=== PATIENT | male | born 1940 | race Caucasian/White ===

== ENCOUNTER 2020-08-10 09:05 | Outpatient (REF) | payer MEDICARE, BC, SELFPAY ==
--- NOTE | ~2020-08-10 | XR_ITS ---
EXAMINATION: BILATERAL SHOULDERS: CLINICAL INFORMATION: Right shoulder pain COMPARISON: None TECHNIQUE: 3 views each shoulder. FINDINGS: Right shoulder: There is loss of a C and lateral joint space with periarticular spurring. No fracture, loose bodies or soft tissue swelling seen. There is inferior acromial spurring likely impinging the rotator cuff. Left shoulder: There is loss of glenohumeral joint space without acute fracture dislocation. There is a small loose body or an osteophyte along the superior medial aspect of humeral head with minimal flattening of humeral head medially likely old injury. There is cephalic migration of humeral head in relation to the glenoid with mild lateral acromial spurring. There is likely partial tear of the left humerus and impingement. No soft tissue swelling seen. XR/XR shoulder RT min 2V IMPRESSION: Small loose body or osteophyte along the medial humeral head left shoulder. There is cephalic migration and acromial spurring likely impingement and partial tear of the rotator cuff. No fracture seen. There is degenerative arthritic changes right AC joint and lateral joint with periarticular spurring. Impingement of right rotator cuff tendon is suspected. No acute fracture or loose bodies seen.
--- NOTE | ~2020-08-10 | XR_ITS ---
EXAMINATION: BILATERAL SHOULDERS: CLINICAL INFORMATION: Right shoulder pain COMPARISON: None TECHNIQUE: 3 views each shoulder. FINDINGS: Right shoulder: There is loss of a C and lateral joint space with periarticular spurring. No fracture, loose bodies or soft tissue swelling seen. There is inferior acromial spurring likely impinging the rotator cuff. Left shoulder: There is loss of glenohumeral joint space without acute fracture dislocation. There is a small loose body or an osteophyte along the superior medial aspect of humeral head with minimal flattening of humeral head medially likely old injury. There is cephalic migration of humeral head in relation to the glenoid with mild lateral acromial spurring. There is likely partial tear of the left humerus and impingement. No soft tissue swelling seen. XR/XR shoulder LT min 2V IMPRESSION: Small loose body or osteophyte along the medial humeral head left shoulder. There is cephalic migration and acromial spurring likely impingement and partial tear of the rotator cuff. No fracture seen. There is degenerative arthritic changes right AC joint and lateral joint with periarticular spurring. Impingement of right rotator cuff tendon is suspected. No acute fracture or loose bodies seen.
[2020-08-10 11:08] LABS: MANUAL DIFF FLAG NO
[2020-08-10 11:22] LABS: Basophils Absolute Auto 0.1 X10*3/uL (0.0-0.2); Basophils Percent Auto 0.9 % (0-2); Eosinophils Absolute Auto 0.3 X10*3/uL (0.0-0.4); Eosinophils Percent Auto 3.8 % (0-4); Hematocrit 40.4 % (42-52); Hemoglobin 12.8 g/dl (14.0-18.0); Imm Gran Abs Auto 0.02 X10*3/uL (0.00-0.03); Imm Gran Pct Auto 0.3 % (0.0-0.4); Lymphocytes Absolute Auto 1.7 X10*3/uL (1.2-4.9); Lymphocytes Percent Auto 26.1 % (20-40); Mean Corpuscular HGB Conc 31.7 g/dl (31.0-36.0); Mean Corpuscular Hemoglobin 30.3 pg (27.0-33.0); Mean Corpuscular Volume 95.7 fL (80-98); Mean Platelet Volume 10.5 fL (9.4-12.4); Monocytes Absolute Auto 0.8 X10*3/uL (0.1-1.2); Monocytes Percent Auto 12.7 % (2-11); Neutrophils Absolute Auto 3.7 X10*3/uL (2.0-8.3); Neutrophils Percent Auto 56.2 % (45-73); Platelet Count 293 X10*3/uL (160-400); Red Blood Count 4.22 X10*6/uL (4.60-5.80); Red Cell Distribution Width 13.7 % (11.0-16.0); White Blood Count 6.6 X10*3/uL (4.8-10.8)
[2020-08-10 11:40] LABS: C Reactive Protein 0.06 mg/dL (< or = 0.50); Rheumatoid Factor < 15.0 IU/mL (<15.0)
[2020-08-10 12:46] LABS: Erythrocyte Sedimentation Rate 7 MM/HR (0-15)
== END 2020-08-10 09:06 | disposition home or self-care (01) ==
LOC: HO.HMGCX 09:05
PROVIDERS: PCP Internal Medicine; Visit Provider Internal Medicine
DX: M25.511 Pain in right shoulder (principal); M25.512 Pain in left shoulder
CPT/HCPCS: 36415; 73030; 85025; 85652; 86140; 86431

== ENCOUNTER 2020-08-20 16:30 | Emergency (ER) | payer MEDICARE, BC, SELFPAY ==
[2020-08-20 16:46] VITALS: BP 209/95; PULSE 120; RESP 16; TEMP 36.6; O2SAT 99; BMI 26.9
--- NOTE | 2020-08-20 17:37 | ED.MALEGU ---
HPI - Male Genitourinary General Chief complaint: Urogenital-Male Stated complaint: Super Pubic Tube Blockage Time Seen by Provider: 08/20/20 17:37 Source: patient Mode of arrival: ambulatory Limitations: no limitations History of Present Illness HPI Narrative: Patient on suprapubic catheter for last one year changed 2 weeks ago comes here is having bladder spasm for last 24 hours and urine is not coming that well similar to that in the past. No fever no chills bladder scan showed 253 cc in bladder Related Data Allergies Allergy/AdvReac Type Severity Reaction Status Date / Time No Known Allergies Allergy Verified 08/20/20 16:48 [No Known Allergies*] Review of Systems Review of Systems: Yes all other systems are reviewed and are negative [facility] Past Medical History Medical History Diabetes HTN (hypertension) Suprapubic catheter Social History Social History Alcohol intake: never Smoking Status: Never smoker Use of substances other than those prescribed or required for medical reasons: No Advance Directives: No Advance Directives Information Provided: Yes Physical Exam Vital Signs: Vital Signs: Last Vital Signs Temp 97.9 F 08/20/20 18: Pulse 88 08/20/20 18:21 Resp 18 08/20/20 18:21 BP 155/76 H 08/20/20 18:21 Pulse Ox 95 08/20/20 18:21 Body Mass Index 26.9 Appearance: Alert. Oriented X3. No acute distress. Eyes: Pupils equal, round and reactive to light. ENT: Pharynx normal. Neck: Normal inspection. Neck supple. CVS: Normal heart rate and rhythm. Pulses normal. Respiratory: No respiratory distress. Breath sounds normal. Abdomen: Soft and nontender. Bowel sounds are present, no mass palpable, no CVA tenderness suprapubic catheter in place Skin: Skin warm and dry. Normal skin color. Normal skin turgor. Extremities: No lower extremity edema. Neuro: Oriented X 3. No motor deficit. No sensory deficit. Procedures Catheter Insertion (Urinary) Date of insertion: 08/20/20 Time of insertion: 18:02 Reason for placing: Yes Reason for placing indwelling catheter: Acute urinary retention Bladder scan/ultrasound used before catheterization: Yes Estimated amount of urine (mLs): 268 Antiseptic solution prep: Povidone-Iodine Topical anesthesia used: No Catheter type/location: Urethral Size (Occitan): 20 Catheter balloon size (mL): 10 Catheter balloon amount: 10 Results: successfully catheterized-immediate flow Procedure performed: without complications Comment: Suprapubic catheter MDM - Male Genitourinary MDM Narrative Medical decision making narrative: Patient with partially blocked suprapubic catheter bladder scan showed [address] new suprapubic catheter Patient urine showed no bacteria leuko esterase 2+ nitrite negative WBCs 1-4. Will send the urine for culture at this time there is no clear-cut UTI patient advised to follow-up with PCP to report to the ER if any fever/chills/nausea/vomiting/increased abdominal pain Lab Data Labs: Lab Results 08/20/20 Range/Units 18:00 Urine Color YELLOW Urine Appearance HAZY Urine pH 6.5 (5.0-8.0) Ur Specific [place] 1.010 (1.005-1.025) Urine Protein NEG (NEG-TRACE) MG/DL Urine Glucose (UA) NEG (NEG) MG/DL Urine Ketones NEG (NEG) MG/DL Urine Blood 2+ H (NEG) Urine Nitrite NEG (NEG) Ur Leukocyte Esterase 2+ H (NEG) Urine RBC 1-4 (0) /HPF Urine WBC 1-4 (0-4) /HPF Ur Squamous Epith Cells NONE /LPF Urine Bacteria TRACE /LPF Discharge Plan Discharge Clinical Impression: Acute retention of urine Patient Disposition: Home, Self-Care Instructions: Portillo Catheter Placement and Care (ED) Additional Instructions: Care of Portillo catheter as advised. Will culture urine and let you know of any infection Report to the ER/PCP if fever chills on getting better
--- NOTE | 2020-08-20 17:57 | PC.NURSE ---
PT UPRIGHT IN BED, RR EVEN UNLABORED, SKIN WPD, AOX3. PT PRESENTS TO ED C/O SUPRAPUBIC CATHETER NOT DRAINING X4 HRS, C/O LOWER ABD PAIN SECONDARY TO URINARY RETENTION. CATHETER REPLACED BY DR OLSON, PT REPORTS IMMEDIATE SIGNIFICANT IMPROVEMENT IN SX AFTER DRAINING OF URINE. PT AWAITING UA.
[2020-08-20 18:13] LABS: Glucose Urine UA NEG (NEG); Leukocyte Esterase Urine 2+ (NEG); Nitrite Urine NEG (NEG); PH 6.5 (5.0-8.0); UACC Culture Trigger YES; Urine Blood 2+ (NEG); Urine Ketones NEG (NEG); Urine Protein NEG (NEG-TRACE)
[2020-08-20 18:14] LABS: Appearance Urine HAZY; Color Urine YELLOW
[2020-08-20 18:21] VITALS: BP 155/76; PULSE 88; RESP 18; TEMP 36.6; O2SAT 95
[2020-08-20 18:23] LABS: Bacteria Urine TRACE /LPF
== END 2020-08-20 18:38 | disposition home or self-care (01) ==
PROVIDERS: Emergency Provider Internal Medicine; PCP Internal Medicine
DX: R33.9 Retention of urine, unspecified (principal)
CPT/HCPCS: 51702; 81001; 81003; 87086; 99284; 99285

== ENCOUNTER → 2020-08-21 10:22 | Outpatient (REF) | payer MEDICARE, BC, SELFPAY ==
--- NOTE | 2020-08-21 10:30 | CA_ITS ---
Transthoracic Echocardiogram Patient (Last, First, Middle): Delroy Wheat B Gender: Male Date of : 1940 Age: 80 Procedure Date: 08/21/2020 Procedure Type: Transthoracic Echocardiogram Location: OP Height: 177.8 cm Weight: 86.18 kg BSA: 2.04 m2 Heart Rate: bpm BP: 150 / 70 mmHg Leasing Assistant: [facility] MD: Per Seay MD Bench Boring Machine Operator: Liam Sotelo MD Symptoms: I47.1 ATRIAL TACHYCARDIA, I49.3 PVC R00.2 PALPITATIONS Study Quality: Fair ECG Rhythm: Sinus Conclusions: - 1. Normal LV systolic function with impaired relaxation filling pattern 2. Normal cardiac valvular Doppler 3. RV systolic pressure was not calculated on this study 4. No pericardial effusion Findings Procedure Information Contrast agent, definity, is being given per protocol without apparent complications. Left Ventricle Normal left ventricular size, thickness, and systolic function. The visually estimated ejection fraction is between 60-65%. Spectral Doppler is indicative of an impaired relaxation filling pattern. E/E prime ratio is between 8 and 15 consistent with indeterminate filling pressures. Right Ventricle Normal right ventricular cavity size and systolic function. Atria The left atrium is normal in size. There is no evidence of interatrial shunt. The right atrium is normal in size. Aortic Valve There is mild calcification of the aortic valve. There is moderate thickening of the aortic valve. There is no aortic valve stenosis. There is no aortic valve regurgitation. Mitral Valve There is mild anterior and moderate posterior mitral leaflet thickening. There is moderate mitral annular calcification. There is trace mitral valve regurgitation. There is no mitral valve stenosis. Pulmonic Valve The pulmonic valve was not well visualized. Tricuspid Valve Likely normal tricuspid valve structure and function. Tricuspid regurgitation envelope is inadequate for calculation of right ventricular systolic pressure. Great Vessels All visible segments of the aorta are normal in size. The pulmonary artery was not well visualized. Venous The inferior vena cava is normal in size and collapses greater than 50% with inspiration. Pericardium/Pleural There is no evidence of pericardial effusion. Measurements 2D Linear Measurements RVIDd: 3.03 RVIDd Index: 1.49 IVSd: 1.20 0.6-0.9/0.6-1.0 cm LVIDd: 4.29 3.9-5.3/4.2-5.9 cm LVIDd Index: 2.10 2.4-3.2/2.2-3.1 cm/m2 LVIDs: 2.57 2.0-3.6 cm LVPWd: 1.05 0.7-1.1 cm Ao Root: 3.20 2.1-3.5 cm LA Diam: 4.50 2.7-3.8/3.0-4.0 cm LAIDs Index: 2.21 1.5-2.3 cm/m2 LV Mass: 208.80 67-162/88-224 g LV Mass Index: 102.35 43-95/49-115 g/m2 LVOT Diam: 2.20 3.0+(-)1.3 cm 2D Systolic Function EF 4C: 63.30 >55% EF 2C: 65.30 >55% EF BiP: 64.50 >55% Mitral Valve MV Pk E: 1.00 MV PK A: 1.05 MV Decel Time: 220.00 E/A: 1.00 E'Lateral: 4.79 E'Medial: 6.09 E/E' Med: 16.40 E/E' Lat: 20.90 Aortic Valve AoV Pk Rubens: 1.78 AoV Mn Rubens: 1.11 AoV VTI: 0.35 AoV Pk Grad: 13.00 Aov Mn Grad: 6.00 ONI Cont.VTI: 2.57 LVOT LVOT Pk Rubens: 1.27 LVOT Mn Rubens: 0.82 LVOT VTI: 0.24 LVOT Pk Grad: 6.00 LVOT Mn Grad: 3.00 LVOT Diam: 2.20 LVOT Area: 3.80 Diastolic Function MV Pk E: 1.00 MV Pk A: 1.05 E/A: 1.00 E'Medial: 6.09 E/E' Med: 16.40 E' Laterial: 4.79 E/E' Lat: 20.90 Tricuspid Valve RA Press: 3.00 Great Vessels Aorta Ao Root-2D: 3.20 2.0-3.7 cm Ao Asc: 3.10 2.1-3.4 cm Ao Arch: 2.70 Updated in Other Vendor System with Status of Final Liam Sotelo MD electronically signed on 08/21/2020 6:04:42 PM with status of Final
--- NOTE | 2020-08-21 12:00 | ECG_ITS ---
Hook-up date: 2020-08-21 12:16:00 Duration: 26:08:00 Test Indications: PALPITATIONS Medications: 407438 QRS complexes 89 Ventricular ectopics which represent <1 % of total QRS comp. 50 Supraventricular ectopics which represent <1 % of total QRS comp. * Paced QRS complexs which represent % of total QRS comp. VENTRICULAR ECTOPY 86 Isolated 0 Bigeminal Cycles 0 Couplets 1 Runs 3 Beats in Runs 3 Beats LONGEST at 137 BPM at 05:13:55 2020-08-22 3 Beats FASTEST at 137 BPM at 05:13:55 2020-08-22 SUPRAVENTRICULAR ECTOPY 37 Isolated 0 Couplets 2 Runs 13 Beats in Runs 10 Beats LONGEST at 158 BPM at 15:27:16 2020-08-21 10 Beats FASTEST at 158 BPM at 15:27:16 2020-08-21 HEART RATES 57 MIN at 04:18:37 2020-08-22 75 AVG 107 MAX at 12:46:55 2020-08-21 LONGEST RR 1.0560 secs at 04:32:11 2020-08-22 S-T LEVELS Channel 1 - 128 mm at 12:16:00 2020-08-21 - 128 mm at 12:16:00 2020-08-21 Channel 2 - 128 mm at 12:16:00 2020-08-21 - 128 mm at 12:16:00 2020-08-21 Channel 3 - 128 mm at 03:13:51 -- - 128 mm at 03:13:51 Underlying rhythm is sinus; Average ventricular rate 75/min; range 57-107/min; Occasional PACs with short runs; longest run 10 beats at 158/min; Occasional PVCs; mostly isolated, one 3 beat run at 137/min; Flutter in patient diary could be from run of PACs. Referred By: Kailyn Hull Overread By: KAILYN HULL
== END ==
LOC: HO.CARD 10:22
PROVIDERS: Visit Provider Internal Medicine
DX: I47.1 Supraventricular tachycardia (principal); I49.3 Ventricular premature depolarization; R00.2 Palpitations
CPT/HCPCS: 93225; 93226; 93306; Q9957

== ENCOUNTER → 2020-08-30 12:21 | Outpatient (BNVA) | payer MEDICARE, BC, SELFPAY | PROVIDERS: PCP Internal Medicine; Visit Provider Internal Medicine | DX: I47.1 Supraventricular tachycardia (principal); I49.3 Ventricular premature depolarization; I05.9 Rheumatic mitral valve disease, unspecified; I10 Essential (primary) hypertension; E11.8 Type 2 diabetes mellitus with unspecified complications | CPT/HCPCS: 93005; 99212 ==

== ENCOUNTER → 2021-02-21 08:59 | Outpatient (BNVA) | payer MEDICARE, BC, SELFPAY | PROVIDERS: PCP Internal Medicine; Visit Provider Internal Medicine | DX: I47.1 Supraventricular tachycardia (principal); I49.3 Ventricular premature depolarization; I05.9 Rheumatic mitral valve disease, unspecified; E11.8 Type 2 diabetes mellitus with unspecified complications; I10 Essential (primary) hypertension | CPT/HCPCS: 99212 ==

== ENCOUNTER 2021-10-30 11:45 | Outpatient (REF) | payer MEDICARE, BC, SELFPAY ==
[2021-10-30 13:15] LABS: Blood Urea Nitrogen 19 mg/dL (9-16); Estimated Glomerular Filt Rate > 60
== END 2021-10-30 11:46 | disposition home or self-care (01) ==
LOC: HO.LAB 11:45
PROVIDERS: PCP Internal Medicine; Visit Provider Psychiatry & Neurology Neurology
DX: G40.209 Localization-related (focal) (partial) symptomatic epilepsy and epileptic syndromes with complex partial seizures, not intractable, without status epilepticus (principal); I10 Essential (primary) hypertension
CPT/HCPCS: 36415; 82565; 84520

== ENCOUNTER 2021-11-09 08:14 | Outpatient (REF) | payer MEDICARE, BC, SELFPAY ==
--- NOTE | ~2021-11-09 | MR_ITS ---
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 COMPARISON: None. TECHNIQUE: Multiplanar, multisequence MRI of the brain was obtained before and after the intravenous administration of 9 mL Gadavist. FINDINGS: BRAIN VOLUME: [id number] generalized diffuse brain parenchymal volume loss with no definite focal/regional predominance within the limitations of a qualitative assessment. STRUCTURAL: No malformations. BRAIN AND MENINGES: DWI sequence demonstrates no restricted diffusion. Specifically, there is no evidence for acute or subacute cerebral ischemia/infarct. Gradient refocused imaging demonstrates no evidence for hemorrhage, hemosiderin staining or abnormal mineral deposition. Mild small patchy zones of FLAIR/T2 signal hyperintensity are noted in the deep centrum semiovale white matter without abnormal enhancement and also scattered throughout the deep parietal/periatrial, right temporal lobe and left hamilton radiata white matter likely reflecting chronic ischemic microangiopathy. The mesial temporal lobe structures are normal in signal intensity bilaterally and are relatively symmetric in appearance. No evidence for mesial temporal sclerosis. 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 Otherwise no intracranial mass lesions, abnormal brain parenchymal or leptomeningeal enhancement, extra-axial fluid collection, space-occupying process or mass effect are identified. VENTRICLES AND SUBARACHNOID SPACES: The ventricular system and subarachnoid spaces are within normal limits without hydrocephalus. ORBITAL STRUCTURES: The visualized orbital structures are grossly unremarkable within the limitations of the study. VASCULAR: Signal voids are noted in the visualized major intracranial vessels. OSSEOUS STRUCTURES, SINUSES/MASTOIDS, EXTRACRANIAL SOFT TISSUES: Small retention cysts in the maxillary sinuses bilaterally and minor mucosal thickening in the ethmoid complex. Osseous marrow signal intensity appears unremarkable. The visualized extracranial soft tissue structures are unremarkable. MR/MR head/brain wo/w con IMPRESSION: 1. No intracranial mass lesion, abnormal enhancement, mesial temporal sclerosis, hemorrhage, space-occupying process, mass effect or hydrocephalus. 2. Chronic ischemic microangiopathy in the white matter of both cerebral hemispheres. No evidence for acute or subacute cerebral ischemia or chronic territorial infarction. 3. 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
== END 2021-11-09 08:15 | disposition home or self-care (01) ==
LOC: HO.MRI 08:14
PROVIDERS: Visit Provider Psychiatry & Neurology Neurology
DX: G40.209 Localization-related (focal) (partial) symptomatic epilepsy and epileptic syndromes with complex partial seizures, not intractable, without status epilepticus (principal)
CPT/HCPCS: 70553; A9585

== ENCOUNTER → 2022-02-21 08:32 | Outpatient (BNVA) | payer MEDICARE, BC, SELFPAY | PROVIDERS: PCP Internal Medicine; Referring Provider Internal Medicine; Visit Provider Internal Medicine | DX: I47.1 Supraventricular tachycardia (principal); I49.3 Ventricular premature depolarization; I35.9 Nonrheumatic aortic valve disorder, unspecified; I05.9 Rheumatic mitral valve disease, unspecified; I10 Essential (primary) hypertension; E11.8 Type 2 diabetes mellitus with unspecified complications | CPT/HCPCS: 93005; 99212 ==

== ENCOUNTER → 2022-07-25 13:12 | Outpatient (BNVA) | payer MEDICARE, BC, SELFPAY | PROVIDERS: PCP Internal Medicine; Referring Provider Internal Medicine; Visit Provider Surgery | DX: R22.41 Localized swelling, mass and lump, right lower limb (principal); E11.8 Type 2 diabetes mellitus with unspecified complications; L72.0 Epidermal cyst | CPT/HCPCS: 99202 ==

== ENCOUNTER 2022-10-10 08:19 | Outpatient (REF) | payer MEDICARE, BC, SELFPAY ==
--- NOTE | 2022-10-10 08:31 | ECG_ITS ---
Test Reason : TYPE II DM, HTN Blood Pressure : / mmHG Vent. Rate : 078 BPM Atrial Rate : 078 BPM P-R Int : 132 ms QRS Dur : 086 ms QT Int : 360 ms P-R-T Axes : 069 068 070 degrees QTc Int : 410 ms Normal sinus rhythm Normal ECG When compared with ECG of 12-AUG-2006 07:33, QT has shortened Referred By: Kishor Mcmanus Electronically Signed By:KAILYN HULL
[2022-10-10 08:34] LABS: MANUAL DIFF FLAG NO
[2022-10-10 09:24] LABS: Basophils Absolute Auto 0.1 X10*3/uL (0.0-0.2); Basophils Percent Auto 0.9 % (0-2); Eosinophils Absolute Auto 0.2 X10*3/uL (0.0-0.4); Eosinophils Percent Auto 2.9 % (0-4); Hematocrit 43.9 % (42.0-52.0); Hemoglobin 14.2 g/dl (14.0-18.0); Imm Gran Abs Auto 0.03 X10*3/uL (0.00-0.03); Imm Gran Pct Auto 0.4 % (0.0-0.4); Lymphocytes Absolute Auto 1.8 X10*3/uL (1.2-4.9); Lymphocytes Percent Auto 25.5 % (20-40); Mean Corpuscular HGB Conc 32.3 g/dl (31.0-36.0); Mean Corpuscular Hemoglobin 30.5 pg (27.0-33.0); Mean Corpuscular Volume 94.4 fL (80.0-98.0); Mean Platelet Volume 10.1 fL (9.4-12.4); Monocytes Absolute Auto 0.9 X10*3/uL (0.1-1.2); Neutrophils Percent Auto 57.3 % (45-73); Platelet Count 285 X10*3/uL (160-400); Red Blood Count 4.65 X10*6/uL (4.60-5.80); Red Cell Distribution Width 13.5 % (11.0-16.0)
[2022-10-10 09:42] LABS: Appearance Urine Clear; Color Urine Yellow; Glucose Urine UA Negative (Negative); Leukocyte Esterase Urine Moderate (2+) (Negative); Nitrite Urine Positive (Negative); PH 7.5 (5.0-9.0); UMIC TRIGGER UA YES; Urine Blood Negative (Negative); Urine Ketones Negative (Negative); Urine Protein Negative (Neg-Trace)
[2022-10-10 09:45] LABS: Bacteria Urine 2+ (None Seen); Hyaline Casts Urine 0-2 /LPF (0-2); RBC Urine 0-2 /HPF (0-2); Squamous Epithelial Cell Urine 0-2 /HPF (0-2)
[2022-10-10 09:53] LABS: Alanine Aminotransferase 13 U/L (0-40); Albumin Level 4.2 g/dL (3.5-5.0); Alkaline Phosphatase 56 U/L (39-117); Anion Gap 11 (12-20); Aspartate Amino Transferase 15 U/L (5-37); Bilirubin Total 0.6 mg/dL (0.0-1.0); Blood Urea Nitrogen 16 mg/dL (9-16); Calcium 9.8 mg/dL (8.4-10.2); Carbon Dioxide 31 mmol/L (22-29); Chloride 102 mmol/L (96-108); Estimated Glomerular Filt Rate > 60; Glucose Random 93 mg/dL (60-115); Potassium 4.3 mmol/L (3.3-5.1); Sodium 140 mmol/L (135-145); Total Protein 7.1 g/dL (6.5-8.0)
== END 2022-10-10 08:20 | disposition home or self-care (01) ==
LOC: HO.LAB 08:19
PROVIDERS: PCP Internal Medicine; Visit Provider Internal Medicine
DX: M19.072 Primary osteoarthritis, left ankle and foot (principal); E11.9 Type 2 diabetes mellitus without complications; I10 Essential (primary) hypertension; R82.90 Unspecified abnormal findings in urine; Z85.46 Personal history of malignant neoplasm of prostate
CPT/HCPCS: 36415; 80053; 81001; 85025; 87086; 93005

== ENCOUNTER → 2023-02-17 10:02 | Outpatient (REF) | payer MEDICARE, BC, SELFPAY | LOC: HO.CARD 10:02 | PROVIDERS: PCP Internal Medicine; Visit Provider Internal Medicine | DX: R00.2 Palpitations (principal); I47.10 Supraventricular tachycardia, unspecified | CPT/HCPCS: 93242 ==

== ENCOUNTER → 2023-02-17 10:07 | Outpatient (BNV) | payer MEDICARE, BC, SELFPAY | PROVIDERS: PCP Internal Medicine; Visit Provider Internal Medicine | DX: I47.10 Supraventricular tachycardia, unspecified (principal) | CPT/HCPCS: 93244 ==

== ENCOUNTER 2023-03-03 13:05 | Outpatient (AMB) | payer MEDICARE, BC, SELFPAY ==
--- NOTE | 2023-03-03 13:32 | MHC.OFFVIS ---
Intake Vital Signs 03/03/23 13:35 Height 5 ft 10 in Weight 202 lb 6.15 oz BMI 29.0 BP 140/60 H Blood Pressure Location Lt brachial Position Sitting Pulse 81 Intake Visit Reasons: 1 year fu /holter Intake Note: 1 year follow up [employer] Required: No Accompanied by: Self / Same As Patient Allergies No Known Allergies [No Known Allergies*] Allergy (Verified 03/03/23 13:38) Medication List - Last Reconciled 03/03/23 by Per Seay MD amiloride 5 mg PO DAILY amlodipine 10 mg PO DAILY atorvastatin 40 mg PO DAILY calcium carbonate-vitamin D3 600 mg-10 mcg (400 unit) 1 tab PO DAILY insulin detemir U-100 units subcut lisinopril 40 mg PO DAILY losartan 50 mg PO DAILY metformin 1,000 mg PO BID metoprolol succinate ER 50 mg PO DAILY oxybutynin chloride 5 mg PO DAILY HPI HPI Comments History of Present Illness Details Delroy returns for follow-up regarding palpitations. In the past, he was seen for the same and workup at [facility] primarily atrial and ventricular ectopy. He was put on beta-blockers. He states that that improved his symptoms significantly and only rarely he feels the palpitations. Since last seen, no new complaints. He states he feels good. [facility] Medical History Atrial tachycardia Diabetes Essential hypertension HTN (hypertension) Hyperaldosteronism Mitral annular calcification PVC (premature ventricular contraction) Suprapubic catheter Type 2 diabetes mellitus with unspecified complications Surgical History History of nephrolithotomy with removal of calculi History of ankle surgery History of tonsillectomy History of lumbar surgery History of prostate surgery Family History Father No problems noted. Mother No problems noted. Social History Alcohol intake: never Patient Tobacco Use Status: Former Tobacco user Quit Date: 1979 Years Smoked: 20 +/- Review of Systems Const Denies weakness ENT Denies dizziness Card Denies chest pain, Denies chest pain with activity, Denies syncope, Denies rapid heart rate, Denies pedal edema, Denies edema, Denies leg edema, Denies lightheadedness, Denies palpitations, Denies dyspnea, Denies dyspnea on exertion and Denies orthopnea Resp Denies cough, Denies dyspnea and Denies dyspnea on exertion GI Denies hematochezia and Denies change in stool character Musc Denies abnormal gait, Denies muscle cramps, Denies muscle weakness, Denies numbness, Denies radiating pain into limb and Denies tingling Neuro Denies abnormal gait, Denies dizziness, Denies syncope, Denies numbness, Denies tingling and Denies weakness Endo Denies palpitations Physical Exam Vital Signs: Last Vital Signs Pulse 81 03/03/23 13:35 BP 140/60 H 03/03/23 13:35 BMI result Body Mass Index 29.0 Const General: comfortable and no acute distress Orientation/consciousness: patient oriented x3 HEENT Other: Unremarkable Head: Yes normal to inspection Neck Neck: Yes normal visual inspection Chest Chest palpation & inspection: normal inspection of the chest Resp Auscultation: clear to auscultation bilaterally Cardio Palpation: normal PMI Heart sounds: S1 normal heart sound present, S2 normal heart sound present, no gallops, no murmurs and no rubs GI Palpation (GI): Soft to palpation Back/Spine/Pelvis Other: unremarkable Skin General skin exam: no rashes or lesions noted Neuro General: patient oriented x3 Extrem General: Yes normal to inspection Psych Mental Status: mental status grossly normal Assessment & Plan Assessment & Plan (1) Atrial tachycardia: Code(s): I47.1 - Supraventricular tachycardia (2) PVC (premature ventricular contraction): Code(s): I49.3 - Ventricular premature depolarization (3) Aortic valve calcification: Code(s): I35.9 - Nonrheumatic aortic valve disorder, unspecified (4) 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 Hence well controlled on beta-blockers. May continue that. Echocardiogram in the past had shown aortic and mitral calcifications but no significant valvular dysfunction. No specific management at this time. Based on symptoms and clinical findings, consider repeat echocardiogram in the future. Coding Level of Care Code Est Pt Level 3 (13045) Diagnoses Atrial tachycardia I47.1 PVC (premature ventricular contraction) I49.3 Aortic valve calcification I35.9 Mitral annular calcification I05.9
[2023-03-03 13:35] VITALS: BP 140/60; PULSE 81; BMI 29.0
== END 2023-03-03 13:52 | disposition home or self-care (01) ==
PROVIDERS: PCP Internal Medicine; Visit Provider Internal Medicine
DX: I47.1 Supraventricular tachycardia (principal); I49.3 Ventricular premature depolarization; I35.9 Nonrheumatic aortic valve disorder, unspecified; I05.9 Rheumatic mitral valve disease, unspecified
CPT/HCPCS: 99213

== ENCOUNTER → 2023-03-03 13:05 | Outpatient (BNVA) | payer MEDICARE, BC, SELFPAY | PROVIDERS: PCP Internal Medicine; Visit Provider Internal Medicine | DX: I47.10 Supraventricular tachycardia, unspecified (principal); I49.3 Ventricular premature depolarization; I35.9 Nonrheumatic aortic valve disorder, unspecified; I05.9 Rheumatic mitral valve disease, unspecified | CPT/HCPCS: 99212 ==

== ENCOUNTER 2024-06-16 13:35 | Outpatient (AMB) | payer MEDICARE, BC, SELFPAY ==
--- NOTE | 2024-06-16 13:29 | A.OFFPC_ITS ---
Vital Signs 06/16/24 14:01 Height 71 ft Weight 215 lb BMI 0.2 BP 124/54 L Blood Pressure Location Rt brachial Pulse 91 Pulse Source Pulse Oximeter Temp 97.1 F Pulse Oximetry (%) 89 L Intake Visit Reasons: follow up Intake Note: cough for about 1 week no other symptoms sleeps alot Allergies No Known Allergies [No Known Allergies*] Allergy (Verified 06/16/24 14:50) Medication List - Last Reconciled 06/16/24 by Piedad Garvin PA-C albuterol sulfate 90 mcg/actuation 1 inh inhalation QID PRN amiloride 5 mg PO DAILY amlodipine 10 mg PO DAILY amoxicillin-pot clavulanate 875-125 mg 1 tab PO BID 10 days atorvastatin 40 mg PO DAILY azithromycin For 250 mg dose pack: take 500 mg today (day 1), then 250 mg for 4 days (days 2-5) PO calcium carbonate-vitamin D3 600 mg-10 mcg (400 unit) 1 tab PO DAILY insulin detemir U-100 units subcut insulin glargine (Basaglar KwikPen U-100 Insulin) 18 units (0.18 mL) subcut QAM losartan 50 mg PO DAILY metformin 1,000 mg PO BID metoprolol succinate ER 50 mg PO DAILY oxybutynin chloride 5 mg PO DAILY [facility] Medical History (Updated 06/16/24 @ 15:02 by Piedad Garvin PA-C) History of pyelonephritis Substance abuse Alcoholism Mitral annular calcification Hyperaldosteronism Essential hypertension Type 2 diabetes mellitus with unspecified complications PVC (premature ventricular contraction) Atrial tachycardia HTN (hypertension) Diabetes Suprapubic catheter Surgical History History of nephrolithotomy with removal of calculi History of ankle surgery History of tonsillectomy History of lumbar surgery History of prostate surgery Family History Father No problems noted. Mother No problems noted. Social History Alcohol intake: never Patient Tobacco Use Status: Former Tobacco user Years Smoked: 20 +/- Physical exam (Primary Care) Vital Signs: Last Vital Signs Temp 97.1 F 06/16/24 14:01 Pulse 91 06/16/24 14:01 BP 124/54 L 06/16/24 14:01 Pulse Ox 89 L 06/16/24 14:01 Care Plan Goal for BP management: 130/80 at goal BMI result Body Mass Index 0.2 BMI Assessment/Plan discussion: High BMI High, discussed plan: lifestyle, weight reduction, dietary and physical activity Tobacco/Smoking Status: Tobacco use Status Patient Tobacco Use Status Former Tobacco user 06/16/24 13:30 Coding Level of Care Code New Pt Level 4 (36050) Complex EM visit Add On G2211 Diagnoses Atrial tachycardia I47.1 PVC (premature ventricular contraction) I49.3 Type 2 diabetes mellitus with unspecified complications E11.8 Essential hypertension I10 Mitral annular calcification I05.9 Aortic valve calcification I35.9 Intermittent chest pain R07.9 Degenerative disc disease, lumbar M51.369 Obstructive sleep apnea G47.33 Bronchitis J40 Hyperaldosteronism E26.9 Bladder stone N21.0 Assessment & Plan Assessment & Plan (1) Atrial tachycardia: Code(s): I47.1 - Supraventricular tachycardia Category: Medical Plan: Patient to continue metoprolol extended release 100 mg daily. Condition is chronic and stable will continue to monitor. (2) PVC (premature ventricular contraction): Code(s): I49.3 - Ventricular premature depolarization Category: Medical Plan: Condition is chronic and stable continue to monitor. (3) Type 2 diabetes mellitus with unspecified complications: Code(s): E11.8 - Type 2 diabetes mellitus with unspecified complications Category: Medical Plan: Continue Atorvastatin Calcium Tablet, 40 MG, 1 tablet, Orally, Once a day Continue metFORMIN HCl Tablet, 1000 MG, 1 tablet with a meal, Orally, Twice a day Continue Basaglar KwikPen Solution Pen-injector, 100 UNIT/ML, 18 units, Subcutaneous,Once a day Continue BD Pen Needle Rivka U/F Miscellaneous, 32G X 4 MM, as directed, Subcutaneous, Once as day Continue OneTouch Ultra Strip, -, as directed, In Vitro, Twice a day, Notes: E11.9 Condition is chronic and stable will continue to monitor (4) Essential hypertension: Code(s): I10 - Essential (primary) hypertension Category: Medical Plan: Continue Metoprolol Succinate ER Tablet Extended Release 24 Hour, 100 MG, 1 tablet, Orally, Once a day Continue Aspirin Tablet Delayed Release, 81 MG, 1 tablet, Orally, Once a day Continue Losartan Potassium Tablet, 50 MG, 1 tablet, Orally, Once a day Continue amLODIPine Besylate Tablet, 10 MG, 1 tablet, Orally, Once a day Condition is chronic and stable continue to monitor (5) Mitral annular calcification: Code(s): I05.9 - Rheumatic mitral valve disease, unspecified Category: Medical Plan: Condition is chronic and stable will continue to monitor. (6) Aortic valve calcification: Code(s): I35.9 - Nonrheumatic aortic valve disorder, unspecified Category: Medical Plan: Condition is chronic and stable will continue to monitor. (7) Intermittent chest pain: Code(s): R07.9 - Chest pain, unspecified Category: Medical Plan: Patient denies any active chest pain at this time reports it is sporadic usually when he lays down at nighttime. Will obtain outpatient labs, EKG and refer to Cardiology. Condition is stable will continue to monitor. (8) Degenerative disc disease, lumbar: Code(s): M51.369 - Other intervertebral disc degeneration, lumbar region without mention of lumbar back pain or lower extremity pain Category: Medical Plan: Condition is chronic and stable will continue to monitor. (9) Obstructive sleep apnea: Code(s): G47.33 - Obstructive sleep apnea (adult) (pediatric) Category: Medical Plan: Condition is chronic and stable will continue to monitor. (10) Bronchitis: Code(s): J40 - Bronchitis, not specified as acute or chronic Category: Medical Plan: Patient will be started on Augmentin, Z-Eldon and albuterol inhaler will also order outpatient chest x-ray. When I reassess the patient's vitals patient's oxygen is at 95-96% on room air even with ambulation he does not desat upon ambulation. Condition is stable will continue to monitor. (11) Hyperaldosteronism: Code(s): E26.9 - Hyperaldosteronism, unspecified Category: Medical Plan: Continue aMILoride HCl Tablet, 5 MG, 1 tablet with food, Orally, Twice a day Condition is chronic and stable will continue to monitor (12) Bladder stone: Code(s): N21.0 - Calculus in bladder Category: Medical Plan: Continue oxyBUTYnin Chloride ER Tablet Extended Release 24 Hour, 5 MG, 1 tablet, Orally, Once a day Condition is chronic and stable continue to monitor Plan Plan - Initiation of albuterol inhaler for suspected bronchitis-like symptoms. - Prescribe antibiotics for possible respiratory infection. - Schedule chest X-ray and EKG for further evaluation of respiratory and cardiac symptoms. - Arrange repeat fasting labs to update metabolic profile, including complete blood chemistry and A1c levels. - Recommended location for lab and imaging: [facility]. - Continue current cigarette smoking abstinence and alcohol remission. Orders: Orders Comprehensive Met. Panel Today Z. - Encounter for general adult medical examination without abnormal findings Liver Panel Today Z. - Encounter for general adult medical examination without abnormal findings Vitamin D 25-OH Total Today Z. - Encounter for general adult medical examination without abnormal findings PSA,Total (Free>4and<10) Today Z. - Encounter for general adult medical examination without abnormal findings ECG 12 lead EKG Today E11.8 - Type 2 diabetes mellitus with unspecified complications, I05.9 - Rheumatic mitral valve disease, unspecified, I10 - Essential (primary) hypertension, I35.9 - Nonrheumatic aortic valve disorder, unspecified, I47.1 - Supraventricular tachycardia, I49.3 - Ventricular premature depolarization, R07.9 - Chest pain, unspecified PTH Intact Intraoperative Today E26.9 - Hyperaldosteronism, unspecified Comprehensive [place]. Panel Fast Today Z00.00 - Encounter for general adult medical examination without abnormal findings B Type Natriuretic Peptide Today R60.0 - Localized edema Hemoglobin A1c Today Z00.00 - Encounter for general adult medical examination without abnormal findings Lipid Panel Today Z00.00 - Encounter for general adult medical examination without abnormal findings Magnesium Today Z00.00 - Encounter for general adult medical examination without abnormal findings Vitamin B12 and Folate Today Z00.00 - Encounter for general adult medical examination without abnormal findings TSH reflex Free T4 Today Z00.00 - Encounter for general adult medical examination without abnormal findings Aldosterone Today E26.9 - Hyperaldosteronism, unspecified XR chest 2V Today J40 - Bronchitis, not specified as acute or chronic Referrals Cardiology Referral E11.8 - Type 2 diabetes mellitus with unspecified complications, I05.9 - Rheumatic mitral valve disease, unspecified, I10 - Essential (primary) hypertension, I35.9 - Nonrheumatic aortic valve disorder, un specified, I47.1 - Supraventricular tachycardia, I49.3 - Ventricular premature depolarization, R07.9 - Chest pain, unspecified Medications: New albuterol sulfate 90 mcg/actuation 1 inh inhalation QID PRN 6.7 grams 0RF shortness of breath or wheezing azithromycin For 250 mg dose pack: take 500 mg today (day 1), then 250 mg for 4 days (days 2-5) PO 6 tabs 0RF amoxicillin-pot clavulanate 875-125 mg 1 tab PO BID 10 days 20 tabs 0RF Patient Instructions: Patient Instructions - Begin the prescribed antibiotics and use the albuterol inhaler as directed. - Schedule and attend the chest X-ray and EKG appointments. - Go to [facility] for fasting blood tests; no food after midnight prior. - Monitor symptoms, especially palpitations or new respiratory distress, and report persistent or worsening symptoms. - Attend a follow-up appointment in two weeks for reassessment. - Abstain from smoking and alcohol as continuation of good health practices. Scribe Plan - Not visible on output: History of Present Illness The patient is an 83-year-old male presenting with shortness of breath/upper respiratory symptoms and a follow-up for his Type 2 Diabetes Mellitus. He reports experiencing shortness of breath, particularly while exerting, such as climbing stairs, over the past week. He has had a cough during this time, but it is improving. He denies fever but notes occasional sputum production. The patient also describes a minor, non-specific chest discomfort occurring sporadically without provocation. His medical history includes COPD, diagnosed previously, for which he uses medication management. Additionally, the patient has a history of Type 2 Diabetes Mellitus, for which he is on Metformin 1000 mg twice daily and insulin therapy at 8 units once daily. A medical history of hypertension is noted, with management on metoprolol, losartan, and amlodipine. He has managed hyperlipidemia with atorvastatin. The patient reports a history of sleep apnea but does not use CPAP. 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 His arthritis remains untreated despite a diagnosis of rheumatoid arthritis. No recent blood work has been documented since December 2023. He utilizes a cane while walking. He denies any chest pain, paresthesias, dizziness, abdominal pain or any other symptoms at this time. Social History - Former smoker, quit 40+ years ago. - Former alcohol user, abstinent for 47 years. - History of alcohol-related family issues noted with the patient?s father. Review of Systems - Respiratory: Reports shortness of breath on exertion and a cough. - Cardiovascular: Denies current chest pain but reports prior episodes. - Neurological: Reports heart palpitations without associated pain. - Musculoskeletal: Denies leg swelling. - Gastrointestinal: Denies abdominal pain. Physical Exam Appearance: Alert. Oriented X3. No acute distress. Head: Normal external exam. Normocephalic. Atraumatic. Eyes: Pupils are equal, round, and reactive to light. Extraocular movements intact. Conjunctiva and sclera normal. Eyelids normal. Ears: External auditory canal normal. Tympanic membranes normal. Throat: Pharynx normal. Uvula midline. Moist mucous membranes. Neck: Normal inspection. Neck supple. Full range of motion. No adenopathy. Thyroid Normal. No meningeal signs. No neck mass noted. Cardiovascular: Normal heart rate and rhythm. Heart sound normal. No murmurs noted. Pulses normal throughout. Respiratory: No respiratory distress noted. Occasional wheezing present. Otherwise Breath sounds normal. No rales/rhonchi noted. Chest nontender. No accessory muscle usage noted or decreased air movement noted. Abdomen: Soft and nontender. Bowel sounds normal in all 4 quadrants. No distention noted. No organomegaly noted. No visible injury noted. Back: No costovertebral angle tenderness. Full range of motion noted. Skin: Skin warm and dry. Normal skin color. Normal skin turgor. No rashes/lesions/lacerations noted. Extremities: No lower extremity edema. Extremities exhibit normal range of motion. Extremities nontender. Neuro: Oriented X 3. No motor deficit. No sensory deficit. Reflexes normal. Results - Labs: Previously completed in December 2023, WNL. Plan - Initiation of albuterol inhaler for suspected bronchitis-like symptoms. - Prescribe antibiotics for possible respiratory infection. - Schedule chest X-ray and EKG for further evaluation of respiratory and cardiac symptoms. - Arrange repeat fasting labs to update metabolic profile, including complete blood chemistry and A1c levels. - Recommended location for lab and imaging: [facility]. - Continue current cigarette smoking abstinence and alcohol remission. Patient was informed and verbally consented to the use of an ambient scribe for clinic note documentation during this visit. Discussion Notes I discussed with the patient the importance of managing his current symptoms of shortness of breath and cough, likely due to a respiratory infection. We agreed to start antibiotics and use an albuterol inhaler as a trial to see if symptoms improve. Urgent repeat labs and imaging were arranged to assess the impact of these conditions on his cardiovascular and pulmonary systems. We reviewed the concern about the previously mentioned ?mask? and agreed additional imaging would clarify this. I emphasized the necessity of continuing his current diabetes management without steroids due to the risk of hyperglycemia. Plans to reassess him in two weeks were made, allowing time to evaluate the effects of the current therapeutic interventions. Patient Instructions - Begin the prescribed antibiotics and use the albuterol inhaler as directed. - Schedule and attend the chest X-ray and EKG appointments. - Go to [facility] for fasting blood tests; no food after midnight prior. - Monitor symptoms, especially palpitations or new respiratory distress, and report persistent or worsening symptoms. - Attend a follow-up appointment in two weeks for reassessment. - Abstain from smoking and alcohol as continuation of good health practices.
[2024-06-16 14:01] VITALS: BP 124/54; PULSE 91; TEMP 36.2; O2SAT 89
--- OUTSIDE RECORDS SUMMARY | 2024-06-16 15:49 | XMS_ITS | Patient Health Record ---
Author Organization [facility] Address [address] [place] [address] Care Team Providers Care Cassandra Consultant Name Role Phone Kishor Mcmanus MD Primary Care Provider Unavail Nathalie Mendez Unavailable [phone] Allergies Allergen (clinical drug ingredient) Drug/Non Drug Allergy documented on EMR Reaction Allergy Type Onset Date Status Alcohol Unknown Drug Allergy Active meperidine Demerol Unknown Drug Allergy Active codeine Codeine Unknown Drug Allergy Active morphine Morphine Unknown Drug Allergy Active Reason For Referral No Information Medications Medication SIG (Take, Route, Frequency, Duration) Notes Start Date End Date Status Lisinopril Not-Takin g hydroCHLOROthiazide Not-Taking Aleve 220 MG 1 tablet with food or milk as needed Orally every 12 hrs Not-Taking Flomax twice a day Not-Taki ng Lisinopril 40 MG 1 tablet Orally Once a day for 30 day(s) Not-Taking Aleve PM 220-25 MG Orally N ot-Taking oxyBUTYnin Active Insulin Not-Taking Vitamin B12 Not-Taki ng aMILoride HCl 5 MG 1 tablet with food Orally Once a day for 30 day(s) Active Atorvastatin Calcium 20 MG 1 tablet Orally Once a day for 30 day(s) Active Aspirin 325 MG 1 tablet Orally Once a day for 30 day(s) Active Multi Vitamin/Minerals Not-Taking Folic Acid Not-Takin g Vitamin D Not-Taking metFORMIN HCl Not-Ta rayna Glucosamine Not-Taki ng Levemir FlexPen Not- Taking Fish Oil Not-Taking Amlodipine & Diet Manage Prod Not-Taking Chromium Not-Taking Atorvastatin Calcium Not-Taking Aleve Not-Taking Fluticasone Propionate 50 MCG/ACT 1 spray in each nostril Nasally Once a day for 30 day(s) PRN Active BD Pen Needle Ultrafine Active amLODIPine Besylate 10 MG 1 tablet Orall y Once a day for 30 day(s) Active Vitamin B6 Not-Takin g potassium Not-Taking OneTouch Ultra Test Active Multivitamin Adult - 1 tablet Orally Once a day for 30 day(s) Active Metoprolol Succinate ER 50 MG 1 tablet Orally Once a day Active metFORMIN HCl 1000 MG 1 tablet with a meal Orally Once a day for 30 day(s) Active Losartan Potassium 50 MG 1 tablet Orally Once a day for 30 day(s) 8mg 1per day Active Levemir FlexTouch 100 UNIT/ML as directed Subcutaneous Active Loratadine 10 MG 1 tablet Orally Once a day for 30 day(s) Active Immunizations Vaccine Route Administration Date Status Comme nts COVID-19 Pfizer BioNTech Vaccine Unknown 02/20/2022 Administered 1st 06/23/20,02/06/2021 2nd 07/21/20,2021 Flu vaccine no Preserv 3 and > Unknown 09/11/2015 Administered Influenza Unknown 02/20/2022 Administered Social History Tobacco Use: Social History Observation Description Date Details (start date - stop date) Former Smoker NA - NA Tobacco Use/Smoking Question Answer Notes Are you a: former smoker Additional Findings: Tobacco Non-User Current no n-smoker Alcohol Screen Question Answer Notes Did you have a drink containing alcohol in the p ast year? No Points 0 Interpretation Negative Tobacco use other than smoking: Question Answer Notes Are you an other tobacco user? No Problems Problem Type SNOMED Code ICD Code Onset Dates Problem Status W/U Status Risk Notes Problem Localized, primary osteoarthritis of the ankle and/or foot (559599394) Primary osteoarthritis, right ankle and foot (M19.071) Active confirmed Problem Localized, primary osteoarthritis of the ankle and/or foot (251077025) Primary osteoarthritis, left ankle and foot (M19.072) Active confirmed Problem Non-pressure chronic ulcer of other part of left foot limited to breakdown of skin (L97.521) Active confirmed Problem Non-pressure chronic ulcer of other part of right foot limited to breakdown of skin (L97.511) Active confirmed Problem Polyneuropathy due to diabetes mellitus type I (001533119) Type 1 diabetes mellitus with diabetic polyneuropathy (E10.42) Active confirmed Plan Of Treatment Pending Test Test Name Order Date Hemoglobin A1c 08/15/2014 X ray : Foot, left 3V 07/26/2020 68165-DOHCUMS NAIL, 6 OR MORE 09/22/2017 43273-JWXUZTL NAIL, 6 OR MORE 03/24/2017 09847-HUZGFCY NAIL, 6 OR MORE 2017 10640-MCKNMYV NAIL, 6 OR MORE 12/18/2016 21230-VNBEHQB NAIL, 1-5 03/18/2016 52996-ESPFTMN NAIL, 1-5 06/19/2016 11757-PSPTIOK NAIL, 1-5 08/15/2014 82055-EOEXKOZ NAIL, 1-5 11/14/2014 19235-UKFPBMA NAIL, 1-5 02/13/2015 93751-FSWGGQJ NAIL, 1-5 05/22/2015 80245-OTLENYG NAIL, 1-5 09/11/2015 32916-YFHSKSX NAIL, 1-5 12/18/2015 85361-Fflelgam Plate 08/15/2014 88001, J0702- INJECT or DRAIN, JOINT/BUR SA 01/15/2016 40051-LGIV SKIN LESIONS, 2 TO 4 12/18/19 16 37696-UHEW SKIN LESIONS, 2 TO 4 09/11/19 16 74863-UDYS SKIN LESIONS, 2 TO 4 05/22/19 16 36660-XQAR SKIN LESIONS, 2 TO 4 06/19/19 17 00020-PHDP SKIN LESIONS, 2 TO 4 09/17/19 17 59082-TDZZ SKIN LESIONS, 2 TO 4 12/19/19 17 45556-TYAK SKIN LESIONS, 2 TO 4 03/18/20 16 12379-UBVW SKIN LESIONS, 2 TO 4 03/24/20 17 51491-LBYS SKIN LESIONS, 2 TO 4 09/23/19 18 10722-UQRH SKIN LESIONS, 2 TO 4 06/26/19 18 54365-LRCE SKIN LESIONS, 2 TO 4 02/14/20 15 00366-GCTW SKIN LESIONS, 2 TO 4 03/22/20 21 92652-ENNL SKIN LESIONS, 2 TO 4 08/02/19 22 65045-YPOA NAIL(S) 08/15/2014 99723-IVZP NAIL(S) 02/13/2015 50775-NTTP NAIL(S) 11/14/2014 87146, J0702- Neuroma/Injection 01/15/20 16 X ray : Ankle, right 3V 09/11/2015 Next Appt Details Provider Name:Nathalie booker, 06/21/2024 10:15:00 AM, [address] [place], [address], Insurance Providers Payer Name Payer Address Payer Phone Subscriber Number Group Number Insured Name Patient Relationship to Insured Coverage Start Date Coverage End Date Medicare National Govt [facility] [address] [facility] [place] [address] [id number] Delroy Wheat Self - patient is the insured [facility] [address] [place] [address] [phone] [id number] Delroy Wheat Self - patient is the insured Medical (General) History Medical History History ICD Code Back,Hip,and Knee pain Chicken pox Hypertension Menieres disease Neuropathy Measles Mumps type II diabetes Cholesterol rheumatoid arthritis Prostate cancer palpitations Sleep apnea Lumbar disc disease Substance abuse-alcohol and codeine in r emission >40 years Arthritis Cancer Broken bones Heart disease Joint implants/screws Surgical History Surgery Date(Month/Year) spine surgery 05/20/2011 prostate surgery 08/2014 tonsillectomy and adenoidectomy ankle fusion - right 04/27/21
--- OUTSIDE RECORDS SUMMARY | 2024-06-16 15:50 | XMS_ITS | Encounter Summary ---
Author Organization [facility] Address [address] [place] [address] Care Team Providers Care Foreign Broadcast Specialist Name Role Phone Kishor Mcmanus DO Primary Care Provider [phone] Per Seay MD Unavailable [phone] Anton Robledo MD Unavailable [phone] Nabil Narvaez MD Unavailable [phone] Encounter Details Date Type Department Care Team (Late st Contact Info) Description 10/08/2023 Scanned Document [facility] [address] [place] [address] Anton Robledo MD [address] [place] [id number] Social History Tobacco Use Types Packs/Day Years Used Date Smoking Tobacco: Former Cigarettes Q uit: 1978 Smokeless Tobacco: Never Alcohol Use Standard Drinks/Week Comments Not Currently 0 (1 standard drink = 0.6 oz pure alcohol) 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 Sex and Gender Information Value Date Recorded Sex Assigned at Not on file Gender Identity Not on file Sexual Orientation Not on file documented as of this encounter Plan of Treatment Not on file documented as of this encounter Visit Diagnoses Not on filedocumented in this encounter Care Teams Foreign Broadcast Specialist Relationship Specialty Start Date End Date Kishor Mcmanus DO [address] [place] [id number] PCP - General Internal Medicine 02/27/21 Per Seay MD [address] [place] [address] Chief Informatics Officer Cardiovascular Disease 02/28/21 Anton Robledo MD [address] [place] [address] Surgery, Orthopedic 03/08/21 Nabil Narvaez MD [address] [place] [id number] Referring Provider Urology 03/08/21 documented as of this encounter
--- OUTSIDE RECORDS SUMMARY | 2024-06-16 15:50 | XMS_ITS ---
Author Organization Kishor Mcmanus DO, FACP Address [address] [place], [place] [id number] Care Team Providers Care Air Director Name Role Phone MariettaKishor dick Primary Care Provider REASON FOR VISIT Refills MEDICATIONS Medication SIG (Take, Route, Frequency, Duration) Notes Start Date End Date Status oxyBUTYnin Chloride ER 5 MG 1 tablet Orally Once a day for 90 days Active Encounters Encounter Location Date Provider Diagnosis Kishor Mcmanus DO, FACP [address] [place], [place] [id number] 02/23/2024 Kishor Mcmanus History of prostate cancer Z85.46 ASSESSMENTS Encounter Date Diagnosis Assessment Notes Treatment Notes Treatment Clinical Notes 02/23/2024 History of prostate cancer (ICD-10 - Z85.46) PLAN OF TREATMENT Medication Medication Name Sig Start Date Stop Date Notes oxyBUTYnin Chloride ER 5 MG 1 tablet Ora lly Once a day for 90 days
--- OUTSIDE RECORDS SUMMARY | 2024-06-16 15:50 | XMS_ITS ---
Author Organization Kishor Mcmanus DO, FACP Address [address] [place], [place] [id number] Care Team Providers Care Medtronics Technician Name Role Phone MariettaKishor Primary Care Provider ALLERGIES No Known Allergies REASON FOR VISIT 3 month f/u, Follow up type II diabetes mellitus MEDICATIONS Medication SIG (Take, Route, Frequency, Duration) Notes Start Date End Date Status Probiotic - 1 tablet Orally Once a day Active Multivitamins 1 tablet Orally Once a day Active aMILoride HCl 5 MG 1 tablet with food O rally Twice a day Active oxyBUTYnin Chloride ER 5 MG 1 tablet Ora lly Once a day Active Loratadine 10 MG 1 tablet Orally Once a day Active metFORMIN HCl 1000 MG 1 tablet with a me al Orally Twice a day Active Atorvastatin Calcium 40 MG 1 tablet Oral ly Once a day Active OneTouch Ultra - as directed In Vitro Twice a day E11.9 Active Basaglar KwikPen 100 UNIT/ML 18 units Subcutaneous Once a day Active BD Pen Needle Rivka U/F 32G X 4 MM as directed Subcutaneous Once as day Active Aspirin 81 MG 1 tablet Orally Once a day Active Losartan Potassium 50 MG 1 tablet Orally Once a day Active amLODIPine Besylate 10 MG 1 tablet Orall y Once a day 01/21/2024 Active Metoprolol Succinate ER 100 MG 1 tablet Orally Once a day Active SOCIAL HISTORY Tobacco Use: Social History Observation Description Date Details (start date - stop date) Former Smoker NA - NA Sex Assigned At : Social History Observation Description Sex Assigned At Unknown Tobacco Use/Smoking Question Answer Notes Patient is a former smoker How long has it been since y ou last smoked? > 10 years Additional Findings: Tobacco Non-User Fo rmer smoker, currently using no form of tobacco Alcohol Screen Question Answer Notes Did you have a drink containing alcohol in the p ast year? No Points 0 Interpretation Negative VITAL SIGNS BMI 30.26 kg/m2 04/27/2024 Blood pressure systolic 148 mm Hg 04/27/20 24 Blood pressure diastolic 58 mm Hg 024 Height 71 in 04/27/2024 Weight 217 lbs 04/27/2024 Encounters Encounter Location Date Provider Diagnosis Kishor Mcmanus DO, [address] [id number] 04/27/2024 Kishor Mcmanus Type 2 diabetes ching itus without complication E11.9 ; Essential hypertension I10 ; Hyperaldosteronism E26.9 and Bladder stone N21.0 ASSESSMENTS Encounter Date Diagnosis Assessment Notes Treatment Notes Treatment Clinical Notes 04/27/2024 Type 2 diabetes ching itus without complication (ICD-10 - E11.9) 04/27/2024 Essential hypertensi on (ICD-10 - I10) 04/27/2024 Hyperaldosteronism (ICD-10 - E26.9) 04/27/2024 Bladder stone (ICD-1 0 - N21.0) PLAN OF TREATMENT Medication Medication Name Sig Start Date Stop Date Notes Probiotic - 1 tablet Orally Once a day Multivitamins 1 tablet Orally Once a day aMILoride HCl 5 MG 1 tablet with food O rally Twice a day oxyBUTYnin Chloride ER 5 MG 1 tablet Orally Once a day Loratadine 10 MG 1 tablet Orally Once a day metFORMIN HCl 1000 MG 1 tablet with a me al Orally Twice a day Atorvastatin Calcium 40 MG 1 tablet Orally Once a day OneTouch Ultra - as directed In Vitro Twice a day E11.9 Basaglar KwikPen 100 UNIT/ML 18 units Chamorro bcutaneous Once a day BD Pen Needle Rivka U/F 32G X 4 MM as directed Subcutaneous Once as day Aspirin 81 MG 1 tablet Orally Once a day Losartan Potassium 50 MG 1 tablet Orally Once a day amLODIPine Besylate 10 MG 1 tablet Orally Once a day 01/20 Metoprolol Succinate ER 100 MG 1 tablet Orally Once a day Next Appt Details Follow Up: 3 Months, Reason: follow up visit Progress Notes * Examination Category Sub-Category Detail Notes General Examination GENERAL APPEARANCE: in no ac mary's igloo distress, well developed, well nourished HEAD: normocephalic, atrau matic HEART: no murmurs, regular rate and rhythm, S1, S2 normal LUNGS: clear to auscultatio n bilaterally ABDOMEN: normal, bowel sounds present, soft, nontender, nondistended SKIN: warm and dry EXTREMITIES: no edema PSYCH: alert, oriented, cog nitive function intact
--- OUTSIDE RECORDS SUMMARY | 2024-06-16 15:50 | XMS_ITS | Encounter Summary ---
Author Organization [facility] Address [address] [place] [address] Care Team Providers Care Chemistry Account Manager Name Role Phone Kishor Mcmanus DO Primary Care Provider [phone] Per Seay MD Unavailable Anton Robledo MD Unavailable [phone] Nabil Narvaez MD Unavailable [phone] Encounter Details Date Type Department Care Team (Late st Contact Info) Description 10/17/2023 Scanned Document [facility] [address] [place] [address] Anton Robledo MD [address] [place] [address] Social History Tobacco Use Types Packs/Day Years [...] on filedocumented in this encounter Care Teams Chemistry Account Manager Relationship Specialty Start Date End Date Kishor Mcmanus DO [address] [place] [address] PCP - General Internal Medicine 02/27/21 Per Seay MD [address] [place] [address] Pin Pusher Cardiovascular Disease 02/28/21 Antno Robledo MD [address] [place] [address] Surgery, Orthopedic 03/08/21 Nabil Narvaez MD [address] [place] [address] Referring Provider Urology 03/08/21 documented as of this encounter
--- OUTSIDE RECORDS SUMMARY | 2024-06-16 15:50 | XMS_ITS | Encounter Summary ---
Author Organization [facility] Address [address] [place] [address] Care Team Providers Care Linen Room Custodian Name Role Phone iKshor Mcmanus DO Primary Care Provider [phone] Per Seay MD Unavailable [phone] Anton Robledo MD Unavailable Nabil Narvaez MD Unavailable [phone] Encounter Details Date Type Department Care Team (Late st Contact Info) Description 06/06/2023 Scanned Document [facility] [address] [place] [address] Anton Robledo MD [address] [place] [address] Social History Tobacco Use Types Packs/Day Years [...] on filedocumented in this encounter Care Teams Linen Room Custodian Relationship Specialty Start Date End Date Kishor Mcmanus DO [address] [place] [address] PCP - General Internal Medicine 02/27/21 Per Seay MD [address] [place] [address] Capacitor Inspector Cardiovascular Disease 02/28/21 Anton Robledo MD [address] [place] [address] Surgery, Orthopedic 03/08/21 Nabil Narvaez MD [address] [place] [address] Referring Provider Urology 03/08/21 documented as of this encounter
--- OUTSIDE RECORDS SUMMARY | 2024-06-16 15:50 | XMS_ITS | Encounter Summary ---
Author Organization [facility] Address [address] [place] [address] Care Team Providers Care Senior Actuarial Analyst Name Role Phone Kishor Mcmanus DO Primary Care Provider [phone] Per Seay MD Unavailable Anton Robledo MD Unavailable Nabil Narvaez MD Unavailable [phone] Encounter Details Date Type Department Care Team (Late st Contact Info) Description 11/30/2022 Scanned Document [facility] [address] [place] [address] Anton Robledo MD [address] [place] [address] Social History Tobacco Use Types Packs/Day Years [...] on filedocumented in this encounter Care Teams Senior Actuarial Analyst Relationship Specialty Start Date End Date Kishor Mcmanus DO [address] [place] [address] PCP - General Internal Medicine 02/27/21 Per Seay MD [address] [place] [address] Cable Braider Cardiovascular Disease 02/28/21 Anton Robledo MD [address] [place] [address] Surgery, Orthopedic 03/08/21 Nabil Narvaez MD [address] [place] [address] Referring Provider Urology 03/08/21 documented as of this encounter
--- OUTSIDE RECORDS SUMMARY | 2024-06-16 15:51 | XMS_ITS ---
Author Name [facility] Organization Unknown History of Medication Use Medication Directions Dispensed Refills Start Date End Date Stat us tamsulosin (FLOMAX) 0.4 MG capsule TAKE 1 CAPSULE BY MOUTH DAILY FOR 5 DAYS 03/28/2021 active enoxaparin (LOVENOX) 40 MG/0.4ML injection Inject 0.4 mL (40 mg total) under the skin daily. Take after surgery to prevent blood clots 11/22/2022 12/23/2022 active acetaminophen (TYLENOL) 500 MG tablet Take 2 tablets (1,000 mg total) by mouth 3 (three) times a day with meals. 11/22/2022 11/22/2022 active amLODIPine (NORVASC) 10 MG tablet Take 10 mg by mouth every morning. active losartan (COZAAR) 50 MG tablet Take 50 mg by mouth every morning. active aMILoride (MIDAMOR) 5 MG tablet Take 5 tablets by mouth every morning. active oxyCODONE (ROXICODONE) 5 MG immediate release tablet TAKE 1-2 TABLETS BY MOUTH EVERY 4 HOURS NEEDED FOR SEVERE PAIN -MAX 6 PER DAY 04/20/2021 active methocarbamol (ROBAXIN) 500 MG tablet Take 1 tablet (500 mg total) by mouth 2 (two) times a day as needed for muscle spasms. 11/22/2022 active Vitamin D3 (CHOLECALCIFEROL) 50 MCG (2000 UT) tablet Take 2 tablets (4,000 Units total) by mouth daily. 11/22/2022 active methocarbamol (ROBAXIN) 750 MG tablet TAKE ONE TABLET BY MOUTH TWICE A DAY -TAKE AFTER SURGERY 04/20/2021 active glucose blood (OneTouch Ultra) test strip USE TO TEST BLOOD SUGAR TWO TIMES A DAY 09/30/2020 active calcium carbonate (Calcium 600) 600 MG tablet Take 1 tablet (600 mg total) by mouth 2 (two) times a day with meals. 11/22/2022 active Multiple Vitamin (multivitamin) capsule Take 1 capsule by mouth every morning. active oxyCODONE (ROXICODONE) 5 MG immediate release tablet Take 1 tablet (5 mg total) by mouth 4 times daily (every 6 hours) as needed for severe pain. TAKE AFTER SURGERY NEEDED FOR PAIN Max Daily Amount: 20 mg 11/22/2022 11/22/2022 active Problems Problem Status Onset Date Problem Type Date of Resoluti on Source Pain in left ankle and joints of left foot active [facility] Arthritis of left ankle active 2021-04-27 ProblemAct [facility] Immunizations Vaccine Date Source Lot Number Status Influenza, Unspecified 01/26/2021 [facility] mpleted Covid-19 MRNA Vaccine - Pfiz er 12+ (Purple Cap) 02/06/2021 [facility] completed
--- OUTSIDE RECORDS SUMMARY | 2024-06-16 15:51 | XMS_ITS ---
Author Organization Kishor Mcmanus DO, FACP Address [address] [place], [place] [id number] Care Team Providers Care Congressional Representative Name Role Phone Kishor Mcmanus Primary Care Provider [phone] REASON FOR VISIT FYI Encounters Encounter Location Date Provider Diagnosis Kishor Mcmanus DO, FACP [address] [place], [place] [id number] 04/30/2024 Kishor Mcmanus PLAN OF TREATMENT No Information
--- OUTSIDE RECORDS SUMMARY | 2024-06-16 15:51 | XMS_ITS | Clinical Summary ---
Author Organization [facility] Address [address] [place] [address] Care Team Providers Care Metal Tank Builder Name Role Phone MariettaKishor DO Primary Care Provider Per Seay MD Unavailable Anton Robledo MD Unavailable [phone] Nabil Narvaez MD Unavailable [phone] Allergies No known active allergies Medications Medication Sig Dispensed Refills Start Date End Date Status metoPROLOL SUCCINATE (TOPROL-XL) 50 MG 24 hr tablet Take 50 mg by mouth every morning. 08/30/2020 Active metFORMIN (GLUMETZA) 1000 MG (MOD) 24 hr tablet Take 1,000 mg by mouth 2 (two) times a day with meals. Active losartan (COZAAR) 50 MG tablet Take 50 mg by mouth every morning. Active loratadine (CLARITIN) 10 MG tablet Take 1 tablet by mouth every morning. Active lisinopril (PRINIVIL,ZeSTRIL) 40 MG tablet Take 1 tablet by mouth every morning. Active insulin detemir (LevEMIR) 100 UNITS/ML injection Inject 15 Units under the skin nightly. Active glucose blood (OneTouch Ultra) test strip USE TO TEST BLOOD SUGAR TWO TIMES A DAY 09/30/2020 Active atorvastatin (LIPITOR) 20 MG tablet Take 20 mg by mouth nightly. Active amLODIPine (NORVASC) 10 MG tablet Take 10 mg by mouth every morning. Active aMILoride (MIDAMOR) 5 MG tablet Take 5 tablets by mouth every morning. Active Multiple Vitamin (multivitamin) capsule Take 1 capsule by mouth every morning. Active oxybutynin (DITROPAN-XL) 5 MG 24 hr tablet Take 5 mg by mouth every morning. Active ciprofloxacin (CIPRO) 500 MG tablet Take 500 mg by mouth 2 (two) times a day. Take until kidney stone removal on 04/11/2021, then decrease dose to 250mg bid until left ankle surgery 04/27/2021 Active enoxaparin (LOVENOX) 40 MG/0.4ML injection 04/20/2021 Active gabapentin (NEURONTIN) 300 MG capsule TAEK 1 CAPSULE BY MOUTH TWICE DAILY -START TAKING AFTER SURGERY 04/20/2021 Active methocarbamol (ROBAXIN) 750 MG tablet TAKE ONE TABLET BY MOUTH TWICE A DAY -TAKE AFTER SURGERY 04/20/2021 Active oxyCODONE (ROXICODONE) 5 MG immediate release tablet TAKE 1-2 TABLETS BY MOUTH EVERY 4 HOURS NEEDED FOR SEVERE PAIN -MAX 6 PER DAY 04/20/2021 Active sulfamethoxazole-tri methoprim (BACTRIM DS,SEPTRA DS) 800-160 MG per tablet Take 1 tablet by mouth 2 (two) times a day. for 7 days 03/28/2021 Active tamsulosin (FLOMAX) 0.4 MG capsule TAKE 1 CAPSULE BY MOUTH DAILY FOR 5 DAYS 03/28/2021 Active aspirin enteric coated (ECOTRIN) 325 MG EC tabletIndications:Ar thritis of left ankle Take 1 tablet (325 mg total) by mouth daily. Start the day after the lovenox course is complete. Do not start before May 19, 2021. 30 tablet 05/19/2021 Active calcium carbonate (Calcium 600) 600 MG tabletIndications:Pa in in bone fixation device, initial encounter Take 1 tablet (600 mg total) by mouth 2 (two) times a day with meals. 60 tablet 3 11/22/2022 Active Vitamin D3 (CHOLECALCIFEROL) 50 MCG (2000 UT) tabletIndications:Pa in in bone fixation device, initial encounter Take 2 tablets (4,000 Units total) by mouth daily. 30 tablet 3 11/22/2022 Active methocarbamol (ROBAXIN) 500 MG tabletIndications:Pa in in bone fixation device, initial encounter Take 1 tablet (500 mg total) by mouth 2 (two) times a day as needed for muscle spasms. 60 tablet 11/22/2022 Active gabapentin (NEURONTIN) 300 MG capsuleIndications:P ain in bone fixation device, initial encounter Take 1 capsule (300 mg total) by mouth nightly. 30 capsule 11/22/2022 Active acetaminophen (TYLENOL) 500 MG tabletIndications:Pa in in bone fixation device, initial encounter Take 2 tablets (1,000 mg total) by mouth 3 (three) times a day with meals. 100 tablet 1 11/22/2022 Active calcium carbonate (Calcium 600) 600 MG tabletIndications:Pa in in bone fixation device, initial encounter Take 1 tablet (600 mg total) by mouth 2 (two) times a day with meals. 60 tablet 3 11/22/2022 Active gabapentin (NEURONTIN) 300 MG capsuleIndications:P ain in bone fixation device, initial encounter Take 1 capsule (300 mg total) by mouth nightly. 30 capsule 11/22/2022 Active Vitamin D3 (CHOLECALCIFEROL) 50 MCG (2000 UT) tabletIndications:Pa in in bone fixation device, initial encounter Take 2 tablets (4,000 Units total) by mouth daily. 30 tablet 3 11/22/2022 Active oxyCODONE (ROXICODONE) 5 MG immediate release tabletIndications:Pa in in bone fixation device, initial encounter Take 1 tablet (5 mg total) by mouth 4 times daily (every 6 hours) as needed for severe pain. TAKE AFTER SURGERY NEEDED FOR PAIN Max Daily Amount: 20 mg 28 tablet 11/22/2022 Active methocarbamol (ROBAXIN) 500 MG tabletIndications:Pa in in bone fixation device, initial encounter Take 1 tablet (500 mg total) by mouth 2 (two) times a day as needed for muscle spasms. 60 tablet 11/22/2022 Active Active Problems Problem Noted Date Diagnosed Date Arthritis of left ankle 04/27/2021 Immunizations Name Administration Dates Next Due Covid-19 MRNA Vaccine - Pfizer 12+ (Purple Cap) 02/06/2021 Influenza, Unspecified 01/26/2021 Family History Medical History Relation Name Comments Lung cancer Brother 1 Substance Abuse Brother 1 Substance Abuse Brother 2 Pancreatitis Father Substance Abuse Father Heart attack Mother Substance Abuse Son 1 no contact Substance Abuse Son 2 Relation Name Status Comments Brother 1 Brother 2 (Age 76) Father (Age 57) Mother (Age 81) Son 1 no contact Son 2 Alive Social History Tobacco Use Types Packs/Day Years Used Date Smoking Tobacco: Former Cigarettes Q uit: 1979 Smokeless Tobacco: Never Alcohol Use Standard Drinks/Week Comments Not Currently 0 (1 standard drink = 0.6 oz pure alcohol) 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 Sex and Gender Information Value Date Recorded Sex Assigned at Not on file Gender Identity Not on file Sexual Orientation Not on file Last Filed Vital Signs Vital Sign Reading Time Taken Comments Blood Pressure 132/60 04/28/2021 10:35 AM EST Pulse 74 04/28/2021 10:35 AM EST Temperature 36.2 ??C (97.1 ??F) 04/28/2021 10:[address] Respiratory Rate 18 04/28/2021 10:35 AM EST Oxygen Saturation 95% 04/28/2021 10:35 AM EST Inhaled Oxygen Concentration - - Weight 86.2 kg (190 lb) 04/09/2021 12:58 PM EST Height 177.8 cm (5' 10 ) 04/09/2021 12:58 PM EST Body Mass Index 27.26 04/09/2021 12:58 PM EST Plan of Treatment Health Maintenance Due Date Last Done Comments DTaP/Tdap/Td Vaccines (1 - Tdap) 1959 Pneumococcal Vaccines 50+ (1 of 1 - PCV) 1990 Zoster (Shingles) Vaccine (1 of 2) 1990 RSV Vaccine 60 years and older and Patients (1 - 1-dose 75+ series) 2015 Influenza Vaccine 12/18/2023 01/26/2021, 09/11/2015 COVID-19 Vaccine (3 - 2023- season) 2024 02/20/2022, 02/06/2021 Hemoglobin A1C Discontinued 03/14/2021 Hepatitis B Vaccines Aged Out No long er eligible based on patient's age to complete this topic Medical Devices Implanted Type Area Lapel Padder Device Identifier Shelf Expiration Date Model / Serial / Lot Panta Nail [id number] Implanted:Qty: 1 on 04/27/2021 by Anton Robledo MD at [facility] Nail/Neo Left: Foot [employer] 11/13/2023 [id number] / / [id number] Screw Bone Panta 2 Pthrd 70mm 5mm Nonst Arthds Nail Sys - [id number] Implanted:Qty: 1 on 04/27/2021 by Anton Robledo MD at [facility] Screw [employer] [id number] / / [id number] Screw Bone Panta 2 Flthrd 28mm 5mm Nonst Arthds Nail Sys - [id number] Implanted:Qty: 1 on 04/27/2021 by Anton Robledo MD at [facility] Screw [employer] [id number] / / [id number] Screw Bone Panta 2 Flthrd 24mm 5mm Nonst Arthds Nail Sys - [id number] Implanted:Qty: 1 on 04/27/2021 by Anton Robledo MD at [facility] Screw [employer] [id number] / / Procedures Procedure Name Priority Date/Time Associated Diagnosis Comments HEMOGLOBIN A1C WITH ESTIMATED AVERAGE GLUCOSE Routine 03/14/2021 12:38 PM EDT Preop examination Arthritis of left ankle Alteration in nutrition from Last 3 Months or Most Recently Relevant to Health Maintenance Results * (ABNORMAL) Hemoglobin A1c with Estimated Average Glucose (03/14/2021 12:38 PM EDT) Hemoglobin A1C 6.0(H) <5.7 % 03/14/2021 9:14 PM EDT [facility] Comment: A1c% ? Interpretation 5.7 - 6.0 ?Increase risk of diabetes 6.1 - 6.4 ?Higher risk of diabetes > or = 6.5 ?? Consistent with diabetes Diabetes Care, 33(Supp 1):S1-S61, 2010 Estimated Average Glucose 126 mg/dL 03/14/2021 9:14 PM EDT [facility] Blood specimen (specimen) Blood specimen / Unknown 03/14/2021 12:38 PM EDT 03/14/2021 8:38 PM EDT Louann Cassidy APRN LAB BLOOD ORDERABLES HOSPITAL LAB [facility] [address] [place] [address] from Last 3 Months or Most Recently Relevant to Health Maintenance Advance Directives * Full Code (Latest Code Status on File) Date Activated Date Inactivated Comments 04/27/2021 2:56 PM * Full Code Date Activated Date Inactivated Comments 04/27/2021 10:33 AM 04/27/2021 2:56 PM Care Teams Metal Tank Builder Relationship Specialty Start Date End Date Kishor Mcmanus DO [address] [place] [address] PCP - General Internal Medicine 02/27/21 Per Seay MD [address] [place] [address] Hand Ii Blocker Cardiovascular Disease 02/28/21 Anton Robledo MD [address] [place] [address] Surgery, Orthopedic 03/08/21 Nabil Narvaez MD [address] [facility] [address] [place] [address] Referring Provider Urology 03/08/21
== END 2024-06-16 14:32 | disposition home or self-care (01) ==
LOC: HO.HMCSH 13:36
PROVIDERS: PCP Internal Medicine; Visit Provider Physician Assistant Medical
DX: I47.10 Supraventricular tachycardia, unspecified (principal); I49.3 Ventricular premature depolarization; E11.8 Type 2 diabetes mellitus with unspecified complications; I10 Essential (primary) hypertension; I05.9 Rheumatic mitral valve disease, unspecified; I35.9 Nonrheumatic aortic valve disorder, unspecified; R07.9 Chest pain, unspecified; M51.369 Other intervertebral disc degeneration, lumbar region without mention of lumbar back pain or lower extremity pain; G47.33 Obstructive sleep apnea (adult) (pediatric); J40 Bronchitis, not specified as acute or chronic; E26.9 Hyperaldosteronism, unspecified; N21.0 Calculus in bladder

== ENCOUNTER → 2024-06-16 13:35 | Outpatient (BNVA) | payer MEDICARE, BC, SELFPAY | PROVIDERS: PCP Internal Medicine; Visit Provider Physician Assistant Medical | DX: I47.10 Supraventricular tachycardia, unspecified (principal); I49.3 Ventricular premature depolarization; I10 Essential (primary) hypertension; I05.9 Rheumatic mitral valve disease, unspecified; I35.9 Nonrheumatic aortic valve disorder, unspecified; R07.9 Chest pain, unspecified; M51.369 Other intervertebral disc degeneration, lumbar region without mention of lumbar back pain or lower extremity pain; G47.33 Obstructive sleep apnea (adult) (pediatric); J40 Bronchitis, not specified as acute or chronic; E26.9 Hyperaldosteronism, unspecified; N21.0 Calculus in bladder | CPT/HCPCS: 99202 ==

== ENCOUNTER 2024-06-17 06:15 | Outpatient (REF) | payer MEDICARE, BC, SELFPAY ==
--- OUTSIDE RECORDS SUMMARY | 2024-06-17 06:18 | XMS_ITS | Patient Health Record ---
Author Organization [facility] Address [address] [place] [address] Care Team Providers Care Information Security Manager Name Role Phone Kishor Mcmanus MD Primary Care Provider Unavail Nathalie Mendez Unavailable [phone] Allergies Allergen (clinical drug ingredient) Drug/Non Drug [...] Vaccine Route Administration Date Status Comme nts Influenza Unknown 02/20/2022 Administered Flu vaccine no Preserv 3 and > Unknown 09/11/2015 Administered COVID-19 Pfizer BioNTech Vaccine Unknown 02/20/2022 Administered 1st 06/23/20,02/06/2021 2nd 07/21/20,2021 Social History Tobacco Use: Social History Observation [...] primary osteoarthritis of the ankle and/or foot (309315982) Primary osteoarthritis, right ankle and foot (M19.071) Active confirmed Problem Localized, primary osteoarthritis of the ankle and/or foot (138777400) Primary osteoarthritis, left ankle and foot (M19.072) Active confirmed Problem Non-pressure chronic ulcer of other part of left foot limited to breakdown of skin (L97.521) Active confirmed Problem Non-pressure chronic ulcer of other part of right foot limited to breakdown of skin (L97.511) Active confirmed Problem Polyneuropathy due to diabetes mellitus type I (482507505) Type 1 diabetes mellitus with diabetic polyneuropathy (E10.42) Active confirmed Plan Of Treatment Pending Test Test Name Order Date Hemoglobin A1c 08/15/2014 X ray : Foot, left 3V 07/26/2020 [id number] NAIL, 6 OR MORE 09/22/2017 46195-RQJTCEJ NAIL, 6 OR MORE 03/24/2017 66640-RJGXTQK NAIL, 6 OR MORE 2017 66098-XTNKWZZ NAIL, 6 OR MORE 12/18/2016 86745-WWWNNBD NAIL, 1-5 03/18/2016 93901-RLWIDJV NAIL, 1-5 06/19/2016 42760-MKAPGHI NAIL, 1-5 08/15/2014 16384-TVJDESV NAIL, 1-5 11/14/2014 52682-YBPLFIM NAIL, 1-5 02/13/2015 06010-MRAMHSB NAIL, 1-5 05/22/2015 77073-XANOBOI NAIL, 1-5 09/11/2015 06345-VFNJWQP NAIL, 1-5 12/18/2015 64941-Zajknork Plate 08/15/2014 47500, J0702- INJECT or DRAIN, JOINT/BUR SA 01/15/2016 03096-JNBZ SKIN LESIONS, 2 TO 4 12/18/19 16 60993-QNVS SKIN LESIONS, 2 TO 4 09/11/19 16 15161-XJIS SKIN LESIONS, 2 TO 4 05/22/19 16 42269-RXQH SKIN LESIONS, 2 TO 4 06/19/19 17 77249-LWIW SKIN LESIONS, 2 TO 4 09/17/19 17 44878-NCIC SKIN LESIONS, 2 TO 4 12/19/19 17 92861-OBVO SKIN LESIONS, 2 TO 4 03/18/20 16 83951-RVEQ SKIN LESIONS, 2 TO 4 03/24/20 17 11217-IEXR SKIN LESIONS, 2 TO 4 09/23/19 18 53590-FWDK SKIN LESIONS, 2 TO 4 06/26/19 18 57718-OKFF SKIN LESIONS, 2 TO 4 02/14/20 15 27473-YSSO SKIN LESIONS, 2 TO 4 03/22/20 21 20310-BTOW SKIN LESIONS, 2 TO 4 08/02/19 22 25029-QYSX NAIL(S) 08/15/2014 12149-YYKO NAIL(S) 02/13/2015 08838-WNNO NAIL(S) 11/14/2014 85371, J0702- Neuroma/Injection 01/15/20 16 X ray : Ankle, right 3V 09/11/2015 Next Appt Details Provider Name:Nathalie booker, 06/21/2024 10:15:00 AM, [address] [place], [address], Insurance Providers Payer Name Payer Address Payer Phone Subscriber Number Group Number Insured Name Patient Relationship to Insured Coverage Start Date Coverage End Date Medicare National Govt [facility] [address] [place] [address] [id number] Delroy Wheat Self - patient is the insured [facility] [address] [place] [address] [phone] [id number] Delroy Wheta Self - patient is the insured Medical [...]
--- OUTSIDE RECORDS SUMMARY | 2024-06-17 06:18 | XMS_ITS ---
Author Organization Kishor Mcmanus DO, FACP Address [address] [place], [place] [id number] Care Team Providers Care Electrical Experimental Mechanic Name Role Phone MariettaKishor dick Primary Care Provider REASON FOR VISIT Refills MEDICATIONS Medication SIG (Take, Route, Frequency, Duration) Notes Start Date End Date Status oxyBUTYnin Chloride ER 5 MG 1 tablet Orally Once a day for 90 days Active Encounters Encounter Location Date Provider Diagnosis Kishor Mcmanus DO, FACP [address] [place], [place] [id number] 02/23/2024 Kishor Mcmanus History of prostate cancer Z85.46 ASSESSMENTS Encounter Date Diagnosis Assessment Notes Treatment Notes Treatment Clinical Notes 02/23/2024 History of prostate cancer (ICD-10 - Z85.46) PLAN OF TREATMENT Medication Medication Name Sig Start Date Stop Date Notes oxyBUTYnin Chloride ER 5 MG 1 tablet Ora lly Once a day for 90 days
--- OUTSIDE RECORDS SUMMARY | 2024-06-17 06:19 | XMS_ITS ---
Author Organization Kishor Mcmanus DO, FACP Address [address] [place], [place] [id number] Care Team Providers Care Hooker Machine Tender Name Role Phone Kishor Mcmanus Primary Care Provider REASON FOR VISIT FYI Encounters Encounter Location Date Provider Diagnosis Kishor Mcmanus DO, FACP [address] [place], [place] [id number] 04/30/2024 Kishor Mcmanus PLAN OF TREATMENT No Information
--- OUTSIDE RECORDS SUMMARY | 2024-06-17 06:19 | XMS_ITS | Encounter Summary ---
Author Organization [facility] Address [address] [place] [address] Care Team Providers Care Care Companion Name Role Phone Kishor Mcmanus DO Primary Care Provider [phone] Per Seay MD Unavailable Anton Robledo MD Unavailable Nabil Narvaez MD Unavailable [phone] Encounter Details Date Type Department Care Team (Late st Contact Info) Description 10/17/2023 Scanned Document [facility] [address] [place] [address] Anton Robledo MD [address] [place] [address] Social History Tobacco Use Types Packs/Day Years [...] on filedocumented in this encounter Care Teams Care Companion Relationship Specialty Start Date End Date Kishor Mcmanus DO [address] [place] [address] PCP - General Internal Medicine 02/27/21 Per Seay MD [address] [place] [address] Development Advisor Cardiovascular Disease 02/28/21 Anton Robledo MD [address] [place] [address] Surgery, Orthopedic 03/08/21 Nabil Narvaez MD [address] [place] [address] Referring Provider Urology 03/08/21 documented as of this encounter
--- OUTSIDE RECORDS SUMMARY | 2024-06-17 06:19 | XMS_ITS | Clinical Summary ---
Author Organization [facility] Address [address] [place] [address] Care Team Providers Care Internal Control Analyst Name Role Phone MariettaKishor DO Primary Care Provider [phone] Per Seay MD Unavailable Anton Robledo MD Unavailable [phone] Nabil Narvaez MD Unavailable [phone] Allergies [...] this topic Medical Devices Implanted Type Area Charge Entry Specialist Device Identifier Shelf Expiration Date Model / Serial / Lot Panta Nail [id number] Implanted:Qty: 1 on 04/27/2021 by Anton Robledo MD at [facility] Nail/Neo Left: Foot [employer] 11/13/2023 [id number] / / [id number] Screw Bone Panta 2 Pthrd 70mm 5mm Nonst Arthds Nail Sys - [id number] Implanted:Qty: 1 on 04/27/2021 by Anton Robledo MD at [facility] Screw [employer] [id number] / / [id number] Screw Bone Panta 2 Flthrd 28mm 5mm Nonst Arthds Nail Sys - [id number] Implanted:Qty: 1 on 04/27/2021 by Anton Robledo MD at [facility] Screw [employer] [id number] / / [id number] Screw Bone Panta 2 Flthrd 24mm 5mm Nonst Arthds Nail Sys - [id number] Implanted:Qty: 1 on 04/27/2021 by Antno Robledo MD at [facility] Screw [employer] [id number] / / Procedures Procedure Name Priority [...] 6.0(H) <5.7 % 03/14/2021 9:14 PM EDT [facility] Comment: A1c% ? Interpretation 5.7 - 6.0 ?Increase risk of diabetes 6.1 - 6.4 ?Higher risk of diabetes > or = 6.5 ?? Consistent with diabetes Diabetes Care, 33(Supp 1):S1-S61, 2010 Estimated Average Glucose 126 mg/dL 03/14/2021 9:14 PM EDT [facility] Blood specimen (specimen) Blood specimen / Unknown 03/14/2021 12:38 PM EDT 03/14/2021 8:38 PM EDT Louann Cassidy APRN LAB BLOOD ORDERABLES [facility] [address] [place] [address] from Last 3 Months or Most Recently Relevant to Health Maintenance Advance Directives * Full Code (Latest Code Status on File) Date Activated Date Inactivated Comments 04/27/2021 2:56 PM * Full Code Date Activated Date Inactivated Comments 04/27/2021 10:33 AM 04/27/2021 2:56 PM Care Teams Internal Control Analyst Relationship Specialty Start Date End Date Kishor Mcmanus DO [address] [place] [address] PCP - General Internal Medicine 02/27/21 Per Seay MD [address] [place] [address] Hospital Insurance Clerk Cardiovascular Disease 02/28/21 Anton Robledo MD [address] [place] [address] Surgery, Orthopedic 03/08/21 Nabil Narvaez MD [address] [facility] [address] [place] [address] Referring Provider Urology 03/08/21
--- OUTSIDE RECORDS SUMMARY | 2024-06-17 06:19 | XMS_ITS | Encounter Summary ---
Author Organization [facility] Address [address] [place] [address] Care Team Providers Care Broadcast Field Supervisor Name Role Phone Kishor Mcmanus DO Primary Care Provider [phone] Per Seay MD Unavailable Anton Robledo MD Unavailable [phone] Nabil Narvaez MD Unavailable [phone] Encounter Details Date Type Department Care Team (Late st Contact Info) Description 10/08/2023 Scanned Document [facility] [address] [place] [address] Anton Robledo MD [address] [place] [address] Social History Tobacco Use Types Packs/Day Years [...] on filedocumented in this encounter Care Teams Broadcast Field Supervisor Relationship Specialty Start Date End Date Kishor Mcmanus DO [address] [place] [address] PCP - General Internal Medicine 02/27/21 Per Seay MD [address] [place] [address] Patch Washer Cardiovascular Disease 02/28/21 Anton Robledo MD [address] [place] [address] Surgery, Orthopedic 03/08/21 Nabil Narvaez MD [address] [place] [address] Referring Provider Urology 03/08/21 documented as of this encounter
--- OUTSIDE RECORDS SUMMARY | 2024-06-17 06:19 | XMS_ITS | Encounter Summary ---
Author Organization [facility] Address [address] [place] [address] Care Team Providers Care District Gauger Name Role Phone Kishor Mcmanus DO Primary Care Provider [phone] Per Seay MD Unavailable [phone] Anton Robledo MD Unavailable Nabil Narvaez MD Unavailable [phone] Encounter Details Date Type Department Care Team (Late st Contact Info) Description 06/06/2023 Scanned Document [facility] [address] [place] [address] Anton Robledo MD [address] [place] [address] Social History Tobacco Use Types Packs/Day Years [...] on filedocumented in this encounter Care Teams District Gauger Relationship Specialty Start Date End Date Kishor Mcmanus DO [address] [place] [address] PCP - General Internal Medicine 02/27/21 Per Seay MD [address] [place] [address] Briquetter Operator Cardiovascular Disease 02/28/21 Anton Robledo MD [address] [place] [address] Surgery, Orthopedic 03/08/21 Nabil Narvaez MD [address] [place] [address] Referring Provider Urology 03/08/21 documented as of this encounter
--- OUTSIDE RECORDS SUMMARY | 2024-06-17 06:19 | XMS_ITS | Clinical Summary ---
Author Organization [facility] Address [phone] [place] [address] Care Team Providers Care Coating Mixer Tender Name Role Phone Kishor Mcmanus DO Primary Care Provider [phone] Medications Medication Sig Dispensed Refills Start Date End Date Status tamsulosin (FLOMAX) 0.4 mg Cp24 Take 1 capsule by mouth daily. Active atorvastatin (LIPITOR) 20 MG tablet Take 1 tablet by mouth daily. Active loratadine (CLARITIN) 10 mg tablet Take 1 tablet by mouth daily. Active metFORMIN (GLUCOPHAGE) 1000 MG tablet Take 1 tablet by mouth 2 (two) times a day. 11/29/2010 Active insulin detemir U-100 (LEVEMIR) 100 unit/mL injection vial 19 units Subcutaneous once a day Active aMILoride (MIDAMOR) 5 MG tablet Take 1 tablet by mouth 2 (two) times a day. Active lisinopril (PRINIVIL,ZESTRIL) 40 MG tablet Take 1 tablet by mouth daily. Active insulin pen needles, disposable, (BD ULTRA-FINE IWONA PEN NEEDLES) 32 gauge x 5/32 Ndle as directed once daily 03/30/2012 Active multivitamins capsule as directed Orally Active amLODIPine (NORVASC) 5 MG tablet Take 1 tablet by mouth daily. Active hydroCHLOROthiazid e (HYDRODIURIL) 50 MG tablet Take 1 tablet by mouth every morning. W/OJUICE 06/25/2010 Active Medication-Free Text Valsartan 80 MG Capsule, Si tablet Orally Once a day Active blood sugar diagnostic (ONETOUCH ULTRA BLUE TEST STRIP) Strp strips TEST TID.DX:E11.9 300 strip 3 10/05/2018 Active Family History Medical History Relation Comments Diabetes mellitus Father 2 Diabetes mellitus Mother 2 Relation Status Comments Father 1 Father 2 Mother 1 Mother 2 Social History Tobacco Use Types Packs/Day Years Used Date Smoking Tobacco: Never Assessed Education Answer Date Recorded Are you interested in more education? Not on karan e 09/13/2022 Are you concerned about learning? Not on file 09/13/2022 No 09/13/2022 No 09/13/2022 Digital Access Answer Date Recorded No 10/12/2022 No 10/12/2022 No 10/12/2022 Reliable internet access at home? Not on file 10/12/2022 Device with a working camera? Not on file Sex and Gender Information Value Date Recorded Sex Assigned at Not on file Gender Identity Not on file Sexual Orientation Not on file Last Filed Vital Signs Vital Sign Reading Time Taken Comments Blood Pressure 110/52 10/29/2016 10:48 AM EDT Pulse 80 10/29/2016 10:48 AM EDT Temperature - - Respiratory Rate - - Oxygen Saturation - - Inhaled Oxygen Concentration - - Weight 91.6 kg (202 lb) 10/29/2016 10:48 AM EDT Height 177.8 cm (5' 10 ) 10/29/2016 10:48 AM EDT Body Mass Index 28.98 10/29/2016 10:48 AM EDT Plan of Treatment Health Maintenance Due Date Last Done Comments Adult Td,Tdap Booster 1940 CREATININE LEVEL 1940 POTASSIUM LEVEL 1940 DEPRESSION SCREENING 1952 HEPATITIS B SCREENING 1958 RSV VACCINE (1 - 1-dose 75+ series) 2015 INFLUENZA VACCINE (#1) 2023 , 02/25/2019, 01/24/2018, Additional history exists COVID-19 VACCINE ( season) 2024 07/20/2020, 06/24/2020 ZOSTER VACCINES Completed 10/09/2017, 07/18, 04/02/2012 PNEUMOCOCCAL VACCINES (50+ years) Completed 05/04/2019, 04/01/2017 HEPATITIS A VACCINES Aged Out No long er eligible based on patient's age to complete this topic HEPATITIS B VACCINES Aged Out No long er eligible based on patient's age to complete this topic HIB VACCINES Aged Out No longer eligi ble based on patient's age to complete this topic MENINGOCOCCAL VACCINES (ACWY) Aged Out No longer eligible based on patient's age to complete this topic Medical Devices Not on file Care Teams Coating Mixer Tender Relationship Specialty Start Date End Date Kishor Mcmanus DO [address] [place] [address] PCP - General 03/03/17 Additional Source Comments The information contained in this document represents components of the legal health record. It is not the complete legal health record.[facility]
--- OUTSIDE RECORDS SUMMARY | 2024-06-17 06:19 | XMS_ITS ---
Author Organization Kishor Mcmanus DO, FACP Address [address] [place], [place] [phone] Care Team Providers Care Armored Truck Driver Name Role Phone MariettaKishor Primary Care Provider [...] Location Date Provider Diagnosis Kishor Mcmanus DO, [address] [phone] 04/27/2024 Kishor Mcmanus Type 2 diabetes ching [...] General Examination GENERAL APPEARANCE: in no ac [place] distress, well developed, well nourished HEAD: normocephalic, atrau matic HEART: no murmurs, regular rate and rhythm, S1, S2 normal LUNGS: clear to auscultatio n bilaterally ABDOMEN: normal, bowel sounds present, soft, nontender, nondistended SKIN: warm and dry EXTREMITIES: no edema PSYCH: alert, oriented, cog nitive function intact
--- OUTSIDE RECORDS SUMMARY | 2024-06-17 06:19 | XMS_ITS | Encounter Summary ---
Author Organization [facility] Address [address] [place] [address] Care Team Providers Care Parts Assembler Name Role Phone Kishor Mcmanus DO Primary Care Provider [phone] Per Seay MD Unavailable Anton Robledo MD Unavailable Nabil Narvaez MD Unavailable [phone] Encounter Details Date Type Department Care Team (Late st Contact Info) Description 11/30/2022 Scanned Document [facility] [address] [place] [address] Anton Robledo MD [address] [place] [address] Social History Tobacco Use Types Packs/Day Years [...] on filedocumented in this encounter Care Teams Parts Assembler Relationship Specialty Start Date End Date Kishor Mcmanus DO [address] [place] [address] PCP - General Internal Medicine 02/27/21 Per Seay MD [address] [place] [address] Typing Bookkeeper Cardiovascular Disease 02/28/21 Anton Robledo MD [address] [place] [address] Surgery, Orthopedic 03/08/21 Nabil Narvaez MD [address] [place] [address] Referring Provider Urology 03/08/21 documented as of this encounter
--- NOTE | 2024-06-17 06:42 | ECG_ITS ---
Test Reason : chest pain Blood Pressure : */* mmHG Vent. Rate : 103 BPM Atrial Rate : 103 BPM P-R Int : 126 ms QRS Dur : 82 ms QT Int : 336 ms P-R-T Axes : 66 66 79 degrees QTcB Int : 440 ms Sinus tachycardia Otherwise normal ECG When compared with ECG of 10-Oct-2022 08:34, No significant change was found Referred By: Piedad Garvin Electronically Signed By: KAILYN HULL
[2024-06-17 07:40] LABS: Estimated Average Glucose 140 mg/dL; Hemoglobin A1C 162.6118 umol/L; Hemoglobin A1c % 6.5 % (<6.0); Total Hemoglobin (HGBA1C) 3406.1216 umol/L
[2024-06-17 07:59] LABS: Alanine Aminotransferase 16 U/L (0-40); Albumin Level 3.7 g/dL (3.5-5.0); Alkaline Phosphatase 80 U/L (39-117); Anion Gap 13 (12-20); Aspartate Amino Transferase 21 U/L (5-37); Bilirubin Direct 0.2 mg/dL (0.0-0.5); Bilirubin Total 0.4 mg/dL (0.0-1.0); Blood Urea Nitrogen 16 mg/dL (9-16); Calcium 9.6 mg/dL (8.4-10.2); Carbon Dioxide 25 mmol/L (22-29); Chloride 106 mmol/L (96-108); Cholesterol 121 mg/dL (<200); Estimated Glomerular Filt Rate > 60; Glucose Fasting 159 mg/dL (60-99); HDL Cholesterol 28 mg/dL (>40); LDL Cholesterol Calculated 77 mg/dL (<100); Magnesium 1.8 mg/dL (1.6-2.6); Potassium 3.9 mmol/L (3.3-5.1); Sodium 140 mmol/L (135-145); Total Protein 7.9 g/dL (6.5-8.0); Triglycerides 82 mg/dL (<150)
[2024-06-17 08:07] LABS: Parathyroid Hormone Intact 50.4 pg/mL (8.7-77.1)
[2024-06-17 08:15] LABS: B Type Natriuretic Peptide 55 pg/mL (<100); PSA,Total (Free>4and<10) < 0.10 ng/mL (0.00-4.00); TSH reflex Free T4 1.58 uIU/mL (0.32-4.0); Vitamin D 25-OH Total 57.1 ng/mL (>30)
[2024-06-17 08:24] LABS: Folate 16.1 ng/mL (> or = 4.0); Vitamin B12 331 pg/mL (200-900)
== END 2024-06-17 06:16 | disposition home or self-care (01) ==
LOC: HO.LAB 06:15
PROVIDERS: PCP Internal Medicine; Visit Provider Physician Assistant Medical
DX: Z00.00 Encounter for general adult medical examination without abnormal findings (principal); I35.9 Nonrheumatic aortic valve disorder, unspecified; I05.9 Rheumatic mitral valve disease, unspecified; E11.8 Type 2 diabetes mellitus with unspecified complications; I49.3 Ventricular premature depolarization; I10 Essential (primary) hypertension; R60.0 Localized edema; R07.9 Chest pain, unspecified; E26.9 Hyperaldosteronism, unspecified; Z12.5 Encounter for screening for malignant neoplasm of prostate; R00.0 Tachycardia, unspecified
CPT/HCPCS: 36415; 80053; 80061; 82088; 82248; 82306; 82607; 82746; 83036; 83735; 83880; 83970; 84153; 84443; 93005

== ENCOUNTER → 2024-06-17 06:42 | Outpatient (BNV) | payer MEDICARE, BC, SELFPAY | PROVIDERS: PCP Internal Medicine; Visit Provider Internal Medicine | DX: R00.0 Tachycardia, unspecified (principal) | CPT/HCPCS: 93010 ==

== ENCOUNTER 2024-07-06 06:09 | Inpatient (IN) | payer MEDICARE, BC, SELFPAY ==
[2024-07-06] VITALS (11 sets, daily range): BP systolic 98–141; BP diastolic 50–79; PULSE 68–134; RESP 16–22; TEMP 36.6–37.1; O2SAT 86–100; BMI 29.4
--- NOTE | 2024-07-06 | ECG_ITS ---
Test Reason : CHEST PAIN Blood Pressure : */* mmHG Vent. Rate : 125 BPM Atrial Rate : * BPM P-R Int : * ms QRS Dur : 90 ms QT Int : 304 ms P-R-T Axes : * 48 35 degrees QTcB Int : 438 ms Atrial fibrillation with rapid ventricular response Abnormal ECG When compared with ECG of 17-Jun-2024 06:39, Atrial fibrillation has replaced Sinus rhythm Referred By: Generic ED Physician Electronically Signed By: KAILYN HULL
--- NOTE | ~2024-07-06 | XR_ITS ---
EXAMINATION: XR CHEST CLINICAL INFORMATION: hypoxia COMPARISON: None available. TECHNIQUE: Frontal view of the chest was obtained. FINDINGS: Bilateral, multifocal patchy opacities. Indistinct margins in the perihilar regions of the cardiomediastinal silhouette. No pleural effusion. No pneumothorax. No hyperinflation. Heart silhouette size is normal. Multilevel thoracic spondylosis. S-shaped curvature of the thoracic spine. Degenerative changes in the shoulders. XR/XR chest 1V IMPRESSION: Pulmonary edema versus multifocal pneumonia among other differential diagnosis. Electronically signed by: Darrion Wilkins MD 07/06/2024 08:16 AM EST
--- NOTE | ~2024-07-06 | CT_ITS ---
EXAMINATION: CT ANGIOGRAM CHEST CLINICAL INFORMATION: Shortness of breath. Chest pain. Atrial fibrillation, new onset. COMPARISON: None available. TECHNIQUE: Multiple axial images were obtained through the chest after the administration of 65 mL of Omnipaque 350 intravenous contrast. Extensive vascular post-processing including two-dimensional and three-dimensional reformatted images were created and reviewed on an independent workstation. This CT examination was performed using dose optimization techniques as appropriate, variously including the following: *Automated exposure control *Adjustment of mA and/or kV according to patient size (this includes techniques or standardized protocols for targeted exams where dose is matched to indication/reason for exam; i.e. extremities or head) *Use of iterative reconstruction technique SmartPrep technique. DLP: 323 mGy centimeter. FINDINGS: No intraluminal filling defects within the main pulmonary artery or its main branches. No aneurysm or gross dissection, thoracic aorta. Mixed plaques throughout the thoracic aortic wall and its main branches. Bilateral multifocal patchy and confluent pulmonary groundglass in the periphery of the lungs with numerous, different sizes and irregular margins less than 11 mm pulmonary nodules, the largest in the anterior left lung base. No bronchiectasis. No honeycombing. No pleural effusion. No pneumothorax. Mediastinal and perihilar lymphadenopathy measuring less than 13 mm. No pericardial effusion. Calcified plaques in the coronary arteries. Calcified plaques in the mitral valve. Soft tissue fullness and nodularity is in the adrenal glands bilaterally. There is 6 cm exophytic irregular marginated soft tissue attenuation in the fundus of the stomach. Calcified plaques in the splenic artery and the proximal suprarenal abdominal aorta wall. Small hiatal hernia. Multilevel cervical thoracic spondylosis without acute fracture or gross listhesis. No gross lytic or blastic lesions. Osteopenia versus osteoporosis. CT/CT angio chest PE protocol IMPRESSION: No acute pulmonary artery emboli. 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 6 cm exophytic low density lesion, fundus of the stomach. 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 Logan Watkins in the emergency department at 9:05 AM.. Fleischner guidelines were followed. Electronically signed by: Darrion Wilkins MD 07/06/2024 09:08 AM [facility] [place]
--- NOTE | 2024-07-06 06:34 | ED_ITS ---
HPI - Chest Pain General Chief Complaint: Chest Pain Stated Complaint: CHST PAIN AFIB Time Seen by Provider: 07/06/24 06:27 Source: patient and EMS Mode of arrival: EMS Limitations: no limitations History of Present Illness ED Provider: Danny Olson PA-C HPI narrative: 84 y/o male with history of atrial tachycardia/SVT on lopressor, HTN, DM2 on insulin, ERICA, who presents to the ER from home via EMS for evaluation of acute onset of aching, nonradiating left sided chest pain that woke him out of sleep at 4am. He states the pain felt like someone was poking him in the chest. It did not subside so he called 911. He reports for the last 2-3 weeks he has had SOB and a cough. The cough is sometimes productive of brown phlegm. He denies fevers or chills, no sick contacts. He denies N/V/D and abdominal pain. He denies palpitations or dizziness. On arrival to the ER patient found to be in new onset rapid afib. He reports the pain subsided when he got here. MD complaint: chest pain Onset (ago): hour(s) Timing of current episode: now resolved Prior episodes: Yes Onset: during rest Pain location: left chest Pain radiation: none Severity: moderate Quality: aching Relieving factors: nothing Exacerbating factors: nothing Context: recent illness Associated symptoms: dyspnea and cough Treatment prior to arrival: none Risk Factors Coronary artery disease risk factors: hypertension Related Data Home Medications ?Medication ?Instructions ?Recorded ?Confirmed amiloride 5 mg tablet 5 mg PO DAILY 08/30/20 06/16/24 amlodipine 10 mg tablet 10 mg PO DAILY 08/30/20 06/16/24 insulin detemir U-100 100 unit/mL unit subcut 08/30/20 06/16/24 (3 mL) subcutaneous pen losartan 50 mg tablet 50 mg PO DAILY 08/30/20 06/16/24 metformin 1,000 mg tablet 1,000 mg PO BID 08/30/20 06/16/24 oxybutynin chloride 5 mg tablet 5 mg PO DAILY 02/21/21 06/16/24 atorvastatin 40 mg tablet 40 mg PO DAILY 02/21/22 06/16/24 calcium 600 mg (as 1 tab PO DAILY 02/21/22 06/16/24 carbonate)-vitamin D3 10 mcg (400 unit) tablet Previous Rx's ?Medication ?Instructions ?Recorded metoprolol succinate 50 mg 50 mg PO DAILY #90 tabs 08/30/20 tablet,extended release 24 hr insulin glargine 100 unit/mL (3 18 unit (0.18 mL) subcut QAM #15 mL 06/02/24 mL) subcutaneous pen (Basaglar KwikPen U-100 Insulin) albuterol sulfate 90 mcg/actuation 1 inh inhalation QID PRN shortness 06/21/24 aerosol inhaler of breath or wheezing #6.7 grams amoxicillin 875 mg-potassium 1 tab PO BID 10 days #20 tabs 06/21/24 clavulanate 125 mg tablet azithromycin 250 mg tablet See Rx Instructions PO .COMPLEX #6 06/21/24 tabs Allergies Allergy/AdvReac Type Severity Reaction Status Date / Time No Known Allergies Allergy Verified 07/06/24 06:27 [No Known Allergies*] Review of Systems 2 Review of Systems: Yes all other systems are reviewed and are negative [facility] Past Medical History Medical History (Updated 07/06/24 @ 09:35 by JOSE ARMANDO [place]en[place]) History of pyelonephritis Substance abuse Alcoholism Mitral annular calcification Hyperaldosteronism Essential hypertension Type 2 diabetes mellitus with unspecified complications PVC (premature ventricular contraction) Atrial tachycardia HTN (hypertension) Diabetes Suprapubic catheter Surgical History History of nephrolithotomy with removal of calculi History of ankle surgery History of tonsillectomy History of lumbar surgery History of prostate surgery Family History Family History Father No problems noted. Mother No problems noted. Social History Social History Alcohol intake: never Patient Tobacco Use Status: Former Tobacco user Years Smoked: 20 +/- Smoked in Last 30 Days: No Use of substances other than those prescribed or required for medical reasons: No Advance Directives: Yes Advance Directives Information Provided: Yes Advance Directives on File: No Physical Exam 2 Vital Signs: Vital Signs: Last Vital Signs Temp 98.1 F 07/06/24 07:20 Pulse 101 H 07/06/24 09:37 Resp 22 H 07/06/24 09:37 BP 110/54 L 07/06/24 09:37 Pulse Ox 95 07/06/24 09:37 O2 Del Method Nasal Cannula 07/06/24 09:37 O2 Flow Rate 4 07/06/24 09:37 BMI result Body Mass Index 29.4 Appearance: Alert. Oriented X3. No acute distress. Head: normocephalic, atraumatic. Eyes: Pupils equal, round and reactive to light. ENT: Pharynx normal. No tonsillar swelling or exudate. Neck: Normal inspection. Neck supple. CVS:irregularly irregular, rapid rate 120-150. Respiratory: No respiratory distress. Breath sounds diminished throughout, no wheezing or rhonchi. Abdomen: Soft and nontender. +BS x4 Skin: Skin warm and dry. Normal skin color. Normal skin turgor. No rashes. Extremities: No lower extremity edema. No joint swelling. Neuro/psych: Oriented X 3. No motor deficit. No sensory deficit. CN II-XII intact. Normal speech and cognition. Medications Administered Generic Name Dose Route Start Last Admin Trade Name Freq PRN Reason Stop Dose Admin Azithromycin 500 mg/ Sodium 250 mls @ 125 mls/hr 07/06/24 08:19 07/06/24 08:46 Chloride IV 07/06/24 10:18 125 mls/hr ONCE ONE Administration Discontinued Medications Generic Name Dose Route Start Last Admin Trade Name Freq PRN Reason Stop Dose Admin Ceftriaxone Sodium 1 gm 07/06/24 08:19 07/06/24 08:43 Ceftriaxone Sodium 1 Gm Vial IVPUSH 07/06/24 08:20 1 gm ONCE ONE Administration Enoxaparin Sodium 90 mg 07/06/24 08:54 07/06/24 09:37 Enoxaparin Sodium 100 Mg/Ml Syringe 1 mg/kg (90 mg) 07/06/24 08:55 90 mg SUBCUT Administration ONCE ONE Iohexol 65 ml 07/06/24 08:27 07/06/24 08:28 Iohexol 350 Mg/Ml 100 Ml Infus..Btl IV 07/06/24 08:28 65 ml ONCE ONE Administration Metoprolol Tartrate 5 mg 07/06/24 06:59 07/06/24 07:10 Metoprolol Tartrate 5 Mg/5 Ml Vial IVPUSH 07/06/24 07:00 5 mg ONCE ONE Administration Protocol Metoprolol Tartrate 25 mg 07/06/24 08:18 07/06/24 08:43 Metoprolol Tartrate 25 Mg Tablet PO 07/06/24 08:19 25 mg ONCE ONE Administration Protocol Medical Decision Making Medical Decision Making [facility] Narrative: 84 yo male with history of atrial tachycardia, follows w/ Dr. Seay, hx HTN, DM, ERICA who presents to the ER for evaluation of left sided chest pain that woke him out of sleep at 4am today along with SOB and cough for the last 2-3 weeks. Found to be in new onset rapid afib w, HR 120-150s. SBP is stable and he is breathing comfortable. Chest pain resolved. Labs showing leukocytosis 16.4. CXR abdnormal with multifocal patchy opacities concerning for possible PNA vs pulmonary edema. Rocephin and Azithromycin ordered for CAP coverage. IV lopressor given for rapid afib w/ good effect. PO lopressor added as well. We discussed increased stroke risk w/ afib and need for anticoagluation. 1 dose lovenox given now. Patient hypoxic to 86%, requiring 4L NC to maintain sats >95%. 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 results d/w the patient including concern for malignancy. Will admit to the patient to the hospital for further management. Differential Diagnosis Differential Diagnoses: The differential diagnosis associated with the presentation includes new onset afib w/ RVR due to PE, ACS, PNA, viral illness, pulmonary edema, acute CHF, malignancy Admission/Observation Consideration of admission/observation: Escalation of care including admission/observation considered Consult Healthcare Provider Management of the patient was discussed with: Hospitalist Lab Data [facility] Lab Attestation statement: I reviewed the patient's lab results. leukocytosis, anemia, troponin mildly elevated w/ delta+ change 07/06/24 06:30 07/06/24 06:30 Labs: Lab Results 07/06/24 07/06/24 07/06/24 Range/Units 06:30 06:32 06:45 WBC 16.4 H (4.8-10.8) X10*3/uL RBC 4.46 L (4.60-5.80) X10*6/uL Hgb 13.8 L (14.0-18.0) g/dl Hct 41.4 L (42.0-52.0) % MCV 92.8 (80.0-98.0) fL MCH 30.9 (27.0-33.0) pg MCHC 33.3 (31.0-36.0) g/dl RDW 13.4 (11.0-16.0) % Plt Count 317 (160-400) X10*3/uL MPV 10.0 (9.4-12.4) fL Immature Gran % (Auto) 0.6 H (0.0-0.4) % Neut % (Auto) 78.0 H (45-73) % Lymph % (Auto) 9.4 L (20-40) % [place] % (Auto) 9.4 (2-11) % Eos % (Auto) 2.1 (0-4) % Baso % (Auto) 0.5 (0-2) % Lymph # (Auto) 1.5 (1.2-4.9) X10*3/uL [place] # (Auto) 1.6 H (0.1-1.2) X10*3/uL Eos # (Auto) 0.3 (0.0-0.4) X10*3/uL Baso # (Auto) 0.1 (0.0-0.2) X10*3/uL Abs Immat Gran (auto) 0.10 H (0.00-0.03) X10*3/uL Absolute Neuts (auto) 12.8 H (2.0-8.3) x10*3/uL Absolute Nucleated RBC 0.000 (0.0-0.012) X10*3/uL Nucleated RBC % (auto) 0.0 (0.0-0.2) /100WBC Smear Tech's Comments VERIFIED PT (10.9-12.4) SEC INR (0.9-1.1) APTT (26.0-36.8) SEC Sodium 138 (135-145) mmol/L Potassium 3.7 (3.3-5.1) mmol/L Chloride 106 (96-108) mmol/L Carbon Dioxide 19 L (22-29) mmol/L Anion Gap 17 (12-20) BUN 16 (9-16) mg/dL Creatinine 0.72 (0.5-1.4) mg/dL Estim Creat Clear Calc 87.4 Estimated GFR > 60 Random Glucose 247 H (60-115) mg/dL Lactic Acid 1.7 (0.5-2.0) mmol/L Calcium 9.4 (8.4-10.2) mg/dL Total Bilirubin 0.4 (0.0-1.0) mg/dL AST 23 (5-37) U/L ALT 16 (0-40) U/L Alkaline Phosphatase 77 (39-117) U/L Troponin I High Sens 14.4 (<3.5-35.0) ng/L B-Natriuretic Peptide 91 (<100) pg/mL Total Protein 7.6 (6.5-8.0) g/dL Albumin 3.3 L (3.5-5.0) g/dL Procalcitonin 0.03 ng/mL Influenza Type A (PCR) NEGATIVE (Negative) Influenza Type B (PCR) NEGATIVE (Negative) RSV RNA Qual (PCR) NEGATIVE (Negative) SARS-CoV-2 RNA (RT-PCR) NEGATIVE (Negative) 07/06/24 07/06/24 Range/Units 09:01 09:02 WBC (4.8-10.8) X10*3/uL RBC (4.60-5.80) X10*6/uL Hgb (14.0-18.0) g/dl Hct (42.0-52.0) % MCV (80.0-98.0) fL MCH (27.0-33.0) pg MCHC (31.0-36.0) g/dl RDW (11.0-16.0) % Plt Count (160-400) X10*3/uL MPV (9.4-12.4) fL Immature Gran % (Auto) (0.0-0.4) % Neut % (Auto) (45-73) % Lymph % (Auto) (20-40) % [place] % (Auto) (2-11) % Eos % (Auto) (0-4) % Baso % (Auto) (0-2) % Lymph # (Auto) (1.2-4.9) X10*3/uL [place] # (Auto) (0.1-1.2) X10*3/uL Eos # (Auto) (0.0-0.4) X10*3/uL Baso # (Auto) (0.0-0.2) X10*3/uL Abs Immat Gran (auto) (0.00-0.03) X10*3/uL Absolute Neuts (auto) (2.0-8.3) x10*3/uL Absolute Nucleated RBC (0.0-0.012) X10*3/uL Nucleated RBC % (auto) (0.0-0.2) /100WBC Smear Tech's Comments PT 12.7 H (10.9-12.4) SEC INR 1.1 (0.9-1.1) APTT 35.8 (26.0-36.8) SEC Sodium (135-145) mmol/L Potassium (3.3-5.1) mmol/L Chloride (96-108) mmol/L Carbon Dioxide (22-29) mmol/L Anion Gap (12-20) BUN (9-16) mg/dL Creatinine (0.5-1.4) mg/dL Estim Creat Clear Calc Estimated GFR Random Glucose (60-115) mg/dL Lactic Acid (0.5-2.0) mmol/L Calcium (8.4-10.2) mg/dL Total Bilirubin (0.0-1.0) mg/dL AST (5-37) U/L ALT (0-40) U/L Alkaline Phosphatase (39-117) U/L Troponin I High Sens 29.0 D (<3.5-35.0) ng/L B-Natriuretic Peptide (<100) pg/mL Total Protein (6.5-8.0) g/dL Albumin (3.5-5.0) g/dL Procalcitonin ng/mL Influenza Type A (PCR) (Negative) Influenza Type B (PCR) (Negative) RSV RNA Qual (PCR) (Negative) SARS-CoV-2 RNA (RT-PCR) (Negative) Independent Interpretation I performed an independent interpretation of an: EKG, Plain X-Ray and CT Scan Interpretation: ekg w/ afib w/ RVR HR 125, normal QRS, no ST segment elevations or depressions CXR with patchy multifocal opacities CTA without PE, GGO bilaterally w/ pulm nodules Radiology Impression Discussion of test interpretation with radiology: I have reviewed the radiologist's reading. Independent Historian Clinical information obtained from an independent historian. History obtained from or confirmed by: EMS External Record Review External record reviewed: Outpatient record, Prior outpatient labs and Prior outpatient radiology Prescription Management I considered prescription management with: Antibiotic and Other (anticoagulation, antiarrythmic) Chronic Conditions Patient?s care impacted by: Diabetes and Hypertension Critical Care Time Critical Care Time Critical Care Time: Yes Total Critical Care Time: 48 Attestation: I have personally provided critical care time exclusive of time spent on separately billable procedures. Time includes review of lab data, radiology results, discussion with consultants, and monitoring for potential decompensation. Intervention performed as documented. Discharge Plan Discharge Clinical Impression: New onset atrial fibrillation, Multifocal pneumonia, Lesion of stomach Patient Disposition: Admitted As Inpatient Print Language: Irish
[2024-07-06 06:54] LABS: Basophils Absolute Auto 0.1 X10*3/uL (0.0-0.2); Basophils Percent Auto 0.5 % (0-2); Eosinophils Absolute Auto 0.3 X10*3/uL (0.0-0.4); Eosinophils Percent Auto 2.1 % (0-4); Hematocrit 41.4 % (42.0-52.0); Hemoglobin 13.8 g/dl (14.0-18.0); Imm Gran Pct Auto 0.6 % (0.0-0.4); Lymphocytes Absolute Auto 1.5 X10*3/uL (1.2-4.9); Lymphocytes Percent Auto 9.4 % (20-40); MANUAL DIFF FLAG SCAN; Mean Corpuscular HGB Conc 33.3 g/dl (31.0-36.0); Mean Corpuscular Hemoglobin 30.9 pg (27.0-33.0); Mean Corpuscular Volume 92.8 fL (80.0-98.0); Monocytes Absolute Auto 1.6 X10*3/uL (0.1-1.2); Monocytes Percent Auto 9.4 % (2-11); Neutrophils Absolute Auto 12.8 x10*3/uL (2.0-8.3); Platelet Count 317 X10*3/uL (160-400); Red Blood Count 4.46 X10*6/uL (4.60-5.80); Red Cell Distribution Width 13.4 % (11.0-16.0); SCAN SMEAR FLAG 1; White Blood Count 16.4 X10*3/uL (4.8-10.8)
[2024-07-06 07:05] LABS: Lactic Acid 1.7 mmol/L (0.5-2.0)
[2024-07-06 07:05] LABS: Alanine Aminotransferase 16 U/L (0-40); Albumin Level 3.3 g/dL (3.5-5.0); Alkaline Phosphatase 77 U/L (39-117); Anion Gap 17 (12-20); Aspartate Amino Transferase 23 U/L (5-37); Bilirubin Total 0.4 mg/dL (0.0-1.0); Blood Urea Nitrogen 16 mg/dL (9-16); Calcium 9.4 mg/dL (8.4-10.2); Carbon Dioxide 19 mmol/L (22-29); Chloride 106 mmol/L (96-108); Creatinine Clr Calc Pharmacy 87.4; Estimated Glomerular Filt Rate > 60; Glucose Random 247 mg/dL (60-115); Potassium 3.7 mmol/L (3.3-5.1); Sodium 138 mmol/L (135-145); Total Protein 7.6 g/dL (6.5-8.0)
[2024-07-06 07:08] LABS: Troponin-I High Sensitivity 14.4 ng/L (<3.5-35.0)
[2024-07-06] MEDS: Metoprolol Tartrate 5 MG/5 ML VIAL IVPUSH (07:10)
[2024-07-06 07:14] LABS: Influenza A PCR NEGATIVE (Negative); Influenza B PCR NEGATIVE (Negative); Resp Syncy Virus RNA Qual PCR NEGATIVE (Negative); SARS COV2 PCR INHOUSE NEGATIVE (Negative)
--- NOTE | 2024-07-06 07:14 | PC.NURSE ---
this RN resumed care of pt at 0645. a&ox4. vss and up to date aside from being afib on the monitor - HR between 115-140bpm. pt denies hx of afib but takes baby ASA daily. pt presents to the ED c/o generalized chest pain that radiates to the left side of his chest x 0400 this morning. pt states sx woke him up from his sleep. pt also verbalizing nonproductive cough and slight sob x a few weeks. pt otherwise denies dizziness/lightheadedness/nausea/vomiting. 20gIV in the left AC placed by EMS - patent/intact. medication administered per provider order. effectiveness pending. pt noted to be 86% on RA - pt placed on 4L via NC w/ good effect. pt SPO2 @ 95%. attempted to place pt on 2L but pt ranged between 88%-92%. pt denies hx of asthma/copd. pt seems to be in no respiratory distress. no sob/wob noted. respirations even/unlabored. plan of care ongoing. call elaine placed within reach.
[2024-07-06 07:18] LABS: SLIDE REVIEW VERIFIED
[2024-07-06 07:30] LABS: B Type Natriuretic Peptide 91 pg/mL (<100)
[2024-07-06] MEDS: iohexoL 350 MG/ML 100 ML INFUS..BTL 65 ML IV (08:28)
[2024-07-06] MEDS: cefTRIAXone sodium 1 GM VIAL IVPUSH (08:43)
[2024-07-06] MEDS: Metoprolol Tartrate 25 MG TABLET PO (08:43)
[2024-07-06] MEDS: Azithromycin 500 MG in 0.9 % Sodium Chloride 250 ML 125 MG IV (08:46)
--- NOTE | 2024-07-06 08:52 | PC.NURSE ---
pt notified/aware of scan results at this time. pt aware he will be admitted to the hospital. abx administered per provider order. plan of care ongoing.
[2024-07-06 08:53] LABS: Procalcitonin 0.03 ng/mL
--- NOTE | 2024-07-06 09:12 | PC.NURSE ---
repeat labs obtained/sent to lab by [facility].
[2024-07-06 09:13] LABS: INTERNATIONAL NORM RATIO 1.1 (0.9-1.1); Prothrombin Time 12.7 SEC (10.9-12.4)
[2024-07-06 09:15] LABS: Partial Thromboplastin Time 35.8 SEC (26.0-36.8)
[2024-07-06] MEDS: Enoxaparin Sodium 100 MG/ML SYRINGE 90 MG SUBCUT ×2 (09:37→20:23)
--- NOTE | 2024-07-06 11:06 | P.HPHOSP_ITS ---
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 He presents to the ER for evaluation of aching, nonradiating left sided chest pain that woke him out of sleep at 4am. He states the pain felt like someone was poking him in the chest. It did not subside so he called 911. He reports for the last 2-3 weeks he has had SOB and a cough. The cough is sometimes productive of brown phlegm. He denies fevers or chills, no sick contacts. He denies N/V and abdominal pain. He denies palpitations or dizziness. Indicate he was recently seen by new PCP for similar URI symptoms and was treated with antibiotics finishing his 10-day regimen yesterday, endorses loose stools starting around time of abx. use. Review of Systems 2 Constitutional: Comments: Endorses recent chills prior to arrival, increased fatigue, recent weight loss, change in appetite Denies falls, night sweats Eyes: Comments: Denies changes to vision ENT: Comments: Denies headache, changes to hearing, vertigo, or sore throat Cardiovascular: Comments: Denies diaphoresis, orthopnea, edema Endorses pain & palpitations intermittently Respiratory: Comments: Denies wheezing, hemoptysis (endorses small amounts of brown sputum), pleuritic pain Endorses dyspnea, and a mostly non-productive cough Gastrointestinal: Comments: Denies N/V/constipation, or bleeding Endorses recent loose stools, change to appetite Genitourinary: Comments: Denies frequncy or urgency, pain or burning Endorses suprapubic catheter to leg bag (changed monthly at PCP), periodic scant hematuria Musculoskeletal: Comments: Denies muscle or joint swelling or pain, however Endorses some scapular discomfort with coughing Integumentary/Breasts: Comments: Denies rashes or lesions Neurologic: Comments: Denies dizziness, syncope, seizures, or numbness 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 of DM-insulin dependent Hematologic/Lymphatic: Comments: Denies easy bleeding or bruising Allergic/Immunologic: Comments: Denies [facility] Medical History (Updated 07/06/24 @ 09:35 by JOSE ARMANDO [place]) History of pyelonephritis Substance abuse Alcoholism Mitral annular calcification Hyperaldosteronism Essential hypertension Type 2 diabetes mellitus with unspecified complications PVC (premature ventricular contraction) Atrial tachycardia HTN (hypertension) Diabetes Suprapubic catheter Family History Father No problems noted. Mother No problems noted. Surgical History History of nephrolithotomy with removal of calculi History of ankle surgery History of tonsillectomy History of lumbar surgery History of prostate surgery Social History Alcohol intake: never Patient Tobacco Use Status: Former Tobacco user Years Smoked: 20 +/- Smoked in Last 30 Days: No Use of substances other than those prescribed or required for medical reasons: No Advance Directives: Yes Advance Directives Information Provided: Yes Advance Directives on File: No Meds Allergies Allergy/AdvReac Type Severity Reaction Status Date / Time No Known Allergies Allergy Verified 07/06/24 06:27 [No Known Allergies*] Home Medications ?Medication ?Instructions ?Recorded ?Confirmed ?Last Taken ?Type amiloride 5 mg tablet 5 mg PO BIDWM@0800,1700 08/30/20 07/06/24 Unknown History amlodipine 10 mg tablet 10 mg PO DAILY 08/30/20 07/06/24 Unknown History losartan 50 mg tablet 50 mg PO DAILY 08/30/20 07/06/24 Unknown History metformin 1,000 mg tablet 1,000 mg PO BIDWM 08/30/20 07/06/24 Unknown History oxybutynin chloride 5 mg tablet 5 mg PO DAILY 02/21/21 07/06/24 Unknown History atorvastatin 40 mg tablet 40 mg PO DAILY 02/21/22 07/06/24 Unknown History aspirin 81 mg tablet,delayed 81 mg PO DAILY 07/06/24 07/06/24 Unknown History release calcium carbonate 500 mg PO BEDTIME 07/06/24 07/06/24 Unknown History cholecalciferol (vitamin D3) 25 25 mcg PO BEDTIME 07/06/24 07/06/24 Unknown History mcg (1,000 unit) tablet insulin glargine 100 unit/mL (3 21 unit subcut BEDTIME 07/06/24 07/06/24 Unknown History mL) subcutaneous pen (Basaglar KwikPen U-100 Insulin) loratadine 10 mg tablet 10 mg PO DAILY 07/06/24 07/06/24 Unknown History metoprolol succinate 50 mg 75 mg PO DAILY 07/06/24 07/06/24 Unknown History tablet,extended release 24 hr multivitamin 1 tab PO DAILY 07/06/24 07/06/24 Unknown History Physical Exam 2 Vital Signs and Narrative: Vital Signs: Last Vital Signs Temp 98.1 F 07/06/24 07:20 Pulse 101 H 07/06/24 09:37 Resp 22 H 07/06/24 09:37 BP 110/54 L 07/06/24 09:37 Pulse Ox 95 07/06/24 09:37 O2 Del Method Nasal Cannula 07/06/24 09:37 O2 Flow Rate 4 07/06/24 09:37 BMI result Body Mass Index 29.4 Const: General: cooperative, comfortable and no acute distress O rientation/consciousness: patient oriented x3 HEENT: Head: Yes normal to inspection Ears: hearing grossly normal bilaterally Eyes: General: appearance normal, both eyes and all related structures EOM: EOMs intact bilaterally Neck: Yes normal visual inspection and Yes full ROM Resp: Effort & Inspection: normal respiratory effort, able to speak in complete sentences and Actively coughing Quality: dry Auscultation: crackles bilateral in the lower lung brand, rhonchi throughout and diminished lung sounds bilateral throughout Cardio: Rhythm: abnormal rhythm irregularly irregular GI: Inspection: Yes distended and Yes obesity Auscultation: Hyperactive bowel sounds present : General: Yes bladder normal to inspection Catheter in place: suprapubic Skin: General skin exam: no rashes or lesions noted Neuro: General: patient oriented x3 Cranial nerves: Yes CN's II-XII intact bilaterally Motor exam (neuro): 5/5 motor strength present throughout Extrem: General: Yes normal to inspection and Yes full ROM Psych: Appearance: grossly normal Mental Status: mental status grossly normal Affect: normal affect Attitude: cooperative Results Labs 07/06/24 06:30 07/06/24 06:30 Labs: Laboratory Results - last 24 hr 07/06/24 07/06/24 07/06/24 06:30 06:32 06:45 MCV 92.8 MCH 30.9 MCHC 33.3 RDW 13.4 Plt Count 317 MPV 10.0 Immature Gran % (Auto) 0.6 H Neut % (Auto) 78.0 H Lymph % (Auto) 9.4 L [place] % (Auto) 9.4 Eos % (Auto) 2.1 Baso % (Auto) 0.5 Lymph # (Auto) 1.5 [place] # (Auto) 1.6 H Eos # (Auto) 0.3 Baso # (Auto) 0.1 Abs Immat Gran (auto) 0.10 H Absolute Neuts (auto) 12.8 H Absolute Nucleated RBC 0.000 Nucleated RBC % (auto) 0.0 Smear Tech's Comments VERIFIED PT INR APTT Anion Gap 17 Estim Creat Clear Calc 87.4 Estimated GFR > 60 Random Glucose 247 H Lactic Acid 1.7 Calcium 9.4 Total Bilirubin 0.4 AST 23 ALT 16 Alkaline Phosphatase 77 B-Natriuretic Peptide 91 Total Protein 7.6 Albumin 3.3 L Procalcitonin 0.03 Influenza Type A (PCR) NEGATIVE Influenza Type B (PCR) NEGATIVE RSV RNA Qual (PCR) NEGATIVE SARS-CoV-2 RNA (RT-PCR) NEGATIVE 07/06/24 09:01 MCV MCH MCHC RDW Plt Count MPV Immature Gran % (Auto) Neut % (Auto) Lymph % (Auto) [place] % (Auto) Eos % (Auto) Baso % (Auto) Lymph # (Auto) [place] # (Auto) Eos # (Auto) Baso # (Auto) Abs Immat Gran (auto) Absolute Neuts (auto) Absolute Nucleated RBC Nucleated RBC % (auto) Smear Tech's Comments PT 12.7 H INR 1.1 APTT 35.8 Anion Gap Estim Creat Clear Calc Estimated GFR Random Glucose Lactic Acid Calcium Total Bilirubin AST ALT Alkaline Phosphatase B-Natriuretic Peptide Total Protein Albumin Procalcitonin Influenza Type A (PCR) Influenza Type B (PCR) RSV RNA Qual (PCR) SARS-CoV-2 RNA (RT-PCR) Imaging Radiologist's Impressions: Impressions Chest X-Ray 07/06/24 07:56 IMPRESSION: Pulmonary edema versus multifocal pneumonia among other differential diagnosis. Electronically signed by: Darrion Wilkins MD 07/06/2024 08:16 AM EST RP Chest CTA 07/06/24 08:18 IMPRESSION: No acute pulmonary artery emboli. 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 6 cm exophytic low density lesion, fundus of the stomach. 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 Logan Watkins in the emergency department at 9:05 AM.. Fleischner guidelines were followed. Electronically signed by: Darrion Wilkins MD 07/06/2024 09:08 AM EST RP Assessment and Plan (1) Multifocal pneumonia: Status: Acute Plan 84 y/o male with history of atrial tachycardia/SVT on lopressor, HTN, DM2 on insulin, ERICA, who presents to the ER from home via EMS for evaluation of acute onset of aching, non-radiating left sided chest pain that woke him out of sleep at 4am. sepsis due to pneumonia WBC 16.4, PCT 0.3 CXR shows Pulmonary edema versus multifocal pneumonia among other differential diagnosis. 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 new afib vs atach, cardio eval, continue metoprolol, start therapeutic lovenox for now Blood cx pending Viral respiratory panel neg IVF, LR x 1 L Given 1x dose zithromax and ceftriaxone in ED, will continue Supplemental oxygen as needed ?lung mets oncology eval Atrial Tachycardia, chronic continue lopressor COPD continue albuterol HTN continue amlodipine, lisinopril, and losartan DM sliding scale Incidental fundus lesion GI eval ERICA not on cPAP dvt prophylaxis - on therapeutic lovenox full code pateint with sepsis due to pneumonia requiring iv abx, specialist eval, therefore expected to require atleast 2 midnights inpatient. Quality Stroke Does the patient have a stroke diagnosis?: No VTE Prior VTE?: No VTE Risk Level:: Medical - moderate - high VTE Device Contraindication: Treatment Not Indicated VTE Drug Contraindication: N/A - Med Ordered
--- NOTE | 2024-07-06 11:13 | PHA.MEDREC ---
Addendum entered by Thedoore Carrasco RP 07/06/24 11:31: Reviewed by [facility]. Original Note: Pharmacy Consult ? Medication Reconciliation Pharmacy has completed the medication reconciliation. Spoke with patient to confirm medications, he had a list from home. He reports he finished his antibiotics 2-3 days ago. OTC medications patient reported: vitamin D3, calcium, multivitamin, probiotic, loratadine, and baby aspirin. He confirmed he takes 1 and 1/2 tabs of metoprolol. He takes 21 units of Basaglar at bedtime. He reports he still uses oxybutynin (per claims, last fill 02/16/24). Per patient med list, he wrote bid next to amlodipine and once daily next to amiloride. His rx claims report opposite: amiloride bid and amlodipine once daily. When asked what he goes by to fill his pill box he said both the pill bottle and his med list. Entered what rx claims report. Will notify provider. Patient reports he took his medications this morning.
[2024-07-06 17:11] LABS: Glucose, Whole Blood 197 mg/dL (60-115)
[2024-07-06] MEDS: 0.9 % Sodium Chloride Flush 3 ML SYRINGE IVFLUSH (18:15)
[2024-07-06] MEDS: Insulin Lispro 100 UNIT/ML 3 ML VIAL SUBCUT (18:15)
[2024-07-06] MEDS: Cholecalciferol (Vitamin D3) 25 MCG TABLET PO (20:23)
[2024-07-06] MEDS: Calcium Oyster Shell Elemental 500 MG TABLET PO (20:23)
[2024-07-06 20:53] LABS: Glucose, Whole Blood 96 mg/dL (60-115)
[2024-07-07] VITALS (10 sets, daily range): BP systolic 124–155; BP diastolic 64–72; PULSE 82–97; RESP 16–20; TEMP 36.3–37.2; O2SAT 90–96
[2024-07-07] MEDS: 0.9 % Sodium Chloride Flush 3 ML SYRINGE IVFLUSH ×4 (05:16→21:45)
[2024-07-07 08:39] LABS: Hematocrit 38.1 % (42.0-52.0); Hemoglobin 12.5 g/dl (14.0-18.0); Mean Corpuscular HGB Conc 32.8 g/dl (31.0-36.0); Mean Corpuscular Hemoglobin 30.6 pg (27.0-33.0); Mean Corpuscular Volume 93.2 fL (80.0-98.0); Mean Platelet Volume 9.9 fL (9.4-12.4); Platelet Count 284 X10*3/uL (160-400); Red Blood Count 4.09 X10*6/uL (4.60-5.80); Red Cell Distribution Width 13.5 % (11.0-16.0); White Blood Count 9.5 X10*3/uL (4.8-10.8)
[2024-07-07 08:44] LABS: Anion Gap 12 (12-20); Blood Urea Nitrogen 12 mg/dL (9-16); Calcium 8.9 mg/dL (8.4-10.2); Carbon Dioxide 23 mmol/L (22-29); Chloride 106 mmol/L (96-108); Creatinine Clr Calc Pharmacy 99.9; Estimated Glomerular Filt Rate > 60; Glucose Random 204 mg/dL (60-115); Magnesium 1.6 mg/dL (1.6-2.6); Potassium 4.1 mmol/L (3.3-5.1); Sodium 137 mmol/L (135-145)
[2024-07-07] MEDS: Azithromycin 500 MG TABLET PO (08:45)
[2024-07-07] MEDS: Atorvastatin Calcium 40 MG TABLET PO (08:45)
[2024-07-07] MEDS: Aspirin Enteric Coated 81 MG TABLET.DR PO (08:45)
[2024-07-07] MEDS: Losartan Potassium 50 MG TABLET PO (08:45)
[2024-07-07] MEDS: amLODIPine Besylate 10 MG TABLET PO (08:46)
[2024-07-07] MEDS: Loratadine 10 MG TABLET PO (08:46)
[2024-07-07] MEDS: Multivitamin TABLET 1 TAB PO (08:46)
[2024-07-07] MEDS: Enoxaparin Sodium 100 MG/ML SYRINGE 90 MG SUBCUT ×2 (08:46→21:43)
[2024-07-07] MEDS: Metoprolol Succinate ER 25 MG TAB.ER.24H 75 MG PO (08:46)
[2024-07-07] MEDS: Insulin Lispro 100 UNIT/ML 3 ML VIAL SUBCUT ×3 (08:47→16:58)
[2024-07-07] MEDS: cefTRIAXone sodium 1 GM VIAL IVPUSH (08:47)
--- NOTE | 2024-07-07 08:59 | CA_ITS ---
Transthoracic Echocardiogram Patient (Last, First, Middle): Delroy Wheat B Gender: Male Date of : 1940 Age: 84 Procedure Date: 07/07/2024 Procedure Type: Transthoracic Echocardiogram [place] [facility] [place]: 177.8 cm Weight: 92.99 kg BSA: 2.11 m2 Heart Rate: bpm BP: 153 / 70 mmHg [employer] Farmworker: Referring MD: Per Seay MD Symptoms: Atrial fibrillation Study Quality: Fair ECG Rhythm: Sinus Conclusions: - The left ventricular systolic function is normal. The visually estimated ejection fraction is between 60-65%. - There is moderate calcification of the aortic valve. - There is moderate mitral annular calcification. Findings Procedure Information Contrast agent, definity, is being given per protocol without apparent complications. Left Ventricle Normal left ventricular cavity size. There is mildly increased left ventricular wall thickness. The left ventricular systolic function is normal. The visually estimated ejection fraction is between 60-65%. There is no evidence of regional wall motion abnormalities. Evidence suggests grade I (mild) diastolic dysfunction. Right Ventricle Mildly increased right ventricular cavity size. There is normal right ventricular systolic function. Atria Both atria are normal in size. Aortic Valve There is moderate calcification of the aortic valve. There is no aortic valve stenosis. There is no aortic valve regurgitation. Mitral Valve There is moderate mitral annular calcification. There is no mitral valve regurgitation. There is no mitral valve stenosis. Pulmonic Valve The pulmonic valve is likely normal. Tricuspid Valve There is trace tricuspid valve regurgitation. There is no evidence of pulmonary hypertension. Great Vessels The asc aorta is normal in size. Venous The inferior vena cava is normal in size and collapses greater than 50% with inspiration. Pericardium/Pleural There is no evidence of pericardial effusion. Prior Study Comparison No significant change compared to prior study dated: 08/21/2020. Measurements 2D Linear Measurements IVSd: 1.22 0.6-0.9/0.6-1.0 cm LVIDd: 4.10 3.9-5.3/4.2-5.9 cm LVIDd Index: 1.94 2.4-3.2/2.2-3.1 cm/m2 LVIDs: 2.67 2.0-3.6 cm LVPWd: 1.20 0.7-1.1 cm LA Diam: 4.00 2.7-3.8/3.0-4.0 cm LAIDs Index: 1.90 1.5-2.3 cm/m2 LV Mass: 216.58 67-162/88-224 g LV Mass Index: 102.64 43-95/49-115 g/m2 LVOT Diam: 2.30 3.0+(-)1.3 cm 2D Systolic Function EF 4C: 69.70 >55% EF 2C: 68.90 >55% EF BiP: 69.50 >55% Mitral Valve MV VTI: 0.43 MV Pk Rubens: 1.26 MV Mn Rubens: 0.77 MV Pk Grad: 6.00 MV Mn Grad: 3.00 MV Pk E: 1.13 MV PK A: 1.34 MV Decel Time: 215.00 E/A: 0.80 E'Lateral: 6.85 E'Medial: 5.87 E/E' Med: 19.30 E/E' Lat: 16.50 PHT: 63.00 MVA PHT: 3.49 MVA Continuity: 2.40 Decel Hamblen: 5.27 Aortic Valve AoV Pk Rubens: 1.80 AoV Mn Rubens: 1.29 AoV VTI: 0.39 AoV Pk Grad: 13.00 Aov Mn Grad: 8.00 ONI Cont.VTI: 2.61 LVOT LVOT Pk Rubens: 1.15 LVOT Mn Rubens: 0.71 LVOT VTI: 0.25 LVOT Pk Grad: 5.00 LVOT Mn Grad: 2.00 LVOT Diam: 2.30 LVOT Area: 4.15 Diastolic Function MV Pk E: 1.13 MV Pk A: 1.34 E/A: 0.80 E'Medial: 5.87 E/E' Med: 19.30 E' Laterial: 6.85 E/E' Lat: 16.50 Right Ventricle TAPSE (mm): 23.60 TVS' Rubens: 12.70 Tricuspid Valve TR Pk Rubens: 2.35 TR Pk Grad: 22.00 RA Press: 3.00 RVSP: 25.00 Great Vessels Aorta Sinus of Valsalva: 3.40 2.0-3.5 cm Ao Asc: 3.30 2.1-3.4 cm Pulmonary Valve PV Pk Rubens: 0.94 Peak PV Grad: 4.00 Updated in Other Vendor System with Status of Final Per Seay MD electronically signed on 07/07/2024 4:31:30 PM with status of Final
--- NOTE | 2024-07-07 09:25 | HO.PM.IMPN ---
Subjective Subjective Date of Service: 07/07/24 Interval History: cough Physical Exam Vital Signs: Vital Signs: Last Vital Signs Temp 97.4 F 07/07/24 07:05 Pulse 97 07/07/24 08:46 Resp 20 07/07/24 07:05 BP 136/66 07/07/24 08:46 Pulse Ox 96 07/07/24 07:05 O2 Del Method Nasal Cannula 07/07/24 07:05 O2 Flow Rate 3 07/07/24 07:05 BMI result Body Mass Index 29.4 General: AO X 3, no acute distress Resp: rhonchi bilateral, no accessory muscles used CVS: S1,S2,RRR GI: soft, non tender, non distended Neuro: motor grossly intact, alert Psych: appropriate affect, appropriate insight Objective Data Active Medications Acetaminophen (Acetaminophen 325 Mg Tablet) 650 mg PO Q6H PRN PRN Reason: Pain, Mild 1-3,fever,headache Albuterol/Ipratropium (Albuterol/Iprat 2.5/0.5mg 3 Ml Ampul.Neb) 3 ml INHALE RQ4H WHILE AWAKE PRN PRN Reason: sob Amlodipine Besylate (Amlodipine Besylate 10 Mg Tablet) 10 mg PO DAILY [facility]; Protocol Last Admin: 07/07/24 08:46 Dose: 10 mg Documented By: AMILCAR Aspirin (Aspirin Enteric Coated 81 Mg Tablet.Dr) 81 mg PO DAILY [facility] Last Admin: 07/07/24 08:45 Dose: 81 mg Documented By: AMILCAR Atorvastatin Calcium (Atorvastatin Calcium 40 Mg Tablet) 40 mg PO DAILY [facility] Last Admin: 07/07/24 08:45 Dose: 40 mg Documented By: AMILCAR Azithromycin (Azithromycin 500 Mg Tablet) 500 mg PO Q24H [facility] Last Admin: 07/07/24 08:45 Dose: 500 mg Documented By: AMILCAR Calcium Carbonate (Calcium Oyster Shell Elemental 500 Mg Tablet) 500 mg PO BEDTIME [facility] Last Admin: 07/06/24 20:23 Dose: 500 mg Documented By: SYED Calcium Carbonate (Calcium Carbonate 750 Mg Tab.Chew) 750 mg PO Q4H PRN PRN Reason: Heartburn Ceftriaxone Sodium (Ceftriaxone Sodium 1 Gm Vial) 1 gm IVPUSH Q24H [facility] Last Admin: 07/07/24 08:47 Dose: 1 gm Documented By: AMILCAR Dextrose (Dextrose 50 % 25 Gm/50 Ml Syringe) 25 gm IVPUSH Q15M PRN; Protocol PRN Reason: per Hypoglycemia Standing Ord. Enoxaparin Sodium (Enoxaparin Sodium 100 Mg/Ml Syringe) 90 mg SUBCUT Q12H [facility] Last Admin: 07/07/24 08:46 Dose: 90 mg Documented By: AMILCAR Glucose (Glucose Gel 15 Gm Gel..Gram.) 15 gm PO Q15M PRN; Protocol PRN Reason: per Hypoglycemia Standing Ord. Insulin Glargine (Insulin Glargine,Hum.Rec.Anlog 100 Unit/Ml 10 Ml Vial) 21 unit SUBCUT BEDTIME [facility] Last Admin: 07/06/24 21:05 Dose: Not Given Documented By: SYED Non-Admin Reason: No Insulin Coverage Comments: hold per Insulin Human Lispro (Insulin Lispro 100 Unit/Ml 3 Ml Vial) 0 unit SUBCUT QIDACHS [facility]; Protocol Last Admin: 07/07/24 08:47 Dose: 2 unit Documented By: AMILCAR Loratadine (Loratadine 10 Mg Tablet) 10 mg PO DAILY [facility] Last Admin: 07/07/24 08:46 Dose: 10 mg Documented By: AMILCAR Losartan Potassium (Losartan Potassium 50 Mg Tablet) 50 mg PO DAILY [facility]; Protocol Last Admin: 07/07/24 08:45 Dose: 50 mg Documented By: AMILCAR Magnesium Hydroxide (Milk Of Magnesia 30 Ml Oral.Susp) 30 ml PO DAILY PRN PRN Reason: Constipation Melatonin (Melatonin 3 Mg Tablet) 6 mg PO BEDTIME PRN PRN Reason: Insomnia Metoprolol Succinate (Metoprolol Succinate Er 25 Mg Tab.Er.24h) 75 mg PO DAILY [facility]; Protocol Last Admin: 07/07/24 08:46 Dose: 75 mg Documented By: AMILCAR Multivitamins/Vitamin C (Multivitamin Tablet) 1 tab PO DAILY [facility] Last Admin: 07/07/24 08:46 Dose: 1 tab Documented By: AMILCAR Pt Own (Amiloride 5 (Mg Tablet)) 5 mg PO BIDWM@0800,1700 [facility] Oxybutynin Chloride (Oxybutynin Chloride 5 Mg Tablet) 5 mg PO DAILY [facility] Sodium Chloride (0.9 % Sodium Chloride Flush 3 Ml Syringe) 3 ml IVFLUSH QSHIFT [facility] Last Admin: 07/07/24 08:46 Dose: 3 ml Documented By: AMILCAR Vitamin D (Cholecalciferol (Vitamin D3) 25 Mcg Tablet) 25 mcg PO BEDTIME [facility] Last Admin: 07/06/24 20:23 Dose: 25 mcg Documented By: SYED Labs 07/07/24 08:09 07/07/24 08:09 Labs: Laboratory Results - last 24 hr 07/06/24 07/06/24 07/07/24 17:08 20:24 08:09 MCV 93.2 MCH 30.6 MCHC 32.8 RDW 13.5 Plt Count 284 MPV 9.9 Absolute Nucleated RBC 0.000 Nucleated RBC % (auto) 0.0 Anion Gap 12 Estim Creat Clear Calc 99.9 Estimated GFR > 60 POC Glucose 197 H 96 Random Glucose 204 H Calcium 8.9 Magnesium 1.6 Microbiology Microbiology Results: Microbiology 07/06/24 06:54 Blood Culture - Preliminary Blood - Venous No growth after 24 hours. 07/06/24 06:45 Blood Culture - Preliminary Blood - Venous No growth after 24 hours. Assessment and Plan (1) Essential hypertension: Status: Acute Plan 84M PMH atrial tachycardia/SVT on lopressor, HTN, DM2 on insulin, ERICA, who presented to the ER from home via EMS for evaluation of acute onset of aching, non-radiating left sided chest pain that woke him out of sleep at 4am. sepsis due to pneumonia with acute hypoxic respiratory failure WBC 16.4, PCT 0.3 CXR shows Pulmonary edema versus multifocal pneumonia among other differential diagnosis. CTA chest shows No acute pulmonary artery emboli.Concerning lung metastatic disease. 6 cm exophytic low density lesion, fundus of the stomach. 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 new afib vs atach, cardio eval, continue metoprolol, started therapeutic lovenox for now Viral respiratory panel neg IVF, LR x 1 L rocephin, azithro Supplemental oxygen as needed ?lung mets oncology eval Atrial Tachycardia, chronic continue lopressor COPD continue albuterol HTN continue amlodipine, lisinopril, and losartan DM sliding scale ERICA not on cPAP dvt prophylaxis - on therapeutic lovenox full code reason for continued hospitalization:hypoxia Quality Stroke Does the patient have a stroke diagnosis?: No VTE Prior VTE?: No VTE Risk Level:: Medical - moderate - high VTE Device Contraindication: Treatment Not Indicated VTE Drug Contraindication: N/A - Med Ordered
[2024-07-07 09:39] LABS: Iron 41 mcg/dL (45-160); Percent Iron Saturation 22 % (15-50); Total Iron Binding Capacity 183 mcg/dL (228-428); Unsaturated Iron Binding 142 ug/dL
[2024-07-07 09:55] LABS: Ferritin 134 ng/mL (20-250)
--- NOTE | 2024-07-07 10:11 | PM.CNCAR ---
History of Present Illness History of Present Illness Date of Service: 07/07/24 Chief complaint: PNA Narrative: This is a cardiology consultation regarding atrial fibrillation with rapid ventricular response. Patient was last seen in 2022. At that time, per notes there is history of aortic/mitral calcification but no valvular dysfunction. There was also history of atrial tachycardia/PVCs. His follow-up appointment is coming up. In this setting, seems that he has been admitted for pneumonia. In this setting, he is having atrial fibrillation rapid rate episodes and hence we are consulted. Patient himself states that he feels okay and does not have any overt cardiac symptoms. He denies any clear-cut anginal-type symptoms. However, when he presented it seems that he had nonradiating left-sided chest pain that woke him out of sleep and felt like someone is poking him. Then he was also having some shortness of breath and cough. Brown phlegm. Review of Systems Review of Systems: Yes all other systems are reviewed and are negative Constitutional: Constitutional: Reports as per HPI and Reports no additional constitutional complaints Eyes: Eyes: Reports as per HPI and Denies no additional eye complaints ENT: Denies system reviewed and no additional complaints, except as documented and Reports as per HPI Cardiovascular: Cardiovascular: Reports as per HPI, Reports no additional cardiovascular complaints, Denies acrocyanosis, Denies cool extremities, Denies chest pain, Denies leg edema, Denies lightheadedness, Denies palpitations and Denies dyspnea Respiratory: Respiratory: Reports as per HPI, Denies no additional respiratory complaints and Denies dyspnea Gastrointestinal: Gastrointestinal: Reports as per HPI and Denies no additional gastrointestinal complaints Genitourinary: Genitourinary: Reports no additional male genitourinary complaints and Reports as per HPI Musculoskeletal: Musculoskeletal: Reports no additional musculoskeletal complaints and Reports as per HPI Integumentary/Breasts: Skin/Breast: Reports system reviewed and no additional complaints, except as docu Neurologic: Reports system reviewed and no additional complaints, except as documented and Reports as per HPI Psychiatric: Psychiatric: Reports no additional psychiatric complaints and Reports as per HPI Endocrine: Endocrine: Reports no additional endocrine complaints, Reports as per HPI and Denies palpitations Hematologic/Lymphatic: Hematologic/Lymphatic: Reports no additional hematologic/lymphatic complaints and Reports as per HPI Allergic/Immunologic: Allergic/Immunologic: Reports no additional allergic/immunologic complaints and Reports as per HPI [facility] Past Medical History Medical History (Updated 07/07/24 @ 10:15 by Per Seay MD) History of pyelonephritis Substance abuse Alcoholism Mitral annular calcification Hyperaldosteronism Essential hypertension Type 2 diabetes mellitus with unspecified complications PVC (premature ventricular contraction) Atrial tachycardia HTN (hypertension) Diabetes Suprapubic catheter Family History Family History Father No problems noted. Mother No problems noted. Surgical History Surgical History History of nephrolithotomy with removal of calculi History of ankle surgery History of tonsillectomy History of lumbar surgery History of prostate surgery Social History Social History Household Members: Spouse Housing: House Do you presently have visiting nurse or other home services: No Alcohol intake: never Patient Tobacco Use Status: Former Tobacco user Years Smoked: 20 +/- Smoked in Last 30 Days: No e-Cigarette/Vaping Use: Never Used Patient Interested in Nicotine Replacement: No Patient Given Instructions on How to Stop Smoking: No Use of substances other than those prescribed or required for medical reasons: No Currently Displaying Signs/Symptoms of Drug Intoxication Withdrawal: No Any prior treatment program specific to substance use: No Have you been hit, kicked, punched, or otherwise hurt by someone within the past year? If so, by whom?: No Do you feel safe in your current relationship?: No Is there a partner from a previous relationship who is making you feel unsafe now?: No Are you made to feel afraid or neglected: No Advance Directives: Yes Advance Directives Information Provided: Yes Advance Directives on File: No Advance Directives Date on File: 07/06/24 Do you have a plan to hurt others: No Plan Recently lost weight without trying: No How much weight loss: Not applicable Eating poorly because of decreased appetite: No Nutrition screen score: 0 Nutrition Risks: No Nutritional Risk Poor oral hygiene: No Meds Allergies Allergy/AdvReac Type Severity Reaction Status Date / Time No Known Allergies Allergy Verified 07/06/24 06:27 [No Known Allergies*] Active Medications: Current Medications Acetaminophen (Acetaminophen 325 Mg Tablet) 650 mg PO Q6H PRN PRN Reason: Pain, Mild 1-3,fever,headache Albuterol/Ipratropium (Albuterol/Iprat 2.5/0.5mg 3 Ml Ampul.Neb) 3 ml INHALE RQ4H WHILE AWAKE PRN PRN Reason: sob Amlodipine Besylate (Amlodipine Besylate 10 Mg Tablet) 10 mg PO DAILY [facility]; Protocol Last Admin: 07/07/24 08:46 Dose: 10 mg Aspirin (Aspirin Enteric Coated 81 Mg Tablet.Dr) 81 mg PO DAILY [facility] Last Admin: 07/07/24 08:45 Dose: 81 mg Atorvastatin Calcium (Atorvastatin Calcium 40 Mg Tablet) 40 mg PO DAILY [facility] Last Admin: 07/07/24 08:45 Dose: 40 mg Azithromycin (Azithromycin 500 Mg Tablet) 500 mg PO Q24H [facility] Last Admin: 07/07/24 08:45 Dose: 500 mg Calcium Carbonate (Calcium Oyster Shell Elemental 500 Mg Tablet) 500 mg PO BEDTIME [facility] Last Admin: 07/06/24 20:23 Dose: 500 mg Calcium Carbonate (Calcium Carbonate 750 Mg Tab.Chew) 750 mg PO Q4H PRN PRN Reason: Heartburn Ceftriaxone Sodium (Ceftriaxone Sodium 1 Gm Vial) 1 gm IVPUSH Q24H [facility] Last Admin: 07/07/24 08:47 Dose: 1 gm Dextrose (Dextrose 50 % 25 Gm/50 Ml Syringe) 25 gm IVPUSH Q15M PRN; Protocol PRN Reason: per Hypoglycemia Standing Ord. Enoxaparin Sodium (Enoxaparin Sodium 100 Mg/Ml Syringe) 90 mg SUBCUT Q12H [facility] Last Admin: 07/07/24 08:46 Dose: 90 mg Glucose (Glucose Gel 15 Gm Gel..Gram.) 15 gm PO Q15M PRN; Protocol PRN Reason: per Hypoglycemia Standing Ord. Insulin Glargine (Insulin Glargine,Hum.Rec.Anlog 100 Unit/Ml 10 Ml Vial) 21 unit SUBCUT BEDTIME [facility] Last Admin: 07/06/24 21:05 Dose: Not Given Insulin Human Lispro (Insulin Lispro 100 Unit/Ml 3 Ml Vial) 0 unit SUBCUT QIDACHS [facility]; Protocol Last Admin: 07/07/24 08:47 Dose: 2 unit Loratadine (Loratadine 10 Mg Tablet) 10 mg PO DAILY [facility] Last Admin: 07/07/24 08:46 Dose: 10 mg Losartan Potassium (Losartan Potassium 50 Mg Tablet) 50 mg PO DAILY [facility]; Protocol Last Admin: 07/07/24 08:45 Dose: 50 mg Magnesium Hydroxide (Milk Of Magnesia 30 Ml Oral.Susp) 30 ml PO DAILY PRN PRN Reason: Constipation Melatonin (Melatonin 3 Mg Tablet) 6 mg PO BEDTIME PRN PRN Reason: Insomnia Metoprolol Succinate (Metoprolol Succinate Er 25 Mg Tab.Er.24h) 75 mg PO DAILY [facility]; Protocol Last Admin: 07/07/24 08:46 Dose: 75 mg Multivitamins/Vitamin C (Multivitamin Tablet) 1 tab PO DAILY [facility] Last Admin: 07/07/24 08:46 Dose: 1 tab Pt Own (Amiloride 5 (Mg Tablet)) 5 mg PO BIDWM@0800,1700 [facility] Oxybutynin Chloride (Oxybutynin Chloride 5 Mg Tablet) 5 mg PO DAILY [facility] Sodium Chloride (0.9 % Sodium Chloride Flush 3 Ml Syringe) 3 ml IVFLUSH QSHIFT [facility] Last Admin: 07/07/24 08:46 Dose: 3 ml Vitamin D (Cholecalciferol (Vitamin D3) 25 Mcg Tablet) 25 mcg PO BEDTIME [facility] Last Admin: 07/06/24 20:23 Dose: 25 mcg Home Medications ?Medication ?Instructions ?Recorded ?Confirmed ?Last Taken ?Type amiloride 5 mg tablet 5 mg PO BIDWM@0800,1700 08/30/20 07/06/24 Unknown History amlodipine 10 mg tablet 10 mg PO DAILY 08/30/20 07/06/24 Unknown History losartan 50 mg tablet 50 mg PO DAILY 08/30/20 07/06/24 Unknown History metformin 1,000 mg tablet 1,000 mg PO BIDWM 08/30/20 07/06/24 Unknown History oxybutynin chloride 5 mg tablet 5 mg PO DAILY 02/21/21 07/06/24 Unknown History atorvastatin 40 mg tablet 40 mg PO DAILY 02/21/22 07/06/24 Unknown History aspirin 81 mg tablet,delayed 81 mg PO DAILY 07/06/24 07/06/24 Unknown History release calcium carbonate 500 mg PO BEDTIME 07/06/24 07/06/24 Unknown History cholecalciferol (vitamin D3) 25 25 mcg PO BEDTIME 07/06/24 07/06/24 Unknown History mcg (1,000 unit) tablet insulin glargine 100 unit/mL (3 21 unit subcut BEDTIME 07/06/24 07/06/24 Unknown History mL) subcutaneous pen (Basaglar KwikPen U-100 Insulin) loratadine 10 mg tablet 10 mg PO DAILY 07/06/24 07/06/24 Unknown History metoprolol succinate 50 mg 75 mg PO DAILY 07/06/24 07/06/24 Unknown History tablet,extended release 24 hr multivitamin 1 tab PO DAILY 07/06/24 07/06/24 Unknown History Physical Exam Vital Signs: Vital Signs: Last Vital Signs Temp 97.4 F 07/07/24 07:05 Pulse 97 07/07/24 08:46 Resp 20 07/07/24 07:05 BP 136/66 07/07/24 08:46 Pulse Ox 96 07/07/24 07:05 O2 Del Method Nasal Cannula 07/07/24 07:05 O2 Flow Rate 3 07/07/24 07:05 BMI result Body Mass Index 29.4 Const: General: comfortable and no acute distress Orientation/consciousness: patient oriented x3 HEENT: Other: Unremarkable Head: Yes normal to inspection Neck: Neck: Yes normal visual inspection Chest: Chest palpation & inspection: normal inspection of the chest Resp: Auscultation: clear to auscultation bilaterally Cardio: Palpation: normal PMI Heart sounds: S1 normal heart sound present, S2 normal heart sound present, no gallops, no murmurs and no rubs GI: Palpation (GI): Soft to palpation Back/Spine/Pelvis: Other: unremarkable Skin: General skin exam: no rashes or lesions noted Neuro: General: patient oriented x3 Extrem: General: Yes normal to inspection Psych: Mental Status: mental status grossly normal Objective Labs and Meds 07/07/24 08:09 07/07/24 08:09 Lab results: Laboratory Results - last 24 hr 07/06/24 07/06/24 07/07/24 17:08 20:24 08:09 WBC 9.5 RBC 4.09 L Hgb 12.5 L Hct 38.1 L MCV 93.2 MCH 30.6 MCHC 32.8 RDW 13.5 Plt Count 284 MPV 9.9 Absolute Nucleated RBC 0.000 Nucleated RBC % (auto) 0.0 Sodium 137 Potassium 4.1 Chloride 106 Carbon Dioxide 23 Anion Gap 12 BUN 12 Creatinine 0.63 Estim Creat Clear Calc 99.9 Estimated GFR > 60 POC Glucose 197 H 96 Random Glucose 204 H Calcium 8.9 Magnesium 1.6 Iron 41 L TIBC 183 L % Saturation 22 Unsat Iron Binding 142 Ferritin 134 ECG Interpretation: EKG from 07/06 shows atrial fibrillation at a rate of 125/Min. Assessment and Plan (1) Atrial fibrillation with rapid ventricular response: Status: Acute Plan EKG shows atrial fibrillation rapid rate and telemetry is also showing the same. Currently in sinus tachycardia at 105/Min. In the chest CT scan, there was concern for lung metastatic disease. Question of gastrointestinal stromal tumor. From the atrial fibrillation standpoint, he takes metoprolol ER 75 mg daily at home. He is still having intermittent atrial fibrillation. Probably stop the amlodipine and start diltiazem CD 240 mg daily. We will see how he does with that. If still has further episodes, then maybe amiodarone. He will need anticoagulation but he stated that he was having dark stools today. Will need to check and ensure there was no bleed issue. We will follow up with you. Discussed with Dr. Ritter. Procedures Date of Service Date of Service: 07/07/24
[2024-07-07] MEDS: oxyBUTYnin chloride 5 MG TABLET PO (10:35)
[2024-07-07] MEDS: dilTIAZem HCL CD 240 MG CAP.ER.DEG PO (10:35)
[2024-07-07 11:18] LABS: Glucose, Whole Blood 161 mg/dL (60-115)
--- NOTE | 2024-07-07 11:30 | MHC.CM.PN ---
IMM 07/07. Pt self-care, lives at home with his . Pt uses a cane. Pts or step-daughter will transport him home at discharge. Pt states he has a HCP, copy requested. PCP: Brock Hughes
[2024-07-07 11:32] LABS: Glucose, Whole Blood 201 mg/dL (60-115)
[2024-07-07 14:03] LABS: OBS Int Ctl Valid YES; OBS1 NEGATIVE (NEGATIVE)
--- NOTE | 2024-07-07 15:45 | PM.HEMONCCN ---
Subjective - Subjective Chief complaint: Epigastric discomfort Patient: new to practice Consult date: 07/09/24 Requesting Physician: Hospitalist team Primary Care Provider: Brock Hughes MD Complaint Adjuster Utilized?: No - Citizen Of [place] Speaking HPI - Consult Narrative Reason for consult: Stomach tumor Narrative: Delroy Wheat is a 84 year old male who presented with complaints of epigastric/chest pain and shortness of breath. Patient states that he has been having cough for a few days but no associated fever or chills. He also developed some epigastric discomfort because of which he called 911. He denies any dizziness, nausea, change in bowel habits, hematochezia or melena. Who was treated as outpatient for upper respiratory symptoms a few days ago. He has been having upper respiratory symptoms for about 2-[address] angiogram performed 07/06/2024 showed no pulmonary emboli but 6 cm exophytic low-density lesion arising from fundus of stomach. Patient has had some skin cancer removed from his left ear. He lives at home with his . He quit smoking 40 years ago. He has been told of atrial fibrillation. He is up-to-date with screening colonoscopy. He denies any longstanding symptoms of heartburn or reflux. Review of Systems - Constitutional Reports as per HPI, Denies fever(s), Denies lack of energy, Denies night sweats, Denies poor appetite, Denies weight loss - Cardiovascular Reports no additional cardiovascular complaints - Respiratory Reports no additional respiratory complaints - Gastrointestinal Reports no additional gastrointestinal complaints - Neurologic Reports no additional neurologic complaints, Reports as per HPI [facility] Medical History: Medical History (Last Updated 06/16/24 @ 15:01 by Piedad Garvin PA-C) Alcoholism Atrial tachycardia Diabetes Essential hypertension History of pyelonephritis HTN (hypertension) Hyperaldosteronism Mitral annular calcification PVC (premature ventricular contraction) Substance abuse Suprapubic catheter Type 2 diabetes mellitus with unspecified complications Family History: Family History (Last Reviewed 06/16/24 @ 14:51 by Piedad Garvin PA-C) Father No problems noted. Mother No problems noted. Surgical History: Surgical History (Last Reviewed 06/16/24 @ 14:51 by Piedad Garvin PA-C) History of ankle surgery History of lumbar surgery History of nephrolithotomy with removal of calculi History of prostate surgery History of tonsillectomy Social History: Social History (Last Reviewed 06/16/24 @ 14:51 by Piedad Garvin PA-C) Living Situation History: Household Members: Spouse Housing: House Do you presently have visiting nurse or other home services: No Tobacco History: Patient Tobacco Use Status: Former Tobacco user Years Smoked: 20 +/- e-Cigarette/Vaping Use: Never Used Advance Directives: Advance Directives Date on File: 07/06/24 Occupation Assessmet: service: No Home Medications and Allergies Current Medications: Current Medications Acetaminophen (Acetaminophen 325 Mg Tablet) 650 mg PO Q6H PRN PRN Reason: Pain, Mild 1-3,fever,headache Albuterol/Ipratropium (Albuterol/Iprat 2.5/0.5mg 3 Ml Ampul.Neb) 3 ml INHALE RQ4H WHILE AWAKE PRN PRN Reason: sob Aspirin (Aspirin Enteric Coated 81 Mg Tablet.) 81 mg PO DAILY [facility] Last Admin: 07/07/24 08:45 Dose: 81 mg Atorvastatin Calcium (Atorvastatin Calcium 40 Mg Tablet) 40 mg PO DAILY [facility] Last Admin: 07/07/24 08:45 Dose: 40 mg Azithromycin (Azithromycin 500 Mg Tablet) 500 mg PO Q24H [facility] Last Admin: 07/07/24 08:45 Dose: 500 mg Calcium Carbonate (Calcium Oyster Shell Elemental 500 Mg Tablet) 500 mg PO BEDTIME [facility] Last Admin: 07/06/24 20:23 Dose: 500 mg Calcium Carbonate (Calcium Carbonate 750 Mg Tab.Chew) 750 mg PO Q4H PRN PRN Reason: Heartburn Ceftriaxone Sodium (Ceftriaxone Sodium 1 Gm Vial) 1 gm IVPUSH Q24H [facility] Last Admin: 07/07/24 08:47 Dose: 1 gm Dextrose (Dextrose 50 % 25 Gm/50 Ml Syringe) 25 gm IVPUSH Q15M PRN; Protocol PRN Reason: per Hypoglycemia Standing Ord. Diltiazem HCl (Diltiazem Hcl Cd 240 Mg Cap.Er.Deg) 240 mg PO DAILY [facility]; Protocol Last Admin: 07/07/24 10:35 Dose: 240 mg Enoxaparin Sodium (Enoxaparin Sodium 100 Mg/Ml Syringe) 90 mg SUBCUT Q12H [facility] Last Admin: 07/07/24 08:46 Dose: 90 mg Glucose (Glucose Gel 15 Gm Gel..Gram.) 15 gm PO Q15M PRN; Protocol PRN Reason: per Hypoglycemia Standing Ord. Insulin Glargine (Insulin Glargine,Hum.Rec.Anlog 100 Unit/Ml 10 Ml Vial) 21 unit SUBCUT BEDTIME [facility] Last Admin: 07/06/24 21:05 Dose: Not Given Insulin Human Lispro (Insulin Lispro 100 Unit/Ml 3 Ml Vial) 0 unit SUBCUT QIDACHS [facility]; Protocol Last Admin: 07/07/24 11:56 Dose: 4 unit Loratadine (Loratadine 10 Mg Tablet) 10 mg PO DAILY [facility] Last Admin: 07/07/24 08:46 Dose: 10 mg Losartan Potassium (Losartan Potassium 50 Mg Tablet) 50 mg PO DAILY [facility]; Protocol Last Admin: 07/07/24 08:45 Dose: 50 mg Magnesium Hydroxide (Milk Of Magnesia 30 Ml Oral.Susp) 30 ml PO DAILY PRN PRN Reason: Constipation Melatonin (Melatonin 3 Mg Tablet) 6 mg PO BEDTIME PRN PRN Reason: Insomnia Metoprolol Succinate (Metoprolol Succinate Er 25 Mg Tab.Er.24h) 75 mg PO DAILY [facility]; Protocol Last Admin: 07/07/24 08:46 Dose: 75 mg Multivitamins/Vitamin C (Multivitamin Tablet) 1 tab PO DAILY [facility] Last Admin: 07/07/24 08:46 Dose: 1 tab Pt Own (Amiloride 5 (Mg Tablet)) 5 mg PO BIDWM@0800,1700 [facility] Oxybutynin Chloride (Oxybutynin Chloride 5 Mg Tablet) 5 mg PO DAILY [facility] Last Admin: 07/07/24 10:35 Dose: 5 mg Sodium Chloride (0.9 % Sodium Chloride Flush 3 Ml Syringe) [facility] Last Admin: 07/07/24 08:46 Dose: 3 ml Vitamin D (Cholecalciferol (Vitamin D3) 25 Mcg Tablet) 25 mcg PO BEDTIME [facility] Last Admin: 07/06/24 20:23 Dose: 25 mcg Home Medications ?Medication ?Instructions ?Recorded ?Confirmed ?Type amiloride 5 mg tablet 5 mg PO BIDWM@0800,1700 08/30/20 07/06/24 History losartan 50 mg tablet 50 mg PO DAILY 08/30/20 07/06/24 History metformin 1,000 mg tablet 1,000 mg PO BIDWM 08/30/20 07/06/24 History oxybutynin chloride 5 mg tablet 5 mg PO DAILY 02/21/21 07/06/24 History atorvastatin 40 mg tablet 40 mg PO DAILY 02/21/22 07/06/24 History aspirin 81 mg tablet,delayed 81 mg PO DAILY 07/06/24 07/06/24 History release calcium carbonate 500 mg PO BEDTIME 07/06/24 07/06/24 History cholecalciferol (vitamin D3) 25 25 mcg PO BEDTIME 07/06/24 07/06/24 History mcg (1,000 unit) tablet insulin glargine 100 unit/mL (3 21 unit subcut BEDTIME 07/06/24 07/06/24 History mL) subcutaneous pen (Basaglar KwikPen U-100 Insulin) loratadine 10 mg tablet 10 mg PO DAILY 07/06/24 07/06/24 History metoprolol succinate 50 mg 75 mg PO DAILY 07/06/24 07/06/24 History tablet,extended release 24 hr multivitamin 1 tab PO DAILY 07/06/24 07/06/24 History Allergies Allergy/AdvReac Type Severity Reaction Status Date / Time No Known Allergies Allergy Verified 07/06/24 06:27 [No Known Allergies*] Physical Exam Vital signs: Vital Signs Temp 98.9 F 07/07/24 15:42 Pulse 83 07/07/24 15:42 Resp 18 07/07/24 15:42 BP 149/71 H 07/07/24 15:42 Pulse Ox 94 07/07/24 15:42 O2 Del Method Nasal Cannula 07/07/24 11:25 O2 Flow Rate 2 07/07/24 15:42 Intake & Output 07/06/24 07/07/24 07/07/24 18:59 06:59 18:59 Intake Total 250 / 250 0 / 250 540 / 540 Output Total 700 / 700 400 / 400 Balance 250 / -450 -700 / -450 140 / 140 Urine Output (Average ml/kg/hr) 0.63 0.36 Intake: Intake, Oral Amount 0 / 0 540 / 540 Intake, IV Amount 250 / 250 Azithromycin 500 mg In 0.9 % 250 / 250 Sodium Chloride 250 ml @ 125 mls/hr IV ONCE ONE Rx#: [id number] Output: Output, Urine Amount 600 / 600 Output, Urine Amount (Catheter) 100 / 100 400 / 400 Suprapubic 100 / 100 400 / 400 Other: Breakfast % Eaten 100% Lunch % Eaten 100% Eating (Feeding) Ability Independent Number of Bowel Movements 1 Urine superpubic Urinal Urine Color Tea Yellow Last Bowel Movement 07/05/24 07/05/24 07/07/24 Stool Bathroom Stool Amount Small Stool Color Dark Brown Stool Consistency Semi Formed Weight 92.986 kg - Constitutional Present: no acute distress, cooperative - Routine HEENT Exam Head: Present: normal inspection Eye: Present: EOMI, PERRL - Routine Neck Exam Present: supple. Absent: lymphadenopathy - Routine Respiratory Exam Present: CTAB. Absent: accessory muscle use - Routine Cardiovascular Exam Cardiovascular: Present: S1, S2 - Routine Abdominal Exam Present: soft - Routine Extremities Exam Present: pulses intact Hem/Onc Consult Result - Labs CBC & Chem 7: 07/08/24 07:43 07/08/24 07:43 Labs: Short CBC 07/07/24 Range/Units 08:09 WBC 9.5 (4.8-10.8) X10*3/uL Hgb 12.5 L (14.0-18.0) g/dl Hct 38.1 L (42.0-52.0) % Plt Count 284 (160-400) X10*3/uL BMP 07/07/24 08:09 Sodium 137 Potassium 4.1 Chloride 106 Carbon Dioxide 23 BUN 12 Creatinine 0.63 Calcium 8.9 Assessment and Plan Patient Active problem list reviewed?: Yes (1) Mass of stomach Status: Acute Assessment and plan: 1. This is a 84-year-old male with past medical history significant for hypertension, type 2 diabetes and SVT who has been admitted for multifocal pneumonia. CT angiogram performed 07/06/2024 showed bilateral patchy ground-glass confluent opacities as well as irregular nodules measuring up to 11 mm largest in the anterior left lung base. 6 cm exophytic irregular marginated soft tissue mass in the fundus of stomach. 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 I discussed above findings with the patient. He will need outpatient referral for endoscopic ultrasound and biopsy. Repeat CT chest to document clearance of pneumonia as well as evaluation of these lung nodules which may or may not be malignant. He will be referred to [facility] for biopsy. Further recommendations to follow. I thank you very much for this consultation. He has been made follow-up appointment in Oncology upon discharge. - Time Spent With Patient Time Spent with Patient (in minutes): 20
[2024-07-07 16:18] LABS: Glucose, Whole Blood 155 mg/dL (60-115)
[2024-07-07 21:18] LABS: Glucose, Whole Blood 126 mg/dL (60-115)
[2024-07-07] MEDS: Acetaminophen 325 MG TABLET 650 MG PO (21:41)
[2024-07-07] MEDS: Insulin Glargine,Hum.rec.anlog 100 UNIT/ML 10 ML VIAL 21 UNIT SUBCUT (21:42)
[2024-07-07] MEDS: Calcium Oyster Shell Elemental 500 MG TABLET PO (21:42)
[2024-07-07] MEDS: Melatonin 3 MG TABLET 6 MG PO (21:42)
[2024-07-07] MEDS: Cholecalciferol (Vitamin D3) 25 MCG TABLET PO (21:42)
[2024-07-08 03:10] VITALS: BP 140/67; PULSE 85; RESP 20; TEMP 36.8; O2SAT 93
[2024-07-08 07:24] LABS: Glucose, Whole Blood 146 mg/dL (60-115)
[2024-07-08 07:46] VITALS: BP 139/66; PULSE 89; RESP 16; TEMP 36.5; O2SAT 93
[2024-07-08] MEDS: Multivitamin TABLET 1 TAB PO (07:51)
[2024-07-08] MEDS: dilTIAZem HCL CD 240 MG CAP.ER.DEG PO (07:51)
[2024-07-08] MEDS: Metoprolol Succinate ER 25 MG TAB.ER.24H 75 MG PO (07:51)
[2024-07-08] MEDS: Azithromycin 500 MG TABLET PO (07:53)
[2024-07-08] MEDS: Losartan Potassium 50 MG TABLET PO (07:53)
[2024-07-08] MEDS: 0.9 % Sodium Chloride Flush 3 ML SYRINGE IVFLUSH (07:53)
[2024-07-08] MEDS: Aspirin Enteric Coated 81 MG TABLET.DR PO (07:53)
[2024-07-08] MEDS: Loratadine 10 MG TABLET PO (07:53)
[2024-07-08] MEDS: Atorvastatin Calcium 40 MG TABLET PO (07:53)
[2024-07-08] MEDS: cefTRIAXone sodium 1 GM VIAL IVPUSH (08:00)
[2024-07-08] MEDS: oxyBUTYnin chloride 5 MG TABLET PO (08:01)
[2024-07-08] MEDS: Enoxaparin Sodium 100 MG/ML SYRINGE 90 MG SUBCUT (08:03)
[2024-07-08 08:13] LABS: Hematocrit 39.1 % (42.0-52.0); Hemoglobin 12.8 g/dl (14.0-18.0); Mean Corpuscular HGB Conc 32.7 g/dl (31.0-36.0); Mean Corpuscular Hemoglobin 30.5 pg (27.0-33.0); Mean Corpuscular Volume 93.1 fL (80.0-98.0); Mean Platelet Volume 9.7 fL (9.4-12.4); Platelet Count 298 X10*3/uL (160-400); Red Cell Distribution Width 13.5 % (11.0-16.0); White Blood Count 8.7 X10*3/uL (4.8-10.8)
[2024-07-08 08:27] LABS: Anion Gap 12 (12-20); Blood Urea Nitrogen 14 mg/dL (9-16); Calcium 9.5 mg/dL (8.4-10.2); Carbon Dioxide 27 mmol/L (22-29); Chloride 105 mmol/L (96-108); Creatinine Clr Calc Pharmacy 98.4; Estimated Glomerular Filt Rate > 60; Glucose Random 139 mg/dL (60-115); Potassium 4.2 mmol/L (3.3-5.1); Sodium 140 mmol/L (135-145)
--- NOTE | 2024-07-08 09:31 | PM.PNCARD ---
Subjective Subjective Date of Service: 07/08/24 Interval history: He states that he feels fine. No new complaints. Review of Systems Review of Systems Yes all other systems are reviewed and are negative Constitutional: Reports as per HPI and Reports no additional constitutional complaints Eyes: Reports as per HPI and Denies no additional eye complaints Denies system reviewed and no additional complaints, except as documented and Reports as per HPI Cardiovascular: Reports as per HPI, Reports no additional cardiovascular complaints, Denies acrocyanosis, Denies cool extremities, Denies chest pain, Denies leg edema, Denies lightheadedness, Denies palpitations and Denies dyspnea Respiratory: Reports as per HPI, Denies no additional respiratory complaints and Denies dyspnea Gastrointestinal: Reports as per HPI and Denies no additional gastrointestinal complaints Genitourinary: Reports no additional male genitourinary complaints and Reports as per HPI Musculoskeletal: Reports no additional musculoskeletal complaints and Reports as per HPI Skin/Breast: Reports system reviewed and no additional complaints, except as docu Reports system reviewed and no additional complaints, except as documented and Reports as per HPI Psychiatric: Reports no additional psychiatric complaints and Reports as per HPI Endocrine: Reports no additional endocrine complaints, Reports as per HPI and Denies palpitations Hematologic/Lymphatic: Reports no additional hematologic/lymphatic complaints and Reports as per HPI Allergic/Immunologic: Reports no additional allergic/immunologic complaints and Reports as per HPI Physical Exam Vital Signs: Last Vital Signs Temp 97.7 F 07/08/24 07:46 Pulse 89 07/08/24 07:46 Resp 16 07/08/24 07:46 BP 139/66 07/08/24 07:46 Pulse Ox 93 07/08/24 07:46 O2 Del Method Room Air 07/08/24 07:46 O2 Flow Rate 2 07/07/24 15:42 BMI result Body Mass Index 29.4 Const General: comfortable and no acute distress Orientation/consciousness: patient oriented x3 HEENT Other: Unremarkable Head: Yes normal to inspection Neck Neck: Yes normal visual inspection Chest Chest palpation & inspection: normal inspection of the chest Resp Auscultation: clear to auscultation bilaterally Cardio Palpation: normal PMI Heart sounds: S1 normal heart sound present, S2 normal heart sound present, no gallops, no murmurs and no rubs GI Palpation (GI): Soft to palpation Back/Spine/Pelvis Other: unremarkable Skin General skin exam: no rashes or lesions noted Neuro General: patient oriented x3 Extrem General: Yes normal to inspection Psych Mental Status: mental status grossly normal Objective Labs and Meds 07/08/24 07:43 07/08/24 07:43 Lab results: Laboratory Results - last 24 hr 07/07/24 07/07/24 07/07/24 07:13 08:09 11:19 WBC RBC Hgb Hct MCV MCH MCHC RDW Plt Count MPV Absolute Nucleated RBC Nucleated RBC % (auto) Sodium Potassium Chloride Carbon Dioxide Anion Gap BUN Creatinine Estim Creat Clear Calc Estimated GFR POC Glucose 161 H 201 H Random Glucose Calcium Iron 41 L TIBC 183 L % Saturation 22 Unsat Iron Binding 142 Ferritin 134 Stool Occult Blood 07/07/24 07/07/24 07/07/24 13:33 16:14 21:15 WBC RBC Hgb Hct MCV MCH MCHC RDW Plt Count MPV Absolute Nucleated RBC Nucleated RBC % (auto) Sodium Potassium Chloride Carbon Dioxide Anion Gap BUN Creatinine Estim Creat Clear Calc Estimated GFR POC Glucose 155 H 126 H Random Glucose Calcium Iron TIBC % Saturation Unsat Iron Binding Ferritin Stool Occult Blood NEGATIVE 07/08/24 07/08/24 07:20 07:43 WBC 8.7 RBC 4.20 L Hgb 12.8 L Hct 39.1 L MCV 93.1 MCH 30.5 MCHC 32.7 RDW 13.5 Plt Count 298 MPV 9.7 Absolute Nucleated RBC 0.000 Nucleated RBC % (auto) 0.0 Sodium 140 Potassium 4.2 Chloride 105 Carbon Dioxide 27 Anion Gap 12 BUN 14 Creatinine 0.64 Estim Creat Clear Calc 98.4 Estimated GFR > 60 POC Glucose 146 H Random Glucose 139 H Calcium 9.5 D Iron TIBC % Saturation Unsat Iron Binding Ferritin Stool Occult Blood Progress Note: A&P Assessment and plan (1) Atrial fibrillation with rapid ventricular response: Status: Acute Plan EKG shows atrial fibrillation rapid rate and telemetry is also showing the same. However, he has not had any further episodes in the last 24 hours. Currently, in sinus rhythm. In the chest CT scan, there was concern for lung metastatic disease. Question of gastrointestinal stromal tumor. From the atrial fibrillation standpoint, he takes metoprolol ER 75 mg daily at home. He was still having intermittent atrial fibrillation. Then diltiazem added and seems to have helped. Off amlodipine. We will see how he does with that. If still has further episodes, then maybe amiodarone. Anticoagulation. Stool occult blood is negative. Malignancy workup per Oncology. Discussed with Dr. Ritter. Outpatient follow-up. Time Spent With Patient Time: Total time managing care of this patient today ____ minutes. Progress Note: Quality Stroke Does the patient have a stroke diagnosis?: No Procedures Date of Service Date of Service: 07/08/24
--- NOTE | 2024-07-08 09:43 | P.DS_ITS ---
DS: Providers Provider Date of Service: 07/08/24 Date of admission: 07/06/24 12:35 Date of discharge: 07/08/24 Primary care physician: Brock Hughes MD Consults: 07/06/24 12:32 Consult to Hematology / Oncology Routine Consulting Provider: [facility] Oncology/Hematology Reason for consultation: new lung mets 07/06/24 12:34 Consult to Cardiology Routine Consulting Provider: [facility] Cardiovascular Specialists Reason for consultation: ?afib vs atrial tach DS: Diagnosis Discharge Diagnosis (1) Atrial fibrillation with rapid ventricular response: Status: Acute DS: Summary Hospital Course Hospital Course: From initial hpi: 84 y/o male with history of COPD, HLD on statin, atrial tachycardia/SVT on home lopressor, HTN, DM2 on insulin, ERICA not on Cpap, and history of 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 He presents to the ER for evaluation of aching, nonradiating left sided chest pain that woke him out of sleep at 4am. He states the pain felt like someone was poking him in the chest. It did not subside so he called 911. He reports for the last 2-3 weeks he has had SOB and a cough. The cough is sometimes productive of brown phlegm. He denies fevers or chills, no sick contacts. He denies N/V and abdominal pain. He denies palpitations or dizziness. Indicate he was recently seen by new PCP for similar URI symptoms and was treated with antibiotics finishing his 10-day regimen yesterday, endorses loose stools starting around time of abx. use. Hospital course: Patient was admitted for sepsis due to pneumonia with acute hypoxic respiratory failure. 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 Also noted to have new onset atrial fibrillation with rapid ventricular response. Was treated with ceftriaxone azithromycin, weaned off oxygen. For AFib with RVR was seen by Cardiology recommended anticoagulation which was initially done with Lovenox but will be transitioned to apixaban on discharge. Amlodipine was discontinued and started on long- acting diltiazem. Patient converted to sinus rhythm. For concern of malignancy was seen by Gastroenterology and Oncology, would require tissue diagnosis with endoscopic ultrasound which is not available at [facility] so will be referred to [facility]. For COPD was continued on albuterol. For hypertension was continued on lisinopril and losartan and diltiazem. For diabetes was treated with insulin sliding scale. For ERICA does not use CPAP. Patient is feeling better will be discharged home. Time Attestation Discharge Coordination Time (in mins): 34 Quality: Safe Use of Opioids Does Pt have an Active Cancer Diagnosis on the Problem List?: Yes Opioid Measure Date for [facility] Report: 06/08/24 Opioid Measure Time for [facility] Report: 09:43 Quality: Stroke Does the patient have a stroke diagnosis?: No Physical Exam Vital Signs: Vital Signs: Last Vital Signs Temp 97.7 F 07/08/24 07:46 Pulse 89 07/08/24 07:46 Resp 16 07/08/24 07:46 BP 139/66 07/08/24 07:46 Pulse Ox 93 07/08/24 07:46 O2 Del Method Room Air 07/08/24 07:46 O2 Flow Rate 2 07/07/24 15:42 BMI result Body Mass Index 29.4 Const: General: comfortable and no acute distress Orientation/consciousness: patient oriented x3 HEENT: Other: Unremarkable Head: Yes normal to inspection Neck: Neck: Yes normal visual inspection Chest: Chest palpation & inspection: normal inspection of the chest Resp: Auscultation: clear to auscultation bilaterally Cardio: Palpation: normal PMI Heart sounds: S1 normal heart sound present, S2 normal heart sound present, no gallops, no murmurs and no rubs GI: Palpation (GI): Soft to palpation Back/Spine/Pelvis: Other: unremarkable Skin: General skin exam: no rashes or lesions noted Neuro: General: patient oriented x3 Extrem: General: Yes normal to inspection Psych: Mental Status: mental status grossly normal DS: Data Data Completed and Pending Labs on day of discharge: Laboratory Results - last 24 hr 07/07/24 07/07/24 07/07/24 07:13 08:09 11:19 WBC RBC Hgb Hct MCV MCH MCHC RDW Plt Count MPV Absolute Nucleated RBC Nucleated RBC % (auto) Sodium Potassium Chloride Carbon Dioxide Anion Gap BUN Creatinine Estim Creat Clear Calc Estimated GFR POC Glucose 161 H 201 H Random Glucose Calcium Ferritin 134 Stool Occult Blood 07/07/24 07/07/24 07/07/24 13:33 16:14 21:15 WBC RBC Hgb Hct MCV MCH MCHC RDW Plt Count MPV Absolute Nucleated RBC Nucleated RBC % (auto) Sodium Potassium Chloride Carbon Dioxide Anion Gap BUN Creatinine Estim Creat Clear Calc Estimated GFR POC Glucose 155 H 126 H Random Glucose Calcium Ferritin Stool Occult Blood NEGATIVE 07/08/24 07/08/24 07:20 07:43 WBC 8.7 RBC 4.20 L Hgb 12.8 L Hct 39.1 L MCV 93.1 MCH 30.5 MCHC 32.7 RDW 13.5 Plt Count 298 MPV 9.7 Absolute Nucleated RBC 0.000 Nucleated RBC % (auto) 0.0 Sodium 140 Potassium 4.2 Chloride 105 Carbon Dioxide 27 Anion Gap 12 BUN 14 Creatinine 0.64 Estim Creat Clear Calc 98.4 Estimated GFR > 60 POC Glucose 146 H Random Glucose 139 H Calcium 9.5 D Ferritin Stool Occult Blood Preliminary micro results at discharge 07/06/24 06:54 Blood Culture - Preliminary Blood - Venous No growth after 48 hours. 07/06/24 06:45 Blood Culture - Preliminary Blood - Venous No growth after 48 hours. 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, ?EUS) Maria Elena Starks MD [Physician] - 1 Week Brock Hughes MD [Primary Care Provider] - 1 Week Discharge Medications: New diltiazem HCl 240 mg Capsule,Extended Release 24hr 240 mg PO DAILY Qty: 90 0RF Protocol: Hold for SBP/HR < HOLD for SBP < : 90 HOLD for HR < : 60 cefuroxime axetil 500 mg tablet 500 mg PO BID Qty: 10 0RF azithromycin 500 mg tablet 500 mg PO DAILY 5 Days Qty: 5 0RF apixaban 5 mg tablet 5 mg PO BID Qty: 180 0RF Continued albuterol sulfate 90 mcg/actuation HFA aerosol inhaler 1 inh inhalation QID PRN (Reason: shortness of breath or wheezing) Qty: 6.7 0RF multivitamin Tablet 1 tab PO DAILY aspirin 81 mg Tablet,Delayed Release (Dr/Ec) 81 mg PO DAILY calcium carbonate 500 mg calcium (1,250 mg) Tablet 500 mg PO BEDTIME loratadine 10 mg Tablet 10 mg PO DAILY cholecalciferol (vitamin D3) 25 mcg (1,000 unit) Tablet 25 mcg PO BEDTIME metoprolol succinate 50 mg tablet extended release 24 hr 75 mg PO DAILY insulin glargine [Basaglar KwikPen U-100 Insulin] 100 unit/mL (3 mL) insulin pen 21 unit subcut BEDTIME metformin 1,000 mg tablet 1,000 mg PO BIDWM losartan 50 mg tablet 50 mg PO DAILY amiloride 5 mg tablet 5 mg PO BIDWM@0800,1700 oxybutynin chloride 5 mg tablet 5 mg PO DAILY atorvastatin 40 mg tablet 40 mg PO DAILY Discontinued amlodipine 10 mg tablet 10 mg PO DAILY Discharge Orders: Discharge Order (Routine); Ordered 07/08/24 Ordered By: Micha Ritter Diet: Advance to usual diet Activity on Discharge: As tolerated Stand Alone Forms: Patient Portal Discharge page Print Language: [place] Care Plan Goals: Recovery Health Concerns: AFib, pneumonia, 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
--- NOTE | 2024-07-08 09:44 | MHC.CM.PN ---
Patient has been medically cleared for dc to home today, self care. IMM addressed yesterday.
== END 2024-07-08 12:01 | disposition home or self-care (01) | DRG 871 ==
LOC: HO.ED 09:35 → HO.EDOVER 12:44 → HO.IMC 15:15
PROVIDERS: Physician Assistant; Admitting Provider Internal Medicine; Emergency Provider Emergency Medicine Emergency Medical Services; PCP Internal Medicine; Visit Provider Internal Medicine
DX: A41.9 Sepsis, unspecified organism (principal); J18.9 Pneumonia, unspecified organism; I47.19 Other supraventricular tachycardia; J44.0 Chronic obstructive pulmonary disease with (acute) lower respiratory infection; C49.A2 Gastrointestinal stromal tumor of stomach; C78.02 Secondary malignant neoplasm of left lung; I48.91 Unspecified atrial fibrillation; G47.33 Obstructive sleep apnea (adult) (pediatric); Z87.891 Personal history of nicotine dependence; Z93.50 Unspecified cystostomy status; Z79.4 Long term (current) use of insulin; Z79.84 Long term (current) use of oral hypoglycemic drugs; Z79.899 Other long term (current) drug therapy
CPT/HCPCS: 0241U; 36415; 71045; 71275; 80048; 80053; 82272; 82728; 82947; 83540; 83605; 83735; 83880; 84145; 84484; 85025; 85027; 85610; 85730; 87040; 93005; 93306; 99285; J0456; J0696; J1650; Q9957; Q9967

== ENCOUNTER → 2024-07-06 06:15 | Outpatient (BNV) | payer MEDICARE, BC, SELFPAY | PROVIDERS: Admitting Provider Internal Medicine; Emergency Provider Emergency Medicine Emergency Medical Services; PCP Internal Medicine; Visit Provider Internal Medicine | DX: R07.9 Chest pain, unspecified (principal); I48.91 Unspecified atrial fibrillation | CPT/HCPCS: 93010 ==

== ENCOUNTER → 2024-07-06 06:50 | Outpatient (BNV) | payer MEDICARE, BC, SELFPAY | PROVIDERS: Emergency Provider Emergency Medicine Emergency Medical Services; PCP Internal Medicine; Visit Provider Internal Medicine | DX: A41.9 Sepsis, unspecified organism (principal); J18.9 Pneumonia, unspecified organism; J44.9 Chronic obstructive pulmonary disease, unspecified; E11.9 Type 2 diabetes mellitus without complications | CPT/HCPCS: 99223; 99233; 99239 ==

== ENCOUNTER → 2024-07-06 07:56 | Outpatient (BNV) | payer MEDICARE, BC, SELFPAY | PROVIDERS: Emergency Provider Emergency Medicine Emergency Medical Services; PCP Internal Medicine; Visit Provider Radiology Diagnostic Radiology | DX: I48.91 Unspecified atrial fibrillation (principal); R06.02 Shortness of breath; R07.9 Chest pain, unspecified; R09.02 Hypoxemia | CPT/HCPCS: 71045; 71275 ==

== ENCOUNTER 2024-07-06 12:35 | Outpatient (BNV) | payer MEDICARE, BC, SELFPAY | END 2024-07-07 08:59 | PROVIDERS: Admitting Provider Internal Medicine; Emergency Provider Emergency Medicine Emergency Medical Services; PCP Internal Medicine; Visit Provider Internal Medicine | DX: I48.91 Unspecified atrial fibrillation (principal) | CPT/HCPCS: 93306 ==

== ENCOUNTER → 2024-07-06 12:35 | Outpatient (BNV) | payer MEDICARE, BC, SELFPAY | PROVIDERS: Admitting Provider Internal Medicine; Emergency Provider Emergency Medicine Emergency Medical Services; PCP Internal Medicine; Visit Provider Internal Medicine | DX: K31.89 Other diseases of stomach and duodenum (principal) | CPT/HCPCS: 99222 ==

== ENCOUNTER → 2024-07-06 12:35 | Outpatient (BNV) | payer MEDICARE, BC, SELFPAY | PROVIDERS: Admitting Provider Internal Medicine; Emergency Provider Emergency Medicine Emergency Medical Services; PCP Internal Medicine; Visit Provider Internal Medicine | DX: I48.91 Unspecified atrial fibrillation (principal) | CPT/HCPCS: 99223 ==

== ENCOUNTER 2024-07-12 10:54 | Outpatient (AMB) | payer MEDICARE, BC, SELFPAY ==
--- NOTE | 2024-07-12 10:54 | MHC.PC.OV ---
Vital Signs 07/12/24 11:06 Height 5 ft 9.5 in Weight 210 lb BMI 30.6 BP 180/54 H Blood Pressure Location Rt brachial Pulse 80 Pulse Source Pulse Oximeter Temp 97.1 F Pulse Oximetry (%) 95 Intake Visit Reasons: f/u pneumonia Intake Note: when they found out his pneumonia and found out they found cancer seeing Dr. Starks tomorrow Allergies No Known Allergies [No Known Allergies*] Allergy (Verified 07/12/24 10:58) HPI f/u pneumonia HPI Details 84-year-old male presents to the office for a follow-up visit. He was recently in the hospital with pneumonia. Patient was found to have atrial fibrillation and was started on anticoagulants. Incidentally a CT scan showed a mass in the stomach area and has an ultrasound, endoscopy scheduled. Clinically patient feels better but has not returned to baseline health. Continues to have a nonproductive cough. Fatigue symptoms present. Compliant with all medications. [facility] Medical History (Updated 07/09/24 @ 12:46 by Maria Elena Starks MD) History of pyelonephritis Substance abuse Alcoholism Mitral annular calcification Hyperaldosteronism Essential hypertension Type 2 diabetes mellitus with unspecified complications PVC (premature ventricular contraction) Atrial tachycardia HTN (hypertension) Diabetes Suprapubic catheter Surgical History (Updated 07/07/24 @ 15:46 by Maria Elena Starks MD) History of nephrolithotomy with removal of calculi History of ankle surgery History of tonsillectomy History of lumbar surgery History of prostate surgery Family History Father No problems noted. Mother No problems noted. Social History Household Members: Spouse Housing: House Do you presently have visiting nurse or other home services: No Alcohol intake: never Patient Tobacco Use Status: Former Tobacco user Years Smoked: 20 +/- e-Cigarette/Vaping Use: Never Used Advance Directives Date on File: 07/06/24 service: No Questionnaire Thrive Questionnaire Date Thrive assessed: 07/07/24 Physical exam (Primary Care) Vital Signs: Last Vital Signs Temp 97.1 F 07/12/24 11:06 Pulse 80 07/12/24 11:06 BP 180/54 H 07/12/24 11:06 Pulse Ox 95 02/24/25 11:06 Care Plan Goal for BP management: Blood pressure is elevated. Medication dosage has been increased. BMI result Body Mass Index 30.6 Tobacco/Smoking Status: Tobacco use Status Patient Tobacco Use Status Former Tobacco user 07/12/24 10:56 e-Cigarette/Vaping Use Never Used 07/12/24 10:56 Thrive Assessment: Date of Thrive Assessment Date Thrive assessed 07/07/24 07/12/24 10:56 Const General: cooperative and healthy appearing Nutritional Appearance: well nourished Orientation/consciousness: patient oriented x3 Limitations: no limitations HENMT Head: Yes normal to inspection Eyes General: appearance normal, both eyes and all related structures Neck Neck: Yes normal visual inspection Chest Chest palpation & inspection: normal palpation of entire chest wall Resp Effort & Inspection: normal respiratory effort Neuro General: patient oriented x3 Coding Level of Care Code New Pt Level 4 (03220) Complex EM visit Add On G2211 Diagnoses New onset atrial fibrillation I48.91 Essential hypertension I10 Lesion of stomach K31.9 Multifocal pneumonia J18.9 Assessment & Plan Assessment & Plan (1) New onset atrial fibrillation: Code(s): I48.91 - Unspecified atrial fibrillation Category: Medical Plan: Clinically patient is in sinus rhythm. Continue the anticoagulation and the Cardizem long-acting medication. Amlodipine has been discontinued. Aspirin has been stopped. (2) Essential hypertension: Code(s): I10 - Essential (primary) hypertension Category: Medical Plan: Blood pressure is elevated. Losartan has been increased to 100 mg once a day. Metoprolol is at 100 mg a day. Patient has an appointment to follow-up in 1 week. (3) Lesion of stomach: Code(s): K31.9 - Disease of stomach and duodenum, unspecified Category: Medical Plan: Oncology note reviewed. Patient has a [facility] for GI endoscopy for a possible biopsy. (4) Multifocal pneumonia: Code(s): J18.9 - Pneumonia, unspecified organism Category: Medical Plan: Pneumonia symptoms are improving on dual antibiotics. Use the inhaler as needed. Medications: New losartan 100 mg PO DAILY 90 tabs 1RF Refilled diltiazem HCl CD 240 mg See Protocol PO DAILY 90 caps 0RF
[2024-07-12 11:06] VITALS: BP 180/54; PULSE 80; TEMP 36.2; O2SAT 95; BMI 30.6
--- OUTSIDE RECORDS SUMMARY | 2024-07-12 12:25 | XMS_ITS ---
Author Organization Kishor Mcmanus DO, FACP Address [address] [place], [place] [id number] Care Team Providers Care Strap Folding Machine Operator Name Role Phone MariettaKishor dick Primary Care Provider [phone] REASON FOR VISIT Refills MEDICATIONS Medication SIG (Take, Route, Frequency, Duration) Notes Start Date End Date Status oxyBUTYnin Chloride ER 5 MG 1 tablet Orally Once a day for 90 days Active Encounters Encounter Location Date Provider Diagnosis Kishor Mcmanus DO, FACP [address] [place], [place] [id number] 02/23/2024 Kishor Mcmanus History of prostate cancer Z85.46 ASSESSMENTS Encounter Date Diagnosis Assessment Notes Treatment Notes Treatment Clinical Notes 02/23/2024 History of prostate cancer (ICD-10 - Z85.46) PLAN OF TREATMENT Medication Medication Name Sig Start Date Stop Date Notes oxyBUTYnin Chloride ER 5 MG 1 tablet Ora lly Once a day for 90 days
--- OUTSIDE RECORDS SUMMARY | 2024-07-12 12:25 | XMS_ITS | Encounter Summary ---
Author Organization [facility] Address [address] [place] [address] Care Team Providers Care Wafer Slicer Name Role Phone Kishor Mcmanus DO Primary Care Provider [phone] Per Seay MD Unavailable Anton Robledo MD Unavailable [phone] Nabil Narvaez MD Unavailable [phone] Encounter Details Date Type Department Care Team (Late st Contact Info) Description 11/30/2022 Scanned Document [facility] [address] [place] [address] Anton Robledo MD [address] [place] [id number] Social History Tobacco Use Types Packs/Day Years [...] on filedocumented in this encounter Care Teams Wafer Slicer Relationship Specialty Start Date End Date Kishor Mcmanus DO [address] [place] [phone] PCP - General Internal Medicine 02/27/21 Per Seay MD [address] [place] [address] Vice President Diversity Cardiovascular Disease 02/28/21 Anton Robledo MD [address] [place] [address] Surgery, Orthopedic 03/08/21 Nabil Narvaez MD [address] [place] [phone] Referring Provider Urology 03/08/21 documented as of this encounter
--- OUTSIDE RECORDS SUMMARY | 2024-07-12 12:25 | XMS_ITS | Clinical Summary ---
Author Organization [facility] Address [address] [place] [address] Care Team Providers Care Ad Operations Intern Name Role Phone MariettaKishor DO Primary Care Provider Per Seay MD Unavailable [phone] Anton Robledo MD Unavailable Nabil Narvaez MD Unavailable [phone] Allergies [...] this topic Medical Devices Implanted Type Area Rental Counter Clerk Device Identifier Shelf Expiration Date Model / Serial / Lot Panta Nail [id number] Implanted:Qty: 1 on 04/27/2021 by Anton Robledo MD at [facility] Nail/Neo Left: Foot [employer] 11/13/2023 [id number] / / [id number] Screw Bone Panta 2 Pthrd 70mm 5mm Nonst Arthds Nail Sys - [id number] Implanted:Qty: 1 on 04/27/2021 by Anton Robledo MD at [facility] Screw [employer] [id number] / / [id number] Screw Bone Panta 2 Flthrd 28mm 5mm Nonst Arthds Nail Sys - [id number] Implanted:Qty: 1 on 04/27/2021 by Anton Robledo MD at [facility] Screw [employer] [id number] / / [id number] Screw Bone Panta 2 Flthrd 24mm 5mm Nonst Arthds Nail Sys - [id number] Implanted:Qty: 1 on 04/27/2021 by Anton Robledo MD at [facility] Screw [employer] [id number] / / Procedures Procedure Name Priority [...] 6.0(H) <5.7 % 03/14/2021 9:14 PM EDT [facility] Comment: A1c% ? Interpretation 5.7 - 6.0 ?Increase risk of diabetes 6.1 - 6.4 ?Higher risk of diabetes > or = 6.5 ?? Consistent with diabetes Diabetes Care, 33(Supp 1):S1-S61, 2010 Estimated Average Glucose 126 mg/dL 03/14/2021 9:14 PM EDT [facility] Blood specimen (specimen) Blood specimen / Unknown 03/14/2021 12:38 PM EDT 03/14/2021 8:38 PM EDT Louann Cassidy APRN LAB BLOOD ORDERABLES HOSPITAL LAB [facility] [address] [place] [address] from Last 3 Months or Most Recently Relevant to Health Maintenance Advance Directives * Full Code (Latest Code Status on File) Date Activated Date Inactivated Comments 04/27/2021 2:56 PM * Full Code Date Activated Date Inactivated Comments 04/27/2021 10:33 AM 04/27/2021 2:56 PM Care Teams Ad Operations Intern Relationship Specialty Start Date End Date Kishor Mcmanus DO [address] [place] [phone] PCP - General Internal Medicine 02/27/21 Per Seay MD [address] [place] [address] Director Of Labor Relations Cardiovascular Disease 02/28/21 Anton Robledo MD [address] [place] [address] Surgery, Orthopedic 03/08/21 Nabil Narvaez MD [address] [facility] [address] [place] [address] Referring Provider Urology 03/08/21
--- OUTSIDE RECORDS SUMMARY | 2024-07-12 12:25 | XMS_ITS | Clinical Summary ---
Author Organization [facility] Address [phone] [place] [address] Care Team Providers Care Roadway Engineer Name Role Phone Kishor Mcmanus DO Primary Care Provider Medications Medication Sig Dispensed Refills Start Date [...] Medical Devices Not on file Care Teams Roadway Engineer Relationship Specialty Start Date End Date Kishor Mcmanus DO [address] [place] [id number] PCP - General 03/03/17 Additional Source Comments The information contained in this document represents components of the legal health record. It is not the complete legal health record.[facility]
--- OUTSIDE RECORDS SUMMARY | 2024-07-12 12:25 | XMS_ITS | Encounter Summary ---
Author Organization [facility] Address [address] [place] [address] Care Team Providers Care Installation Manager Name Role Phone Kishor Mcmanus DO Primary Care Provider [phone] Per Seay MD Unavailable [phone] Anton Robledo MD Unavailable Nabil Narvaez MD Unavailable [phone] Encounter Details Date Type Department Care Team (Late st Contact Info) Description 10/08/2023 Scanned Document [facility] [address] [place] [address] Anton Robledo MD [address] [place] [phone] Social History Tobacco Use Types Packs/Day Years [...] on filedocumented in this encounter Care Teams Installation Manager Relationship Specialty Start Date End Date Kishor Mcmanus DO [address] [place] [id number] PCP - General Internal Medicine 02/27/21 Per Seay MD [address] [place] [id number] Electrical Electronics Engineer Cardiovascular Disease 02/28/21 Anton Robledo MD [address] [place] [address] Surgery, Orthopedic 03/08/21 Nabil Narvaez MD [address] [place] [address] Referring Provider Urology 03/08/21 documented as of this encounter
--- OUTSIDE RECORDS SUMMARY | 2024-07-12 12:25 | XMS_ITS | Patient Health Record ---
[facility] Organization [facility] Address [address] [address] Care Team Providers Care Canal Tender Name Role Phone Brock Hughes Primary Care Provider [phone] Nathalie Escobar [phone] Allergies Allergen (clinical drug ingredient) Drug/Non Drug Allergy documented on EMR Reaction Allergy Type Onset Date Status Alcohol Unknown Drug Allergy Active meperidine Demerol Unknown Drug Allergy Active codeine Codeine Unknown Drug Allergy Active morphine Morphine Unknown Drug Allergy Active Results Component Value Reference Range Notes HEMOGLOBIN A1C (GLYCOHEMOGLO BIN) Reviewed date:06/21/2024 08:29:28 AM Interpretation: Performing Lab: Notes/Report: HEMOGLOBIN A1C % (HH) 6.1 Reason For Referral No Information Medications Medication SIG (Take, Route, Frequency, Duration) Notes Start Date End Date Status Flomax twice a day Not-Taki ng hydroCHLOROthiazide Not-Taking Aleve Not-Taking Chromium Not-Taking Fish Oil Not-Taking Glucosamine Not-Taki ng Vitamin D Not-Taking potassium Not-Taking Levemir FlexTouch 100 UNIT/ML as directed Subcutaneous Not-Taking Losartan Potassium 50 MG 1 tablet Orally Once a day for 30 day(s) 8mg 1per day Active metFORMIN HCl 1000 MG 1 tablet with a meal Orally Once a day for 30 day(s) Active Metoprolol Succinate ER 50 MG 1 tablet Orally Once a day Active Multivitamin Adult - 1 tablet Orally Once a day for 30 day(s) Active OneTouch Ultra Test Active oxyBUTYnin Active Lisinopril 40 MG 1 tablet Orally Once a day for 30 day(s) Not-Taking Aleve PM 220-25 MG Orally N ot-Taking Fluticasone Propionate 50 MCG/ACT 1 spray in each nostril Nasally Once a day for 30 day(s) PRN Active Loratadine 10 MG 1 tablet Orally Once a day for 30 day(s) Active Vitamin B12 Not-Taki ng Insulin Not-Taking BD Pen Needle Ultrafine Active Aleve 220 MG 1 tablet with food or milk as needed Orally every 12 hrs Not-Taking Lisinopril Not-Takin g Atorvastatin Calcium Not-Taking Amlodipine & Diet Manage Prod Not-Taking Levemir FlexPen Not- Taking metFORMIN HCl Not-Ta rayna Folic Acid Not-Takin g Multi Vitamin/Minerals Not-Taking Aspirin 325 MG 1 tablet Orally Once a day for 30 day(s) Active Atorvastatin Calcium 20 MG 1 tablet Orally Once a day for 30 day(s) Active aMILoride HCl 5 MG 1 tablet with food Orally Once a day for 30 day(s) Active amLODIPine Besylate 10 MG 1 tablet Orall y Once a day for 30 day(s) Active Vitamin B6 Not-Takin g Immunizations Vaccine Route Administration Date Status Comme nts COVID-19 Pfizer BioNTech Vaccine Unknown 02/20/2022 Administered 1st 06/23/20,02/06/2021 2nd 07/21/20,2021 Flu vaccine no Preserv 3 and > Unknown 09/11/2015 Administered Influenza Unknown 02/20/2022 Administered Social History Tobacco Use: Social History Observation Description Date Details (start date - stop date) Never Smoker NA - NA Tobacco use other than smoking: Question Answer Notes Are you an other tobacco user? No Tobacco Control (Standard) Question Answer Notes Tobacco use: Nonsmoker Additional Findings: Tobacco non-user Current no nsmoker AUDIT-C (Standard) Question Answer Notes Did you have a drink containing alcohol in the p ast year? No Points 0 Interpretation Negative Problems Problem Type SNOMED Code ICD Code Onset Dates Problem Status W/U Status Risk Notes Problem Polyneuropathy due to type 2 diabetes mellitus (907231665) Type 2 diabetes mellitus with diabetic polyneuropathy (E11.42) Active confirmed Vital Signs Blood pressure diastolic 60 mm Hg 06/21/2024 Height 5 ft 11 in in 06/21/2024 Blood pressure systolic 120 mm Hg 06/21/2024 Weight 207 lbs 06/21/2024 BMI 28.87 kg/m2 06/21/2024 Procedures Procedure Date Ordered Date Performed Result Body Sit e 09839-MLMNZXU NAIL, 6 OR MORE 06/21/2024 N/A 65326-OZCV SKIN LESIONS, 2 TO 4 06/21/2024 N/A Encounters Encounter Location Date Provider Diagnosis [facility] [address] [place] [address] 06/21/2024 Nathalie Escobar Arthralgia of left ankle M25.572 ; Tinea unguium B35.1 ; Sinus tarsitis of left foot M25.572 and Type 2 diabetes mellitus with diabetic polyneuropathy E11.42 Assessments Encounter Date Diagnosis (ICD Code) Assessment Notes Treatment Notes Treatment Clinical Notes Section Notes 06/21/2024 Arthralgia of left ankle (ICD-10 - M25.572) 06/21/2024 Tinea unguium (ICD-10 - B35.1) 06/21/2024 Sinus tarsitis of left foot (ICD-10 - M25.572) 06/21/2024 Type 2 diabetes mellitus with diabetic polyneuropathy (ICD-10 - E11.42) Plan Of Treatment Pending Test Test Name Order Date Hemoglobin A1c 08/15/2014 X ray : Foot, left 3V 07/26/2020 55183-RFXOOWO NAIL, 6 OR MORE 09/22/2017 25399-OXASYDK NAIL, 6 OR MORE 03/24/2017 36991-BUAQTSG NAIL, 6 OR MORE 2017 63081-SRQHAXE NAIL, 6 OR MORE 12/18/2016 89416-WBXZAFV NAIL, 6 OR MORE 06/21/2024 84301-IXXQGLG NAIL, 1-5 03/18/2016 33741-RAQJZDQ NAIL, -5 06/19/2016 43193-IGABJUM NAIL, -5 08/15/2014 04861-IZQEROV NAIL, -11/14/2014 24028-GBJIWQG NAIL, -02/13/2015 82646-XXLDKSL NAIL, -05/22/2015 37151-ODGAHZB NAIL, -09/11/2015 51035-EJSXOOY NAIL, -12/18/2015 37619-Xwecruca Plate 08/15/2014 24031, J0702- INJECT or DRAIN, JOINT/BUR SA 01/15/2016 52260-DNUL SKIN LESIONS, 2 TO 4 12/18/19 16 79026-EIDF SKIN LESIONS, 2 TO 4 09/11/19 16 36040-PMUN SKIN LESIONS, 2 TO 4 05/22/19 16 42700-POQK SKIN LESIONS, 2 TO 4 06/19/19 17 00125-NMNG SKIN LESIONS, 2 TO 4 09/17/19 17 54224-EQYB SKIN LESIONS, 2 TO 4 12/19/19 17 17176-PHWP SKIN LESIONS, 2 TO 4 03/18/20 16 10729-AJII SKIN LESIONS, 2 TO 4 03/24/20 17 72744-SJSX SKIN LESIONS, 2 TO 4 09/23/19 18 23621-LUJQ SKIN LESIONS, 2 TO 4 06/26/19 18 90529-IIEB SKIN LESIONS, 2 TO 4 02/14/20 15 70570-UMRW SKIN LESIONS, 2 TO 4 03/22/20 21 36284-GJRX SKIN LESIONS, 2 TO 4 08/02/19 22 50296-VPNN SKIN LESIONS, 2 TO 4 06/21/19 25 89412-QHPJ NAIL(S) 08/15/2014 91036-NILG NAIL(S) 02/13/2015 35607-TRZB NAIL(S) 11/14/2014 69912, J0702- Neuroma/Injection 01/15/20 16 X ray : Ankle, right 3V 09/11/2015 Next Appt Details Provider Name:Nathalie Ferguson ade, 10/07/2024 03:00:00 PM, [address], [place], [address], Insurance Providers Payer Name Payer Address Payer Phone Subscriber Number Group Number Insured Name Patient Relationship to Insured Coverage Start Date Coverage End Date Medicare [facility] [address] [place] [address] [id number] Delroy Wheat Self - patient is the insured [facility] [address] [place] [address] [phone] [id number] Delroy Wheat Self - patient is [...]
--- OUTSIDE RECORDS SUMMARY | 2024-07-12 12:25 | XMS_ITS ---
[facility] Organization [facility] Address [address] [place] [address] Care Team Providers Care Supervisor [employer] Name Role Phone Brock Hughes Primary Care Provider Nathalie Escobar Unavailable [phone] Allergies Allergen (clinical drug ingredient) Drug/Non Drug Allergy documented on EMR Reaction Allergy Type Onset Date Status Alcohol Unknown Drug Allergy Active meperidine Demerol Unknown Drug Allergy Active codeine Codeine Unknown Drug Allergy Active morphine Morphine Unknown Drug Allergy Active REASON FOR VISIT Ankle pain, At Risk Footcare Medications Medication SIG (Take, Route, Frequency, Duration) Notes Start Date End Date Status Aleve Not-Taking Chromium Not-Taking Fish Oil Not-Taking Glucosamine Not-Taki ng Vitamin D Not-Taking Flomax twice a day Not-Taki ng hydroCHLOROthiazide Not-Taking Vitamin B12 Not-Taki ng Insulin Not-Taking Aleve PM 220-25 MG Orally N ot-Taking Amlodipine & Diet Manage Prod Not-Taking Levemir FlexPen Not- Taking metFORMIN HCl Not-Ta rayna Folic Acid Not-Takin g Multi Vitamin/Minerals Not-Taking Aleve 220 MG 1 tablet with food or milk as needed Orally every 12 hrs Not-Taking Lisinopril Not-Takin g Atorvastatin Calcium Not-Taking oxyBUTYnin Active Lisinopril 40 MG 1 tablet Orally Once a day for 30 day(s) Not-Taking Losartan Potassium 50 MG 1 tablet [...] 30 day(s) Active OneTouch Ultra Test Active BD Pen Needle Ultrafine Active Fluticasone Propionate 50 MCG/ACT 1 spray in each nostril Nasally Once a day for 30 day(s) PRN Active Loratadine 10 MG 1 tablet Orally Once a day for 30 day(s) Active Levemir FlexTouch 100 UNIT/ML as directed Subcutaneous Not-Taking amLODIPine Besylate 10 MG 1 tablet Orall y Once a day for 30 day(s) Active potassium Not-Taking Vitamin B6 Not-Takin g Aspirin 325 MG 1 tablet Orally Once a day for 30 day(s) Active Atorvastatin Calcium 20 MG 1 tablet Orally Once a day for 30 day(s) Active aMILoride HCl 5 MG 1 tablet with food Orally Once a day for 30 day(s) Active Social History Tobacco Use: Social History Observation [...] Polyneuropathy due to type 2 diabetes mellitus (801475416) Type 2 diabetes mellitus with diabetic polyneuropathy (E11.42) Active confirmed Vital Signs Height 5 ft 11 in in 06/21/2024 Weight 207 lbs 06/21/2024 BMI 28.87 kg/m2 06/21/2024 Blood pressure systolic 120 mm Hg 06/21/19 25 Blood pressure diastolic 60 mm Hg 025 Procedures Procedure Date Ordered Date Performed Result Body Sit e 49297-SJPGNDM NAIL, 6 OR MORE 06/21/2024 N/A [id number]-NWUS SKIN LESIONS, 2 TO 4 06/21/2024 N/A Encounters Encounter Location Date Provider Diagnosis [facility] [place] [address] [place] [address] 06/21/2024 Nathalie Escobar Arthralgia of left ankle [...] Treatment Pending Test Test Name Order Date [id number]-KSANKGM NAIL, 6 OR MORE 06/21/2024 30929-SIUF SKIN LESIONS, 2 TO 4 06/21/19 25 Next Appt Details Follow Up: 3 Months, Reason: Provider Name:Nathalietessa booker, 10/07/2024 03:00:00 PM, [address] [place] [address], [id number], Procedure Notes * Category Sub-Category Detail Notes Injection Med: Joint,Bursa (Si nus Tarsi,AJ) Left sinus tarsi Med/Ankle joint bursa/capsule 1cc 1% Xylo.pl + 3mg Celestone Soluspan utilizing aseptic technique. The patient tolerated the procedure well. A dry sterile dressing was applied. Post injection instructions were dispensed, verbally discussed, and confirmed understood by the patient. I explained that a steroid and local anesthetic injection usually decreases pain and inflammation. I explained the possible complications including but not limited to signs/symptoms of steroid flare, change/deviation in toe position, infection, bruising, atrophy, discoloration of skin, additional injections may be necessary, DM: Discussed the transient elevated effects an injection of cortisone may have on the patient's blood sugars Debride Nail 6-10 Nail debridement Due to the cl inical pathology outlined in the exam findings, performance of this nail treatment is medically necessary as its management by an unskilled/untrained nonprofessional would put this patients foot and overall health at risk. Therefore, debridement to affected nail(s), as described in exam ( TA, T1, T2, T3, T4, T5, T6, T7, T8, T9, ), was performed exclusively by the physician of record to reduce/remove overall nail length, girth, thickness, subungual debris, and necrotic tissue, by manual and/or electrical means through the use of a nail nipper and/or dremel-type plate glass grinder, to a more viable healthy nail plate or bed tissue 6-10 nails in total. Silver nitrate was used for any petechial bleeding as necessary. Definitive antifungal treatment options, both pharmaceutical and surgical, have been reviewed and discussed with the patient. The patient solely prefers the use of intermittent/as needed professional debridement services for their nail condition and understands the need for additional periodic treatments to maintain effectiveness in symptomatic relief - 06337 Keratoma Treatment Parring or Cutting o f Benign Hyperkeratotic Lesion(s) (-56) 2-4 Lesions - Due to the at risk nature of the patients medical condition as documented in the exam findings, performance of this keratoderma treatment is medically necessary as its management by an unskilled/untrained nonprofessional would put this patients foot and overall health at risk. Therefore, the benign hyperkeratotic lesions, ( 2 ) in total, locations as stated and described in the exam ( plantar heels B/L ), were pared, and/or cut utilizing a sterile 15 blade, tissue nippers, and/or power dremel instrumentation by the physician of record - 90349 Progress Notes * Delroy DUBON BDOB:1940 (83 yo M)Acc No.[id number]:06/21/2024 Progress Note Patient:?Delroy DUBON Provider:?Nathalie Escobar DPM :1940???Age:83 Y???Sex:Male Jerman e:06/21/2024 Address: [address] [facility] Pcp:Brock Hughes Subjective: * Chief Complaints: * ???Ankle painAt Risk Footcar e * HPI: ???Ankle Pain:?Location:?Inside aspect of the Left ankle.?Duration: ?several months .?Onset/Cause:?multiple surgeries,, gradual.?Course:?worse.?Aggravated by:?any pressure, standing, walking.?Treatments:?rest/alter normal daily activity.?At Risk footcare:?Pt States Last PCP Visit:?Date?04/19/2024 * ROS:?General/Constitutional:?Nausea?denies.?Vomiting?denies.?Hunger Thirst?denies.?Loss appetite?denies.?Chills?denies.?Fatigue?denies.?Fever?denies.?Night Sweats?denies.?Unexplained weight loss?denies.?Unexplained weight gain?denies.?HEENTM:?Dentures?admits.?Dizziness?denies.?Glasses/contacts?admits.?Retinopathy?de nies.?Blurred/double vision?denies.?TMJ?denies.?Discharge/drainage?denies.?Implants?denies.?Sore throat?denies.?Dental implants?denies.?Hard of hearing ?admits.?Difficulty chewing/swallowing/speaking?denies.?Nose bleeds?denies.?Sore mouth?denies.?Respiratory:?On Oxygen?denies.?Pneumonia/pleurisy?denies.?Bronchitis?denies.?Emphysema?denies.?C oughing?denies.?Cough blood?denies.?Shortness of breath?denies.?Wheezing?denies.?Cardiovascular:?Pacemaker?denies.?MVP?denies.?WPW?denies.?CHF?denies.?Heart attack?denies.?Septal defect?denies.?Rapid beat?denies.?Chest pain ?denies.?Atrial Fib.?admits.?Murmur/Palpitations?admits.?Gastrointestinal:?Hemorrhoids?denies.?Stomach/Abdominal pain?denies.?Dark blood stool?denies.?Irritable bowel ?denies.?Constipation?denies.?Diarrhea?denies.?Hematology:?Swelling?denies.?Clots?denies.?Varicose Veins?denies.?Bruising?denies.?Bleeding problem?denies.?Genitourinary:?Blood urine?denies.?Frequent/Painfu/urination/bladder control?admits.?Kidney stones?denies.?Infection (UTI)?denies.?Nephropathy?denies.?sex trans dis (STD)?denies.?Prostate?admits.?Musculoskeletal:?Hammertoes?denies.?Bunions?denies.?Back Pain?denies.?Muscle Cramps/ Resting?denies.?Muscle cramps / walking?denies.?Generalized aches and pains?denies.?Weakness?denies.?Integ.:?Lazo?denies.?Scars?denies.?Corns/calluses?denies.?Ingrown nails?denies.?Painful nails?denies.?Open Sores?denies.?Rashes?denies.?Neurologic:?Difficulty sleeping?denies.?Brain disorder?denies.?Numbness?admits.?Balance trouble?denies.?Confusion?denies.?Fainting/blackouts?denies.?Tingling?denies.?Tr emors?admits.? * Medical History:? * Surgical History:?spine surg micha 05/20/2011prostate surgery 08/2014tonsillectomy and adenoidectomy ankle fusion - right 04/27/21 * Hospitalization/Major Diagno stic Procedure:?Denies Past Hospitalization * Family History:?Mother: dece ased, diagnosed with Unspecified heart disease, Unspecified cerebral artery occlusion with cerebral infarction, Family history of arthritis.?Father: , acute hemorrhagic alcoholic pancreatitis.? * Social History:?Tobacco Use:?Tobacco use other than smoking?Are you an other tobacco user??No ?Tobacco Control (Standard)?Tobacco use:?Nonsmoker ?Additional Findings: Tobacco non-user?Current nonsmoker ???Drugs/Alcohol:?Drugs?Have you used drugs other than those for medical reasons in the past 12 months??No ???Miscellaneous:?Caffeine: yes, frequency:, 3-5 cups per day. ?Children: yes. ?Exercise: no. ?Marital status: . 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 ???Drug/Alcohol:?AUDIT-C (Standard)?Did you have a drink containing alcohol in the past year??No ?Points?0 ?Interpretation?Negative * Medications:?TakingAspirin 3 25 MG Tablet 1 tablet Orally Once a day Atorvastatin Calcium 20 MG Tablet 1 tablet Orally Once a day aMILoride HCl 5 MG Tablet 1 tablet with food Orally Once a day amLODIPine Besylate 10 MG Tablet 1 tablet Orally Once a day BD Pen Needle Ultrafine Fluticasone Propionate 50 MCG/ACT Suspension 1 spray in each nostril Nasally Once a day , Notes to Pharmacist: PRNLoratadine 10 MG Tablet 1 tablet Orally Once a day Losartan Potassium 50 MG Tablet 1 tablet Orally Once a day , Notes to Pharmacist: 8mg 1per daymetFORMIN HCl 1000 MG Tablet 1 tablet with a meal Orally Once a day Metoprolol Succinate ER 50 MG Tablet Extended Release 24 Hour 1 tablet Orally Once a day Multivitamin Adult - Tablet 1 tablet Orally Once a day OneTouch Ultra Test oxyBUTYnin Taking Aspirin 325 MG Tablet 1 tablet Orally Once a day Taking Atorvastatin Calcium 20 MG Tablet 1 tablet Orally Once a day Taking aMILoride HCl 5 MG Tablet 1 tablet with food Orally Once a day Taking amLODIPine Besylate 10 MG Tablet 1 tablet Orally Once a day Taking BD Pen Needle Ultrafine Taking Fluticasone Propionate 50 MCG/ACT Suspension 1 spray in each nostril Nasally Once a day , Notes to Pharmacist: PRNTaking Loratadine 10 MG Tablet 1 tablet Orally Once a day Taking Losartan Potassium 50 MG Tablet 1 tablet Orally Once a day , Notes to Pharmacist: 8mg 1per dayTaking metFORMIN HCl 1000 MG Tablet 1 tablet with a meal Orally Once a day Taking Metoprolol Succinate ER 50 MG Tablet Extended Release 24 Hour 1 tablet Orally Once a day Taking Multivitamin Adult - Tablet 1 tablet Orally Once a day Taking OneTouch Ultra Test Taking oxyBUTYnin Not-Taking/PRNLevemir FlexTouch 100 UNIT/ML Solution Pen-injector as directed Subcutaneous Lisinopril 40 MG Tablet 1 tablet Orally Once a day Aleve 220 MG Tablet 1 tablet with food or milk as needed Orally every 12 hrs Lisinopril Atorvastatin Calcium Amlodipine & Diet Manage Prod Levemir FlexPen metFORMIN HCl Folic Acid Multi Vitamin/Minerals Vitamin B12 Insulin Aleve PM 220-25 MG Tablet Orally Flomax twice a day hydroCHLOROthiazide Aleve Chromium Fish Oil Glucosamine Vitamin D potassium Vitamin B6 Medication List reviewed and reconciled with the patientNot-Taking/PRN Levemir FlexTouch 100 UNIT/ML Solution Pen-injector as directed Subcutaneous Not-Taking/PRN Lisinopril 40 MG Tablet 1 tablet Orally Once a day Not-Taking/PRN Aleve 220 MG Tablet 1 tablet with food or milk as needed Orally every 12 hrs Not-Taking/PRN Lisinopril Not-Taking/PRN Atorvastatin Calcium Not-Taking/PRN Amlodipine & Diet Manage Prod Not-Taking/PRN Levemir FlexPen Not-Taking/PRN metFORMIN HCl Not-Taking/PRN Folic Acid Not-Taking/PRN Multi Vitamin/Minerals Not-Taking/PRN Vitamin B12 Not-Taking/PRN Insulin Not- Taking/PRN Aleve PM 220-25 MG Tablet Orally Not-Taking/PRN Flomax twice a day Not- Taking/PRN hydroCHLOROthiazide Not-Taking/PRN Aleve Not-Taking/PRN Chromium Not-Taking/PRN Fish Oil Not-Taking/PRN Glucosamine Not-Taking/PRN Vitamin D Not-Taking/PRN potassium Not-Taking/PRN Vitamin B6 Medication List reviewed and reconciled with the patient * Allergies:?DemerolAlcoholMoreggie Richardson[Allergies Verified] Objective: * Vitals:?Ht: 5 ft 11 in, Wt:2 07, BMI: 28.87, Shoe size:10, BP:120/60mm Hg, BS:127, Wt-k.89 kg. * ???Past Orders: ???Lab:HEMOGLOBIN A1C (GLYCO HEMOGLOBIN) (Order Date - 01/20/2024) (Collection Date & Time - 02/17/2024 08:28 AM) ? Value Reference Range ?HEMOGLOBIN A1C % (HH) 6.1 * Examination: ???Ophthalmology Referral: ?DIABETES EYE EXAM?Orthopedic: ?MUSCLE STRENGTH:?5/5 all groups in a symmetrical fashion, B/L.?ANKLE PAIN LOCATED:?LEFT, sinus tarsi, no pain with range of motion of basia joint or subtalar joint, no tenderness with palpation of?, ATFL, CFL, PTFL, Syndesmosis, Peroneal tendons.?Neurological: ?SENSORY:? Neurological exam demonstrates, reduced light touch sensation, reduced sharp/dull pin prick discrimination , B/L, 5.07 monofilament test performed at plantar aspects of 5 varied sites per foot shows sensation, reduced , B/L.?Nails: ?NAILS are:?Elongated, overgrown, dystrophic, lytic, greater than 3mm thick, discolored and friable with crumbly malodorous subungual debris, TA, T1, T2, T3, T4, T5, T6, T7, T8, T9.?Dermatologic: ?SKIN FINDINGS:?Skin exam reveals Keratotic lesion(s) located at plantar heels B/L.?Vascular: ?DP PULSES (B):?1/4, B/L.?PT PULSES (B):? 1/4, B/L.?CAPILLARY FILL TIME:?3 secs. per digit. B/L.?TROPHIC CONDITION-TEXTURE/ELASTICITY/TURGOR/HAIR GROWTH (B):?normal, B/L.?TEMPERTURE GRADIENT (C):?normal, B/L.?PIGMENTATION:?normal, B/L.?EDEMA (C):? 1/4, Left, Ankle(s).?TELANGECTASIA:?absent, B/L.?General Examination: ?GENERAL APPEARANCE:?Reveals a pleasant, alert, well nourished, well- developed, well hydrated individual, who demonstrates proper attention to hygiene/body habitus, and is in no acute distress, Pt serves as own historian for office visit today.?ORIENTED:?person, place, and time.? Assessment: * Assessment: 1.?Arthralgia of left ankle - M25.572???Specify :Chronic problem, Worse (4)???2.?Tinea unguium - B35.1???3.?Sinus tarsitis of left foot - M25.572???Specify :Acute problem, Complicated w/ Multiple Tx Options(4)???4.?Type 2 diabetes mellitus with diabetic polyneuropathy - E11.42 (Primary)??? Plan: * Treatment: * Procedures:?Debride Nail 6-10:?Nail debridement?Due to the clinical pathology outlined in the exam findings, performance of this nail treatment is medically necessary as its management by an unskilled/untrained nonprofessional would put this patients foot and overall health at risk. Therefore, debridement to affected nail(s), as described in exam (? TA, T1, T2, T3, T4, T5, T6, T7, T8, T9, ), was performed exclusively by the physician of record to reduce/remove overall nail length, girth, thickness, subungual debris, and necrotic tissue, by manual and/or electrical means through the use of a nail nipper and/or dremel-type plate glass grinder, to a more viable healthy nail plate or bed tissue 6- 10 nails in total. Silver nitrate was used for any petechial bleeding as necessary. Definitive antifungal treatment options, both pharmaceutical and surgical, have been reviewed and discussed with the patient. The patient solely prefers the use of intermittent/as needed professional debridement services for their nail condition and understands the need for additional periodic treatments to maintain effectiveness in symptomatic relief - 32549.?Injection:?Med: Joint,Bursa (Sinus Tarsi,AJ)??Left sinus tarsi Med/Ankle joint bursa/capsule 1cc 1% Xylo.pl + 3mg Celestone Soluspan utilizing aseptic technique. The patient tolerated the procedure well. A dry sterile dressing was applied. Post injection instructions were dispensed, verbally discussed, and confirmed understood by the patient. I explained that a steroid and local anesthetic injection usually decreases pain and inflammation. I explained the possible complications including but not limited to signs/symptoms of steroid flare, change/deviation in toe position, infection, bruising, atrophy, discoloration of skin, additional injections may be necessary, DM: Discussed the transient elevated effects an injection of cortisone may have on the patient's blood sugars.?Keratoma Treatment:?Parring or Cutting of Benign Hyperkeratotic Lesion(s)?(-56) 2-4 Lesions - Due to the at risk nature of the patients medical condition as documented in the exam findings, performance of this keratoderma treatment is medically necessary as its management by an unskilled/untrained nonprofessional would put this patients foot and overall health at risk. Therefore, the benign hyperkeratotic lesions, ( 2 ) in total, locations as stated and described in the exam ( plantar heels B/L ), were pared, and/or cut utilizing a sterile 15 blade, tissue nippers, and/or power dremel instrumentation by the physician of record - 62972.? * Procedure Codes:?28603 DEBRI DE NAIL, 6 OR MORE, Modifiers: XS 96274 TRIM SKIN LESIONS, 2 TO 4, Modifiers: XS * Preventive Medicine:? ??Counseling:?Discussion:?-14: Office or other outpatient visit for the evaluation and management of an established patient, which required a medically appropriate history and/or examination and MODERATE level of DECISION MAKING for: 1 OR MORE CHRONIC PROBLEM(S) THATS WORSENING, 2 STABLE CHRONIC PROBLEMS, A NEWLY DIAGNOSED PROBLEM WITH UNCERTAIN PROGNOSIS, AN ACUTE COMPLICATED INJURY WITH MULTIPLE TREATMENT OPTIONS, OR AN ACUTE PROBLEM WITH ACCOMPANYING SYSTEMIC SYMPTOMS, THAT POSE(S) A MODERATE RISK OF MORBIDITY. THIS CONDITION MAY ALSO INCLUDE RX DRUG MANAGEMENT, OR A DECISON FOR MINOR SURGERY. The visit on the day of the encounter encompassed interpreting the data and educating the patient as to the nature of their condition, treatment options available according to their individual PMH, meds, allergies, and overall health/living conditions, as well as any potential risks or complications that may occur from a failure to adhere to, and participate in, the recommended course of therapy. The discussion included a complete verbal, and/or written explanation of the examination results, any x-rays taken, the proposed diagnosis, and outline of the treatment plan. A schedule for future care needs was also explained. The patient verbalized an understanding of the instructions at this time and agreed to be an active participant in their treatment. If the patient should think of any questions or concerns after the visit, I have encouraged the patient to call the office.?Ankle Pain:?I explained to the patient the possible etiologies of their Ankle Pain, including foot type/shoegear/activity level/exercise routine and the risks/benefits of all the different treatment options for pain including: No treatment at all, Rest, Ice, NSAIDs(only if well tolerated after meals), New/supportive Shoegear, Strappings and Tapings, Foot/Ankle AFO Bracing, Stretching exercises, Deep Tissue Massage, Heel cups/cushions, Arch support/shoe inserts, Custom orthoses, Topical analgesics including Aspercream/Voltaren gel, Night splints for am stiffness, Physical Therapy, EPAT/ESWT, Interfil injection therapy. Advantages and disadvantages of each option were discussed and the patients questions re: shoegear, custom vs prefabricated inserts, activity level, PO vs Topical medications (and their respective potential complications/drug interactions/side effects), and consistency in home treatment regimens for optimal success were answered to their verbally confirmed satisfaction.?Arthritis:?The patient was counseled on the various etiologies for their Arthritis including genetic, history of injury or trauma, abnormal foot biomechanics leading to excessive joint wear, and use/overuse. We discussed the various treatment options from no treatment, to topical analgesics such as Biofreeze gel, Aspercream, Voltaren gel, Lidoderm patches, CBD oils, THC creams, and Custom-compounded topical cream preparations to natural oral products such as Glucosamine Sulfate/Chondroitin/MSM/Collegen to analgesic Tylenol, to anti-inflammatory medications such as Ibuprofen/Naproxen, and the use of oral steroids if needed. Cardiac, Kidney, and GI issues were discussed RE: potential complications of oral anti-inflammatories. We discussed several other treatment options consisting of accom shoes, supportive innersoles, AFO bracing/support, cortisone injection therapy, and surgical resection of the arthritic joint(s) or fusion reconstruction if necessary. We discussed the advantages and disadvantages of conservative (vs) surgical treamtents including pain relief, improved function/activities of daily life, return to exercise to failure, expense, systemic complications, infection, [id number], prolongued postop course. Patient questions re: the various treatment options available, their successes and potential failures, and termite treater helper effects were discussed and the answers were verbally confirmed understood.?Orthotics:?I explained to the patient the benefits of OT use. I explained that orthoses are medically necessary to decrease the foot pain through proper mechanical control, support of their foot, possibly prevent surgery.?P.R.I.C.E.:?The patient was counseled on the use of P.R.I.C.E. and NSAIDS (if well tolerated) to aid in the recovery from their painful condition, Recommended Topical analgesics including Aspercream/Biofreeze/Voltaren gel as directed.?Shoe Gear Counseling:?The patient and I reviewed the types of shoes they should be wearing. My recommendation included obtaining a well-fitted shoe with a good supportive, non-foldable nor twistable sole, plenty of toe/room for the forefoot, and proper arch support. Based on todays examination, I recommended the patient look for new shoes, by having their feet professionally measured. We discussed that generally the best time of the day for a shoe fitting is the afternoon. Different shoes types and brands to best match the patients occupation and vocation were discussed. Specific brand selection will be up to the patient, their individual foot condition/deformities, and fit. The patient and I reviewed the standard new shoe break in period by wearing them for a few hours a day while checking for redness or sores as wear time is increased. The patient verbally confirmed to understanding the information discussed.?X-rays:?Reviewed patient prior Xrays from Dr. Moctezuma office, patient is s/p TTC nail with partial hardware removal. , The Pt. was counseled on the x-rays, treatment options, and the importance of following all homecare instructions.? ??Screening/Special Tests:?Fall Risk?Screening:?No falls in the past year ?FALLS: Screening for Future Fall Risk?Have you had any falls with injury in the past year??No * Follow Up:?3 Months * Images: * Sign off status: Completed true * Provider:?Nathalie Escobar DPM Date:?0 06/21/2024 Generated for Ericka seo/Radha/eTransmitting on:?07/12/2024 12:25 PM EST History and Physical Notes * HPI (History of Present Illness) Category Sub-Category Detail Notes Category Not es Ankle Pain Duration: several months Treatments: rest/alter normal da naheed activity Course: worse Location: Inside aspect of the Left ankle Onset/Cause: multiple surgeries,, gradual Aggravated by: any pressure, standi ng, walking At Risk footcare Pt States Last PCP Visit: Date: 4 Examination Category Sub-Category Detail Notes Category Not es Neurological SENSORY: Neurological exa m demonstrates, reduced light touch sensation, reduced sharp/dull pin prick discrimination , B/L, 5.07 monofilament test performed at plantar aspects of 5 varied sites per foot shows sensation, reduced , B/L Dermatologic SKIN FINDINGS: Skin exam reveal s Keratotic lesion(s) located at plantar heels B/L Orthopedic ANKLE PAIN LOCATED: LEFT, sinus tarsi, no pain with range of motion of basia joint or subtalar joint, no tenderness with palpation of , ATFL, CFL, PTFL, Syndesmosis, Peroneal tendons MUSCLE STRENGTH: 5/5 all groups in a symmetrical fashion, B/L General Examination GENERAL APPEARANCE: Reveals a pleasant, alert, well nourished, well-developed, well hydrated individual, who demonstrates proper attention to hygiene/body habitus, and is in no acute distress, Pt serves as own historian for office visit today ORIENTED: person, place, and t alyx Ophthalmology Referral DIABETES EYE EXAM Procedure Perform ed:: No Eye Exam not performed:: No reason speci fied Vascular DP PULSES (B): 05/22, B/L PT PULSES (B): 05/22, B/L CAPILLARY FILL TIME: 3 secs. per digit. B/L TEMPERTURE GRADIENT (C): normal, B/L TROPHIC CONDITION-TEXTURE/ELASTICITY/TUR GOR/HAIR GROWTH (B): normal, B/L EDEMA (C): 1/4, Left, Ankle(s) TELANGECTASIA: absent, B/L PIGMENTATION: normal, B/L Nails NAILS are: Elongated, overg rown, dystrophic, lytic, greater than 3mm thick, discolored and friable with crumbly malodorous subungual debris, TA, T1, T2, T3, T4, T5, T6, T7, T8, T9
--- OUTSIDE RECORDS SUMMARY | 2024-07-12 12:25 | XMS_ITS | Encounter Summary ---
Author Organization [facility] Address [address] [place] [address] Care Team Providers Care Ebd Teacher Name Role Phone Kishor Mcmanus DO Primary Care Provider [phone] Per Seay MD Unavailable [phone] Anton Robledo MD Unavailable [phone] Nabil Narvaez MD Unavailable [phone] Encounter Details Date Type Department Care Team (Late st Contact Info) Description 06/06/2023 Scanned Document [facility] [address] [place] [address] Anton Robledo MD [address] [place] [address] Social History Tobacco Use Types Packs/Day Years [...] on filedocumented in this encounter Care Teams Ebd Teacher Relationship Specialty Start Date End Date Kishor Mcmanus DO [address] [place] [address] PCP - General Internal Medicine 02/27/21 Per Seay MD [address] [place] [address] Loin Trimmer Cardiovascular Disease 02/28/21 Anton Robledo MD [address] [place] [address] Surgery, Orthopedic 03/08/21 Nabil Narvaez MD [address] [place] [address] Referring Provider Urology 03/08/21 documented as of this encounter
--- OUTSIDE RECORDS SUMMARY | 2024-07-12 12:25 | XMS_ITS | Encounter Summary ---
Author Organization [facility] Address [address] [place] [address] Care Team Providers Care Steam And Power Supervisor Name Role Phone Kishor Mcmanus DO Primary Care Provider [phone] Per Seay MD Unavailable Anton Robledo MD Unavailable Nabil Narvaez MD Unavailable [phone] Encounter Details Date Type Department Care Team (Late st Contact Info) Description 10/17/2023 Scanned Document [facility] [address] [place] [address] Anton Robledo MD [address] [place] [address] Social History Tobacco Use Types Packs/Day Years [...] on filedocumented in this encounter Care Teams Steam And Power Supervisor Relationship Specialty Start Date End Date Kishor Mcmanus DO [address] [place] [address] PCP - General Internal Medicine 02/27/21 Per Seay MD [address] [place] [address] Filtering Machine Tender Helper Cardiovascular Disease 02/28/21 Anton Robledo MD [address] [place] [address] Surgery, Orthopedic 03/08/21 Nabil Narvaez MD [address] [place] [address] Referring Provider Urology 03/08/21 documented as of this encounter
--- OUTSIDE RECORDS SUMMARY | 2024-07-12 12:25 | XMS_ITS ---
Author Organization Kishor Mcmanus DO, FACP Address [address] [place], [place] [address] Care Team Providers Care Licensed Professional Counselor Name Role Phone MariettaKishor dick Primary Care Provider ALLERGIES No Known Allergies [...] Location Date Provider Diagnosis Kishor Mcmanus DO, [address] [id number] 04/27/2024 Kishor Mcmanus Type 2 diabetes ching [...] General Examination GENERAL APPEARANCE: in no ac genaro distress, well developed, well nourished HEAD: normocephalic, atrau matic HEART: no murmurs, regular rate and rhythm, S1, S2 normal LUNGS: clear to auscultatio n bilaterally ABDOMEN: normal, bowel sounds present, soft, nontender, nondistended SKIN: warm and dry EXTREMITIES: no edema PSYCH: alert, oriented, cog nitive function intact
--- OUTSIDE RECORDS SUMMARY | 2024-07-12 12:26 | XMS_ITS ---
Author Organization Kishor Mcmanus DO, FACP Address [address] [place], [place] [address] Care Team Providers Care Supervisor Train Operations Name Role Phone Kishor Mcmanus Primary Care Provider REASON FOR VISIT FYI Encounters Encounter Location Date Provider Diagnosis Kishor Mcmanus DO, FACP [address] [place], [place] [id number] 04/30/2024 Kishor Mcmanus PLAN OF TREATMENT No Information
== END 2024-07-12 11:24 | disposition home or self-care (01) ==
LOC: HO.HMCSH 10:54
PROVIDERS: PCP Internal Medicine; Visit Provider Internal Medicine
DX: I48.91 Unspecified atrial fibrillation (principal); I10 Essential (primary) hypertension; K31.9 Disease of stomach and duodenum, unspecified; J18.9 Pneumonia, unspecified organism

== ENCOUNTER → 2024-07-12 10:54 | Outpatient (BNVA) | payer MEDICARE, BC, SELFPAY | PROVIDERS: PCP Internal Medicine; Visit Provider Internal Medicine | DX: I48.91 Unspecified atrial fibrillation (principal); I10 Essential (primary) hypertension; K31.9 Disease of stomach and duodenum, unspecified; J18.9 Pneumonia, unspecified organism | CPT/HCPCS: 99202 ==

== ENCOUNTER → 2024-07-13 09:49 | Outpatient (BNV) | payer MEDICARE, BC, SELFPAY | PROVIDERS: PCP Internal Medicine; Visit Provider Internal Medicine | DX: K31.89 Other diseases of stomach and duodenum (principal); R91.8 Other nonspecific abnormal finding of lung field | CPT/HCPCS: 99214; G2211 ==

== ENCOUNTER 2024-07-19 09:25 | Outpatient (AMB) | payer MEDICARE, BC, SELFPAY ==
--- NOTE | 2024-07-19 09:25 | A.OFFPC_ITS ---
Vital Signs 07/19/24 09:37 Height 5 ft 8.25 in Weight 264 lb BMI 39.8 BP 142/60 H Blood Pressure Location Rt brachial Pulse 76 Pulse Source Pulse Oximeter Temp 97.2 F Pulse Oximetry (%) 96 Intake Visit Reasons: 1 week follow up Intake Note: no other issues Allergies No Known Allergies [No Known Allergies*] Allergy (Verified 07/19/24 10:55) Medication List - Last Reconciled 07/19/24 by Brock Hughes MD albuterol sulfate 90 mcg/actuation 1 inh inhalation QID PRN amiloride 5 mg PO BIDWM@0800,1700 apixaban 5 mg PO BID atorvastatin 40 mg PO DAILY calcium carbonate 500 mg PO BEDTIME cefuroxime axetil 500 mg PO BID cholecalciferol (vitamin D3) 25 mcg PO BEDTIME diltiazem HCl CD 240 mg See Protocol PO DAILY insulin glargine (Basaglar KwikPen U-100 Insulin) 21 units subcut BEDTIME loratadine 10 mg PO DAILY losartan 100 mg PO DAILY metformin 1,000 mg PO BIDWM metoprolol succinate ER 75 mg PO DAILY multivitamin 1 tab PO DAILY oxybutynin chloride 5 mg PO DAILY HPI 1 week follow up HPI Details 84 yr old male returns for a follow up v isit. As instructed, patient is taking the increased dosage of Losartan. Has completed the antibiotics course. Has returned to his baseline state of health. Continues to take medications as directed. Pt has an appt to be seen at [facility] for his endoscopy and biopsy [facility] Medical History History of pyelonephritis Substance abuse Alcoholism Mitral annular calcification Hyperaldosteronism Essential hypertension Type 2 diabetes mellitus with unspecified complications PVC (premature ventricular contraction) Atrial tachycardia HTN (hypertension) Diabetes Suprapubic catheter Surgical History History of nephrolithotomy with removal of calculi History of ankle surgery History of tonsillectomy History of lumbar surgery History of prostate surgery Family History Father No problems noted. Mother No problems noted. Social History Household Members: Spouse Housing: House Do you presently have visiting nurse or other home services: No Alcohol intake: never Patient Tobacco Use Status: Former Tobacco user Years Smoked: 20 +/- e-Cigarette/Vaping Use: Never Used Advance Directives Date on File: 07/06/24 service: No Current occupational status: retired Gender identity: Male Questionnaire Thrive Questionnaire Date Thrive assessed: 07/07/24 Physical exam (Primary Care) Vital Signs: Last Vital Signs Temp 97.2 F 07/19/24 09:37 Pulse 76 07/19/24 09:37 BP 142/60 H 07/19/24 09:37 Pulse Ox 96 07/19/24 09:37 Care Plan Goal for BP management: BP is stable BMI result Body Mass Index 39.8 BMI Assessment/Plan discussion: High Tobacco/Smoking Status: Tobacco use Status Patient Tobacco Use Status Former Tobacco user 07/19/24 09:28 e-Cigarette/Vaping Use Never Used 07/19/24 09:28 Thrive Assessment: Date of Thrive Assessment Date Thrive assessed 07/07/24 07/19/24 09:28 Const General: cooperative and healthy appearing Nutritional Appearance: well nourished Orientation/consciousness: patient oriented x3 Limitations: no limitations HENMT Head: Yes normal to inspection Eyes General: appearance normal, both eyes and all related structures Neck Neck: Yes normal visual inspection Chest Chest palpation & inspection: normal palpation of entire chest wall Resp Effort & Inspection: normal respiratory effort Neuro General: patient oriented x3 Coding Level of Care Code Est Pt Level 3 (14267) Complex EM visit Add On G2211 Diagnoses Essential hypertension I10 Assessment & Plan Assessment & Plan (1) Essential hypertension: Code(s): I10 - Essential (primary) hypertension Category: Medical Plan: Blood pressure continues to improve. Continue medications at same dosage.
[2024-07-19 09:37] VITALS: BP 142/60; PULSE 76; TEMP 36.2; O2SAT 96; BMI 39.8
--- OUTSIDE RECORDS SUMMARY | 2024-07-19 10:21 | XMS_ITS | Encounter Summary ---
Author Organization [facility] Address [address] [place] [address] Care Team Providers Care Show Dog Trainer Name Role Phone Kishor Mcmanus DO Primary Care Provider [phone] Per Seay MD Unavailable Anton Robledo MD Unavailable [phone] Nabil Narvaez MD Unavailable [phone] Encounter Details Date Type Department Care Team (Late st Contact Info) Description 11/30/2022 Scanned Document [facility] [address] [place] [address] Anton Robledo MD [address] [place] [address] Social History Tobacco Use Types Packs/Day Years [...] on filedocumented in this encounter Care Teams Show Dog Trainer Relationship Specialty Start Date End Date Kishor Mcmanus DO [address] [place] [address] PCP - General Internal Medicine 02/27/21 Per Seay MD [address] [place] [address] Divider Operator Cardiovascular Disease 02/28/21 Anton Robledo MD [address] [place] [address] Surgery, Orthopedic 03/08/21 Nabil Narvaez MD [address] [place] [address] Referring Provider Urology 03/08/21 documented as of this encounter
--- OUTSIDE RECORDS SUMMARY | 2024-07-19 10:21 | XMS_ITS | Encounter Summary ---
Author Organization [facility] Address [address] [place] [address] Care Team Providers Care Deputy Probation Officer Name Role Phone Kishor Mcmanus DO Primary Care Provider [phone] Per Seay MD Unavailable Anton Robledo MD Unavailable [phone] Nabil Narvaez MD Unavailable [phone] Encounter Details Date Type Department Care Team (Late st Contact Info) Description 06/06/2023 Scanned Document [facility] [address] [place] [address] Anton Robledo MD [address] [place] [address] Social History Tobacco Use Types Packs/Day Years [...] on filedocumented in this encounter Care Teams Deputy Probation Officer Relationship Specialty Start Date End Date Kishor Mcmanus DO [address] [place] [address] PCP - General Internal Medicine 02/27/21 Per Seay MD [address] [place] [address] Oracle Erp Developer Cardiovascular Disease 02/28/21 Anton Robledo MD [address] [place] [address] Surgery, Orthopedic 03/08/21 Nabil Narvaez MD [address] [place] [address] Referring Provider Urology 03/08/21 documented as of this encounter
--- OUTSIDE RECORDS SUMMARY | 2024-07-19 10:21 | XMS_ITS | Patient Health Record ---
Author Organization [facility] Address [address] [facility] [place] [address] Care Team Providers Care Broadcast Checker Name Role Phone Brock Hughes Primary Care Provider Nathalie Escobar [phone] Allergies Allergen (clinical drug ingredient) Drug/Non Drug [...] Polyneuropathy due to type 2 diabetes mellitus (262954646) Type 2 diabetes mellitus with diabetic polyneuropathy (E11.42) Active confirmed Vital Signs Blood pressure diastolic 60 mm Hg 06/21/2024 Height 5 ft 11 in in 06/21/2024 Blood pressure systolic 120 mm Hg 06/21/2024 Weight 207 lbs 06/21/2024 BMI 28.87 kg/m2 06/21/2024 Procedures Procedure Date Ordered Date Performed Result Body Sit e 97599-ZHBAEQC NAIL, 6 OR MORE 06/21/2024 N/A 32601-WEOL SKIN LESIONS, 2 TO 4 06/21/2024 N/A Encounters Encounter Location Date Provider Diagnosis [facility] [address] [place] [address] 06/21/2024 Nathalie Escobar Arthralgia of left ankle [...] X ray : Foot, left 3V 07/26/2020 63381-TGPXPFR NAIL, 6 OR MORE 09/22/2017 82245-WLDECAQ NAIL, 6 OR MORE 03/24/2017 33962-VSZLWMM NAIL, 6 OR MORE 2017 98564-SWKWAID NAIL, 6 OR MORE 12/18/2016 53150-HJILIEN NAIL, 6 OR MORE 06/21/2024 84575-XRUIUKN NAIL, 1-5 03/18/2016 17691-EHREWTL NAIL, -5 06/19/2016 73474-KVXRKBQ NAIL, -5 08/15/2014 92551-SGVLDID NAIL, -11/14/2014 83404-FPEPXBA NAIL, -02/13/2015 38429-WLXJACH NAIL, -05/22/2015 33257-RPOXDNS NAIL, -09/11/2015 83094-GMXQTPE NAIL, -12/18/2015 06562-Ztsatilc Plate 08/15/2014 62798, J0702- INJECT or DRAIN, JOINT/BUR SA 01/15/2016 10830-FMFW SKIN LESIONS, 2 TO 4 12/18/19 16 65017-BJPR SKIN LESIONS, 2 TO 4 09/11/19 16 13691-BXUM SKIN LESIONS, 2 TO 4 05/22/19 16 63504-ROAF SKIN LESIONS, 2 TO 4 06/19/19 17 98559-VKVU SKIN LESIONS, 2 TO 4 09/17/19 17 50299-KLJD SKIN LESIONS, 2 TO 4 12/19/19 17 60846-EGQF SKIN LESIONS, 2 TO 4 03/18/20 16 80902-ZVZQ SKIN LESIONS, 2 TO 4 03/24/20 17 96551-NNVS SKIN LESIONS, 2 TO 4 09/23/19 18 50902-RAHL SKIN LESIONS, 2 TO 4 06/26/19 18 63886-ZQYU SKIN LESIONS, 2 TO 4 02/14/20 15 12032-QBXC SKIN LESIONS, 2 TO 4 03/22/20 21 76824-CIVZ SKIN LESIONS, 2 TO 4 08/02/19 22 41893-VERX SKIN LESIONS, 2 TO 4 06/21/19 25 97841-SWED NAIL(S) 08/15/2014 94866-FYAH NAIL(S) 02/13/2015 25767-YGTY NAIL(S) 11/14/2014 23200, J0702- Neuroma/Injection 01/15/20 16 X ray : Ankle, right 3V 09/11/2015 Next Appt Details Provider Name:Nathalie Ferguson ade, 10/07/2024 03:00:00 PM, [address] [facility], [place], [address], Insurance Providers Payer Name Payer Address Payer Phone Subscriber Number Group Number Insured Name Patient Relationship to Insured Coverage Start Date Coverage End Date Medicare [facility] [address] [place] [address] [id number] Delroy Wheat Self - patient is the insured [facility] [address] [place] [address] [phone] [id number] Delroy Wheat Self - patient is [...]
--- OUTSIDE RECORDS SUMMARY | 2024-07-19 10:21 | XMS_ITS | Clinical Summary ---
Author Organization [facility] Address [address] [place] [address] Care Team Providers Care Lining Cutter Name Role Phone MariettaKishor DO Primary Care [...] 12/18/2023 01/26/2021, 09/11/2015 COVID-19 Vaccine (3 - season) 2024 02/20/2022, 02/06/2021 Hemoglobin A1C Discontinued 03/14/2021 Hepatitis B Vaccines Aged Out No long er eligible based on patient's age to complete this topic Medical Devices Implanted Type Area Precision Lens Centerer And Edger Device Identifier Shelf Expiration Date Model / Serial / Lot Panta Nail [id number] Implanted:Qty: 1 on 04/27/2021 by Anton Robledo MD at [facility] Nail/Neo Left: Foot [employer] KAN 11/13/2023 [id number] / / [id number] Screw Bone Panta 2 Pthrd 70mm 5mm Nonst Arthds Nail Sys - [id number] Implanted:Qty: 1 on 04/27/2021 by Anton Robledo MD at [facility] Screw [employer] LIFES[employer] KAN [id number] / / [id number] Screw Bone Panta 2 Flthrd 28mm 5mm Nonst Arthds Nail Sys - [id number] Implanted:Qty: 1 on 04/27/2021 by Anton Robledo MD at [facility] Screw [employer] KAN [id number] / / [id number] Screw Bone Panta 2 Flthrd 24mm 5mm Nonst Arthds Nail Sys - [id number] Implanted:Qty: 1 on 04/27/2021 by Anton Robledo MD at [facility] Screw [employer] KAN [id number] / / Procedures Procedure Name Priority [...] 6.0(H) <5.7 % 03/14/2021 9:14 PM EDT [facility] Comment: A1c% ? Interpretation 5.7 - 6.0 ?Increase risk of diabetes 6.1 - 6.4 ?Higher risk of diabetes > or = 6.5 ?? Consistent with diabetes Diabetes Care, 33(Supp 1):S1-S61, 2010 Estimated Average Glucose 126 mg/dL 03/14/2021 9:14 PM EDT [facility] Blood specimen (specimen) Blood specimen / Unknown 03/14/2021 12:38 PM EDT 03/14/2021 8:38 PM EDT Louann Cassidy APRN LAB BLOOD ORDERABLES Performing Organization Address City/State/[facility] Co de Phone Number HOSPITAL LAB [address] [address] from Last 3 Months or Most Recently Relevant to Health Maintenance Advance Directives * Full Code (Latest Code Status on File) Date Activated Date Inactivated Comments 04/27/2021 2:56 PM * Full Code Date Activated Date Inactivated Comments 04/27/2021 10:33 AM 04/27/2021 2:56 PM Care Teams Lining Cutter Relationship Specialty Start Date End Date Kishor Mcmanus DO [address] [place] [address] PCP - General Internal Medicine 02/27/21 Per Seay MD [address] [place] [address] Nutritional Services Director Cardiovascular Disease 02/28/21 Anton Robledo MD [address] [place] [address] Surgery, Orthopedic 03/08/21 Nabil Narvaez MD [address] [place] [address] [address] Referring Provider Urology 03/08/21
--- OUTSIDE RECORDS SUMMARY | 2024-07-19 10:21 | XMS_ITS | Encounter Summary ---
Author Organization [facility] Address [address] [place] [address] Care Team Providers Care Cement Paver Name Role Phone Kishor Mcmanus DO Primary Care Provider [phone] Per Seay MD Unavailable [phone] Anton Robledo MD Unavailable Nabil Narvaez MD Unavailable [phone] Encounter Details Date Type Department Care Team (Late st Contact Info) Description 10/17/2023 Scanned Document [facility] [address] [place] [address] Anton Robledo MD [address] [place] [address] Social History Tobacco Use Types Packs/Day Years [...] on filedocumented in this encounter Care Teams Cement Paver Relationship Specialty Start Date End Date Kishor Mcmanus DO [address] [place] [address] PCP - General Internal Medicine 02/27/21 Per Seay MD [address] [place] [address] Health Center Manager Cardiovascular Disease 02/28/21 Anton Robledo MD [address] [place] [address] Surgery, Orthopedic 03/08/21 Nabil Narvaez MD [address] [place] [address] Referring Provider Urology 03/08/21 documented as of this encounter
--- OUTSIDE RECORDS SUMMARY | 2024-07-19 10:21 | XMS_ITS ---
Author Organization [facility] Address [address] [facility] [place] [address] Care Team Providers Care Certified Marine Mechanic Name Role Phone Brock Hughes Primary Care Provider Nathalie Escobar Unavailable [phone] Allergies Allergen (clinical drug ingredient) Drug/Non Drug [...] Polyneuropathy due to type 2 diabetes mellitus (315054907) Type 2 diabetes mellitus with diabetic polyneuropathy (E11.42) Active confirmed Vital Signs Height 5 ft 11 in in 06/21/2024 Weight 207 lbs 06/21/2024 BMI 28.87 kg/m2 06/21/2024 Blood pressure systolic 120 mm Hg 06/21/19 25 Blood pressure diastolic 60 mm Hg 025 Procedures Procedure Date Ordered Date Performed Result Body Sit e 04523-ODNFIQQ NAIL, 6 OR MORE 06/21/2024 N/A 94487-SZXS SKIN LESIONS, 2 TO 4 06/21/2024 N/A Encounters Encounter Location Date Provider Diagnosis [facility] [address] [place] [address] 06/21/2024 Nathalie Escobar Arthralgia of left ankle [...] Treatment Pending Test Test Name Order Date 02433-SPKOQDQ NAIL, 6 OR MORE 06/21/2024 77835-ZIZT SKIN LESIONS, 2 TO 4 06/21/19 25 Next Appt Details Follow Up: 3 Months, Reason: Provider Name:Nathalietessa booker, 10/07/2024 03:00:00 PM, [address] [place] [address], [phone], Procedure Notes * Category Sub-Category Detail Notes [...] use of a nail nipper and/or dremel-type stopper grinder, to a more viable healthy nail [...] to maintain effectiveness in symptomatic relief - 82894 Keratoma Treatment Parring or Cutting o f [...] instrumentation by the physician of record - 09036 Progress Notes * Delroy DUBON BDOB:1940 (83 yo M)Acc No.[id number]:06/21/2024 Progress Note Patient:?Delroy DUBON Provider:?Nathalie Escobar DPM :1940???Age:83 Y???Sex:Male Jerman e:06/21/2024 Address: [address] Pcp:Brock Hughes Subjective: * Chief Complaints: * [...] yes. ?Exercise: no. ?Marital status: . ?Occupation: Retired-Chemist Steroids/Drug Counseling. ???Drug/Alcohol:?AUDIT-C (Standard)?Did you have a drink [...] 6.1 * Examination: ???Ophthalmology Referral: ?DIABETES EYE EXAM?Procedure Performed:?No ?Eye Exam not performed:?No reason specified?Orthopedic: ?MUSCLE STRENGTH:?5/5 all groups in a symmetrical [...] B/L.?Vascular: ?DP PULSES (B):?1/4, B/L.?PT PULSES (B):? /4, B/L.?CAPILLARY FILL TIME:?3 secs. per digit. B/L.?TROPHIC CONDITION-TEXTURE/ELASTICITY/TURGOR/HAIR GROWTH (B):?normal, B/L.?TEMPERTURE GRADIENT (C):?normal, B/L.?PIGMENTATION:?normal, B/L.?EDEMA (C):? 1/, Left, Ankle(s).?TELANGECTASIA:?absent, B/L.?General Examination: ?GENERAL APPEARANCE:?Reveals a [...] use of a nail nipper and/or dremel-type stopper grinder, to a more viable healthy nail [...] to maintain effectiveness in symptomatic relief - 31709.?Injection:?Med: Joint,Bursa (Sinus Tarsi,AJ)??Left sinus tarsi Med/Ankle joint [...] instrumentation by the physician of record - 61880.? * Procedure Codes:?47123 DEBRI DE NAIL, 6 OR MORE, Modifiers: XS 96553 TRIM SKIN LESIONS, 2 TO 4, Modifiers: [...] exercise to failure, expense, systemic complications, infection, [id number]-vacjgrg, prolongued postop course. Patient questions re: the various treatment options available, their successes and potential failures, and long-term effects were discussed and the answers were [...] Escobar DPM Date:?0 06/21/2024 Generated for Ericka seo/Radha/Teo on:?07/19/2024 10:21 AM EST History and Physical Notes * HPI [...] reason speci fied Vascular DP PULSES (B): /4, B/L PT PULSES (B): 4, B/L CAPILLARY FILL TIME: 3 secs. per [...]
--- OUTSIDE RECORDS SUMMARY | 2024-07-19 10:21 | XMS_ITS | Encounter Summary ---
Author Organization [facility] Address [address] [place] [address] Care Team Providers Care Finish Inspector Name Role Phone Kishor Mcmanus DO Primary Care Provider [phone] Per Seay MD Unavailable Anton Robledo MD Unavailable Nabil Navraez MD Unavailable [phone] Encounter Details Date Type Department Care Team (Late st Contact Info) Description 10/08/2023 Scanned Document [facility] [address] [place] [address] Anton Robledo MD [address] [place] [address] Social History Tobacco Use Types Packs/Day Years [...] on filedocumented in this encounter Care Teams Finish Inspector Relationship Specialty Start Date End Date Kishor Mcmanus DO [address] [place] [address] PCP - General Internal Medicine 02/27/21 Per Seay MD [address] [place] [address] Resident Care Aide Cardiovascular Disease 02/28/21 Anton Robledo MD [address] [place] [address] Surgery, Orthopedic 03/08/21 Nabil Narvaez MD [address] [place] [address] Referring Provider Urology 03/08/21 documented as of this encounter
== END 2024-07-19 09:49 | disposition home or self-care (01) ==
LOC: HO.HMCSH 09:25
PROVIDERS: PCP Internal Medicine; Visit Provider Internal Medicine
DX: I10 Essential (primary) hypertension (principal)

== ENCOUNTER → 2024-07-19 09:25 | Outpatient (BNVA) | payer MEDICARE, BC, SELFPAY | PROVIDERS: PCP Internal Medicine; Visit Provider Internal Medicine | DX: I10 Essential (primary) hypertension (principal); Z79.899 Other long term (current) drug therapy | CPT/HCPCS: 99212 ==

== ENCOUNTER 2024-07-22 | Outpatient (REF) | payer MEDICARE, BC, SELFPAY | END 2024-07-22 00:01 | disposition home or self-care (01) | LOC: CF | PROVIDERS: PCP Internal Medicine; Visit Provider Internal Medicine | DX: Z13.89 Encounter for screening for other disorder (principal) | CPT/HCPCS: 99212 ==

== ENCOUNTER 2024-08-10 09:58 | Outpatient (AMB) | payer MEDICARE, BC, SELFPAY ==
[2024-08-10 10:03] VITALS: BP 132/70; PULSE 78; RESP 16; TEMP 36.8; O2SAT 92; BMI 31.1
--- NOTE | 2024-08-10 10:03 | A.OFFPC_ITS ---
Vital Signs 08/10/24 10:03 Height 5 ft 8.25 in Weight 206 lb BMI 31.1 BP 132/70 Respiration 16 Pulse 78 Pulse Source Pulse Oximeter Temp 98.2 F Temp Source Temporal Artery Scan Pulse Oximetry (%) 92 Oxygen Delivery Method Room Air Intake Visit Reasons: f/u bronchitis Consumer Insight Manager Required: No Accompanied by: Self / Same As Patient Allergies No Known Allergies [No Known Allergies*] Allergy (Verified 08/10/24 10:03) Tobacco use date assessed: 08/10/24 Fall risk assessment: No Falls in past year Last assessed Fall Risk: 08/10/24 Dental Screening Dental Screen Date: 08/10/24 Did you have a dental visit in the last 12 months?: Yes Did you have a dental problem in the last 6 months where you did not have access to dental care?: No Was dental information given to patient?: No (has dentures) [facility] Medical History History of pyelonephritis Substance abuse Alcoholism Mitral annular calcification Hyperaldosteronism Essential hypertension Type 2 diabetes mellitus with unspecified complications PVC (premature ventricular contraction) Atrial tachycardia HTN (hypertension) Diabetes Suprapubic catheter Surgical History History of nephrolithotomy with removal of calculi History of ankle surgery History of tonsillectomy History of lumbar surgery History of prostate surgery Family History Father No problems noted. Mother No problems noted. Social History Household Members: Spouse Housing: House Do you presently have visiting nurse or other home services: No Alcohol intake: current Alcohol intake frequency: does not drink Patient Tobacco Use Status: Former Tobacco user Years Smoked: 20 +/- e-Cigarette/Vaping Use: Never Used Advance Directives Date on File: 07/06/24 service: No Current occupational status: retired Gender identity: Male Cognitive needs: Yes (cane) Hearing needs: Yes (b/l hearing aids) Vision needs: Yes (rx glasses) Questionnaire PHQ-9 Over the last 2 weeks, how often have you been bothered by any of the following problems? 1. Little interest or pleasure in doing things: not at all 2. Feeling down, depressed, or hopeless: not at all 3. Trouble falling or staying asleep, or sleeping too much: not at all 4. Feeling tired or having little energy: not at all 5. Poor appetite or overeating: not at all 6. Feeling bad about yourself - or that you are a failure or have let yourself or your family down: not at all 7. Trouble concentrating on things, such as reading the newspaper or watching television: not at all 8. Moving or speaking so slowly that other people could have noticed. Or the opposite - being so fidgety or restless that you have been moving around a lot more than usual: not at all 9. Thoughts that you would be better off or of hurting yourself in some way: not at all Total score: 0 Source: Developed by Drs. Kishor Wilson, Hayley Green, Lance Garcia and colleagues, with an educational casey from [employer]. Thrive Questionnaire Date Thrive assessed: 07/07/24 I am a: Patient What is your living situation today?: I have a steady place to live Within the past 12 months, did the food you bought not last and you didn't have the money to get more?: Never true Within the past 12 months, did you worry whether your food would run out before you got money to buy more?: Never true Do you have trouble paying for medicines?: No Do you have trouble getting transportation to medical appointments?: No Do you have trouble paying your heating and electricity bill?: No Do you have trouble taking care of your child, family member or friend?: No Do you have trouble with day-to-day activities such as bathing, preparing meals, shopping, managing finances, etc.?: No Are you currently unemployed and looking for a job?: No Are you interested in more education?: No Please select the resources that you would like help with: None THRIVE Score: 0 AUDIT C Alcohol Use Questionnaire (AUDIT-C) 1. How often do you have a drink containing alcohol?: Never 3. How often do you have six or more drinks on one occasion?: Never Total Score: 0 EVARISTO-7 AMB Questionnaire EVARISTO-7 Date EVARISTO - 7 assessed: 08/10/24 Feeling nervous, anxious, or on edge: 0 = Not at all Not being able to stop or control worryin = Not at all Worrying too much about different things: 0 = Not at all Trouble relaxin = Not at all Being so restless that it is hard to sit still: 0 = Not at all Becoming easily annoyed or irritable: 0 = Not at all Feeling afraid as if something awful might happen: 0 = Not at all Total EVARISTO-7 score (0-4 normal; 5-9 mild; 10-14 moderate; 15-21 severe): 0 Source: Developed by Drs. Kishor Wilson, Hayley Green, Lance Garcia and colleagues, with an educational casey from [employer]. Physical exam (Primary Care) Vital Signs: Last Vital Signs Temp 98.2 F 08/10/24 10:03 Pulse 78 08/10/24 10:03 Resp 16 08/10/24 10:03 BP 132/70 08/10/24 10:03 Pulse Ox 92 08/10/24 10:03 Oxygen Delivery Method Room Air 08/10/24 10:03 BMI result Body Mass Index 31.1 Tobacco/Smoking Status: Tobacco use Status Tobacco use date assessed 08/10/24 08/10/24 10:16 Patient Tobacco Use Status Former Tobacco user 08/10/24 10:16 e-Cigarette/Vaping Use Never Used 08/10/24 10:16 PHQ-9: PHQ-9 Score PHQ-9: Total score 0 08/10/24 10:16 Thrive Assessment: Date of Thrive Assessment Date Thrive assessed 07/07/24 08/10/24 10:16 Coding Level of Care Code Est Pt Level 3 (32574) Complex EM visit Add On G2211 Diagnoses Multifocal pneumonia J18.9 Assessment & Plan Assessment & Plan (1) Multifocal pneumonia: Code(s): J18.9 - Pneumonia, unspecified organism Category: Medical Plan: Symptoms are improving Plan History of Present Illness The patient is an 84-year-old male presenting with follow-up on lung infection and breathing assessment. Previously hospitalized for pneumonia, he reports that his symptoms have improved considerably since discharge, although some residual ragged breathing occurs when lying down. His breathing quality has progressively improved, reflecting his recovery from the initial pneumonia diagnosis. The patient has recently undergone an endoscopy, but the results are pending. 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 Social History - The patient engages in volunteering activities at prisons and jails as part of his Alcoholics Anonymous commitments. - He is currently consuming an adequate diet and eating well. - Reports feeling stronger and has resumed a level of social engagement and activity outside of a healthcare setting. Review of Systems - Respiratory: Reports ragged breathing, particularly while lying down, impr oving since previous hospitalization. - General: Denies any other acute symptoms or declines in health status. Physical Exam General: Appearance normal, both eyes and all related structures Nutritional Appearance: Well nourished Orientation/consciousness: Patient oriented x3 Limitations: No limitations Head: Normal to inspection Neck: Normal visual inspection Chest: Normal palpation of entire chest wall Respiratory: Breathing still a little ragged, but improving Neurology: Patient oriented x3 Results Plan The patient is to continue without new medications, focusing on monitoring his respiratory recovery after pneumonia. An upcoming consultation with Dr. Starks will address pending endoscopy results. The patient will return for a follow-up appointment in three months to reassess respiratory function, unless symptoms necessitate an earlier review. Patient was informed and verbally consented to the use of an ambient scribe for clinic note documentation during this visit. Discussion Notes During the visit, we discussed the improvement of the patient's respiratory symptoms following pneumonia and his progress without new medications. I indicated that his lungs showed notable improvement upon auscultation. The patient is scheduled for a follow-up visit with Dr. Starks to review the endoscopy results. He will also return to my clinic in three months, but was advised to seek an earlier assessment if breathing issues worsen. We reviewed the importance of continuing current management without change, considering his satisfactory recovery trajectory. Patient Instructions - Continue observing respiratory symptoms. - Attend the appointment with Dr. Starks tomorrow to discuss endoscopy results. - Schedule a follow-up appointment with me in three months. - Seek medical attention if breathing problems worsen.
== END 2024-08-10 10:28 | disposition home or self-care (01) ==
LOC: HO.HMCSH 09:58
PROVIDERS: PCP Internal Medicine; Visit Provider Internal Medicine
DX: J18.9 Pneumonia, unspecified organism (principal)

== ENCOUNTER → 2024-08-10 09:58 | Outpatient (BNVA) | payer MEDICARE, BC, SELFPAY | PROVIDERS: PCP Internal Medicine; Visit Provider Internal Medicine | DX: J18.9 Pneumonia, unspecified organism (principal) | CPT/HCPCS: 99212 ==

== ENCOUNTER 2024-08-12 08:49 | Outpatient (AMB) | payer MEDICARE, BC, SELFPAY ==
[2024-08-12 08:53] VITALS: BP 140/62; PULSE 77; BMI 30.7
--- NOTE | 2024-08-12 08:53 | A.OFFVIS_ITS ---
Vital Signs 08/12/24 08:53 Height 5 ft 9 in Weight 208 lb 1.862 oz BMI 30.7 BP 140/62 H Blood Pressure Location Lt brachial Position Sitting Pulse 77 Pulse Source Pulse Oximeter Intake Visit Reasons: rs from 06/24, f/up pcp Sustainability Officer Required: No Accompanied by: Spouse Allergies No Known Allergies [No Known Allergies*] Allergy (Verified 08/10/24 10:03) Medication List - Last Reconciled 08/12/24 by Per Seay MD acetaminophen 500 mg PO Q6H PRN albuterol sulfate 90 mcg/actuation 1 inh inhalation QID PRN amiloride 5 mg PO BIDWMEAL apixaban 5 mg PO BID atorvastatin 40 mg PO DAILY cetirizine (All Day Allergy (cetirizine)) 10 mg PO DAILY PRN cholecalciferol (vitamin D3) 25 mcg PO BEDTIME diltiazem HCl CD 240 mg See Protocol PO DAILY insulin glargine (Basaglar KwikPen U-100 Insulin) 21 units subcut BEDTIME lactobacillus combination no.4 (Probiotic) 3,000 mmu cells PO DAILY losartan 100 mg PO DAILY metformin 1,000 mg PO BIDWM metoprolol succinate ER (Toprol XL) 100 mg PO DAILY multivitamin 1 tab PO DAILY oxybutynin chloride 5 mg PO DAILY HPI Comments Details: Delroy returns for follow-up. In the past, he was seen regarding palpitations and workup had shown supraventricular/ventricular ectopy. He was put on beta- blockers and felt better. More recently, he was admitted to the hospital for pneumonia and had atrial fibrillation with rapid ventricular rates. Diltiazem was added at that time and amlodipine discontinued. Anticoagulation for added. He also has a new diagnosis of gastrointestinal stromal tumor. Overall, he states he generally feels okay. Some intermittent palpitations but nothing profound. No other cardiac symptoms. [facility] Medical History History of pyelonephritis Substance abuse Alcoholism Mitral annular calcification Hyperaldosteronism Essential hypertension Type 2 diabetes mellitus with unspecified complications PVC (premature ventricular contraction) Atrial tachycardia HTN (hypertension) Diabetes Suprapubic catheter Surgical History History of nephrolithotomy with removal of calculi History of ankle surgery History of tonsillectomy History of lumbar surgery History of prostate surgery Family History Father No problems noted. Mother No problems noted. Social History Household Members: Spouse Housing: House Do you presently have visiting nurse or other home services: No Alcohol intake: current Alcohol intake frequency: does not drink Patient Tobacco Use Status: Former Tobacco user Years Smoked: 20 +/- e-Cigarette/Vaping Use: Never Used Advance Directives Date on File: 07/06/24 service: No Current occupational status: retired Gender identity: Male Cognitive needs: Yes (cane) Hearing needs: Yes (b/l hearing aids) Vision needs: Yes (rx glasses) Review of Systems Const Denies chills, Denies fatigue, Denies fever(s), Denies weight gain and Denies weight loss ENT Denies dizziness Card Denies chest pain, Reports irregular heart rhythm, Denies leg edema, Denies lightheadedness, Denies palpitations, Denies dyspnea on exertion, Denies orthopnea and Denies other Resp Denies cough and Denies dyspnea on exertion GI Denies hematochezia and Denies change in stool character Musc Denies abnormal gait, Denies muscle weakness, Denies numbness, Denies radiating pain into limb and Denies tingling Neuro Denies abnormal gait, Denies dizziness, Denies numbness and Denies tingling Endo Denies fatigue and Denies palpitations Physical Exam Vital Signs: Last Vital Signs Pulse 77 08/12/24 08:53 BP 140/62 H 08/12/24 08:53 BMI result Body Mass Index 30.7 Const General: comfortable and no acute distress Orientation/consciousness: patient oriented x3 HEENT Other: Unremarkable Head: Yes normal to inspection Neck Neck: Yes normal visual inspection Chest Chest palpation & inspection: normal inspection of the chest Resp Auscultation: clear to auscultation bilaterally Cardio Palpation: normal PMI Heart sounds: S1 normal heart sound present, S2 normal heart sound present, no gallops, no murmurs and no rubs GI Palpation (GI): Soft to palpation Back/Spine/Pelvis Other: unremarkable Skin General skin exam: no rashes or lesions noted Neuro General: patient oriented x3 Extrem General: Yes normal to inspection Psych Mental Status: mental status grossly normal Assessment & Plan Assessment & Plan (1) PAF (paroxysmal atrial fibrillation): Code(s): I48.0 - Paroxysmal atrial fibrillation Category: Medical Plan: Recent EKG with atrial fibrillation and rapid ventricular response. As he is still having palpitations, we can go up on the beta-danielle dosing. Continue diltiazem. Continue anticoagulation. Check Holter in a few weeks' time. (2) Aortic valve calcification: Code(s): I35.9 - Nonrheumatic aortic valve disorder, unspecified Category: Medical Plan: Moderate aortic valve calcification but no significant valvular dysfunction. We will be at increased risk for future aortic stenosis. (3) Mitral annular calcification: Code(s): I05.9 - Rheumatic mitral valve disease, unspecified Category: Medical Plan: Moderate mitral annular calcification but no valvular dysfunction. Orders: Orders ECG 3 day holter monitor 2 Months Per Seay MD I48.91 - Unspecified atrial fibrillation Medications: New metoprolol succinate ER (Toprol XL) 100 mg PO DAILY 90 tabs 1RF Per Seay MD Changed From amiloride 5 mg PO ONCE To amiloride 5 mg PO BIDWMEAL Piedad Garvin PA-C Discontinued metoprolol succinate ER Discontinued Reason: Doctor's Order 75 mg (1.5 x 50 mg) PO DAILY 90 days 135 tabs 1RF Coding Level of Care Code Est Pt Level 4 (31188) Complex EM visit Add On G2211 Diagnoses PAF (paroxysmal atrial fibrillation) I48.0 Aortic valve calcification I35.9 Mitral annular calcification I05.9
--- OUTSIDE RECORDS SUMMARY | 2024-08-12 09:38 | XMS_ITS | Patient Health Record ---
Author Organization [facility] Chanel Drewley Address [address] [place] [address] Care Team Providers Care Director Of Child Welfare Services Name Role Phone Brock Hughes Primary Care Provider [phone] Nathalie Escobar Unavailable [phone] Allergies Allergen (clinical drug ingredient) Drug/Non Drug [...] A1C % (HH) 6.1 Reason For Referral Diagnosis 1 Type 2 diabetes ching itus with diabetic polyneuropathy (E11.42) Diagnosis 2 Pain in right toe(s) (M79.674) Diagnosis 3 Pain in left toe(s) (M79.675) Diagnosis 4 Tinea unguium (B35.1 ) Diagnosis 5 Primary osteoarthrit is, right ankle and foot (M19.071) Diagnosis 6 Type 1 diabetes ching itus with diabetic polyneuropathy (E10.42) Diagnosis 7 Primary osteoarthrit is, left ankle and foot (M19.072) Diagnosis 8 Plantar fascial fibr omatosis (M72.2) Referring Provider First Name Brock Referring Provider Last Name Ellen Referring Provider Speciality Internal M edicine Referred Organization [facility] Referred Provider Nathalie Escobar Referred Address [address],[place], [place],[address],[place] Referred Provider Specialty Podiatry Referral Priority Routine Medications Medication SIG (Take, Route, Frequency, Duration) [...] Administration Date Status Comme nts COVID-19 Pfizer BioNTCircassia Vaccine Unknown 02/20/2022 Administered 1st 06/23/20,02/06/2021 2nd [...] Polyneuropathy due to type 2 diabetes mellitus (983855381) Type 2 diabetes mellitus with diabetic polyneuropathy (E11.42) Active confirmed Problem Localized, primary osteoarthritis of the ankle and/or foot (970878182) Primary osteoarthritis, right ankle and foot (M19.071) Active confirmed Problem Localized, primary osteoarthritis of the ankle and/or foot (808783183) Primary osteoarthritis, left ankle and foot (M19.072) Active confirmed Problem Plantar fascial fibromatosis (07074337) Plantar fascial fibromatosis (M72.2) Active confirmed Problem Polyneuropathy due to diabetes mellitus type I (695567793) Type 1 diabetes mellitus with diabetic polyneuropathy (E10.42) Active confirmed Vital Signs Blood pressure diastolic 60 mm Hg 06/21/2024 Height 5 ft 11 in in 06/21/2024 Blood pressure systolic 120 mm Hg 06/21/2024 Weight 207 lbs 06/21/2024 BMI 28.87 kg/m2 06/21/2024 Procedures Procedure Date Ordered Date Performed Result Body Sit e 13355-ASQFGVQ NAIL, 6 OR MORE 06/21/2024 N/A 37119-JYOY SKIN LESIONS, 2 TO 4 06/21/2024 N/A Encounters Encounter Location Date Provider Diagnosis [facility] [address] 06/21/2024 Nathalie Escobar Arthralgia of left ankle M25.572 ; Tinea unguium B35.1 ; Sinus tarsitis of left foot M25.572 and Type 2 diabetes mellitus with diabetic polyneuropathy E11.[address] [facility] [address] 07/28/2024Jose Enrique Escobar Assessments Encounter Date Diagnosis (ICD Code) Assessment [...] X ray : Foot, left 3V 07/26/2020 72571-SVEYAHM NAIL, 6 OR MORE 09/22/2017 62852-DGKGULB NAIL, 6 OR MORE 03/24/2017 07907-TMSUYPQ NAIL, 6 OR MORE 2017 48371-BZSQACC NAIL, 6 OR MORE 12/18/2016 06469-QBVOGNF NAIL, 6 OR MORE 06/21/2024 13199-RZNBYEN NAIL, 1-5 03/18/2016 85907-VJCOFND NAIL, 1-5 06/19/2016 84489-GWEIRJM NAIL, 1-5 08/15/2014 19668-OFZAVDQ NAIL, 1-5 11/14/2014 20718-WZMNJRQ NAIL, 1-5 02/13/2015 70836-DGKYEWM NAIL, 1-5 05/22/2015 78512-HNVCVCX NAIL, 1-5 09/11/2015 81341-IICIXWZ NAIL, 1-5 12/18/2015 44225-Rjmukxkm Plate 08/15/2014 39047, J0702- INJECT or DRAIN, JOINT/BUR SA 01/15/2016 38394-NDSZ SKIN LESIONS, 2 TO 4 12/18/19 16 45525-KOSU SKIN LESIONS, 2 TO 4 09/11/19 16 66720-LWKK SKIN LESIONS, 2 TO 4 05/22/19 16 94220-YFKH SKIN LESIONS, 2 TO 4 06/19/19 17 57111-VWPW SKIN LESIONS, 2 TO 4 09/17/19 17 88845-FMRP SKIN LESIONS, 2 TO 4 12/19/19 17 92378-WSAB SKIN LESIONS, 2 TO 4 03/18/20 16 23627-CMCQ SKIN LESIONS, 2 TO 4 03/24/20 17 49040-ZQAL SKIN LESIONS, 2 TO 4 09/23/19 18 59385-MAJG SKIN LESIONS, 2 TO 4 06/26/19 18 66513-MRFL SKIN LESIONS, 2 TO 4 02/14/20 15 69922-QGHQ SKIN LESIONS, 2 TO 4 03/22/20 21 48765-DOIF SKIN LESIONS, 2 TO 4 08/02/19 22 34263-EJBN SKIN LESIONS, 2 TO 4 06/21/19 25 20621-MIVQ NAIL(S) 08/15/2014 90936-IWXZ NAIL(S) 02/13/2015 51706-IASN NAIL(S) 11/14/2014 38667, J0702- Neuroma/Injection 01/15/20 16 X ray : Ankle, right 3V 09/11/2015 Next Appt Details Provider Name:Nathalie Ferguson ade, 10/07/2024 03:00:00 PM, [address] [place], [address], Insurance Providers Payer Name Payer Address Payer Phone Subscriber Number Group Number Insured Name Patient Relationship to Insured Coverage Start Date Coverage End Date Medicare National [employer] [address] [place] [address] [id number] Delroy Wheat Self - patient is the insured [facility] [address] [place] [address] [phone] [id number] Delroy Wheat Self - patient is [...]
--- OUTSIDE RECORDS SUMMARY | 2024-08-12 09:38 | XMS_ITS ---
[facility] Address [address] [place] [address] Care Team Providers Care Food Safety Director Name Role Phone Brock Hughes Primary Care Provider Nathalie Escobar Unavailable [phone] Allergies Allergen (clinical drug ingredient) Drug/Non Drug [...] Polyneuropathy due to type 2 diabetes mellitus (856688336) Type 2 diabetes mellitus with diabetic polyneuropathy (E11.42) Active confirmed Vital Signs Blood pressure systolic 120 mm Hg 06/21/19 25 Blood pressure diastolic 60 mm Hg 025 Height 5 ft 11 in in 06/21/2024 Weight 207 lbs 06/21/2024 BMI 28.87 kg/m2 06/21/2024 Procedures Procedure Date Ordered Date Performed Result Body Sit e 40632-UYAGILP NAIL, 6 OR MORE 06/21/2024 N/A 22435-XUPY SKIN LESIONS, 2 TO 4 06/21/2024 N/A Encounters Encounter Location Date Provider Diagnosis [facility] [place] [address] [place] [address] 06/21/2024 Nathalie Escobar Arthralgia of left ankle [...] Treatment Pending Test Test Name Order Date 79216-BWTTFKH NAIL, 6 OR MORE 06/21/2024 85002-FNTB SKIN LESIONS, 2 TO 4 06/21/19 25 Next Appt Details Follow Up: 3 Months, Reason: Provider Name:Nathalietessa booker, 10/07/2024 03:00:00 PM, [address] [place] [address], [phone], Procedure Notes * Category Sub-Category Detail Notes [...] use of a nail nipper and/or dremel-type double end production grinder, to a more viable healthy nail [...] to maintain effectiveness in symptomatic relief - 10227 Keratoma Treatment Parring or Cutting o f [...] instrumentation by the physician of record - 77481 Progress Notes * Delroy DUBON BDOB:1940 (83 yo M)Acc No.[id number]:06/21/2024 Progress Note Patient:?Delroy DUBON Provider:?Nathalie Escobar DPM :1940???Age:83 Y???Sex:Male Jerman e:06/21/2024 Address: [address] [facility] Pcp:Brock Hughes Subjective: * Chief Complaints: * [...] yes. ?Exercise: no. ?Marital status: . 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 ???Drug/Alcohol:?AUDIT-C (Standard)?Did you have a drink [...] FlexPen Not-Taking/PRN metFORMIN HCl Not-Taking/PRN Folic Acid Not- Taking/PRN Multi Vitamin/Minerals Not-Taking/PRN Vitamin B12 Not-Taking/PRN Insulin Not-Taking/PRN Aleve PM 220-25 MG Tablet Orally Not-Taking/PRN Flomax twice a day Not-Taking/PRN hydroCHLOROthiazide Not-Taking/PRN Aleve Not-Taking/PRN Chromium Not-Taking/PRN Fish [...] use of a nail nipper and/or dremel-type double end production grinder, to a more viable healthy nail [...] to maintain effectiveness in symptomatic relief - 67320.?Injection:?Med: Joint,Bursa (Sinus Tarsi,AJ)??Left sinus tarsi Med/Ankle joint [...] instrumentation by the physician of record - 91022.? * Procedure Codes:?96499 DEBRI DE NAIL, 6 OR MORE, Modifiers: XS 34288 TRIM SKIN LESIONS, 2 TO 4, Modifiers: [...] exercise to failure, expense, systemic complications, infection, [id number], prolongued postop course. Patient questions re: the various treatment options available, their successes and potential failures, and custodial effects were discussed and the answers were [...] Escobar DPM Date:?0 06/21/2024 Generated for Ericka seo/Radha/Kadeitting on:?08/12/2024 09:38 AM EDT History and Physical Notes * HPI (History [...] PULSES (B): /4, B/L PT PULSES (B): /4, B/L CAPILLARY FILL TIME: 3 secs. per [...]
--- OUTSIDE RECORDS SUMMARY | 2024-08-12 09:38 | XMS_ITS | Encounter Summary ---
Author Organization [facility] Address [address] [place] [address] Care Team Providers Care Coordinator Cardiopulmonary Services Name Role Phone Kishor Mcmanus DO Primary Care Provider [phone] Per Seay MD Unavailable Anton Robledo MD Unavailable [phone] Nabil Narvaez MD Unavailable [phone] Encounter Details Date Type Department Care Team (Late st Contact Info) Description 10/08/2023 Scanned Document [facility] [address] [place] [address] Anton Robledo MD [address] [place] [address] Social History Tobacco Use Types Packs/Day Years [...] on filedocumented in this encounter Care Teams Coordinator Cardiopulmonary Services Relationship Specialty Start Date End Date Kishor Mcmanus DO [address] [place] [id number] PCP - General Internal Medicine 02/27/21 Per Seay MD [address] [place] [address] Animal Skinner Cardiovascular Disease 02/28/21 Anton Robledo MD [address] [place] [address] Surgery, Orthopedic 03/08/21 Nabil Narvaez MD [address] [place] [address] Referring Provider Urology 03/08/21 documented as of this encounter
--- OUTSIDE RECORDS SUMMARY | 2024-08-12 09:38 | XMS_ITS | Encounter Summary ---
Author Organization [facility] Address [address] [place] [address] Care Team Providers Care Materials Development Engineer Name Role Phone Kishor Mcmanus DO Primary Care Provider [phone] Per Seay MD Unavailable [phone] Anton Robledo MD Unavailable [phone] Nabil Narvaez MD Unavailable [phone] Encounter Details Date Type Department Care Team (Late st Contact Info) Description 11/30/2022 Scanned Document [facility] [address] [place] [address] Anton Robledo MD [address] [place] [address] Social History Tobacco Use Types Packs/Day Years [...] on filedocumented in this encounter Care Teams Materials Development Engineer Relationship Specialty Start Date End Date Kishor Mcmanus DO [address] [place] [address] PCP - General Internal Medicine 02/27/21 Per Seay MD [address] [place] [address] Health Information Systems Technician Cardiovascular Disease 02/28/21 Anton Robledo MD [address] [place] [address] Surgery, Orthopedic 03/08/21 Nabil Narvaez MD [address] [place] [address] Referring Provider Urology 03/08/21 documented as of this encounter
--- OUTSIDE RECORDS SUMMARY | 2024-08-12 09:39 | XMS_ITS | Clinical Summary ---
Author Organization [facility] Address [address] [place] [address] Care Team Providers Care Tire Beader Maker Name Role Phone MariettaKishor DO Primary Care Provider Per Seay MD Unavailable Anton Robledo MD Unavailable [phone] Nabil Narvaez MD Unavailable [phone] Allergies [...] this topic Medical Devices Implanted Type Area Zinc Miner Blasting Device Identifier Shelf Expiration Date Model / Serial / Lot Panta Nail [id number] Implanted:Qty: 1 on 04/27/2021 by Anton Robledo MD at [facility] Nail/Eno Left: Foot [employer]TEGRA ExavioC[employer]ot[employer] KAN 11/13/2023 [id number]-1010-1 0150 / / [id number] Screw Bone Panta 2 Pthrd 70mm 5mm Nonst Arthds Nail Sys - [id number] Implanted:Qty: 1 on 04/27/2021 by Anton Robledo MD at [facility] Screw INTE[employer]RA LIFESCIDotAlign KAN [id number] / / [id number] Screw Bone Panta 2 Flthrd 28mm 5mm Nonst Arthds Nail Sys - [id number] Implanted:Qty: 1 on 04/27/2021 by Anton Robledo MD at [facility] Screw [employer] KAN [id number] / / [id number] Screw Bone Panta 2 Flthrd 24mm 5mm Nonst Arthds Nail Sys - [id number] Implanted:Qty: 1 on 04/27/2021 by Anton Robledo MD at [facility] Screw [employer] KAN [id number] / / Procedures Procedure Name Priority [...] APRN LAB BLOOD ORDERABLES Performing Organization Address City/State/[facility] Co de Phone Number HOSPITAL [facility] [address] [address] from Last 3 Months or Most Recently Relevant to Health Maintenance Advance Directives * Full Code (Latest Code Status on File) Date Activated Date Inactivated Comments 04/27/2021 2:56 PM * Full Code Date Activated Date Inactivated Comments 04/27/2021 10:33 AM 04/27/2021 2:56 PM Care Teams Tire Beader Maker Relationship Specialty Start Date End Date Kishor Mcmanus DO [address] [place] [address] PCP - General Internal Medicine 02/27/21 Per Seay MD [address] [place] [address] Residential Appliance Repair Technician Cardiovascular Disease 02/28/21 Anton Robledo MD [address] [place] [address] Surgery, Orthopedic 03/08/21 Nabil Narvaez MD [address] [place] [address] [address] Referring Provider Urology 03/08/21
--- OUTSIDE RECORDS SUMMARY | 2024-08-12 09:39 | XMS_ITS | Encounter Summary ---
Author Organization [facility] Address [address] [place] [address] Care Team Providers Care Documentation Analyst Name Role Phone Kishor Mcmanus DO Primary Care Provider [phone] Per Seay MD Unavailable Anton Robledo MD Unavailable Nabil Narvaez MD Unavailable [phone] Encounter Details Date Type Department Care Team (Late st Contact Info) Description 10/17/2023 Scanned Document [facility] [address] [place] [address] Anton Robledo MD [address] [place] [address] Social History Tobacco Use Types Packs/Day Years [...] on filedocumented in this encounter Care Teams Documentation Analyst Relationship Specialty Start Date End Date Kishor Mcmanus DO [address] [place] [address] PCP - General Internal Medicine 02/27/21 Per Seay MD [address] [place] [address] Loan Consultant Cardiovascular Disease 02/28/21 Anton Robledo MD [address] [place] [address] Surgery, Orthopedic 03/08/21 Nabil Narvaze MD [address] [place] [address] Referring Provider Urology 03/08/21 documented as of this encounter
--- OUTSIDE RECORDS SUMMARY | 2024-08-12 09:39 | XMS_ITS ---
Author Organization [facility] Address [address] [place] [address] Care Team Providers Care Hedge Trimmer Name Role Phone Brock Hughes Primary Care Provider Nathalie Escobar [phone] REASON FOR VISIT Referral Needed Encounters Encounter Location Date Provider Diagnosis [address] [address] 07/28/2024 Nathalie Escobar Plan Of Treatment Next Appt Details Provider Name:Nathalie booker, 10/07/2024 03:00:00 PM, [address] [place], [address], Progress Notes * Delroy DUBON BDOB:1940 (84 yo M)Acc No.[id number]:07/28/2024 Patient:?Delroy DUBON :1940???Age:84 Y???Sex:Male Address:[address] [place], [address] * true * Date:? Generated for Printi ng/Fabrandong/eTransmitting on:?08/12/2024 09:38 AM EDT
--- OUTSIDE RECORDS SUMMARY | 2024-08-12 09:39 | XMS_ITS | Encounter Summary ---
Author Organization [facility] Address [address] [place] [address] Care Team Providers Care Cavalry Officer Name Role Phone Kishor Mcmanus DO Primary Care Provider [phone] Per Seay MD Unavailable Anton Robledo MD Unavailable Nabil Narvaez MD Unavailable [phone] Encounter Details Date Type Department Care Team (Late st Contact Info) Description 06/06/2023 Scanned Document [facility] [address] [place] [address] Anton Robledo MD [address] [place] [address] Social History Tobacco Use Types Packs/Day Years [...] on filedocumented in this encounter Care Teams Cavalry Officer Relationship Specialty Start Date End Date Kishor Mcmanus DO [address] [place] [address] PCP - General Internal Medicine 02/27/21 Per Seay MD [address] [place] [address] Railroad Car Loader Cardiovascular Disease 02/28/21 Anton Robledo MD [address] [place] [address] Surgery, Orthopedic 03/08/21 Nabil Narvaez MD [address] [place] [address] Referring Provider Urology 03/08/21 documented as of this encounter
== END 2024-08-12 09:19 | disposition home or self-care (01) ==
LOC: HO.HCS 08:50
PROVIDERS: PCP Internal Medicine; Visit Provider Internal Medicine
DX: I48.0 Paroxysmal atrial fibrillation (principal); I35.9 Nonrheumatic aortic valve disorder, unspecified; I05.9 Rheumatic mitral valve disease, unspecified
CPT/HCPCS: 99214; G2211

== ENCOUNTER → 2024-08-12 08:49 | Outpatient (BNVA) | payer MEDICARE, BC, SELFPAY | PROVIDERS: PCP Internal Medicine; Visit Provider Internal Medicine | DX: R00.2 Palpitations (principal); I48.0 Paroxysmal atrial fibrillation; I35.9 Nonrheumatic aortic valve disorder, unspecified; I05.9 Rheumatic mitral valve disease, unspecified; Z87.891 Personal history of nicotine dependence | CPT/HCPCS: 99212 ==

== ENCOUNTER 2024-08-31 14:40 | Outpatient (REF) | payer MEDICARE, BC, SELFPAY ==
--- NOTE | ~2024-08-31 | PE_ITS ---
EXAMINATION: FLUORINE-18 FDG PET/CT SCAN CLINICAL INFORMATION: Gastrointestinal stromal tumor staging. TECHNIQUE: 76 minutes following the intravenous administration of 95 mCi of fluorine 18 FDG, images from the skull base to proximal thigh were obtained using a combined PET/CT scanner with CT scan based attenuation correction. No oral or intravenous contrast was administered. Transverse, coronal, sagittal, and volume reconstruction projections were obtained. The patient's blood glucose as determined by a finger stick, was 95 mg/dL immediately prior to injection. The radiotracer was injected intravenously through left antecubital vein, without any complications. Total CT exam dose-length product 1073 mGy-cm. * These CT images were obtained using dose optimization techniques as appropriate, variously including the following: Automated exposure control * Adjustment of mA and/or kV according to patient size (this includes techniques or standardized protocols for targeted exams where dose is matched to indication/reason for exam; i.e. extremities or head) * Use of iterative reconstruction technique COMPARISON: CT chest 07/06/2024. PET CT skull to thigh 01/16/2011. The PET exam cannot be retrieved. 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 No corresponding CT abnormality seen however a gated CT of neck with contrast is recommended. No large intracranial hemorrhage, acute territorial infarct or significant shift of midline structures. CHEST: Ports and Devices: None Lungs: No abnormal radiotracer uptake. Pleura: No significant pleural effusion. Lymph Nodes: No tracer-avid mediastinal, hilar or internal mammary or axillary lymphadenopathy. Mediastinum: There is no significant pericardial effusion/thickening. Breasts/Chest Wall: No abnormal radiotracer uptake. ABDOMEN/PELVIS: Liver/Biliary System: No focal tracer-avid liver lesion. There are multiple radiopaque dependent gallstones without wall thickening. Pancreas: Normal.No pancreatic ductal dilatation seen. Pancreatic fat borders are normal. Spleen: No abnormal radiotracer uptake. No evidence of splenomegaly. Adrenal Glands: There is a 9 mm right adrenal lesion without FDG activity. Otherwise both adrenal glands are normal size. Normal Kidneys: No hydronephrosis, hydroureter or renal calculi bilaterally. Moderate metabolic activity seen in the colon and rectum. scattered cysts activity seen in the: And rectum. No focal lesion or mass seen. There is no FDG activity seen in the peritoneum or abdominal lymph nodes. Lymph Nodes: No tracer avid retroperitoneal, mesenteric or pelvic and/or groin lymphadenopathy. Pelvic Organs: There is a suprapubic catheter the deflated urinary bladder. There is mild bladder wall thickening without FDG activity. There are surgical teja in the prostate gland from previous intervention. There is a right urinary bag overlying the right groin MUSCULOSKELETAL: No FDG activity seen VASCULAR: Unremarkable THE SITE(S) OF MOST INTENSE FDG AVIDITY AND SUV MAX: PET/PET CT fusion skull to thigh IMPRESSION: No abnormal FDG activity in the abdomen and pelvis to suspect any ongoing primary or metastatic tumor. Right adrenal 9 mm lesion without metabolic FDG activity. Cholelithiasis. Suprapubic urinary bladder with diffuse bladder wall thickening. Electronically signed by: David Cesar MD 09/02/2024 09:58 AM EDT RP
--- OUTSIDE RECORDS SUMMARY | 2024-08-31 17:55 | XMS_ITS | Encounter Summary ---
Author Organization [facility] Address [address] [place] [address] Care Team Providers Care Marketing Systems Manager Name Role Phone Kishor Mcmanus DO Primary Care Provider [phone] Per Seay MD Unavailable Anton Robledo MD Unavailable [phone] Nabil Narvaez MD Unavailable [phone] Encounter Details Date Type Department Care Team (Late st Contact Info) Description 10/17/2023 Scanned Document [facility] [address] [place] [address] Anton Robledo MD [address] [place] [address] Social History Tobacco Use Types Packs/Day Years [...] on filedocumented in this encounter Care Teams Marketing Systems Manager Relationship Specialty Start Date End Date Kishor Mcmanus DO [address] [place] [address] PCP - General Internal Medicine 02/27/21 Per Seay MD [address] [place] [address] Beeswax Bleacher Cardiovascular Disease 02/28/21 Anton Robledo MD [address] [place] [address] Surgery, Orthopedic 03/08/21 Nabil Narvaez MD [address] [place] [address] Referring Provider Urology 03/08/21 documented as of this encounter
--- OUTSIDE RECORDS SUMMARY | 2024-08-31 17:55 | XMS_ITS | Encounter Summary ---
Author Organization [facility] Address [address] [place] [address] Care Team Providers Care E Commerce Merchandising Coordinator Name Role Phone Kishor Mcmanus DO Primary Care Provider [phone] Per Seay MD Unavailable Anton Robledo MD Unavailable [phone] Nabil Narvaez MD Unavailable [phone] Encounter Details Date Type Department Care Team (Late st Contact Info) Description 11/30/2022 Scanned Document [facility] [address] [place] [address] Anton Robledo MD [address] [place] [address] Social History Tobacco Use Types Packs/Day Years [...] on filedocumented in this encounter Care Teams E Commerce Merchandising Coordinator Relationship Specialty Start Date End Date Kishor Mcmanus DO [address] [place] [address] PCP - General Internal Medicine 02/27/21 Per Seay MD [address] [place] [address] Forming Roll Operator Cardiovascular Disease 02/28/21 Anton Robledo MD [address] [place] [address] Surgery, Orthopedic 03/08/21 Nabil Narvaez MD [address] [place] [address] Referring Provider Urology 03/08/21 documented as of this encounter
--- OUTSIDE RECORDS SUMMARY | 2024-08-31 17:55 | XMS_ITS | Encounter Summary ---
Author Organization [facility] Address [address] [place] [address] Care Team Providers Care Juvenile Court Judge Name Role Phone Kishor Mcmanus DO Primary Care Provider [phone] Per Seay MD Unavailable [phone] Anton Robledo MD Unavailable [phone] Nabil Narvaez MD Unavailable [phone] Encounter Details Date Type Department Care Team (Late st Contact Info) Description 10/08/2023 Scanned Document [facility] [address] [place] [address] Anton Robledo MD [address] [place] [address] Social History Tobacco Use Types Packs/Day Years [...] on filedocumented in this encounter Care Teams Juvenile Court Judge Relationship Specialty Start Date End Date Kishor Mcmanus DO [address] [place] [address] PCP - General Internal Medicine 02/27/21 Per Seay MD [address] [place] [address] Ship Manager Cardiovascular Disease 02/28/21 Anton Robledo MD [address] [place] [address] Surgery, Orthopedic 03/08/21 Nabil Narvaez MD [address] [place] [address] Referring Provider Urology 03/08/21 documented as of this encounter
--- OUTSIDE RECORDS SUMMARY | 2024-08-31 17:56 | XMS_ITS | Encounter Summary ---
Author Organization [facility] Address [address] [place] [address] Care Team Providers Care General Counsel Name Role Phone Kishor Mcmanus DO Primary Care Provider [phone] Per Seay MD Unavailable Anton Robledo MD Unavailable Nabil Narvaez MD Unavailable [phone] Encounter Details Date Type Department Care Team (Late st Contact Info) Description 06/06/2023 Scanned Document [facility] [address] [place] [address] Anton Robledo MD [address] [place] [address] Social History Tobacco Use Types Packs/Day Years [...] on filedocumented in this encounter Care Teams General Counsel Relationship Specialty Start Date End Date Kishor Mcmanus DO [address] [place] [address] PCP - General Internal Medicine 02/27/21 Per Seay MD [address] [place] [address] Security Services Specialist Cardiovascular Disease 02/28/21 Anton Robledo MD [address] [place] [address] Surgery, Orthopedic 03/08/21 Nabil Narvaez MD [address] [place] [address] Referring Provider Urology 03/08/21 documented as of this encounter
--- OUTSIDE RECORDS SUMMARY | 2024-08-31 17:56 | XMS_ITS | Clinical Summary ---
Author Organization [facility] Address [address] [place] [address] Care Team Providers Care Professor Of Family Medicine Name Role Phone MariettaKishor DO Primary Care Provider Per Seay MD Unavailable [phone] Anton Robledo MD Unavailable Nabil Narvaez MD [...] this topic Medical Devices Implanted Type Area Machinist/Machine Builder Device Identifier Shelf Expiration Date Model / Serial / Lot Panta Nail [id number] Implanted:Qty: 1 on 04/27/2021 by Anton Robledo MD at [facility] Nail/Neo Left: Foot INTEGRA Novacta [email or web address] KAN 11/13/2023 FERREIRA-1010-1 0150 / / [id number] Screw Bone Panta 2 Pthrd 70mm 5mm Nonst Arthds Nail Sys - [id number] Implanted:Qty: 1 on 04/27/2021 by Anton Robledo MD at [facility] Screw [employer]RA [email or web address] KAN [id number] / / [id number] Screw Bone Panta 2 Flthrd 28mm 5mm Nonst Arthds Nail Sys - [id number] Implanted:Qty: 1 on 04/27/2021 by Anton Robledo MD at [facility] Screw [employer] KAN [id number] / / [id number] Screw Bone Panta 2 Flthrd 24mm 5mm Nonst Arthds Nail Sys - [id number] Implanted:Qty: 1 on 04/27/2021 by Anton Robledo MD at [facility] Screw [employer] KAN [id number] / / Procedures Procedure Name Priority [...] 6.0(H) <5.7 % 03/14/2021 9:14 PM EDT [facility] Comment: A1c% ? Interpretation 5.7 - 6.0 ?Increase risk of diabetes 6.1 - 6.4 ?Higher risk of diabetes > or = 6.5 ?? Consistent with diabetes Diabetes Care, 33(Supp 1):S1-S61, 2010 Estimated Average Glucose 126 mg/dL 03/14/2021 9:14 PM EDT [facility] Blood specimen (specimen) Blood specimen / Unknown 03/14/2021 12:38 PM EDT 03/14/2021 8:38 PM EDT Louann Cassidy APRN LAB BLOOD ORDERABLES Performing Organization Address City/State/[facility] Co de Phone Number HOSPITAL LAB [address] [address] from Last 3 Months or Most Recently Relevant to Health Maintenance Advance Directives * Full Code (Latest Code Status on File) Date Activated Date Inactivated Comments 04/27/2021 2:56 PM * Full Code Date Activated Date Inactivated Comments 04/27/2021 10:33 AM 04/27/2021 2:56 PM Care Teams Professor Of Family Medicine Relationship Specialty Start Date End Date Kishor Mcmanus DO [address] [place] [address] PCP - General Internal Medicine 02/27/21 Per Seay MD [address] [place] [address] Staff Attorney Cardiovascular Disease 02/28/21 Anton Robledo MD [address] [place] [address] Surgery, Orthopedic 03/08/21 Nabil Narvaez MD [address] [place] [address] [address] Referring Provider Urology 03/08/21
--- OUTSIDE RECORDS SUMMARY | 2024-08-31 17:56 | XMS_ITS | Clinical Summary ---
Author Organization [facility] Address [address] [address] Phone Care Team Providers Care Warping Machine Operator Name Role Phone Kishor Mcmanus Primary Care Provider Medications Medication Sig Dispensed [...] 1940 POTASSIUM LEVEL 1940 DEPRESSION SCREENING 1952 RSV VACCINE (1 - 1-dose 75+ series) 2015 INFLUENZA VACCINE (#1) 2023 0, 02/25/2019, 01/24/2018, Additional history exists COVID-19 VACCINE [...] Medical Devices Not on file Care Teams Warping Machine Operator Relationship Specialty Start Date End Date Kishor Mcmanus DO [address] [place] [address] PCP - General 03/03/17 Additional Source Comments The information contained in this document represents components of the legal health record. It is not the complete legal health record.[facility]
== END 2024-08-31 14:41 | disposition home or self-care (01) ==
LOC: HO.PET 14:40
PROVIDERS: PCP Internal Medicine; Visit Provider Internal Medicine
DX: Z13.89 Encounter for screening for other disorder (principal)

== ENCOUNTER 2024-09-17 23:50 | Emergency (ER) | payer MEDICARE, BC, SELFPAY ==
--- NOTE | ~2024-09-17 | CT_ITS ---
CLINICAL HISTORY: Right-sided chest pain with shortness of breath CT Angiography Chest W Contrast 3D Postprocessing COMPARISON: CR - XR CHEST 1V - 09/18/24 00:[address]/SR - CT ANGIO CHEST PE PROTOCOL - 07/06/24 08:18 EST FINDINGS: No pulmonary embolism. No thoracic aortic aneurysm or dissection. Diffuse patchy and confluent bilateral ground-glass opacities. Scattered bilateral pulmonary nodules measuring up to 7 mm (for example series 6, image 81). Previously seen dominant left lower lobe pulmonary nodule is not visible on the current study. No pleural effusion. No pneumothorax. No cardiomegaly. No pericardial effusion. No pathologically enlarged lymph nodes. No acute fracture. Degenerative changes in the spine. Small hiatal hernia. Redemonstration of exophytic homogeneous fluid density lesion arising from the fundus of the stomach. IMPRESSION: No pulmonary embolism. Bilateral pulmonary groundglass opacities, which could be due to infiltrates, pulmonary edema, atelectasis, or other etiology. 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 Bilateral pulmonary nodules. Recommend follow-up chest CT in 3-6 months per Fleischner Society guidelines. This document has been electronically signed by: Donavan Jackson MD on 09/18/2024 05:09:29
--- NOTE | ~2024-09-17 | XR_ITS ---
CLINICAL HISTORY: cough 1 view chest x-ray Comparison: Chest x-ray from 07/06/2024 Findings: Bilateral pulmonary opacities are nonspecific. Differential considerations include recurrent pulmonary edema. Diffuse pneumonitis and multifocal pneumonia also considered. Mild emphysematous changes noted. Background fibrosis considered. No definite pneumothorax or pleural effusion. Imaged mediastinum and imaged osseous structures are unchanged. IMPRESSION: Bilateral pulmonary opacities are nonspecific. Differential considerations include pneumonitis and recurrent pulmonary edema. This document has been electronically signed by: Yuan Quiroz MD on 09/18/2024 00:47:23
[2024-09-17 23:58] VITALS: BP 171/78; BP 190/87; PULSE 82; PULSE 85; RESP 19; TEMP 37; O2SAT 95; BMI 29.5
--- NOTE | 2024-09-18 00:07 | ECG_ITS ---
Test Reason : upper back pain Blood Pressure : */* mmHG Vent. Rate : 77 BPM Atrial Rate : 77 BPM P-R Int : 138 ms QRS Dur : 80 ms QT Int : 370 ms P-R-T Axes : 59 47 57 degrees QTcB Int : 418 ms Normal sinus rhythm Possible Left atrial enlargement Borderline ECG When compared with ECG of 06-Jul-2024 06:15, Sinus rhythm has replaced Atrial fibrillation Vent. rate has decreased by 48 bpm Non-specific change in ST segment in Inferior leads Referred By: Generic ED Physician Electronically Signed By: Greg Cheney
--- NOTE | 2024-09-18 00:27 | PC.NURSE ---
EKG competed, labs drawn and sent to lab. CXR done. Patient currently resting on stretcher bed in no apparent distress. O2 Sat 96-97% on 2 L NC. Patient oriented to ED room and instructed in call elaine use, call elaine placed within patient's reach. Patient awaiting to be seen by ED provider.
[2024-09-18 00:30] LABS: Basophils Absolute Auto 0.1 X10*3/uL (0.0-0.2); Basophils Percent Auto 0.7 % (0-2); Eosinophils Absolute Auto 0.5 X10*3/uL (0.0-0.4); Eosinophils Percent Auto 4.1 % (0-4); Hematocrit 38.6 % (42.0-52.0); Hemoglobin 12.6 g/dl (14.0-18.0); Imm Gran Abs Auto 0.04 X10*3/uL (0.00-0.03); Imm Gran Pct Auto 0.3 % (0.0-0.4); Lymphocytes Absolute Auto 2.2 X10*3/uL (1.2-4.9); Lymphocytes Percent Auto 17.6 % (20-40); MANUAL DIFF FLAG SCAN; Mean Corpuscular HGB Conc 32.6 g/dl (31.0-36.0); Mean Corpuscular Hemoglobin 30.3 pg (27.0-33.0); Mean Corpuscular Volume 92.8 fL (80.0-98.0); Mean Platelet Volume 9.7 fL (9.4-12.4); Monocytes Absolute Auto 1.6 X10*3/uL (0.1-1.2); Monocytes Percent Auto 12.7 % (2-11); Neutrophils Absolute Auto 8.2 x10*3/uL (2.0-8.3); Neutrophils Percent Auto 64.6 % (45-73); Platelet Count 287 X10*3/uL (160-400); Red Blood Count 4.16 X10*6/uL (4.60-5.80); Red Cell Distribution Width 14.7 % (11.0-16.0); SCAN SMEAR FLAG 1; White Blood Count 12.7 X10*3/uL (4.8-10.8)
[2024-09-18 00:53] LABS: Troponin-I High Sensitivity 6.5 ng/L (<3.5-35.0)
[2024-09-18 00:55] LABS: Alanine Aminotransferase 17 U/L (0-40); Albumin Level 3.7 g/dL (3.5-5.0); Alkaline Phosphatase 78 U/L (39-117); Anion Gap 15 (12-20); Aspartate Amino Transferase 22 U/L (5-37); Bilirubin Total 0.2 mg/dL (0.0-1.0); Blood Urea Nitrogen 20 mg/dL (9-16); Calcium 9.9 mg/dL (8.4-10.2); Carbon Dioxide 20 mmol/L (22-29); Chloride 105 mmol/L (96-108); Creatinine Clr Calc Pharmacy 81.8; Estimated Glomerular Filt Rate > 60; Glucose Random 88 mg/dL (60-115); Sodium 136 mmol/L (135-145); Total Protein 7.5 g/dL (6.5-8.0)
[2024-09-18 01:03] LABS: Influenza A PCR NEGATIVE (Negative); Influenza B PCR NEGATIVE (Negative); Resp Syncy Virus RNA Qual PCR NEGATIVE (Negative); SARS COV2 PCR INHOUSE NEGATIVE (Negative)
[2024-09-18 01:30] LABS: SLIDE REVIEW VERIFIED
[2024-09-18 02:38] VITALS: BP 147/72; PULSE 78; RESP 16; TEMP 36.4; O2SAT 95
[2024-09-18 03:03] LABS: Troponin-I High Sensitivity 6.4 ng/L (<3.5-35.0)
--- NOTE | 2024-09-18 03:17 | ED_ITS ---
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 not on any treatment at this time with possible metastatic lung disease patient has had a PET scan done in 09/10 which was negative for any lung lesion CTA negative for PE comes here for sudden onset of right-sided chest pain shortness a breath since yesterday patient does have cough off and on with mucoid phlegm Related Data Home Medications ?Medication ?Instructions ?Recorded ?Confirmed metformin 1,000 mg tablet 1,000 mg PO BIDWM 08/30/20 08/12/24 atorvastatin 40 mg tablet 40 mg PO DAILY 02/21/22 08/12/24 cholecalciferol (vitamin D3) 25 25 mcg PO BEDTIME 07/06/24 08/12/24 mcg (1,000 unit) tablet insulin glargine 100 unit/mL (3 21 unit subcut BEDTIME 07/06/24 08/12/24 mL) subcutaneous pen (Basaglar KwikPen U-100 Insulin) multivitamin 1 tab PO DAILY 07/06/24 08/12/24 acetaminophen 500 mg tablet 500 mg PO Q6H PRN yes 08/10/24 08/12/24 cetirizine 10 mg tablet (All Day 10 mg PO DAILY PRN yes 08/10/24 08/12/24 Allergy (cetirizine)) amiloride 5 mg tablet 5 mg PO BIDWMEAL 08/12/24 08/12/24 lactobacillus combination no.4 3 3,000 mmu cells PO DAILY 08/12/24 08/12/24 billion cell capsule (Probiotic) Previous Rx's ?Medication ?Instructions ?Recorded albuterol sulfate 90 mcg/actuation 1 inh inhalation QID PRN shortness 06/21/24 aerosol inhaler of breath or wheezing #6.7 grams apixaban 5 mg tablet 5 mg PO BID #180 tabs 07/08/24 metoprolol succinate 100 mg 100 mg PO DAILY #90 tabs 08/12/24 tablet,extended release 24 hr (Toprol XL) diltiazem HCl 240 mg 240 mg PO DAILY #90 caps 08/18/24 capsule,extended release 24 hr oxybutynin chloride 5 mg tablet 5 mg PO DAILY #90 tabs 08/18/24 losartan 100 mg tablet 100 mg PO DAILY #90 tabs 09/06/24 azithromycin 250 mg tablet 250 mg PO DAILY 4 days #4 tabs 09/18/24 (Zithromax) cefuroxime axetil 500 mg tablet 500 mg PO BID 7 days #14 tabs 09/18/24 Allergies Allergy/AdvReac Type Severity Reaction Status Date / Time No Known Allergies Allergy Verified 09/18/24 00:00 [No Known Allergies*] [facility] Past Medical History Medical History (Updated 09/18/24 @ 06:27 by Rocael Esteves MD) History of pyelonephritis Substance abuse Alcoholism Mitral annular calcification Hyperaldosteronism Essential hypertension Type 2 diabetes mellitus with unspecified complications PVC (premature ventricular contraction) Atrial tachycardia HTN (hypertension) Diabetes Suprapubic catheter Surgical History (Updated 09/15/24 @ 09:23 by Maria Elena Starks MD) History of colonoscopy (~12/03/16) History of nephrolithotomy with removal of calculi History of ankle surgery History of tonsillectomy History of lumbar surgery History of prostate surgery Family History Family History Father No problems noted. Mother No problems noted. Social History Social History Household Members: Spouse Housing: House Do you presently have visiting nurse or other home services: No Alcohol intake: former Patient Tobacco Use Status: Former Tobacco user Years Smoked: 20 +/- Smoked in Last 30 Days: No e-Cigarette/Vaping Use: Never Used Use of substances other than those prescribed or required for medical reasons: No Advance Directives: Yes Advance Directives on File: Yes Advance Directives Date on File: 07/06/24 Do you have a plan to hurt others: No Plan service: No Current occupational status: retired Gender identity: Male Cognitive needs: Yes (cane) Hearing needs: Yes (b/l hearing aids) Vision needs: Yes (rx glasses) Physical Exam 2 Vital Signs: Vital Signs: Last Vital Signs Temp 97.2 F 09/18/24 06:49 Pulse 82 09/18/24 06:49 Resp 16 09/18/24 06:49 BP 177/84 H 09/18/24 06:49 Pulse Ox 93 09/18/24 06:49 O2 Del Method Room Air 09/18/24 06:49 O2 Flow Rate 2 09/18/24 04:27 Oxygen Flow Rate 2 09/17/24 23:58 BMI result Body Mass Index 29.5 Appearance: Alert. Oriented X3. No acute distress. Eyes: PERRLA, No Nystagmus ENT: Pharynx normal. Oral Mucosa moist Neck: Normal inspection. Neck supple. CVS: Normal heart rate and rhythm. Pulses normal. Respiratory: No respiratory distress. Equal air entry bilateral, no wheezing/rales/rhonchi bilateral conducted sounds Abdomen: Soft and nontender. Bowel sounds are present, no mass palpable, no CVA tenderness Skin: Skin warm and dry. Normal skin color. Normal skin turgor. Extremities: No lower extremity edema. No calf tenderness Neuro: Oriented X 3. No motor deficit. No sensory deficit.No cerebellar signs , cranial nerves II-XII intact Medications Administered Discontinued Medications Generic Name Dose Route Start Last Admin Trade Name Freq PRN Reason Stop Dose Admin Azithromycin 500 mg 09/18/24 06:24 09/18/24 06:44 Azithromycin 500 Mg Tablet PO 09/18/24 06:25 500 mg ONCE ONE Administration Cefuroxime Axetil 500 mg 09/18/24 06:24 09/18/24 06:44 Cefuroxime Axetil 500 Mg Tablet PO 09/18/24 06:25 500 mg ONCE ONE Administration Iohexol 65 ml 09/18/24 04:09 09/18/24 04:10 Iohexol 350 Mg/Ml 100 Ml Infus..Btl IV 09/18/24 04:10 65 ml ONCE ONE Administration Medical Decision Making Medical Decision Making [facility] Narrative: Patient with acute shortness a breath with right-sided chest pain CTA chest negative for PE showed some inflammatory changes patient does have cough for last few days will prescribe cefuroxime and Zithromax no pneumonia no signs of significant infection Differential Diagnosis Differential Diagnoses: The differential diagnosis associated with the presentation includes Pneumonia/pleurisy/PE/CHF Admission/Observation Consideration of admission/observation: Escalation of care including admission/observation considered Lab Data MDM Lab Attestation statement: I reviewed the patient's lab results. 09/18/24 00:22 09/18/24 00:22 Labs: Lab Results 09/18/24 09/18/24 Range/Units 00:22 02:39 WBC 12.7 H (4.8-10.8) X10*3/uL RBC 4.16 L (4.60-5.80) X10*6/uL Hgb 12.6 L (14.0-18.0) g/dl Hct 38.6 L (42.0-52.0) % MCV 92.8 (80.0-98.0) fL MCH 30.3 (27.0-33.0) pg MCHC 32.6 (31.0-36.0) g/dl RDW 14.7 (11.0-16.0) % Plt Count 287 (160-400) X10*3/uL MPV 9.7 (9.4-12.4) fL Immature Gran % (Auto) 0.3 (0.0-0.4) % Neut % (Auto) 64.6 (45-73) % Lymph % (Auto) 17.6 L (20-40) % [place] % (Auto) 12.7 H (2-11) % Eos % (Auto) 4.1 H (0-4) % Baso % (Auto) 0.7 (0-2) % Lymph # (Auto) 2.2 (1.2-4.9) X10*3/uL [place] # (Auto) 1.6 H (0.1-1.2) X10*3/uL Eos # (Auto) 0.5 H (0.0-0.4) X10*3/uL Baso # (Auto) 0.1 (0.0-0.2) X10*3/uL Abs Immat Gran (auto) 0.04 H (0.00-0.03) X10*3/uL Absolute Neuts (auto) 8.2 (2.0-8.3) x10*3/uL Absolute Nucleated RBC 0.000 (0.0-0.012) X10*3/uL Nucleated RBC % (auto) 0.0 (0.0-0.2) /100WBC Smear Tech's Comments VERIFIED Sodium 136 (135-145) mmol/L Potassium 4.0 (3.3-5.1) mmol/L Chloride 105 (96-108) mmol/L Carbon Dioxide 20 L (22-29) mmol/L Anion Gap 15 (12-20) BUN 20 H (9-16) mg/dL Creatinine 0.77 (0.5-1.4) mg/dL Estim Creat Clear Calc 81.8 Estimated GFR > 60 Random Glucose 88 (60-115) mg/dL Calcium 9.9 (8.4-10.2) mg/dL Total Bilirubin 0.2 (0.0-1.0) mg/dL AST 22 (5-37) U/L ALT 17 (0-40) U/L Alkaline Phosphatase 78 (39-117) U/L Troponin I High Sens 6.5 D 6.4 (<3.5-35.0) ng/L Total Protein 7.5 (6.5-8.0) g/dL Albumin 3.7 (3.5-5.0) g/dL Influenza Type A (PCR) NEGATIVE (Negative) Influenza Type B (PCR) NEGATIVE (Negative) RSV RNA Qual (PCR) NEGATIVE (Negative) SARS-CoV-2 RNA (RT-PCR) NEGATIVE (Negative) Independent Interpretation I performed an independent interpretation of an: EKG and CT Scan Interpretation: Normal sinus rhythm heart rate 77 beats per minute normal intervals normal axis no acute ST-T no acute ischemia Radiology Impression Discussion of test interpretation with radiology: I have reviewed the radiologist's reading. Radiologist Impression: [place] [id number] CT Scan Report Signed Patient: Delroy Wheat MR#: [id number] : 1940 Acct:[id number] Age/Sex: 84 / M ADM Date: 09/18/24 Loc: .ED Attending Dr: Ordering Physician: Rocael Esteves MD Date of Service: 09/18/24 Procedure(s): CT angio chest PE protocol Accession Number(s): [id number] cc: Brock Hughes MD; Rocael Esteves MD~ Report Number: [id number]: Total DLP = 349.00 mGy-cm CLINICAL HISTORY: Right-sided chest pain with shortness of breath CT Angiography Chest W Contrast 3D Postprocessing COMPARISON: CR - XR CHEST 1V - 09/18/24 00:[address]/SR - CT ANGIO CHEST PE PROTOCOL - 07/06/24 08:18 EST FINDINGS: No pulmonary embolism. No thoracic aortic aneurysm or dissection. Diffuse patchy and confluent bilateral ground-glass opacities. Scattered bilateral pulmonary nodules measuring up to 7 mm (for example series 6, image 81). Previously seen dominant left lower lobe pulmonary nodule is not visible on the current study. No pleural effusion. No pneumothorax. No cardiomegaly. No pericardial effusion. No pathologically enlarged lymph nodes. No acute fracture. Degenerative changes in the spine. Small hiatal hernia. Redemonstration of exophytic homogeneous fluid density lesion arising from the fundus of the stomach. IMPRESSION: No pulmonary embolism. Bilateral pulmonary groundglass opacities, which could be due to infiltrates, pulmonary edema, atelectasis, or other etiology. 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 Bilateral pulmonary nodules. Recommend follow-up chest CT in 3-6 months per Fleischner Society guidelines. This document has been electronically signed by: Donavan Jackson MD on 09/18/2024 05:09:29 Discharge Plan Discharge Clinical Impression: Bronchitis Patient Disposition: Home, Self-Care Instructions: Acute Bronchitis (ED) Additional Instructions: Take antibiotics as prescribed Follow with your PCP if not better Tylenol for pain Prescriptions: New cefuroxime axetil 500 mg tablet 500 mg PO BID 7 Days Qty: 14 0RF azithromycin [Zithromax] 250 mg tablet 250 mg PO DAILY 4 Days Qty: 4 0RF Rx Instructions: start on day 2 of therapy No Action albuterol sulfate 90 mcg/actuation HFA aerosol inhaler 1 inh inhalation QID PRN (Reason: shortness of breath or wheezing) Qty: 6.7 0RF diltiazem HCl 240 mg capsule,extended release 24hr 240 mg PO DAILY Qty: 90 1RF Protocol: Hold for SBP/HR < HOLD for SBP < : 90 HOLD for HR < : 60 oxybutynin chloride 5 mg tablet 5 mg PO DAILY Qty: 90 1RF losartan 100 mg tablet 100 mg PO DAILY Qty: 90 1RF multivitamin Tablet 1 tab PO DAILY cholecalciferol (vitamin D3) 25 mcg (1,000 unit) Tablet 25 mcg PO BEDTIME insulin glargine [Basaglar KwikPen U-100 Insulin] 100 unit/mL (3 mL) insulin pen 21 unit subcut BEDTIME apixaban 5 mg tablet 5 mg PO BID Qty: 180 0RF metformin 1,000 mg tablet 1,000 mg PO BIDWM atorvastatin 40 mg tablet 40 mg PO DAILY amiloride 5 mg tablet 5 mg PO BIDWMEAL Probiotic 3 billion cell capsule 3,000 mmu cells PO DAILY Rx Instructions: administer with a meal metoprolol succinate [Toprol XL] 100 mg tablet extended release 24 hr 100 mg PO DAILY Qty: 90 1RF acetaminophen 500 mg tablet 500 mg PO Q6H PRN (Reason: yes) cetirizine [All Day Allergy (cetirizine)] 10 mg tablet 10 mg PO DAILY PRN (Reason: yes) Interventions: ED Discharge Assessment Last Done: 09/18/24 06:49 Discharge Date/Time: 09/18/24 06:51 Print Language: Macedonian
[2024-09-18] MEDS: iohexoL 350 MG/ML 100 ML INFUS..BTL 65 ML IV (04:10)
[2024-09-18 04:27] VITALS: BP 174/85; PULSE 70; RESP 16; TEMP 36.6; O2SAT 94
[2024-09-18 06:30] VITALS: BP 177/84; PULSE 82; RESP 16; TEMP 36.2; O2SAT 93
[2024-09-18] MEDS: Azithromycin 500 MG TABLET PO (06:44)
[2024-09-18] MEDS: cefuroxime axetiL 500 MG TABLET PO (06:44)
[2024-09-18 06:49] VITALS: BP 177/84; PULSE 82; RESP 16; TEMP 36.2; O2SAT 93
== END 2024-09-18 06:51 | disposition home or self-care (01) ==
PROVIDERS: Emergency Provider Internal Medicine; PCP Internal Medicine
DX: J40 Bronchitis, not specified as acute or chronic (principal); R06.02 Shortness of breath; R05.9 Cough, unspecified; Z03.818 Encounter for observation for suspected exposure to other biological agents ruled out; E11.9 Type 2 diabetes mellitus without complications; I10 Essential (primary) hypertension; I48.0 Paroxysmal atrial fibrillation; Z87.891 Personal history of nicotine dependence; Z79.84 Long term (current) use of oral hypoglycemic drugs; Z79.02 Long term (current) use of antithrombotics/antiplatelets; Z79.4 Long term (current) use of insulin; Z79.01 Long term (current) use of anticoagulants
CPT/HCPCS: 0241U; 36415; 71045; 71275; 80053; 84484; 85025; 93005; 99284; 99285; Q9967

== ENCOUNTER → 2024-09-18 00:07 | Outpatient (BNV) | payer MEDICARE, BC, SELFPAY | PROVIDERS: Emergency Provider Internal Medicine; PCP Internal Medicine; Visit Provider Internal Medicine Cardiovascular Disease | DX: M54.6 Pain in thoracic spine (principal) | CPT/HCPCS: 93010 ==

== ENCOUNTER → 2024-09-18 00:08 | Outpatient (BNV) | payer MEDICARE, BC, SELFPAY | PROVIDERS: PCP Internal Medicine; Visit Provider Radiology Neuroradiology | DX: R91.8 Other nonspecific abnormal finding of lung field (principal) | CPT/HCPCS: 71045 ==

== ENCOUNTER → 2024-10-12 10:25 | Outpatient (REF) | payer MEDICARE, BC, SELFPAY ==
--- OUTSIDE RECORDS SUMMARY | 2024-10-12 11:11 | XMS_ITS | Encounter Summary ---
Author Organization [facility] Address [address] [place] [address] Care Team Providers Care Industrial Insulator Name Role Phone Kishor Mcmanus DO Primary Care Provider Per Seay MD Unavailable Anton Robledo MD Unavailable [phone] Nabil Narvaez MD Unavailable [phone] Encounter Details Date Type Department Care Team (Late st Contact Info) Description 10/08/2023 Scanned Document [facility] [address] [place] [address] Anton Robledo MD [address] [place] [id number] Social History Tobacco Use Types Packs/Day Years Used Date Smoking Tobacco: Former Cigarettes Q uit: 1978 Smokeless Tobacco: Never Alcohol Use Standard Drinks/Week Comments Not Currently 0 (1 standard drink = 0.6 oz pure alcohol) 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 Sex and Gender Information Value Date Recorded Sex Assigned at Not on file Legal Sex Male 1:07 PM EDT Gender Identity Not on file Sexual Orientation Not on file documented as of this encounter Plan of Treatment Not on file documented as of this encounter Visit Diagnoses Not on filedocumented in this encounter Care Teams Industrial Insulator Relationship Specialty Start Date End Date Kishor Mcmanus DO [address] [place] [id number] PCP - General Internal Medicine 02/27/21 Per Seay MD [address] [place] [address] Gang Investigator Cardiovascular Disease 02/28/21 Anton Robledo MD [address] [place] [id number] Surgery, Orthopedic 03/08/21 Nabil Narvaez MD [address] [place] [id number] Referring Provider Urology 03/08/21 documented as of this encounter
== END ==
LOC: HO.CARD 10:25
PROVIDERS: PCP Internal Medicine; Visit Provider Internal Medicine
DX: I48.91 Unspecified atrial fibrillation (principal)
CPT/HCPCS: 93242

== ENCOUNTER → 2024-10-12 10:32 | Outpatient (BNV) | payer MEDICARE, BC, SELFPAY | PROVIDERS: PCP Internal Medicine; Visit Provider Internal Medicine Cardiovascular Disease | DX: I48.91 Unspecified atrial fibrillation (principal); I49.1 Atrial premature depolarization; I49.3 Ventricular premature depolarization | CPT/HCPCS: 93244 ==

== ENCOUNTER 2024-10-27 13:56 | Outpatient (AMB) | payer MEDICARE, BC, SELFPAY ==
--- NOTE | 2024-10-27 14:01 | A.OFFPC_ITS ---
Vital Signs 10/27/24 14:02 Height 5 ft 8.25 in Weight 204 lb BMI 30.8 BP 133/61 Blood Pressure Location Rt brachial Position Sitting Respiration 12 Pulse 66 Pulse Source Pulse Oximeter Temp 97.8 F Temp Source Temporal Artery Scan Pulse Oximetry (%) 95 Oxygen Delivery Method Room Air Intake Visit Reasons: Follow up Joy Operator Required: No Accompanied by: Self / Same As Patient Allergies No Known Allergies [No Known Allergies*] Allergy (Verified 10/27/24 14:36) Medication List - Last Reconciled 10/27/24 by Piedad Garvin PA-C acetaminophen 500 mg PO Q6H PRN albuterol sulfate 90 mcg/actuation 1 inh inhalation QID PRN amiloride 5 mg PO BIDWMEAL amlodipine 5 mg PO DAILY apixaban 5 mg PO BID atorvastatin 20 mg PO DAILY cetirizine (All Day Allergy (cetirizine)) 10 mg PO DAILY PRN cholecalciferol (vitamin D3) 25 mcg PO BEDTIME diltiazem HCl CD 120 mg PO DAILY hydrochlorothiazide 50 mg PO QAM insulin glargine (Basaglar KwikPen U-100 Insulin) 21 units subcut BEDTIME lactobacillus combination no.4 (Probiotic) 3,000 mmu cells PO DAILY losartan 100 mg PO DAILY metformin 1,000 mg PO BIDWM metoprolol succinate ER (Toprol XL) 100 mg PO DAILY multivitamin 1 tab PO DAILY oxybutynin chloride 5 mg PO DAILY pen needle, diabetic As directed Tobacco use date assessed: 10/27/24 Fall risk assessment: No Falls in past year Last assessed Fall Risk: 10/27/24 Dental Screening Dental Screen Date: 10/27/24 Did you have a dental visit in the last 12 months?: Yes Did you have a dental problem in the last 6 months where you did not have access to dental care?: No Was dental information given to patient?: Patient has dentist HPI Follow up HPI Details The patient is an 84-year-old male presenting with a routine follow-up exam. 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 Pending potential surgical intervention at this time. The patient?s antihypertensive regimen required clarification; a recent medicine review highlighted an inappropriate duplication of therapy with both losartan and lisinopril. The need to reconcile these medications was identified, with losartan determined as the correct prescription. His diabetic management includes metformin and insulin, with recent blood work indicating possible anemia. Social History - Reports routine follow-up for tumor ev aluation and management at a hospital. - Active in managing medication, involve d in filling monthly pill organizers. - Was evaluated for candidacy for surgic al intervention due to age-related considerations. [facility] Medical History (Updated 10/27/24 @ 15:26 by Piedad Garvin PA-C) Hyperlipidemia Anemia History of pyelonephritis Substance abuse Alcoholism Mitral annular calcification Hyperaldosteronism Essential hypertension Type 2 diabetes mellitus with unspecified complications PVC (premature ventricular contraction) Atrial tachycardia HTN (hypertension) Diabetes Suprapubic catheter Surgical History History of colonoscopy (~12/03/16) History of nephrolithotomy with removal of calculi History of ankle surgery History of tonsillectomy History of lumbar surgery History of prostate surgery Family History Father No problems noted. Mother No problems noted. Social History Household Members: Spouse Housing: House Do you presently have visiting nurse or other home services: No Alcohol intake: former Patient Tobacco Use Status: Former Tobacco user Years Smoked: 20 +/- e-Cigarette/Vaping Use: Never Used Advance Directives Date on File: 07/06/24 service: No Current occupational status: retired Gender identity: Male Cognitive needs: Yes (cane) Hearing needs: Yes (b/l hearing aids) Vision needs: Yes (rx glasses) Questionnaire PHQ-9 Over the last 2 weeks, how often have you been bothered by any of the following problems? 1. Little interest or pleasure in doing things: not at all 2. Feeling down, depressed, or hopeless: not at all 3. Trouble falling or staying asleep, or sleeping too much: not at all 4. Feeling tired or having little energy: not at all 5. Poor appetite or overeating: not at all 6. Feeling bad about yourself - or that you are a failure or have let yourself or your family down: not at all 7. Trouble concentrating on things, such as reading the newspaper or watching television: not at all 8. Moving or speaking so slowly that other people could have noticed. Or the opposite - being so fidgety or restless that you have been moving around a lot more than usual: not at all 9. Thoughts that you would be better off or of hurting yourself in some way: not at all Total score: 0 Depression Screening Interpretation: Negative Depression Screening Done: Yes 51344 - PHQ-9 Billing: Yes Source: Developed by Drs. Kishor Wilson, Hayley Green, Lance Garcia and colleagues, with an educational casey from [employer]. Thrive Questionnaire Date Thrive assessed: 08/10/24 I am a: Patient What is your living situation today?: I have a steady place to live Within the past 12 months, did the food you bought not last and you didn't have the money to get more?: Never true Within the past 12 months, did you worry whether your food would run out before you got money to buy more?: Never true Do you have trouble paying for medicines?: No Do you have trouble getting transportation to medical appointments?: No Do you have trouble paying your heating and electricity bill?: No Do you have trouble taking care of your child, family member or friend?: No Do you have trouble with day-to-day activities such as bathing, preparing meals, shopping, managing finances, etc.?: No Are you currently unemployed and looking for a job?: No Are you interested in more education?: No Please select the resources that you would like help with: None THRIVE Score: 0 AUDIT C Alcohol Use Questionnaire (AUDIT-C) 1. How often do you have a drink containing alcohol?: Never 3. How often do you have six or more drinks on one occasion?: Never Total Score: 0 Score Reviewed/Action Taken: No EVARISTO-7 AMB Questionnaire EVARISTO-7 Date EVARISTO - 7 assessed: 08/10/24 Feeling nervous, anxious, or on edge: 0 = Not at all Not being able to stop or control worryin = Not at all Worrying too much about different things: 0 = Not at all Trouble relaxin = Not at all Being so restless that it is hard to sit still: 0 = Not at all Becoming easily annoyed or irritable: 0 = Not at all Feeling afraid as if something awful might happen: 0 = Not at all Total EVARISTO-7 score (0-4 normal; 5-9 mild; 10-14 moderate; 15-21 severe): 0 Source: Developed by Drs. Kishor Wilson, Hayley Green, Lance Garcia and colleagues, with an educational casey from [employer]. EVARISTO-7 Assessment Billing EVARISTO-7 Assessment Tool: EVARISTO-7 Assessment 09647 Review of Systems Const Details: - Respiratory: Denies shortness of breath. - Cardiovascular: Denies chest pain. - General: Denies any new issues, feels well generally. Physical exam (Primary Care) Vital Signs: Last Vital Signs Temp 97.8 F 10/27/24 14:02 Pulse 66 10/27/24 14:02 Resp 12 10/27/24 14:02 BP 133/61 10/27/24 14:02 Pulse Ox 95 10/27/24 14:02 Oxygen Delivery Method Room Air 10/27/24 14:02 Care Plan Goal for BP management: <140/90 at Goal although patient reports he took lisinopril and losartan today 40 mg and 100 mg. I explained to him that the last cardiology notes that patient should be on losartan 100 mg therefore lisinopril was discontinued off his medication list and patient was educated that he is not supposed to be on lisinopril. Patient understands that lisinopril and losartan are similar medications and they can not be taken together. He has follow-up with Cardiology this week. BMI result Body Mass Index 30.8 BMI Assessment/Plan discussion: High BMI High, discussed plan: lifestyle, weight reduction, dietary, physical activity and alcohol moderation Tobacco/Smoking Status: Tobacco use Status Tobacco use date assessed 10/27/24 10/27/24 14:05 Patient Tobacco Use Status Former Tobacco user 10/27/24 14:05 e-Cigarette/Vaping Use Never Used 10/27/24 14:05 PHQ-9: PHQ-9 Score PHQ-9: Total score 0 10/27/24 14:36 Depression Screening Interpretation: Negative Thrive Assessment: Date of Thrive Assessment Date Thrive assessed 08/10/24 10/27/24 14:05 Const Other: Appearance: Alert. Oriented X3. No acute distress. Head: Normal external exam. Normocephalic. Atraumatic. Eyes: Pupils are equal, round, and reactive to light. Extraocular movements intact. Conjunctiva and sclera normal. Eyelids normal. Throat: Pharynx normal. Uvula midline. Moist mucous membranes. Neck: Normal inspection. Neck supple. Full range of motion. Cardiovascular: Normal heart rate and rhythm. Heart sound normal. No murmurs noted. Pulses normal throughout. Respiratory: No respiratory distress. Painless inspiration. Breath sounds orion l. No wheezes/rales/rhonchi noted. Chest nontender. No accessory muscle usage noted or decreased air movement noted. Abdomen: Soft and nontender. Back: No costovertebral angle tenderness. Full range of motion noted. Skin: Skin warm and dry. Normal skin color. Normal skin turgor. No rashes/lesions/lacerations noted. Extremities: No lower extremity edema. Extremities exhibit normal range of motion. Extremities nontender. Neuro: Oriented X 3. No motor deficit. No sensory deficit. Reflexes normal. Results AMB Hemoglobin A1c AMB Hemoglobin A1c 6.5 % Last Edit by DEREK Armstrong on 10/27/24 14:51 Results Reviewed Results Reviewed: - Labs: Anemia indicated, elevated white blood cell count, normal platelet count, and normal kidney function. - Cholesterol: Total cholesterol 121 mg/dL, LDL 77 mg/dL, HDL 28 mg/dL. - Diabetes: Hemoglobin A1c measured at 6.5%. - Other labs: Normal PSA, vitamin B12, vitamin D, folate, thyroid, and PTH levels. Coding Level of Care Code Est Pt Level 4 (13579) Complex EM visit Add On G2211 Diagnoses Mass of stomach K31.89 Essential hypertension I10 Type 2 diabetes mellitus with unspecified complications E11.8 Anemia D64.9 Hyperlipidemia E78.5 Additional Codes PHQ-9 - 50751 - PHQ-9 Billing: Yes ([id number]) EVARISTO-7 Assessment Billing - EVARISTO-7 Assessment Tool: EVARISTO-7 Assessment [id number] ([id number]) Assessment & Plan Assessment & Plan (1) Mass of stomach: Code(s): K31.89 - Other diseases of stomach and duodenum Category: Medical Plan: Ongoing evaluation at [facility] with potential surgical intervention discussed; age consideration noted. Condition is chronic and stable will continue to monitor. (2) Essential hypertension: Code(s): I10 - Essential (primary) hypertension Category: Medical Plan: Losartan 100 mg confirmed as correct therapy rather than both medications. Blood pressure to be monitored regularly. Condition is chronic and stable continue to monitor. (3) Type 2 diabetes mellitus with unspecified complications: Code(s): E11.8 - Type 2 diabetes mellitus with unspecified complications Category: Medical Plan: A1c level 6.5 today at goal. Continue current regimen of metformin and insulin, watch for hypoglycemic episodes. Possible insulin adjustment if repeated low values occur. Condition is chronic and stable will continue to monitor. (4) Anemia: Code(s): D64.9 - Anemia, unspecified Category: Medical Plan: Anemia identified in lab work, observation planned in relation to potential underlying causes. Condition is chronic and stable continue to monitor. (5) Hyperlipidemia: Code(s): E78.5 - Hyperlipidemia, unspecified Category: Medical Plan: Continue atorvastatin, with lipid levels effectively managed, future lipid panels advised. Condition is chronic and stable will continue to monitor. Plan Plan Patient was informed and verbally consented to the use of an ambient scribe for clinic note documentation during this visit. 1. Tumor of Stomach Ongoing evaluation at [facility] with potential surgical intervention discussed; age consideration noted. 2. Hypertension Reconciliation Of Losartan Vs Lisinopril Losartan 100 mg confirmed as correct therapy rather than both medications. Blood pressure to be monitored regularly. 3. Type 2 Diabetes Mellitus Continue current regimen of metformin and insulin, watch for hypoglycemic episodes. Possible insulin adjustment if repeated low values occur. 4. Anemia Anemia identified in lab work, observation planned in relation to potential underlying causes. 5. Hyperlipidemia Continue atorvastatin, with lipid levels effectively managed, future lipid panels advised. During the consultation, I clarified with the patient the correct antihypertensive regimen, resolving the inadvertent inclusion of lisinopril in his medication list. 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 For his diabetes management, I affirmed his current glycemic control as described by his A1c levels, encouraging continued monitoring for any recurrent hypoglycemia episodes. The potential for anemia related to either inflammation or cancer was briefly discussed, with the understanding that continuous evaluation at [facility] would follow. We agreed to base the management plan for his tumor and any surgical considerations on specialist input. Additionally, candidate labs like cholesterol were reviewed, all indicating successful management thus far. Future care will adhere to specialist guidance. Continued follow-up and lab assessments were confirmed. Orders: Orders AMB Hemoglobin A1c Today E11.8 - Type 2 diabetes mellitus with unspecified complications Medications: Changed From apixaban 5 mg PO BID 180 tabs 0RF To apixaban 5 mg PO BID 90 days 180 tabs 1RF Patient Instructions: - Stop taking lisinopril and continue with losartan as prescribed. - Monitor blood sugar levels regularly; report any recurring low readings. - Continue diabetes and cholesterol medication as directed. - Seek immediate care if experiencing symptoms like chest pain or severe shor tness of breath. - Attend your cardiology follow-up appointment as scheduled. - Keep all documents organized and bring them to appointments for reference. - Contact the health clinic if you have any questions or new symptoms.
[2024-10-27 14:02] VITALS: BP 133/61; PULSE 66; RESP 12; TEMP 36.6; O2SAT 95; BMI 30.8
--- OUTSIDE RECORDS SUMMARY | 2024-10-27 15:53 | XMS_ITS | Encounter Summary ---
Author Organization [facility] Address [address] [place] [address] Care Team Providers Care Ed Case Manager Name Role Phone Kishor Mcmanus DO Primary Care Provider [phone] Per Seay MD Unavailable [phone] Anton Robledo MD Unavailable Nabil Narvaez MD Unavailable [phone] Encounter Details Date Type Department Care Team (Late st Contact Info) Description 10/08/2023 Scanned Document [facility] [address] [place] [address] Anton Robledo MD [address] [place] [id number] Social History Tobacco Use Types Packs/Day Years [...] on filedocumented in this encounter Care Teams Ed Case Manager Relationship Specialty Start Date End Date Kishor Mcmanus DO [address] [place] [id number] PCP - General Internal Medicine 02/27/21 Per Seay MD [address] [place] [id number] [employer] Cardiovascular Disease 02/28/21 Anton Robledo MD [address] [place] [id number] Surgery, Orthopedic 03/08/21 Nabil Narvaez MD [address] [place] [id number] Referring Provider Urology 03/08/21 documented as of this encounter
== END 2024-10-27 14:55 | disposition home or self-care (01) ==
LOC: HO.HMCSH 13:56
PROVIDERS: PCP Internal Medicine; Visit Provider Physician Assistant Medical
DX: K31.89 Other diseases of stomach and duodenum (principal); I10 Essential (primary) hypertension; E11.8 Type 2 diabetes mellitus with unspecified complications; D64.9 Anemia, unspecified; E78.5 Hyperlipidemia, unspecified

== ENCOUNTER → 2024-10-27 13:56 | Outpatient (BNVA) | payer MEDICARE, BC, SELFPAY | PROVIDERS: PCP Internal Medicine; Visit Provider Physician Assistant Medical | DX: K31.89 Other diseases of stomach and duodenum (principal); I10 Essential (primary) hypertension; E78.5 Hyperlipidemia, unspecified; E11.8 Type 2 diabetes mellitus with unspecified complications; D64.9 Anemia, unspecified | CPT/HCPCS: 83036; 96127; 99212 ==

== ENCOUNTER 2024-11-01 12:17 | Outpatient (AMB) | payer MEDICARE, BC, SELFPAY ==
--- NOTE | 2024-11-01 12:33 | MHC.OFFVIS ---
Vital Signs 11/01/24 12:34 Height 5 ft 9 in Weight 200 lb 9.93 oz BMI 29.6 BP 130/68 Blood Pressure Location Lt brachial Position Sitting Pulse 78 Pulse Source Pulse Oximeter Intake Visit Reasons: cardiac clearance gastro surgery Allergies No Known Allergies [No Known Allergies*] Allergy (Verified 10/27/24 14:36) Medication List - Last Reconciled 11/01/24 by Per Seay MD acetaminophen 500 mg PO Q6H PRN albuterol sulfate 90 mcg/actuation 1 inh inhalation QID PRN amiloride 5 mg PO BIDWMEAL amlodipine 5 mg PO DAILY apixaban 5 mg PO BID 90 days atorvastatin 20 mg PO DAILY cetirizine (All Day Allergy (cetirizine)) 10 mg PO DAILY PRN cholecalciferol (vitamin D3) 25 mcg PO BEDTIME diltiazem HCl CD 120 mg PO DAILY hydrochlorothiazide 50 mg PO QAM insulin glargine (Basaglar KwikPen U-100 Insulin) 21 units subcut BEDTIME lactobacillus combination no.4 (Probiotic) 3,000 mmu cells PO DAILY losartan 100 mg PO DAILY metformin 1,000 mg PO BIDWM metoprolol succinate ER (Toprol XL) 100 mg PO DAILY multivitamin 1 tab PO DAILY oxybutynin chloride 5 mg PO DAILY pen needle, diabetic As directed HPI Comments Details: Delroy returns for follow-up. In the past, he was seen regarding palpitations and workup had shown supraventricular/ventricular ectopy. He was put on beta-blockers and felt better. More recently, he was admitted to the hospital for pneumonia and had atrial fibrillation with rapid ventricular rates. Diltiazem was added at that time and amlodipine discontinued. Anticoagulation for added. He also has a new diagnosis of gastrointestinal stromal tumor. He has seen surgical oncology and plan is for resection of the same. Otherwise, from cardiac he states he feels fine. No clear-cut angina or any other cardiac symptoms. PENDING SALE TO [facility] Medical History (Updated 11/01/24 @ 12:44 by Per Seay MD) Hyperlipidemia Anemia History of pyelonephritis Substance abuse Alcoholism Mitral annular calcification Hyperaldosteronism Essential hypertension Type 2 diabetes mellitus with unspecified complications PVC (premature ventricular contraction) Atrial tachycardia HTN (hypertension) Diabetes Suprapubic catheter Surgical History History of colonoscopy (~12/03/16) History of nephrolithotomy with removal of calculi History of ankle surgery History of tonsillectomy History of lumbar surgery History of prostate surgery Family History Father No problems noted. Mother No problems noted. Social History Household Members: Spouse Housing: House Do you presently have visiting nurse or other home services: No Alcohol intake: former Patient Tobacco Use Status: Former Tobacco user Years Smoked: 20 +/- e-Cigarette/Vaping Use: Never Used Advance Directives Date on File: 07/06/24 service: No Current occupational status: retired Gender identity: Male Cognitive needs: Yes (cane) Hearing needs: Yes (b/l hearing aids) Vision needs: Yes (rx glasses) Review of Systems Const Denies weakness ENT Denies dizziness Card Denies chest pain, Denies chest pain with activity, Denies syncope, Denies rapid heart rate, Denies pedal edema, Denies edema, Denies leg edema, Denies lightheadedness, Denies palpitations, Denies dyspnea, Denies dyspnea on exertion and Denies orthopnea Resp Denies cough, Denies dyspnea and Denies dyspnea on exertion GI Denies hematochezia and Denies change in stool character Musc Denies abnormal gait, Denies muscle cramps, Denies muscle weakness, Denies numbness, Denies radiating pain into limb and Denies tingling Neuro Denies abnormal gait, Denies dizziness, Denies syncope, Denies numbness, Denies tingling and Denies weakness Endo Denies palpitations Physical Exam Vital Signs: Last Vital Signs Pulse 78 11/01/24 12:34 BP 130/68 11/01/24 12:34 BMI result Body Mass Index 29.6 Const General: comfortable and no acute distress Orientation/consciousness: patient oriented x3 HEENT Other: Unremarkable Head: Yes normal to inspection Neck Neck: Yes normal visual inspection Chest Chest palpation & inspection: normal inspection of the chest Resp Auscultation: clear to auscultation bilaterally Cardio Palpation: normal PMI Heart sounds: S1 normal heart sound present, S2 normal heart sound present, no gallops, no murmurs and no rubs GI Palpation (GI): Soft to palpation Back/Spine/Pelvis Other: unremarkable Skin General skin exam: no rashes or lesions noted Neuro General: patient oriented x3 Extrem General: Yes normal to inspection Psych Mental Status: mental status grossly normal Assessment & Plan Assessment & Plan (1) Preoperative cardiovascular examination: Code(s): Z01.810 - Encounter for preprocedural cardiovascular examination Category: Medical Plan: Echocardiogram with preserved LVEF at 60-65%. Obtain myocardial perfusion imaging study. (2) PAF (paroxysmal atrial fibrillation): Code(s): I48.0 - Paroxysmal atrial fibrillation Category: Medical Plan: In the recent Holter, mostly sinus rhythm with rare atrial fibrillation. There is increased chance of atrial fibrillation during/after surgery. We can use short-term amiodarone. Stop the diltiazem. Continue anticoagulation. (3) Aortic valve calcification: Code(s): I35.9 - Nonrheumatic aortic valve disorder, unspecified Category: Medical Plan: Moderate aortic valve calcification but no significant valvular dysfunction. Increased risk for future aortic stenosis. (4) Mitral annular calcification: Code(s): I05.9 - Rheumatic mitral valve disease, unspecified Category: Medical Plan: Moderate mitral annular calcification but no valvular dysfunction. Plan Discussion NotesI reviewed with the patient the plan to further evaluate cardiac stability in preparation for the scheduled surgery. We discussed the management of AFib to prevent intraoperative complications, focusing on transitioning from diltiazem to an alternative medication regimen aimed at maintaining cardiac rhythm. The patient consented to the procedure of injection-based stress testing and was briefed on the reasons and necessity for such evaluation. Specific risks related to AFib perioperatively include the potential escalation of heart rate during the surgery, which may necessitate immediate intervention. I detailed the risks and benefits of the adjusted medication plan. The patient agreed with the outlined management strategy, and I ensured that the new prescriptions were provided. Patient was informed and verbally consented to the use of an ambient scribe for clinic note documentation during this visit. Orders: Orders CA lexiscan stress w sim Today I20.9 - Angina pectoris, unspecified, Z01.810 - Encounter for preprocedural cardiovascular examination NM cardiolite stress test Today R07.2 - Precordial pain, Z01.810 - Encounter for preprocedural cardiovascular examination Medications: New amiodarone After 2 week loading dose. 200 mg PO DAILY 90 tabs 0RF I48.0 - Paroxysmal atrial fibrillation amiodarone followed by 200mg daily. 400 mg (2 x 200 mg) PO BID 56 tabs 0RF 2 weeks I48.0 - Paroxysmal atrial fibrillation Patient Instructions: - Stop taking diltiazem as directed. - Start taking the new medication as prescribed. - Attend scheduled stress test as planned. - Monitor for any unusual heart symptoms and report if they occur. - Follow up as planned after surgery. - Contact us immediately if experiencing chest pain or severe palpitations. - Adhere to surgical preparation instructions and attend the surgery on the scheduled date. Coding Level of Care Code Est Pt Level 4 (31171) Complex EM visit Add On G2211 Diagnoses Preoperative cardiovascular examination Z01.810 PAF (paroxysmal atrial fibrillation) I48.0 Aortic valve calcification I35.9 Mitral annular calcification I05.9
[2024-11-01 12:34] VITALS: BP 130/68; PULSE 78; BMI 29.6
--- OUTSIDE RECORDS SUMMARY | 2024-11-01 13:42 | XMS_ITS | Encounter Summary ---
Author Organization [facility] Address [address] [place] [address] Care Team Providers Care Garage Hand Name Role Phone Kishor Mcmanus DO Primary Care Provider Per Seay MD Unavailable [phone] Anton Robledo MD Unavailable Nabil Narvaez MD Unavailable [phone] Encounter Details Date Type Department Care Team (Late st Contact Info) Description 10/08/2023 Scanned Document [facility] [address] [place] [address] Anton Robledo MD [address] [place] [id number] Social History Tobacco Use Types Packs/Day Years [...] on filedocumented in this encounter Care Teams Garage Hand Relationship Specialty Start Date End Date Kishor Mcmanus DO [address] [place] [phone] PCP - General Internal Medicine 02/27/21 Per Seay MD [address] [place] [phone] Medical Dosimetrist Cardiovascular Disease 02/28/21 Anton Robledo MD [address] [place] [id number] Surgery, Orthopedic 03/08/21 Nabil Narvaez MD [address] [place] [id number] Referring Provider Urology 03/08/21 documented as of this encounter
== END 2024-11-01 12:57 | disposition home or self-care (01) ==
LOC: HO.HCS 12:18
PROVIDERS: PCP Internal Medicine; Visit Provider Internal Medicine
DX: Z01.810 Encounter for preprocedural cardiovascular examination (principal); I48.0 Paroxysmal atrial fibrillation; I35.9 Nonrheumatic aortic valve disorder, unspecified; I05.9 Rheumatic mitral valve disease, unspecified
CPT/HCPCS: 99214; G2211

== ENCOUNTER → 2024-11-01 12:17 | Outpatient (BNVA) | payer MEDICARE, BC, SELFPAY | PROVIDERS: PCP Internal Medicine; Visit Provider Internal Medicine | DX: Z01.810 Encounter for preprocedural cardiovascular examination (principal); I48.0 Paroxysmal atrial fibrillation; I35.9 Nonrheumatic aortic valve disorder, unspecified; I05.9 Rheumatic mitral valve disease, unspecified | CPT/HCPCS: 99212 ==

== ENCOUNTER → 2024-11-08 08:36 | Outpatient (REF) | payer MEDICARE, BC, SELFPAY ==
--- NOTE | ~2024-11-08 | NM_ITS ---
Lexiscan Myocardial perfusion study Indication: Preoperative cardiovascular examination Technique: The patient was brought in for a Lexiscan perfusion study on 11/08/2024 and was injected 0.4 mg of Lexiscan intravenously. Within a minute of this injection 30 mCi of sestamibi was given intravenously. Images were obtained using the SPECT gamma camera interlaced with the gating device. Images were obtained in supine position. Resting perfusion study was performed on 11/09/2024. Patient was administered 30 mCi of sestamibi intravenously at rest. Images were then obtained in supine position. Total DLP 131 mGy-cm. Images were processed with the software and compared side to side in short axis, horizontal long axis and vertical long axis views. Findings: Raw aquisition reviewed. The stress perfusion study showed no significant perfusion abnormality. Both uncorrected as well as CT attenuation corrected images were reviewed. The gated study shows normal LV systolic function with calculated LVEF of 56%. LV cavity is normal in size. The gated study shows normal wall thickening and contraction of segments. Resting study shows no significant perfusion abnormality. Gating at rest reveals normal wall motion. Visually normal LVEF. The findings are consistent with no clear reversible or fixed perfusion defects. NM/NM cardiolite stress test Impression: 1. Myocardial perfusion imaging study shows normal myocardial perfusion. 2. Gated LVEF is 56% during stress. Visually normal during rest. 3. Transient ischemic dilatation not present. EKG component of the test reported separately. Electronically signed by: Per Seay MD 11/09/2024 03:28 PM EDT
--- NOTE | 2024-11-08 08:40 | CA_ITS ---
Acquisition Time: 2024-11-08 08:52:06 Total Exercise Time: 00:02:00 Test Indications: Abnormal ECG,Pre-Op Evaluation Medications: SEE H&P Protocol: LEXISCAN Max HR: 83 BPM 61% of Pred: 136 BPM Max BP: 152/70 mmHG Max Work Load: 1.0 METS Pharmacological stress test with Lexiscan while pt marches in the chair, with reports of SOB, without any arrythmias, with normotensive response to injection. Nondiagnostic EKG for ischemia. In recovery, pt's breathing returned to baseline. Nuclear images pending. Test reviewed with Dr. Seay. Referred By: Per Seay Electronically Signed By: Jose Portillo
--- OUTSIDE RECORDS SUMMARY | 2024-11-08 08:51 | XMS_ITS | Encounter Summary ---
Author Organization [facility] Address [address] [place] [address] Care Team Providers Care Vault Worker Name Role Phone Kishor Mcmanus DO Primary Care Provider Per Seay MD Unavailable Anton Robledo MD Unavailable Nabil Narvaez MD Unavailable [phone] Encounter Details Date Type Department Care Team (Late st Contact Info) Description 10/08/2023 Scanned Document [facility] [address] [place] [address] Anton Robledo MD [address] [place] [id number] Social History Tobacco Use Types Packs/Day Years [...] on filedocumented in this encounter Care Teams Vault Worker Relationship Specialty Start Date End Date Kishor Mcmanus DO [address] [place] [phone] PCP - General Internal Medicine 02/27/21 Per Seay MD [address] [place] [phone] Inspector Tool Cardiovascular Disease 02/28/21 Anton Robledo MD [address] [place] [address] Surgery, Orthopedic 03/08/21 Nabil Narvaez MD [address] [place] [phone] Referring Provider Urology 03/08/21 documented as of this encounter
== END ==
LOC: HO.CARD 08:36
PROVIDERS: PCP Internal Medicine; Visit Provider Internal Medicine
DX: Z01.810 Encounter for preprocedural cardiovascular examination (principal); R07.2 Precordial pain; I20.9 Angina pectoris, unspecified
CPT/HCPCS: 78452; 93017; A9500; J0280; J2785

== ENCOUNTER → 2024-11-08 08:40 | Outpatient (BNV) | payer MEDICARE, BC, SELFPAY | PROVIDERS: PCP Internal Medicine | DX: R07.2 Precordial pain (principal) | CPT/HCPCS: 78452; 93016; 93018 ==

== ENCOUNTER 2024-11-10 16:46 | Emergency (ER) | payer MEDICARE, BC, SELFPAY ==
[2024-11-10 17:07] VITALS: BP 187/88; PULSE 75; RESP 16; TEMP 36; O2SAT 96; BMI 31.1
--- NOTE | 2024-11-10 17:07 | ED_ITS ---
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 comes here as for last 24 hours been having bladder spasm and purulent discharge around the stone last time suprapubic catheter was replaced was 3 weeks ago no fever no chills Related Data Home Medications ?Medication ?Instructions ?Recorded ?Confirmed metformin 1,000 mg tablet 1,000 mg PO BIDWM 08/30/20 0 11/01/24 cholecalciferol (vitamin D3) 25 25 mcg PO BEDTIME 06/1911/01/24 mcg (1,000 unit) tablet multivitamin 1 tab PO DAILY 07/06/2410/17 acetaminophen 500 mg tablet 500 mg PO Q6H PRN yes 07/1811/01/24 cetirizine 10 mg tablet (All Day 10 mg PO DAILY PRN ye s 08/10/24 11/01/24 Allergy (cetirizine)) amiloride 5 mg tablet 5 mg PO BIDWMEAL 08/12/24 lactobacillus combination no.4 3 3,000 mmu cells PO DA SIMIN 08/12/24 11/01/24 billion cell capsule (Probiotic) amlodipine 5 mg tablet 5 mg PO DAILY 10/27/2411/01 hydrochlorothiazide 50 mg tablet 50 mg PO QAM 10/27/24 11/01/24 pen needle, diabetic 32 gauge x #1,200 ea 10/27/24 Previous Rx's ?Medication ?Instructions ?Recorded albuterol sulfate 90 mcg/actuation 1 inh inhalation QI D PRN shortness 06/21/24 aerosol inhaler of breath or wheezing #6.7 g janie metoprolol succinate 100 mg 100 mg PO DAILY #90 tabs 0 08/12/24 tablet,extended release 24 hr (Toprol XL) oxybutynin chloride 5 mg tablet 5 mg PO DAILY #90 tabs 08/18/24 losartan 100 mg tablet 100 mg PO DAILY #90 tabs 04/ 21/25 apixaban 5 mg tablet 5 mg PO BID 90 days #180 tab s 10/27/24 amiodarone 200 mg tablet 200 mg PO DAILY #90 tabs amiodarone 200 mg tablet 400 mg (2 x 200 mg) PO BID 2 weeks 11/01/24 #56 tabs atorvastatin 20 mg tablet 20 mg PO DAILY #90 tabs 10/18 08/10 insulin glargine 100 unit/mL (3 18 unit (0.18 mL) subc ut QAM #15 mL 11/08/24 mL) subcutaneous pen (Basaglar KwikPen U-100 Insulin) nitrofurantoin 100 mg PO BID 7 days #14 cap s 11/10/24 monohydrate/macrocrystals 100 mg capsule (Macrobid) Allergies Allergy/AdvReac Type Severity Reaction Status Date / Time No Known Allergies (No Known Allergy Verified 11/10/24 17:09 Allergies*) Review of Systems 2 Review of Systems: Yes all other systems are reviewed and are negative [facility] Past Medical History Medical History Hyperlipidemia Anemia History of pyelonephritis Substance abuse Alcoholism Mitral annular calcification Hyperaldosteronism Essential hypertension Type 2 diabetes mellitus with unspecified complications PVC (premature ventricular contraction) Atrial tachycardia HTN (hypertension) Diabetes Suprapubic catheter Surgical History History of colonoscopy (~12/03/16) History of nephrolithotomy with removal of calculi History of ankle surgery History of tonsillectomy History of lumbar surgery History of prostate surgery Family History Family History Father No problems noted. Mother No problems noted. Social History Social History Household Members: Spouse Housing: House Do you presently have visiting nurse or other home services: No Alcohol intake: former Patient Tobacco Use Status: Former Tobacco user Years Smoked: 20 +/- Smoked in Last 30 Days: No e-Cigarette/Vaping Use: Never Used Use of substances other than those prescribed or required for medical reasons: No Advance Directives: Yes Advance Directives on File: Yes Advance Directives Date on File: 07/06/24 service: No Current occupational status: retired Gender identity: Male Cognitive needs: Yes (cane) Hearing needs: Yes (b/l hearing aids) Vision needs: Yes (rx glasses) Physical Exam ED Vital Signs: Vital Signs - 24 hr 11/10/24 17:07 11/10/24 19:10 11/10/24 19:25 Temperature 96.8 F 97.8 F 97.8 F Pulse Rate 75 73 73 Respiratory Rate 16 20 20 Blood Pressure 187/88 H 189/90 H 189/90 H Pulse Oximetry 96 97 97 Oxygen Delivery Method Room Air Room Air Room Air BMI result Body Mass Index 31.1 Appearance: Alert. Oriented X3. No acute distress. Eyes: No pallor no icterus ENT: Pharynx normal. Oral Mucosa moist Neck: Normal inspection. Neck supple. CVS: Normal heart rate and rhythm. Pulses normal. Respiratory: No respiratory distress. Equal air entry bilateral, Abdomen: Soft and nontender. Bowel sounds are present, no mass palpable, no CVA tenderness suprapubic catheter in place Skin: Skin warm and dry. Normal skin color. Normal skin turgor. Extremities: No lower extremity edema. No calf tenderness Neuro: Oriented X 3. No motor deficit. Course Course Course Narrative: This is a rapid medical exam performed by Celso Patel NP: Additional HPI, ROS, PE not included below will be deferred to primary provider. Patient is an 84-year-old male with history of anemia, PAF, hyperaldosteronism, ERICA, HTN, T2DM presenting with referral from Urology for evaluation of increased frequency bladder spasms and reports he is having clear mucous draining from his rectum along with the spasms. Having leaking around his suprapubic catheter. Also scheduled for removal of G[facility] tumor at [facility] on Friday. Denies fevers/chills. Plan: labs, U/A Medications Administered Discontinued Medications Generic Name Dose Route Start Last Admin Trade Name Freq PRN Reason Stop Dose Admin Nitrofurantoin Macrocrystals 100 mg 11/10/24 19:00 11/10/24 19:14 Nitrofurantoin Monohyd/M-Cryst 100 Mg Capsule PO 11/10/24 19:01 100 mg ONCE ONE Administration Procedures Catheter Insertion (Urinary) Date of insertion: 11/10/24 Time of insertion: 17:56 Reason for placing: Yes Reason for placing indwelling catheter: Urinary obstruction Patient has the following: history of catheter associated urinary tract infection Bladder scan/ultrasound used before catheterization: No Antiseptic solution prep: Povidone-Iodine Topical anesthesia used: No Catheter type/location: Suprapubic Size (Argentine): 20 Catheter balloon size (mL): 30 Catheter balloon amount: 15 Results: successfully catheterized-immediate flow Medical Decision Making Medical Decision Making MDM Narrative: Patient's suprapubic catheter which was placed 3 weeks ago was replaced showed chronic UTI symptoms will prescribe Macrobid pending culture Lab Data 11/10/24 17:31 11/10/24 17:31 Labs: Lab Results 11/10/24 11/10/24 11/10/24 Range/Units 17:27 17:31 17:52 WBC 9.1 (4.8-10.8) X10*3/uL RBC 4.40 L (4.60-5.80) X10*6/uL Hgb 13.3 L (14.0-18.0) g/dl Hct 40.2 L (42.0-52.0) % MCV 91.4 (80.0-98.0) fL MCH 30.2 (27.0-33.0) pg MCHC 33.1 (31.0-36.0) g/dl RDW 14.1 (11.0-16.0) % Plt Count 223 (160-400) X10*3/uL MPV 9.9 (9.4-12.4) fL Immature Gran % (Auto) 0.2 (0.0-0.4) % Neut % (Auto) 59.7 (45-73) % Lymph % (Auto) 22.6 (20-40) % [place] % (Auto) 13.5 H (2-11) % Eos % (Auto) 3.3 (0-4) % Baso % (Auto) 0.7 (0-2) % Lymph # (Auto) 2.1 (1.2-4.9) X10*3/uL [place] # (Auto) 1.2 (0.1-1.2) X10*3/uL Eos # (Auto) 0.3 (0.0-0.4) X10*3/uL Baso # (Auto) 0.1 (0.0-0.2) X10*3/uL Abs Immat Gran (auto) 0.02 (0.00-0.03) X10*3/uL Absolute Neuts (auto) 5.4 (2.0-8.3) x10*3/uL Absolute Nucleated RBC 0.000 (0.0-0.012) X10*3/uL Nucleated RBC % (auto) 0.0 (0.0-0.2) /100WBC Sodium 138 (135-145) mmol/L Potassium 3.8 (3.3-5.1) mmol/L Chloride 106 (96-108) mmol/L Carbon Dioxide 24 (22-29) mmol/L Anion Gap 12 (12-20) BUN 20 H (9-16) mg/dL Creatinine 0.72 (0.5-1.4) mg/dL Estim Creat Clear Calc 89.7 Estimated GFR > 60 Random Glucose 98 (60-115) mg/dL Calcium 9.4 (8.4-10.2) mg/dL Total Bilirubin 0.3 (0.0-1.0) mg/dL AST 24 (5-37) U/L ALT 24 (0-40) U/L Alkaline Phosphatase 76 (39-117) U/L Total Protein 7.4 (6.5-8.0) g/dL Albumin 4.2 (3.5-5.0) g/dL Urine Color Cancelled Straw Urine Appearance Cancelled Clear Urine pH Cancelled 6.0 Ur Specific Belding Cancelled 1.010 Urine Protein Cancelled Negative Urine Glucose (UA) Cancelled Negative Urine Ketones Cancelled Negative Urine Blood Cancelled Moderate (2+) H Urine Nitrite Cancelled Negative Ur Leukocyte Esterase Cancelled Large (3+) H Urine RBC Cancelled 3-5 H Urine WBC Cancelled 21-50 H Urine WBC Clumps Cancelled Ur Squamous Epith Cells Cancelled 6-10 Ur Transition Epith Cell Cancelled Ur Renal Epithelial Cell Cancelled Calcium Oxalate Crystal Cancelled Leucine Crystals Cancelled Cystine Crystals Cancelled Tyrosine Crystals Cancelled Other Crystals Cancelled Urine Bacteria Cancelled Trace Urine Parasites Cancelled Bilirubin Casts Cancelled Epithelial Casts Cancelled Fatty Casts Cancelled Hyaline Casts Cancelled 0-2 Granular Casts Cancelled Waxy Casts Cancelled Broad Casts Cancelled RBC Casts Cancelled WBC Casts Cancelled Other Casts Cancelled Urine Trichomonas Cancelled Urine Yeast Cancelled Discharge Plan Discharge Clinical Impression: Urinary tract infection associated with cystostomy catheter Patient Disposition: Home, Self-Care Instructions: Catheter-associated Urinary Tract Infection (ED) Additional Instructions: Suprapubic catheter was changed today Urine showed slight bacteria possible you have chronic infection Cultures are pending Take antibiotic as prescribed for now Follow up with your urologist Prescriptions: New nitrofurantoin monohyd/m-cryst [Macrobid] 100 mg capsule 100 mg PO BID 7 Days Qty: 14 0RF Rx Instructions: must administer with a meal/food No Action albuterol sulfate 90 mcg/actuation HFA aerosol inhaler 1 inh inhalation QID PRN (Reason: shortness of breath or wheezing) Qty: 6.7 0RF oxybutynin chloride 5 mg tablet 5 mg PO DAILY Qty: 90 1RF losartan 100 mg tablet 100 mg PO DAILY Qty: 90 1RF atorvastatin 20 mg tablet 20 mg PO DAILY Qty: 90 1RF insulin glargine [Basaglar KwikPen U-100 Insulin] 100 unit/mL (3 mL) insulin pen 18 unit subcut QAM Qty: 15 1RF multivitamin Tablet 1 tab PO DAILY cholecalciferol (vitamin D3) 25 mcg (1,000 unit) Tablet 25 mcg PO BEDTIME metformin 1,000 mg tablet 1,000 mg PO BIDWM amlodipine 5 mg tablet 5 mg PO DAILY (DME) pen needle, diabetic 32 gauge x 5/32 needle See Rx Instructions .ROUTE .MEDSUPPLY Qty: 1200 Rx Instructions: As directed hydrochlorothiazide 50 mg tablet 50 mg PO QAM apixaban 5 mg tablet 5 mg PO BID 90 Days Qty: 180 1RF amiloride 5 mg tablet 5 mg PO BIDWMEAL Probiotic 3 billion cell capsule 3,000 mmu cells PO DAILY Rx Instructions: administer with a meal metoprolol succinate [Toprol XL] 100 mg tablet extended release 24 hr 100 mg PO DAILY Qty: 90 1RF acetaminophen 500 mg tablet 500 mg PO Q6H PRN (Reason: yes) cetirizine [All Day Allergy (cetirizine)] 10 mg tablet 10 mg PO DAILY PRN (Reason: yes) amiodarone 200 mg tablet 400 mg PO BID 14 Days Qty: 56 0RF Rx Instructions: followed by 200mg daily. amiodarone 200 mg tablet 200 mg PO DAILY Qty: 90 0RF Rx Instructions: After 2 week loading dose. Interventions: ED Discharge Assessment Last Done: 11/10/24 19:25 Discharge Date/Time: 11/10/24 19:25 Print Language: Portuguese
[2024-11-10 17:34] LABS: MANUAL DIFF FLAG NO
[2024-11-10 17:38] LABS: Basophils Absolute Auto 0.1 X10*3/uL (0.0-0.2); Basophils Percent Auto 0.7 % (0-2); Eosinophils Absolute Auto 0.3 X10*3/uL (0.0-0.4); Eosinophils Percent Auto 3.3 % (0-4); Hematocrit 40.2 % (42.0-52.0); Hemoglobin 13.3 g/dl (14.0-18.0); Imm Gran Abs Auto 0.02 X10*3/uL (0.00-0.03); Imm Gran Pct Auto 0.2 % (0.0-0.4); Lymphocytes Absolute Auto 2.1 X10*3/uL (1.2-4.9); Lymphocytes Percent Auto 22.6 % (20-40); Mean Corpuscular HGB Conc 33.1 g/dl (31.0-36.0); Mean Corpuscular Hemoglobin 30.2 pg (27.0-33.0); Mean Corpuscular Volume 91.4 fL (80.0-98.0); Mean Platelet Volume 9.9 fL (9.4-12.4); Monocytes Absolute Auto 1.2 X10*3/uL (0.1-1.2); Monocytes Percent Auto 13.5 % (2-11); Neutrophils Absolute Auto 5.4 x10*3/uL (2.0-8.3); Neutrophils Percent Auto 59.7 % (45-73); Platelet Count 223 X10*3/uL (160-400); Red Cell Distribution Width 14.1 % (11.0-16.0); White Blood Count 9.1 X10*3/uL (4.8-10.8)
[2024-11-10 17:49] LABS: Alanine Aminotransferase 24 U/L (0-40); Albumin Level 4.2 g/dL (3.5-5.0); Alkaline Phosphatase 76 U/L (39-117); Anion Gap 12 (12-20); Aspartate Amino Transferase 24 U/L (5-37); Bilirubin Total 0.3 mg/dL (0.0-1.0); Blood Urea Nitrogen 20 mg/dL (9-16); Calcium 9.4 mg/dL (8.4-10.2); Carbon Dioxide 24 mmol/L (22-29); Chloride 106 mmol/L (96-108); Creatinine Clr Calc Pharmacy 89.7; Estimated Glomerular Filt Rate > 60; Glucose Random 98 mg/dL (60-115); Potassium 3.8 mmol/L (3.3-5.1); Sodium 138 mmol/L (135-145); Total Protein 7.4 g/dL (6.5-8.0)
--- NOTE | 2024-11-10 17:53 | PC.NURSE ---
Pt's suprapubic catheter removed and replaced by MD at bedside with 20Fr catheter; pt tolerated well; slightly cloudy, yellow urine out; dressing in place
[2024-11-10 18:01] LABS: Appearance Urine Clear; Color Urine Straw; Glucose Urine UA Negative (Negative); Leukocyte Esterase Urine Large (3+) (Negative); Nitrite Urine Negative (Negative); UMIC TRIGGER UACC YES; Urine Blood Moderate (2+) (Negative); Urine Ketones Negative (Negative); Urine Protein Negative (Neg-Trace)
[2024-11-10 18:06] LABS: Bacteria Urine Trace (None Seen); Hyaline Casts Urine 0-2 /LPF (0-2); UACC Culture Trigger YES; WBC Urine 21-50 /HPF (0-5)
[2024-11-10 19:10] VITALS: BP 189/90; PULSE 73; RESP 20; TEMP 36.6; O2SAT 97
[2024-11-10] MEDS: Nitrofurantoin Monohyd/M-Cryst 100 MG CAPSULE PO (19:14)
[2024-11-10 19:25] VITALS: BP 189/90; PULSE 73; RESP 20; TEMP 36.6; O2SAT 97
== END 2024-11-10 19:25 | disposition home or self-care (01) ==
PROVIDERS: Registered Nurse Emergency; Emergency Provider Internal Medicine
DX: T83.510A Infection and inflammatory reaction due to cystostomy catheter, initial encounter (principal); N99.518 Other cystostomy complication; N32.89 Other specified disorders of bladder; Y73.8 Miscellaneous gastroenterology and urology devices associated with adverse incidents, not elsewhere classified; Y92.89 Other specified places as the place of occurrence of the external cause; Z79.899 Other long term (current) drug therapy
CPT/HCPCS: 36415; 80053; 81001; 85025; 87086; 87088; 87186; 99283; 99284

== ENCOUNTER 2025-01-06 14:24 | Outpatient (AMB) | payer MEDICARE, BC, SELFPAY ==
--- NOTE | 2025-01-06 14:26 | A.OFFVIS_ITS ---
Vital Signs 01/06/25 14:34 Height 5 ft 10 in Weight 198 lb 6.656 oz BMI 28.5 BP 130/68 Blood Pressure Location Lt brachial Position Sitting Pulse 67 Pulse Source Monitor Intake Visit Reasons: 2 mth s/p oralia and surgery Allergies No Known Allergies (No Known Allergies*) Allergy (Verified 11/10/24 17:09) Medication List - Last Reconciled 01/06/25 by Per Seay MD acetaminophen 500 mg PO Q6H PRN amiloride 5 mg PO BIDWMEAL amlodipine 5 mg PO BID atorvastatin 20 mg PO DAILY insulin glargine (Basaglar KwikPen U-100 Insulin) 18 units (0.18 mL) subcut QAM losartan 50 mg PO DAILY metformin 1,000 mg PO BIDWM 90 days metoprolol succinate ER (Toprol XL) 50 mg PO DAILY multivitamin 1 tab PO DAILY oxybutynin chloride 5 mg PO DAILY pen needle, diabetic As directed HPI Comments Details: Delroy returns for follow-up. In the past, he was seen regarding palpitations and workup had shown supraventricular/ventricular ectopy. He was put on beta- blockers and felt better. Then developed atrial fibrillation at which time, diltiazem was added and amlodipine discontinued. Put on anticoagulation. 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 In that context, he was temporarily put on amiodarone to maintain sinus rhythm perioperatively. Now he is off the amiodarone. He states surgery went well and he is otherwise doing fine. No new concerns. No cardiac symptoms. He is not really clear about the medications. [facility] Medical History Hyperlipidemia Anemia History of pyelonephritis Substance abuse Alcoholism Mitral annular calcification Hyperaldosteronism Essential hypertension Type 2 diabetes mellitus with unspecified complications PVC (premature ventricular contraction) Atrial tachycardia HTN (hypertension) Diabetes Suprapubic catheter Surgical History History of colonoscopy (~12/03/16) History of nephrolithotomy with removal of calculi History of ankle surgery History of tonsillectomy History of lumbar surgery History of prostate surgery Family History Father No problems noted. Mother No problems noted. Social History Household Members: Spouse Housing: House Do you presently have visiting nurse or other home services: No Alcohol intake: former Patient Tobacco Use Status: Former Tobacco user Years Smoked: 20 +/- e-Cigarette/Vaping Use: Never Used Advance Directives Date on File: 07/06/24 service: No Current occupational status: retired Gender identity: Male Cognitive needs: Yes (cane) Hearing needs: Yes (b/l hearing aids) Vision needs: Yes (rx glasses) Review of Systems Const Denies weakness ENT Denies dizziness Card Denies chest pain, Denies chest pain with activity, Denies syncope, Denies rapid heart rate, Denies pedal edema, Denies edema, Denies leg edema, Denies lightheadedness, Denies palpitations, Denies dyspnea, Denies dyspnea on exertion and Denies orthopnea Resp Denies cough, Denies dyspnea and Denies dyspnea on exertion GI Denies hematochezia and Denies change in stool character Musc Denies abnormal gait, Denies muscle cramps, Denies muscle weakness, Denies numbness, Denies radiating pain into limb and Denies tingling Neuro Denies abnormal gait, Denies dizziness, Denies syncope, Denies numbness, Denies tingling and Denies weakness Endo Denies palpitations Physical Exam Vital Signs: Last Vital Signs Pulse 67 01/06/25 14:34 BP 130/68 01/06/25 14:34 BMI result Body Mass Index 28.5 Const General: comfortable and no acute distress Orientation/consciousness: patient oriented x3 HEENT Other: Unremarkable Head: Yes normal to inspection Neck Neck: Yes normal visual inspection Chest Chest palpation & inspection: normal inspection of the chest Resp Auscultation: clear to auscultation bilaterally Cardio Palpation: normal PMI Heart sounds: S1 normal heart sound present, S2 normal heart sound present, no gallops, no murmurs and no rubs GI Palpation (GI): Soft to palpation Back/Spine/Pelvis Other: unremarkable Skin General skin exam: no rashes or lesions noted Neuro General: patient oriented x3 Extrem General: Yes normal to inspection Psych Mental Status: mental status grossly normal Office Procedures EKG Details: EKG with underlying sinus rhythm at 67/Min; no ischemic changes; [place] [id number], Complete Assessment & Plan Assessment & Plan (1) PAF (paroxysmal atrial fibrillation): Code(s): I48.0 - Paroxysmal atrial fibrillation Category: Medical Plan: Patient does not know his medications clearly and hence we need to contact the pharmacy. We used amiodarone short term because of the surgery but it seems he is off the medication. We need to check the on the metoprolol/diltiazem dosing with pharmacy directly. Also need to check if he is still taking the amlodipine or not. We can probably keep him on just beta-blockers/diltiazem only. Continue anticoagulation. (2) Aortic valve calcification: Code(s): I35.9 - Nonrheumatic aortic valve disorder, unspecified Category: Medical Plan: Moderate aortic valve calcification but no significant valvular dysfunction. In creased risk for future aortic stenosis. (3) Mitral annular calcification: Code(s): I05.9 - Rheumatic mitral valve disease, unspecified Category: Medical Plan: Moderate mitral annular calcification but no valvular dysfunction. Plan Discussion Notes I discussed with the patient the importance of medication adherence, especially concerning his cardiovascular health post-surgery. We reviewed his current medications, and I advised him to confirm the dosages with his pharmacy. A follow-up appointment was scheduled for six months to monitor his progress. Patient was informed and verbally consented to the use of an ambient scribe for clinic note documentation during this visit. Medications: Changed From losartan 100 mg PO DAILY 90 tabs 1RF To losartan 50 mg PO DAILY Brock Hughes MD From metoprolol succinate ER (Toprol XL) 100 mg PO DAILY 90 tabs 1RF To metoprolol succinate ER (Toprol XL) 50 mg PO DAILY Per Seay MD Patient Instructions: - Continue taking prescribed medications but need to accurately verify medication and dosage with your pharmacy. - Attend follow-up appointment in six months. Coding Level of Care Code Est Pt Level 4 (22513) Complex EM visit Add On G2211 Diagnoses PAF (paroxysmal atrial fibrillation) I48.0 Aortic valve calcification I35.9 Mitral annular calcification I05.9 CPT Codes EKG - CPT: 55642-[id number], Complete ([id number])
[2025-01-06 14:34] VITALS: BP 130/68; PULSE 67; BMI 28.5
--- OUTSIDE RECORDS SUMMARY | 2025-01-06 14:34 | XMS_ITS ---
Author Name [facility] Organization Unknown History of Medication Use Medication Directions Dispensed Refills Start Date End Date Stat enoxaparin (LOVENOX) 40 MG/0.4ML injection Inject 0.4 mL (40 mg total) under the skin daily. Take after surgery to prevent blood clots 11/22/2022 12/23/2022 active acetaminophen (TYLENOL) 500 MG tablet Take 2 tablets (1,000 mg total) by mouth 3 (three) times a day with meals. 11/22/2022 11/22/2022 active oxyCODONE (ROXICODONE) 5 MG immediate release tablet Take 1 tablet (5 mg total) by mouth 4 times daily (every 6 hours) as needed for severe pain. TAKE AFTER SURGERY NEEDED FOR PAIN Max Daily Amount: 20 mg 11/22/2022 11/22/2022 active calcium carbonate (Calcium 600) 600 MG tablet Take 1 tablet (600 mg total) by mouth 2 (two) times a day with meals. 11/22/2022 active methocarbamol (ROBAXIN) 500 MG tablet Take 1 tablet (500 mg total) by mouth 2 (two) times a day as needed for muscle spasms. 11/22/2022 active Vitamin D3 (CHOLECALCIFEROL) 50 MCG (2000 UT) tablet Take 2 tablets (4,000 Units total) by mouth daily. 11/22/2022 active methocarbamol (ROBAXIN) 750 MG tablet TAKE ONE TABLET BY MOUTH TWICE A DAY -TAKE AFTER SURGERY 04/20/2021 active oxyCODONE (ROXICODONE) 5 MG immediate release tablet TAKE 1-2 TABLETS BY MOUTH EVERY 4 HOURS NEEDED FOR SEVERE PAIN -MAX 6 PER DAY 04/20/2021 active tamsulosin (FLOMAX) 0.4 MG capsule TAKE 1 CAPSULE BY MOUTH DAILY FOR 5 DAYS 03/28/2021 active glucose blood (OneTouch Ultra) test strip USE TO TEST BLOOD SUGAR TWO TIMES A DAY 09/30/2020 active aMILoride (MIDAMOR) 5 MG tablet Take 5 tablets by mouth every morning. active amLODIPine (NORVASC) 10 MG tablet Take 10 mg by mouth every morning. active losartan (COZAAR) 50 MG tablet Take 50 mg by mouth every morning. active Multiple Vitamin (multivitamin) capsule Take 1 capsule by mouth every morning. active Problems Problem Status Onset Date Problem Type Date of Resoluti on Source Pain in left ankle and joints of left foot active EncounterDiagnosisAct [facility] Arthritis of left ankle active 2021-04-27 ProblemAct [facility] Immunizations Vaccine Date Source Lot Number Status Covid-19 MRNA Vaccine - Pfiz er 12+ (Purple Cap) 02/06/2021 [facility] completed Influenza, Unspecified 01/26/2021 [facility] co mpleted Encounters Encounter Type Encounter Reason Primary Diagnosis Location Date Ambulatory Pain in left ankle and joints of left foot Pain in left ankle and joints of left foot [facility] 07/04/2023 Ambulatory Pain in left ankle and joints of left foot Pain in left ankle and joints of left foot [facility] 06/03/2023 Ambulatory Pain in left ankle and joints of left foot Pain in left ankle and joints of left foot [facility] 06/03/2023 Ambulatory Pain in left ankle and joints of left foot Pain in left ankle and joints of left foot [facility] 01/07/2023 Ambulatory [facility] 12/03/2022 Ambulatory Pain in left ank le and joints of left foot [facility] 12/03/2022 Inpatient Primary osteoarthritis, left ankle and foot [facility] 04/27/2021 Ambulatory Encounter for preprocedural laboratory examination [facility] 04/24/2021 Ambulatory Encounter for ot her preprocedural examination [facility] 04/09/2021 Ambulatory Encounter for ot her preprocedural examination [facility] 03/14/2021 Care Team Organization Name Specialty Phone Email Start Date End Da te [facility] 04/27/2021 025 [facility] 04/24/2021 021
--- OUTSIDE RECORDS SUMMARY | 2025-01-06 14:34 | XMS_ITS | Encounter Summary ---
Author Organization [facility] Address [address] [place] [address] [place] [phone] Phone Care Team Providers Care Eye Dropper Assembler Name Role Phone Brock Hughes MD Primary Care Provid er Per Seay MD Unavailable [phone] Encounter Details Date Type Department Care Team (Late st Contact Info) Description 10/18/2024 Procedure Pass [facility], Ct Scan - [facility] [address] [place] [address] Social History Tobacco Use Types Packs/Day Years Used Date Smoking Tobacco: Never Assessed Education Answer Date Recorded Are you interested in more education? Not on karan e 09/13/2022 Are you concerned about learning? Not on file 09/13/2022 No 09/13/2022 No 09/13/2022 Digital Access Answer Date Recorded No 10/12/2022 No 10/12/2022 Reliable internet access at home? Not on file 10/12/2022 Device with a working camera? Not on file Sex and Gender Information Value Date Recorded Sex Assigned at Male 09/17/2024 10:17 AM EDT Legal Sex Male 10:12 PM EDT Gender Identity Male 09/17/2024 10:17 AM EDT Sexual Orientation Straight 09/17/2024 10 :17 AM EDT documented as of this encounter Plan of Treatment Upcoming Encounters Date Type Department Care Team (Late st Contact Info) Description 01/27/2025 2:00 PM EDT Office Visit [facility] [address] [place] [address] Osman Rankin PA-C [address] [place] [address] [email or web address] 03/09/2025 11:30 AM EDT Office Visit [facility] Geriatric Medicine [address] [place] [address] Aldair Lamb MD, MPH [address] [facility] [address] [email or web address] documented as of this encounter Visit Diagnoses Not on filedocumented in this encounter Care Teams Eye Dropper Assembler Relationship Specialty Start Date End Date Brock Hughes MD [address] [place] [address] [address] [place] [address] PCP - General Internal Medicine 09/17/24 Per Seay MD [address] [place] [phone] Cardiology 11/10/24 documented as of this encounter Additional Source Comments The information contained in this document represents components of the legal health record. It is not the complete legal health record.[facility]
--- OUTSIDE RECORDS SUMMARY | 2025-01-06 14:34 | XMS_ITS | Encounter Summary ---
Author Organization [facility] Address [address] [place] [address] Care Team Providers Care Diversity Intern Name Role Phone Kishor Mcmanus DO Primary Care Provider [phone] Per Seay MD Unavailable Anton Robledo MD Unavailable Nabil Narvaez MD Unavailable [phone] Encounter Details Date Type Department Care Team (Late st Contact Info) Description 11/30/2022 Scanned Document [facility] [address] [place] [address] Anton Robledo MD [address] [place] [phone] Social History Tobacco Use Types Packs/Day Years [...] on filedocumented in this encounter Care Teams Diversity Intern Relationship Specialty Start Date End Date Kishor Mcmanus DO [address] [place] [phone] PCP - General Internal Medicine 02/27/21 Per Seay MD [address] [place] [id number] Sales Operations Manager Cardiovascular Disease 02/28/21 Anton Robledo MD [address] [place] [id number] Surgery, Orthopedic 03/08/21 Nabil Narvaez MD [address] [place] [phone] Referring Provider Urology 03/08/21 documented as of this encounter
== END 2025-01-06 14:51 | disposition home or self-care (01) ==
LOC: HO.HCS 14:25
PROVIDERS: PCP Internal Medicine; Visit Provider Internal Medicine
DX: I48.0 Paroxysmal atrial fibrillation (principal); I35.9 Nonrheumatic aortic valve disorder, unspecified; I05.9 Rheumatic mitral valve disease, unspecified
CPT/HCPCS: 93010; 99214; G2211

== ENCOUNTER → 2025-01-06 14:24 | Outpatient (BNVA) | payer MEDICARE, BC, SELFPAY | PROVIDERS: PCP Internal Medicine; Visit Provider Internal Medicine | DX: I05.9 Rheumatic mitral valve disease, unspecified (principal); I35.9 Nonrheumatic aortic valve disorder, unspecified; I48.0 Paroxysmal atrial fibrillation; Z98.890 Other specified postprocedural states | CPT/HCPCS: 93005; 99212 ==

== ENCOUNTER 2025-01-28 10:03 | Outpatient (AMB) | payer MEDICARE, BC, SELFPAY ==
--- OUTSIDE RECORDS SUMMARY | 2025-01-27 14:00 | XMS_ITS | Encounter Summary ---
Author Organization [facility] Address [address] [place] [address] Phone Care Team Providers Care Shoe Salesperson Name Role Phone Per Seay MD Unavailable [phone] Osman Rankin PA-C Primary Care Provider [phone] Reason for Visit * Reason Comments New Patient [facility]. Ellen Mcgarry [facility], [facility] due Encounter Details Date Type Department Care Team (Late st Contact Info) Description 01/27/2025 2:00 PM EDT Office Visit [facility] Internal Medicine [address] [place] [address] Osman Rankin PA-C [address] [place] [address] [email or web address] Routine general medical examination at a health care facility (Primary Dx); Mixed hyperlipidemia; Benign essential hypertension; Atrial fibrillation, unspecified type; Type 2 diabetes mellitus without complication, with long-term current use of insulin; Prostate cancer Social History Tobacco Use Types Packs/Day Years Used Date Smoking Tobacco: Former Cigarettes 1.5 28.3 0 10/23/1954 - 01/26/1983 Pipe Cigars Alcohol Use Standard Drinks/Week Comments Not Currently 0 (1 standard drink = 0.6 oz pure alcohol) Sober for 48 years. Yeah A.A. Child or Family Care Answer Date Record ed Do you have problems with on e of the following making it difficult for you to work, study, or receive health care? No 01/20/2025 Education Answer Date Recorded Are you interested in more education? Not on karan e 09/13/2022 Are you concerned about learning? Not on file 09/13/2022 No 09/13/2022 No 09/13/2022 Food Answer Date Recorded Within the past 6 months we worried whether our food would run out before we got money to buy more. Never True 01/20/2025 Within the past 6 months the food we bought just didn't last and we didn't have enough money to get more. Never True Residential Stability Answer Date Recor ded What is your housing situation today? I have herlinda sing 01/20/2025 How many times have you move d in the past 12 months? Zero (I did not move) 01/20/2025 Paying for Meds Answer Date Recorded Do you have trouble paying for medicines? No 01/20/2025 Paying Utility Bills Answer Date Record ed Do you have trouble paying your heating or elect ricity bill? No 01/20/2025 Transportation Answer Date Recorded Has the lack of transportati on kept you from medical appointments or from getting medications? No 01/20/2025 Digital Access Answer Date Recorded No 01/20/2025 Yes 01/20/2025 Do you have reliable internet access at home? Ye s 01/20/2025 Do you have a device (e.g., phone, tablet, computer) with a working camera? Yes 01/20/2025 Intimate Partner Violence Answer Date R ecorded Are you denied basic needs s uch as food, clothing, or medical care? No 01/20/2025 In the past 12 months have y ou been in a relationship with a person who hurts, threatens, or tries to control you? No 01/20/2025 Are you denied basic needs s uch as food, clothing, or medical care? No 01/20/2025 In the past 12 months have y ou been in a relationship with a person who hurts, threatens, or tries to control you? No 01/20/2025 Sex and Gender Information Value Date Recorded Sex Assigned at Male 09/17/2024 10:17 AM EDT Legal Sex Male 10:12 PM EDT Gender Identity Male 09/17/2024 10:17 AM EDT Sexual Orientation Straight 09/17/2024 10 :17 AM EDT documented as of this encounter Last Filed Vital Signs Vital Sign Reading Time Taken Comments Blood Pressure 124/60 01/27/2025 1:52 PM EDT Pulse 68 01/27/2025 1:52 PM EDT Temperature - - Respiratory Rate 18 01/27/2025 1:52 PM EDT Oxygen Saturation 97% 01/27/2025 1:52 PM EDT Inhaled Oxygen Concentration - - Weight 92.5 kg (204 lb) 01/27/2025 1:52 PM EDT Height 177.8 cm (5' 10 ) 01/27/2025 1:52 PM EDT Body Mass Index 29.27 01/27/2025 1:52 PM EDT documented in this encounter Progress Notes * Osman Rankin PA-C - 01/27/2025 2:00 PM EDT NEW PATIENT Subjective Delroy Wheat is a 84 y.o. male. History of Present Illness Patient with a past medical history of adrenal abnormality, arthritis, hearing loss, hyperlipidemia, hypertension, diabetes, hyperlipidemia, nephrolithiasis, paroxysmal atrial fibrillation, and prostate cancer who presents today for a new patient visit. He has a history of hyperaldosteronism. Currently under the care of Dr. Gallegos at [facility] for potential adrenal gland surgery to help manage blood pressure. Patient carries a history of hypertension and is managed on amloride 5 mg daily, amlodipine 10 mg twice daily, losartan 50 mg daily, and metoprolol succinate 50 mg daily. He also carries a history of atrial fibrillation and follows closely with cardiology. He states his student services coordinator is out of [facility]. Previously on amiodarone but now on metoprolol succinate. Switched from amiodarone to metoprolol by PCP. Experiences palpitations, which are managed by coughing. Has not undergone cardiac ablation and was advised against the Watchman procedure by student services coordinator. Prescribed Eliquis twice daily but currently taking it once daily due to running out of the medication. Diagnosed with atrial fibrillation about 2 years ago. Last visit to student services coordinator was within the past month, and scheduled for a follow-up in six months. He also carries a history of hyperlipidemia and on atorvastatin 20 mg nightly. Diagnosed with diabetes for several years and has been on insulin for the past 5 to 6 years. Previously saw an technical delivery manager who deemed the condition stable. Monitors blood sugar levels every morning, typically ranging from 110 to 120, occasionally dropping to the 90s, and rarely exceeding 130. Consumes three meals a day with snacks in between and tries to limit intake of pasta, bread, and sweets. Weighs himself every morning and was 197 pounds this morning, which is higher than the goal weight of 191 pounds. Used to attend [employer] but discontinued due to their use of pills. prepares meals at home. On metformin 1000 mg twice daily with breakfast and dinner, and insulin injections at night before bed (20 units) basaglar and 1000 mg of metformin twice daily. 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 Patient mentions that he has his catheter managed through [facility] urology and has it changed once a month. He mentions he does take oxybutynin 5 mg daily to help with bladder spasms. 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 Gallegos for potential adrenal gland surgery to help manage blood pressure. Did not require chemotherapy or radiation therapy for the GIST tumor. Review of Systems Constitutional: Negative for unexpected weight change. HENT: Negative for changes in hearing. Eyes: Negative for unexpected vision change. Respiratory: Positive for cough. Negative for shortness of breath. Cardiovascular: Positive for palpitations. Negative for chest pain. Gastrointestinal: Positive for constipation and diarrhea. Negative for abdominal pain and blood in stool. Genitourinary: Positive for erectile dysfunction. Negative for problems with urination and blood inurine. Neurological: Negative for dizziness, headaches and changes in memory. Skin: Negative for persistent rash. Musculoskeletal: Positive for joint pain. 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 His father of alcoholism and had pancreatitis. His mother was a drinker her whole life and lived to be 80-81 but required a skilled nursing for the past fewyears. He has two brothers, both ; his oldest brother had lung cancer that metastasized to the brain. medications Medication Sig Start Date End Date Taking? Authorizing Provider acetaminophen (TYLENOL) 500 MG tablet Take 500 mg by mouth every 6 (six) hours as needed for pain (specific location in comments). Yes Angela Nino MD aMILoride (MIDAMOR) 5 MG tablet Take 1 tablet by mouth every morning. Yes Angela Nino MD amLODIPine (NORVASC) 5 MG tablet Take 10 mg by mouth 2 (two) times a day. Yes Angela Nino MD atorvastatin (LIPITOR) 20 MG tablet Take 20 mg by mouth nightly at bedtime. Yes Angela Nino MD BASAGLAR KWIKPEN U-100 INSULIN 100 unit/mL (3 mL) InPn injection pen Inject 20 Units under the skinnightly at bedtime. 07/27/24 Yes Angela Nino MD blood sugar diagnostic (ONETOUCH ULTRA BLUE TEST STRIP) Strp strips TEST TID.DX:E11.9 10/05/18 Yes Angeline Shaver MD insulin pen needles, disposable, (BD ULTRA-FINE IWONA PEN NEEDLES) 32 gauge x 32 Ndle as directedonce daily 03/30/12 Yes Angela Nino MD losartan (COZAAR) 50 MG tablet Take 50 mg by mouth daily. Yes Angela Nino MD metFORMIN (GLUCOPHAGE) 1000 MG tablet Take 1 tablet by mouth 2 (two) times a day. 11/29/10 Yes Angela Nino MD metoprolol succinate (TOPROL-XL) 50 MG 24 hr tablet Take 50 mg by mouth daily. Yes Angela Nino MD multivitamins capsule as directed Orally Yes Angela Nino MD oxyBUTYnin (DITROPAN) 5 MG tablet Take 5 mg by mouth daily. 08/18/24 Yes Angela Nino MD apixaban (ELIQUIS) 5 mg tablet Take 1 tablet (5 mg total) by mouth 2 (two) times a day. 01/27/25 Osman Rankin PA-C Objective Physical Exam Vitals: 01/27/25 1352 BP: 124/60 BP Location: Right arm Patient Position: Sitting Cuff Size: Large Pulse: 68 Resp: 18 SpO2: 97% Weight: 92.5 kg (204 lb) Height: 177.8 cm (5' 10 ) Gen: Alert, pleasant and cooperative, no acute distress. HEENT: Atraumatic, normocephalic. PERRL. No gross hearing deficits noted. Mucous membranes moist. Neck supple and symmetrical. No palpable cervical adenopathy. Skin: [place], warm, dry. No visible rashes, ulcers or lesions. . Lungs clear to auscultation bilaterally without accessory breath sounds or increased respiratory effort. CV: RRR, no murmurs, rubs, gallops appreciated. No LE edema bilaterally. Abd: Soft, nontender, nondistended. No rebound, no guarding, no CVA tenderness Noted suprapubic cath with no surrounding erythema or noted discharge. Ext: No gross deformities. Moving all extremities comfortably. Equal strength bilaterally. Extremities well perfused without clubbing or cyanosis. Neuro: CN II-XII grossly intact, no strength deficits. Alert and oriented x 3. Normal speech and language. Memory intact. Mood appropriate. Results Assessment & Plan Assessment & Plan Assessment & Plan Mixed hyperlipidemia Patient with a history of hyperlipidemia on atorvastatin 20 mg daily. This medication will be continued and we will obtain a lipid panel Routine general medical examination at a health care facility We will obtain a CMP, hemoglobin A1c, lipid panel and TSH level. Annual physical 1 year Benign essential hypertension Patient with a history of hypertension who is controlled on amloride 5 mg daily, amlodipine 10 mg twice daily, losartan 50 mg daily, and metoprolol succinate 50 mg daily. [facility] This current regimen will be continued. Atrial fibrillation, unspecified type Patient with a history of atrial fibrillation who follows closely with [facility]. According to the patient he had been on amiodarone and Eliquis but was taken off of the amiodarone and placed on metoprolol succinate 50 mg daily. He has been tolerating this medication well. He remains on the Eliquis 5 mg twice daily but tells me that he had only been taking it once a day because he was about to run out of his medication did not want to run out of the medication. We had a discussion about the importance of taking the Eliquis twice daily and I have sent a new prescription into the pharmacy for him. -Patient to follow-up with [facility] as scheduled we will attempt to obtain the records from their office for further evaluation and documentation purposes -Patient to continue metoprolol succinate 50 mg daily and Eliquis 5 mg p.o. twice daily Type 2 diabetes mellitus without complication, with long-term current use of insulin Patient with a history of diabetes who is on Basaglar 20 units nightly and metformin 1000 mg p.o. twice daily. He mentions that he checks his blood sugars regularly which typically range anywhere from 110-120 with an occasional drop to 90s or exceeding 130. He is unsure of when his last hemoglobin A1c was. Overall patient states that he is doing well. This regimen will be continued and we will obtain hemoglobin A1c Prostate cancer Patient with a history of prostate cancer who follows with [facility] urology. Patient does have a suprapubic cath in place secondary to undergoing multiple radiation treatments for his prostate cancer. Patient notes that he gets his suprapubic catheter changed monthly by the urology office. Heis on oxybutynin 5 mg p.o. daily which will be continued. Follow-up: The patient will follow up in 3 months. I personally spent a total of 49 minutes on care for this patient on the date of the encounter. This includes [id number] time during the visit as well as non [id number] time spent on chart review, documentation, and care coordination. I obtained verbal consent from the patient or their proxy to record this visit for purposes of producing a draft of the encounter documentation. Osman Rankin PA-C documented in this encounter Miscellaneous Notes * Assessment & Plan Note - Osman Rankin PA-C - 01/27/2025 6:52 PM EDT Associated Problem(s): Prostate cancer Patient with a history of prostate cancer who follows with [facility] urology. Patient does have a suprapubic cath in place secondary to undergoing multiple radiation treatments for his prostate cancer. Patient notes that he gets his suprapubic catheter changed monthly by the urology office. Heis on oxybutynin 5 mg p.o. daily which will be continued. * Assessment & Plan Note - Osman Rankin PA-C - 01/27/2025 6:50 PM EDT Associated Problem(s): Type 2 diabetes mellitus without complication, with long-term current use ofinsulin Patient with a history of diabetes who is on Basaglar 20 units nightly and metformin 1000 mg p.o. twice daily. He mentions that he checks his blood sugars regularly which typically range anywhere from 110-120 with an occasional drop to 90s or exceeding 130. He is unsure of when his last hemoglobin A1c was. Overall patient states that he is doing well. This regimen will be continued and we will obtain hemoglobin A1c * Assessment & Plan Note - Osman Rankin PA-C - 01/27/2025 6:48 PM EDT Associated Problem(s): Atrial fibrillation Patient with a history of atrial fibrillation who follows closely with [facility]. According to the patient he had been on amiodarone and Eliquis but was taken off of the amiodarone and placed on metoprolol succinate 50 mg daily. He has been tolerating this medication well. He remains on the Eliquis 5 mg twice daily but tells me that he had only been taking it once a day because he was about to run out of his medication did not want to run out of the medication. We had a discussion about the importance of taking the Eliquis twice daily and I have sent a new prescription into the pharmacy for him. -Patient to follow-up with [facility] as scheduled we will attempt to obtain the records from their office for further evaluation and documentation purposes -Patient to continue metoprolol succinate 50 mg daily and Eliquis 5 mg p.o. twice daily * Assessment & Plan Note - Osman Rankin PA-C - 01/27/2025 6:45 PM EDT Associated Problem(s): Benign essential hypertension Patient with a history of hypertension who is controlled on amloride 5 mg daily, amlodipine 10 mg twice daily, losartan 50 mg daily, and metoprolol succinate 50 mg daily. [facility] This current regimen will be continued. * Assessment & Plan Note - Osman Rankin PA-C - 01/27/2025 6:44 PM EDT Associated Problem(s): Mixed hyperlipidemia Patient with a history of hyperlipidemia on atorvastatin 20 mg daily. This medication will be continued and we will obtain a lipid panel * Assessment & Plan Note - Osman Rankin PA-C - 01/27/2025 6:44 PM EDT Associated Problem(s): Routine general medical examination at a health care facility We will obtain a CMP, hemoglobin A1c, lipid panel and TSH level. Annual physical 1 year documented in this encounter Plan of Treatment Upcoming Encounters Date Type Department Care Team (Late st Contact Info) Description 03/09/2025 11:30 AM EDT Office Visit [facility] [place] [place] [address] [place] [address], [address] [place] [address] Aldair Lamb MD, MPH [address] [place] [phone] [place] [address] [email or web address] 05/02/2025 10:20 AM EST Office Visit [facility] Internal Medicine [address] [place] [address] Osman Rankin PA-C [address] [place] [address] [email or web address] documented as of this encounter Results * (ABNORMAL) Hemoglobin A1c (01/27/2025 3:04 PM EDT) HEMOGLOBIN A1C 6.3(H) 4.3 - 5.8 % [facility] Blood 01/27/2025 3:04 PM EDT 01/27/2025 3:06 PM EDT us Osman Rankin PA-C LAB BLOOD ORDERABLES Final Re sult [facility] [address] [place] [address] * Lipid panel (01/27/2025 3:04 PM EDT) HDL 44 mg/dL [facility] Comment: Interpretation <40 mg/dL: Low HDL cholesterol (major risk factor for CHD) Greater than or equal to 60 mg/dL: High HDL cholesterol ( negative risk factor for CHD) HDL - cholesterol is affected by a number of factors, e.g. smoking, excerise, hormones, sex and age. CHOLESTEROL 148 0 - 240 mg/dL [facility] TRIGLYCERIDES 145 30 - 160 mg/dL [facility] LDL 75 50 - 129 mg/dL [facility] Comment: LDL levels in terms of risk for coronary heart disease: <100 mg/dL: Optimal 100-129 mg/dL: Near or above optimal 130-159 mg/dL: Borderline high 160-189 mg/dL: High >190 mg/dL: Very High CARDIAC RISK RATIO 3.4 3.4 - 5.[address] [facility] Blood 01/27/2025 3:04 PM EDT 01/27/2025 3:06 PM EDT us Osman Rankin PA-C LAB BLOOD ORDERABLES Final Re sult Performing Organization Address City/[facility]/ZIP Co de Phone Number [address] [address] * (ABNORMAL) Comprehensive metabolic panel (01/27/2025 3:04 PM EDT) SODIUM 135 133 - 146 mmol/L [facility] POTASSIUM 4.2 3.3 - 5.1 mmol/L [facility] CHLORIDE 100 96 - 108 mmol/L [facility] CO2 23 21 - 35 mmol/L [facility] BUN 17 6 - 19 mg/dL [facility] CREATININE 0.70 0.5 - 1.5 mg/dL [facility] GLUCOSE 192(H) 70 - 99 mg/dL [facility] ALBUMIN 3.9 3.9 - 4.8 g/dL [facility] TOTAL PROTEIN 7.2 6.5 - 8.0 g/dL [facility] CALCIUM 9.8 8.4 - 10.3 mg/dL [facility] ALKALINE PHOSPHATASE 66 39 - 117 U/L [facility] TOTAL BILIRUBIN <0.2 0.0 - 1.2 mg/dL [facility] AST 22 0 - 37 U/L [facility] ALT 17 0 - 40 U/L [facility] GLOBULIN 3.3 1 - 4.8 g/dL [facility] EGFR 91 >59 mL/min/1.7 3m2 [facility] Comment:Estimated glomerular filtration rate calculated using the CKD-EPI refit equation. ANION GAP 16 10 - 20 mmol/L [facility] Blood 01/27/2025 3:04 PM EDT 01/27/2025 3:06 PM EDT us Osman Rankin PA-C LAB BLOOD ORDERABLES Final Re sult Performing Organization Address City/[facility]/ZIP Co de Phone Number [address] [address] * TSH (01/27/2025 3:04 PM EDT) TSH 1.53 0.27 - 4.20 uIU/mL [facility] Blood 01/27/2025 3:04 PM EDT 01/27/2025 3:06 PM EDT Osman Rankin PA-C LAB BLOOD ORDERABLES Final Re sult [facility] [address] [place] [address] documented in this encounter Visit Diagnoses Diagnosis Routine general medical examination at a health care facility- Primary Mixed hyperlipidemia Benign essential hypertension Essential hypertension, benign Atrial fibrillation, unspecified type Type 2 diabetes mellitus without complication, with long-term current use of insulin Prostate cancer Malignant neoplasm of prostate documented in this encounter Additional Health Concerns Assessment Noted Time PHQ-2 Depression Total Score: 0 01/21/20 4:44 PM EDT documented as of this encounter Care Teams Shoe Salesperson Relationship Specialty Start Date End Date Osman Rankin PA-C [address] [place] [id number] [email or web address] PCP - General Physician Monitor Car Operator 01/27/25 Per Seay MD [address] [place] [id number] Cardiology 11/10/24 documented as of this encounter Additional Source Comments The information contained in this document represents components of the legal health record. It is not the complete legal health record.[facility]
--- OUTSIDE RECORDS SUMMARY | 2025-01-27 15:04 | XMS_ITS | Encounter Summary ---
Author Organization [facility] Address [email or web address] [facility] [address] [place] [address] Phone Care Team Providers Care Gore Seamer Name Role Phone Per Seay MD Unavailable [phone] Osman Rankin PA-C Primary Care Provider [phone] Encounter Details Date Type Department Care Team (Latest Contact Info) Description 01/27/2025 3:04 PM EDT - 01/27/2025 11:59 PM EDT Hospital Encounter [facility] [address] [place] [address] Osman Rankin PA-C [address] [place] [address] [email or web address] Discharge Disposition: Home or Self Care Social History Tobacco Use Types Packs/Day Years [...] AM EDT documented as of this encounter Medications at Time of Discharge acetaminophen (TYLENOL) 500 MG tablet Take 500 mg by mouth every 6 (six) hours as needed for pain (specific location in comments). aMILoride (MIDAMOR) 5 MG tablet Take 1 tablet by mouth every morning. amLODIPine (NORVASC) 5 MG tablet Take 10 mg by mouth 2 (two) times a day. apixaban (ELIQUIS) 5 mg tablet Take 1 tablet (5 mg total) by mouth 2 (two) times a day. 60 tablet 2 01/27/2025 atorvastatin (LIPITOR) 20 MG tablet Take 20 mg by mouth nightly at bedtime. BASAGLAR KWIKPEN U-100 INSULIN 100 unit/mL (3 mL) InPn injection pen Inject 20 Units under the skin nightly at bedtime. 07/27/2024 blood sugar diagnostic (ONETOUCH ULTRA BLUE TEST STRIP) Strp strips TEST TID.DX:E11.9 300 strip 3 10/05/2018 insulin pen needles, disposable, (BD ULTRA-FINE IWONA PEN NEEDLES) 32 gauge x 5/32 Ndle as directed once daily 03/30/2012 losartan (COZAAR) 50 MG tablet Take 50 mg by mouth daily. metFORMIN (GLUCOPHAGE) 1000 MG tablet Take 1 tablet by mouth 2 (two) times a day. 11/29/2010 metoprolol succinate (TOPROL-XL) 50 MG 24 hr tablet Take 50 mg by mouth daily. multivitamins capsule as directed Orally oxyBUTYnin (DITROPAN) 5 MG tablet Take 5 mg by mouth daily. 08/18/2024 documented as of this encounter Plan of Treatment Upcoming Encounters Date Type Department Care Team (Late st Contact Info) Description 03/09/2025 11:30 AM EDT Office Visit [facility] Geriatric Medicine [address] [place] [address], 2nd [place] [address] Aldair Lamb MD, MPH [address] [place], [place] [id number] [place] [address] [email or web address] 05/02/2025 10:20 AM EST Office Visit [facility] Internal Medicine [address] [place] [address] Osman Rankin PA-C [address] [place] [address] [email or web address] documented as of this encounter Procedures Procedure Name Priority Date/Time Associated Diagnosis Comments COMPREHENSIVE METABOLIC PANEL Routine 01/27/2025 3:04 PM EDT Routine general medical examination at a health care facility TSH Routine 01/27/2025 3:04 PM EDT Routine general medical examination at a health care facility HEMOGLOBIN A1C Routine 01/27/2025 3:04 PM EDT Routine general medical examination at a [facility] care facility LIPID PANEL Routine 01/27/2025 3:04 PM EDT Mixed hyperlipidemia documented in this encounter Results * TSH (01/27/2025 3:04 PM EDT) TSH 1.53 0.27 - 4.20 uIU/mL [facility] Blood 01/27/2025 3:04 PM EDT 01/27/2025 3:06 PM EDT us Osman Rankin PA-C LAB BLOOD ORDERABLES Final Re sult [facility] [address] [place] [address] * (ABNORMAL) Comprehensive metabolic panel (01/27/2025 3:04 PM EDT) SODIUM 135 133 - 146 mmol/L [facility] POTASSIUM 4.2 3.3 - 5.1 mmol/L [facility] CHLORIDE 100 96 - 108 mmol/L [facility] CO2 23 21 - 35 mmol/L [facility] BUN 17 6 - 19 mg/dL [facility] CREATININE 0.70 0.5 - 1.5 mg/dL [facility] GLUCOSE 192(H) 70 - 99 mg/dL [facility] ALBUMIN 3.9 3.9 - 4.8 g/dL [facility] TOTAL PROTEIN 7.2 6.5 - 8.0 g/dL [facility] CALCIUM 9.8 8.4 - 10.3 mg/dL [facility] ALKALINE PHOSPHATASE 66 39 - 117 U/L [facility] TOTAL BILIRUBIN <0.2 0.0 - 1.2 mg/dL [facility] AST 22 0 - 37 U/L [facility] ALT 17 0 - 40 U/L [facility] GLOBULIN 3.3 1 - 4.8 g/dL [facility] EGFR 91 >59 mL/min/1.7 3m2 [facility] Comment:Estimated glomerular filtration rate calculated using the CKD-EPI refit equation. ANION GAP 16 10 - 20 mmol/L [facility] Blood 01/27/2025 3:04 PM EDT 01/27/2025 3:06 PM EDT us Osman Rankin PA-C LAB BLOOD ORDERABLES Final Re sult Performing Organization Address City/State/[facility] Co de Phone Number [address] [address] * Lipid panel (01/27/2025 3:04 PM EDT) HDL 44 mg/dL [facility] Comment: Interpretation <40 mg/dL: Low HDL cholesterol (major risk factor for CHD) Greater than or equal to 60 mg/dL: High HDL cholesterol ( negative risk factor for CHD) HDL - cholesterol is affected by a number of factors, e.g. smoking, excerise, hormones, sex and age. CHOLESTEROL 148 0 - 240 mg/dL [facility] TRIGLYCERIDES 145 30 - 160 mg/dL [facility] LDL 75 50 - 129 mg/dL [facility] Comment: LDL levels in terms of risk for coronary heart disease: <100 mg/dL: Optimal 100-129 mg/dL: Near or above optimal 130-159 mg/dL: Borderline high 160-189 mg/dL: High >190 mg/dL: Very High CARDIAC RISK RATIO 3.4 3.4 - 5.0 [facility] Blood 01/27/2025 3:04 PM EDT 01/27/2025 3:06 PM EDT us Osman Rankin PA-C LAB BLOOD ORDERABLES Final Re sult Performing Organization Address City/[facility]/ZIP Co de Phone Number [address] [address] * (ABNORMAL) Hemoglobin A1c (01/27/2025 3:04 PM EDT) HEMOGLOBIN A1C 6.3(H) 4.3 - 5.8 % [facility] Blood 01/27/2025 3:04 PM EDT 01/27/2025 3:06 PM EDT us Osman Rankin PA-C LAB BLOOD ORDERABLES Final Re sult Performing Organization Address [facility]/ZIP Co de Phone Number [address] [address] documented in this encounter Visit Diagnoses Diagnosis Routine general medical examination at a health care facility Mixed hyperlipidemia documented in this encounter Additional Health Concerns Assessment Noted Time PHQ-2 Depression Total Score: 0 01/21/20 25 4:44 PM EDT documented as of this encounter Care Teams Gore Seamer Relationship Specialty Start Date End Date Osman Rankin PA-C [address] [place] [address] [email or web address] PCP - General Physician Nurses' Registry Director 01/27/25 Per Seay MD [address] [place] [address] Cardiology 11/10/24 documented as of this encounter Additional Source Comments The information contained in this document represents components of the legal health record. It is not the complete legal health record.[facility]
[2025-01-28 10:14] VITALS: BP 134/63; PULSE 72; RESP 16; TEMP 36.4; O2SAT 94; BMI 30.6
--- NOTE | 2025-01-28 10:14 | MHC.PC.OV ---
Vital Signs 01/28/25 10:14 Height 5 ft 8.25 in Weight 203 lb BMI 30.6 BP 134/63 Respiration 16 Pulse 72 Pulse Source Pulse Oximeter Temp 97.6 F Temp Source Temporal Artery Scan Pulse Oximetry (%) 94 Oxygen Delivery Method Room Air Intake Visit Reasons: 3 month f/u Life Skills Coordinator Volunteer Required: No Accompanied by: Self / Same As Patient Allergies No Known Allergies (No Known Allergies*) Allergy (Verified 01/28/25 10:43) Medication List - Last Reconciled 01/28/25 by Piedad Garvin PA-C acetaminophen 500 mg PO Q6H PRN amiloride 5 mg PO BID 90 days amlodipine 10 mg (2 x 5 mg) PO BID atorvastatin 20 mg PO DAILY insulin glargine (Basaglar KwikPen U-100 Insulin) 18 units (0.18 mL) subcut QPM losartan 50 mg PO DAILY metformin 1,000 mg PO BIDWM 90 days metoprolol succinate ER 75 mg (1.5 x 50 mg) PO DAILY 90 days multivitamin 1 tab PO DAILY oxybutynin chloride 5 mg PO DAILY pen needle, diabetic check glucose three times a day with meals Tobacco use date assessed: 10/27/24 Dental Screening Dental Screen Date: 10/27/24 HPI 3 month f/u HPI Details The patient is an 84-year-old male presenting for a three-month follow-up for diabetes management. His hemoglobin A1c in October was 6.5, and the recent test showed it to be 6.7, indicating stable glycemic control. He is currently on a regimen including metformin and insulin glargine for diabetes management. The patient had an abdominal mass resected at [facility]. The surgery involved five incisions, and he is undergoing follow-up care with the hospital's program to monitor his postoperative recovery. The patient has a history of anemia with recent lab results showing hemoglobin and hematocrit slightly below normal ranges, likely due to dehydration from fasting. His other lab results, including liver enzymes, kidney function, and PSA, were within normal limits. [facility] Medical History Hyperlipidemia Anemia History of pyelonephritis Substance abuse Alcoholism Mitral annular calcification Hyperaldosteronism Essential hypertension Type 2 diabetes mellitus with unspecified complications PVC (premature ventricular contraction) Atrial tachycardia HTN (hypertension) Diabetes Suprapubic catheter Surgical History History of colonoscopy (~12/03/16) History of nephrolithotomy with removal of calculi History of ankle surgery History of tonsillectomy History of lumbar surgery History of prostate surgery Family History Father No problems noted. Mother No problems noted. Social History Household Members: Spouse Housing: House Do you presently have visiting nurse or other home services: No Alcohol intake: former Patient Tobacco Use Status: Former Tobacco user Years Smoked: 20 +/- e-Cigarette/Vaping Use: Never Used Advance Directives Date on File: 07/06/24 service: No Current occupational status: retired Gender identity: Male Cognitive needs: Yes (cane) Hearing needs: Yes (b/l hearing aids) Vision needs: Yes (rx glasses) Questionnaire PHQ-9 Over the last 2 weeks, how often have you been bothered by any of the following problems? 1. Little interest or pleasure in doing things: not at all 2. Feeling down, depressed, or hopeless: not at all 3. Trouble falling or staying asleep, or sleeping too much: not at all 4. Feeling tired or having little energy: not at all 5. Poor appetite or overeating: not at all 6. Feeling bad about yourself - or that you are a failure or have let yourself or your family down: not at all 7. Trouble concentrating on things, such as reading the newspaper or watching television: not at all 8. Moving or speaking so slowly that other people could have noticed. Or the opposite - being so fidgety or restless that you have been moving around a lot more than usual: not at all 9. Thoughts that you would be better off or of hurting yourself in some way: not at all Total score: 0 Depression Screening Interpretation: Negative Depression Screening Done: Yes 35389 - PHQ-9 Billing: Yes Source: Developed by Drs. Kishor Wilson, Hayley Green, Lance Garcia and colleagues, with an educational casey from [employer] Thrive Questionnaire Date Thrive assessed: 10/27/24 I am a: Patient What is your living situation today?: I have a steady place to live Within the past 12 months, did the food you bought not last and you didn't have the money to get more?: Never true Within the past 12 months, did you worry whether your food would run out before you got money to buy more?: Never true Do you have trouble paying for medicines?: No Do you have trouble getting transportation to medical appointments?: No Do you have trouble paying your heating and electricity bill?: No Do you have trouble taking care of your child, family member or friend?: No Do you have trouble with day-to-day activities such as bathing, preparing meals, shopping, managing finances, etc.?: No Are you currently unemployed and looking for a job?: No Are you interested in more education?: No Please select the resources that you would like help with: None THRIVE Score: 0 AUDIT C Alcohol Use Questionnaire (AUDIT-C) 1. How often do you have a drink containing alcohol?: Never 3. How often do you have six or more drinks on one occasion?: Never Total Score: 0 Score Reviewed/Action Taken: No EVARISTO-7 AMB Questionnaire EVARISTO-7 Date EVARISTO - 7 assessed: 10/27/24 Feeling nervous, anxious, or on edge: 0 = Not at all Not being able to stop or control worryin = Not at all Worrying too much about different things: 0 = Not at all Trouble relaxin = Not at all Being so restless that it is hard to sit still: 0 = Not at all Becoming easily annoyed or irritable: 0 = Not at all Feeling afraid as if something awful might happen: 0 = Not at all Total EVARISTO-7 score (0-4 normal; 5-9 mild; 10-14 moderate; 15-21 severe): 0 Source: Developed by Drs. Kishor Wilson, Hayley Green, Lance Garcia and colleagues, with an educational casey from [employer] EVARISTO-7 Assessment Billing EVARISTO-7 Assessment Tool: EVARISTO-7 Assessment 29524 Physical exam (Primary Care) Vital Signs: Last Vital Signs Temp 97.6 F 01/28/25 10:14 Pulse 72 01/28/25 10:14 Resp 16 01/28/25 10:14 BP 134/63 01/28/25 10:14 Pulse Ox 94 01/28/25 10:14 Oxygen Delivery Method Room Air 01/28/25 10:14 Care Plan Goal for BP management: <140/90 at Goal BMI result Body Mass Index 30.6 BMI Assessment/Plan discussion: High BMI High, discussed plan: lifestyle, weight reduction, dietary, physical activity, alcohol moderation and other Tobacco/Smoking Status: Tobacco use Status Tobacco use date assessed 10/27/24 01/28/25 10:21 Patient Tobacco Use Status Former Tobacco user 01/28/25 10:21 e-Cigarette/Vaping Use Never Used 01/28/25 10:21 PHQ-9: PHQ-9 Score PHQ-9: Total score 0 01/28/25 10:47 Depression Screening Interpretation: Negative Thrive Assessment: Date of Thrive Assessment Date Thrive assessed 10/27/24 01/28/25 10:21 Const Other: Appearance: Alert. Oriented X3. No acute distress. Head: Normal external exam. Normocephalic. Atraumatic. Eyes: Pupils are equal, round, and reactive to light. Extraocular movements intact. Conjunctiva and sclera normal. Eyelids normal. Throat: Pharynx normal. Uvula midline. Moist mucous membranes. Neck: Normal inspection. Neck supple. Full range of motion. Cardiovascular: Normal heart rate and rhythm. Respiratory: No respiratory distress. Painless inspiration. Back: Full range of motion noted. Skin: Skin warm and dry. Normal skin color. Normal skin turgor. No rashes/lesions/lacerations noted. Extremities: Extremities exhibit normal range of motion. Neuro: Oriented X 3. No motor deficit. No sensory deficit. Reflexes normal. Results AMB Hemoglobin A1c AMB Hemoglobin A1c 6.7 % Last Edit by DEREK Armstrong on 01/28/25 11:01 Results Reviewed Results Reviewed: - Labs: Hemoglobin A1c was 6.7 today, hemoglobin 13.3, hematocrit 40.2, BUN 20, normal liver enzymes, normal PSA. Coding Level of Care Code Est Pt Level 4 (47063) Complex EM visit Add On G2211 Diagnoses Type 2 diabetes mellitus with unspecified complications E11.8 Mass of stomach K31.89 Anemia D64.9 Additional Codes EVARISTO-7 Assessment Billing - EVARISTO-7 Assessment Tool: EVARISTO-7 Assessment 89390 ([id number]) PHQ-9 - 87581 - PHQ-9 Billing: Yes ([id number]) Assessment & Plan Assessment & Plan (1) Type 2 diabetes mellitus with unspecified complications: Code(s): E11.8 - Type 2 diabetes mellitus with unspecified complications Category: Medical Plan: The patient's diabetes management will continue with the current regimen of metformin and insulin glargine, as his hemoglobin A1c remains stable at 6.7. (2) Mass of stomach: Comment: Status post resection with [facility] Code(s): K31.89 - Other diseases of stomach and duodenum Category: Medical Plan: The patient will continue follow-up care with [facility] to monitor postoperative recovery after the resection of the abdominal mass. (3) Anemia: Code(s): D64.9 - Anemia, unspecified Category: Medical Plan: The patient's anemia will be monitored, considering the recent lab results showing slightly low hemoglobin and hematocrit, likely due to dehydration from fasting. Plan Plan Patient was informed and verbally consented to the use of an ambient scribe for clinic note documentation during this visit. 1. Diabetes Mellitus The patient's diabetes management will continue with the current regimen of metformin and insulin glargine, as his hemoglobin A1c remains stable at 6.7. 2. Abdominal Mass (Status Post Resection) The patient will continue follow-up care with [facility] to monitor postoperative recovery after the resection of the abdominal mass. 3. Anemia The patient's anemia will be monitored, considering the recent lab results showing slightly low hemoglobin and hematocrit, likely due to dehydration from fasting. During the visit, we discussed the patient's stable diabetes management and the need to continue his current medication regimen. We also reviewed his postoperative status following the resection of the abdominal mass and emphasized the importance of ongoing follow-up with [facility]. The patient's anemia was noted, and we discussed monitoring his lab results, particularly in light of potential dehydration from fasting. Orders: Orders AMB Hemoglobin A1c Today E11.8 - Type 2 diabetes mellitus with unspecified complications Medications: Changed From pen needle, diabetic As directed 1,200 ea E11.8 - Type 2 diabetes mellitus with unspecified complications To pen needle, diabetic check glucose three times a day with meals 100 ea 3RF E11.8 - Type 2 diabetes mellitus with unspecified complications Patient Instructions: - Continue taking metformin and insulin glargine as prescribed. - Follow up with [facility] for postoperative care. - Stay hydrated to help manage anemia.
--- OUTSIDE RECORDS SUMMARY | 2025-01-28 11:24 | XMS_ITS | Encounter Summary ---
Author Organization [facility] Address [address] [place] [address] Care Team Providers Care Product Marketing Manager Name Role Phone Kishor Mcmanus DO Primary Care Provider Per Seay MD Unavailable [phone] Anton Robledo MD Unavailable Nabil Narvaez MD Unavailable [phone] Encounter Details Date Type Department Care Team (Late st Contact Info) Description 10/08/2023 Scanned Document [facility] [address] [place] [address] Anton Robledo MD [address] [place] [address] Social History Tobacco Use Types Packs/Day Years [...] on filedocumented in this encounter Care Teams Product Marketing Manager Relationship Specialty Start Date End Date Kishor Mcmanus DO [address] [place] [address] PCP - General Internal Medicine 02/27/21 Per Seay MD [address] [place] [address] Oil Burner Mechanic Cardiovascular Disease 02/28/21 Anton Robledo MD [address] [place] [address] Surgery, Orthopedic 03/08/21 Nabil Narvaez MD [address] [place] [address] Referring Provider Urology 03/08/21 documented as of this encounter
--- OUTSIDE RECORDS SUMMARY | 2025-01-28 11:24 | XMS_ITS | Encounter Summary ---
Author Organization [facility] Address [address] [place] [address] [place] [address] Phone Care Team Providers Care Order Analyst Name Role Phone Brock Hughes MD Primary Care Provid er Per Seay MD Unavailable [phone] Osman Rankin PA-C Primary Care Provider [phone] Encounter Details Date Type Department Care Team (Late st Contact Info) Description 10/18/2024 Procedure Pass [facility], Ct Scan - [address] [id number] Social History Tobacco Use Types Packs/Day Years [...] Description 03/09/2025 11:30 AM EDT Office [place] [facility] [place] [address] [facility], 2nd [place] [address] Aldair Lamb MD, MPH [address] [facility] [id number] [place] [address] [email or web address] 05/02/2025 10:20 AM EST Office Visit [facility] Internal Medicine [address] [place], [place] [phone] Osman Rankin PA-C [address] [place] [address] [email or web address] documented as of this encounter Visit Diagnoses Not on filedocumented in this encounter Care Teams Order Analyst Relationship Specialty Start Date End Date Brock Hughes MD [address] [place] [address] PCP - General Internal Medicine 09/17/24 01/26/25 Osman Rankin PA-C [address] [place] [address] [email or web address] PCP - General Physician Landscaping Manager 01/27/25 Per Seay MD [address] [place] [address] Cardiology 11/10/24 documented as of this encounter Additional Source Comments The information contained in this document represents components of the legal health record. It is not the complete legal health record.[facility]
--- OUTSIDE RECORDS SUMMARY | 2025-01-28 11:24 | XMS_ITS | Encounter Summary ---
Author Organization [facility] Address [address] [place] [address] [place] [address] Phone Care Team Providers Care Show Dog Trainer Name Role Phone Brock Hughes MD Primary Care Provid er Per Seay MD Unavailable [phone] Osman Rankin PA-C Primary Care Provider [phone] Encounter Details Date Type Department Care Team (Late st Contact Info) Description 10/18/2024 Procedure Pass [facility], Ct Scan - [address] [id number] Social History Tobacco Use Types Packs/Day Years [...] Description 03/09/2025 11:30 AM EDT Office Visit [facility] Geriatric Medicine [address] [facility], 2nd [place] [address] Aldair Lamb MD, MPH [address] [facility] [phone] [place] [address] [email or web address] 05/02/2025 10:20 AM EST Office Visit [facility] Internal Medicine [address] [place], [place] [phone] Osman Rankin PA-C [address] [place] [address] [email or web address] documented as of this encounter Visit Diagnoses Not on filedocumented in this encounter Care Teams Show Dog Trainer Relationship Specialty Start Date End Date Brock Hughes MD [address] [place] [address] PCP - General Internal Medicine 09/17/24 01/26/25 Osman Rankin PA-C [address] [place] [address] [email or web address] PCP - General Physician Combination Saw Operator 01/27/25 Per Seay MD [address] [place] [address] Cardiology 11/10/24 documented as of this encounter Additional Source Comments The information contained in this document represents components of the legal health record. It is not the complete legal health record.[facility]
--- OUTSIDE RECORDS SUMMARY | 2025-01-28 11:24 | XMS_ITS | Encounter Summary ---
Author Organization [facility] Address [address] [place] [address] Phone Care Team Providers Care Military Communications Specialist Name Role Phone Brock Hughes MD Primary Care Provid er Per Seay MD Unavailable [phone] Osman Rankin PA-C Primary Care Provider [phone] Encounter Details Date Type Department Care Team (Late st Contact Info) Description 11/12/2024 Procedure Pass [facility] PERIOPERATIVE DEPT [address] [place] [address] Social History Tobacco Use Types Packs/Day Years Used Date Smoking Tobacco: Former Cigarettes 1.5 28.3 0 10/23/1954 - 01/26/1983 Pipe Cigars Alcohol Use Standard Drinks/Week Comments Not Currently 0 (1 standard drink = 0.6 oz pure alcohol) Sober for 47 years. Yeah A.A. Education Answer Date Recorded Are you interested in more education? Not on karan e 09/13/2022 Are you concerned about learning? Not on file 09/13/2022 No 09/13/2022 No 09/13/2022 Food Answer Date Recorded Within the past 6 months we worried whether our food would run out before we got money to buy more. Never True 11/12/2024 Within the past 6 months the food we bought just didn't last and we didn't have enough money to get more. Never True Residential Stability Answer Date Recor ded What is your housing situation today? I have herlinda balbuena 11/12/2024 How many times have you move d in the past 12 months? Zero (I did not move) 11/12/2024 Paying for Meds Answer Date Recorded Do you have trouble paying for medicines? No 11/12/2024 Paying Utility Bills Answer Date Record ed Do you have trouble paying your heating or elect ricity bill? No 11/12/2024 Transportation Answer Date Recorded Has the lack of transportati on kept you from medical appointments or from getting medications? No 11/12/2024 Digital Access Answer Date Recorded No 11/12/2024 Yes 11/12/2024 Do you have reliable internet access at home? Ye s 11/12/2024 Do you have a device (e.g., phone, tablet, computer) with a working camera? Yes 11/12/2024 Intimate Partner Violence Answer Date R ecorded Are you denied basic needs s uch as food, clothing, or medical care? No 11/12/2024 In the past 12 months have y ou been in a relationship with a person who hurts, threatens, or tries to control you? No 11/12/2024 Are you denied basic needs s uch as food, clothing, or medical care? No 11/12/2024 In the past 12 months have y ou been in a relationship with a person who hurts, threatens, or tries to control you? No 11/12/2024 Sex and Gender Information Value Date Recorded Sex Assigned at Male 09/17/2024 10:17 AM EDT Legal Sex Male 10:12 PM EDT Gender Identity Male 09/17/2024 10:17 AM EDT Sexual Orientation Straight 09/17/2024 10 :17 AM EDT documented as of this encounter Functional Status * Calculated C-SSRS Risk Score (Lifetime/Recent) Answer Date of Assessment Author No Risk Indicated 11/12/2024 8:06 PM PETET Gissel Salcido RN * [place] Suicide Severity Rating Scale (Screener/Recent Self-Report) Question Answer Date of Assessment Author 1. Wish to be (Past 1 Month) No 11/12/2024 8:06 PM PETET Gissel Salcido RN 2. Non-Specific Active Suici bar Thoughts (Past 1 Month) No 11/12/2024 8:06 PM EDT Lawanda Salcido, RN 6. Suicidal Behavior (Lifetime) No 8:06 PM EDT Gissel Salcido, RADHA documented as of this encounter Plan of Treatment Upcoming Encounters Date Type Department Care Team (Late st Contact Info) Description 03/09/2025 11:30 AM EDT Office Visit [facility] Geriatric Medicine [address] [facility], 2nd [place] [address] Aldair Lamb MD, MPH [address] [facility] [id number] [place] [address] [email or web address] 05/02/2025 10:20 AM EST Office Visit [facility] Internal Medicine [address] [place] [address] Osman Rankin PA-C [address] [place] [address] [email or web address] documented as of this encounter Visit Diagnoses Not on filedocumented in this encounter Additional Health Concerns Assessment Noted Time PHQ-2 Depression Total Score: 0 10/27/19 12:57 PM EDT documented as of this encounter Care Teams Military Communications Specialist Relationship Specialty Start Date End Date Brock Hughes MD [address] [place] [address] PCP - General Internal Medicine 09/17/24 01/26/25 Osman Rankin PA-C [address] [place] [address] [email or web address] PCP - General Physician Milk Route Deliverer 01/27/25 Per Seay MD [address] [place] [address] Cardiology 11/10/24 documented as of this encounter Additional Source Comments The information contained in this document represents components of the legal health record. It is not the complete legal health record.[facility]
--- OUTSIDE RECORDS SUMMARY | 2025-01-28 11:24 | XMS_ITS | Encounter Summary ---
Author Organization [facility] Address [address] [place] [address] Care Team Providers Care Law Firm Partner Name Role Phone Kishor Mcmanus DO Primary Care Provider Per Seay MD Unavailable Anton Robledo MD Unavailable Nabil Narvaez MD Unavailable [phone] Encounter Details Date Type Department Care Team (Late st Contact Info) Description 11/30/2022 Scanned Document [facility] [address] [place] [address] Anton Robledo MD [address] [place] [address] Social History Tobacco Use Types Packs/Day Years [...] on filedocumented in this encounter Care Teams Law Firm Partner Relationship Specialty Start Date End Date Kishor Mcmanus DO [address] [place] [address] PCP - General Internal Medicine 02/27/21 Per Seay MD [address] [place] [address] Geothermal Operating Engineer Cardiovascular Disease 02/28/21 Anton Robledo MD [address] [place] [address] Surgery, Orthopedic 03/08/21 Nabil Narvaez MD [address] [place] [address] Referring Provider Urology 03/08/21 documented as of this encounter
--- OUTSIDE RECORDS SUMMARY | 2025-01-28 11:24 | XMS_ITS | Encounter Summary ---
Author Organization [facility] Address [address] [place] [address] Care Team Providers Care Resource Conservation Manager Name Role Phone Kishor Mcmanus DO Primary Care Provider [phone] Per Seay MD Unavailable Anton Robledo MD Unavailable Nabil Narvaez MD Unavailable [phone] Encounter Details Date Type Department Care Team (Late st Contact Info) Description 06/06/2023 Scanned Document [facility] [address] [place] [address] Anton Robledo MD [address] [place] [phone] Social History Tobacco Use Types Packs/Day Years [...] on filedocumented in this encounter Care Teams Resource Conservation Manager Relationship Specialty Start Date End Date Kishor Mcmanus DO [address] [place] [address] PCP - General Internal Medicine 02/27/21 Per Seay MD [address] [place] [address] Peoplesoft Consultant Cardiovascular Disease 02/28/21 Anton Robledo MD [address] [place] [address] Surgery, Orthopedic 03/08/21 Nabil Narvaez MD [address] [place] [address] Referring Provider Urology 03/08/21 documented as of this encounter
--- OUTSIDE RECORDS SUMMARY | 2025-01-28 11:24 | XMS_ITS | Encounter Summary ---
Author Organization [facility] Address [address] [place] [address] Care Team Providers Care Hand Surgeon Name Role Phone Kishor Mcmanus DO Primary Care Provider Per Seay MD Unavailable [phone] Anton Robledo MD Unavailable [phone] Nabil Narvaez MD Unavailable [phone] Encounter Details Date Type Department Care Team (Late st Contact Info) Description 10/17/2023 Scanned Document [facility] [address] [place] [address] Anton Robledo MD [address] [place] [address] Social History Tobacco Use Types Packs/Day Years [...] on filedocumented in this encounter Care Teams Hand Surgeon Relationship Specialty Start Date End Date Kishor Mcmanus DO [address] [place] [address] PCP - General Internal Medicine 02/27/21 Per Seay MD [address] [place] [address] Senior Design Engineer Cardiovascular Disease 02/28/21 Anton Robledo MD [address] [place] [address] Surgery, Orthopedic 03/08/21 Nabil Narvaez MD [address] [place] [address] Referring Provider Urology 03/08/21 documented as of this encounter
--- OUTSIDE RECORDS SUMMARY | 2025-01-28 11:25 | XMS_ITS | Clinical Summary ---
Author Organization [facility] Address [address] [place] [address] Care Team Providers Care Central Office Maintainer Name Role Phone MariettaKishor DO Primary Care Provider Per Seay MD Unavailable [phone] Anton Robledo MD Unavailable Nabil Narvaez MD Unavailable Allergies No known active allergies Medications metoPROLOL SUCCINATE (TOPROL-XL) 50 MG 24 hr [...] tablet by mouth every morning. Active lisinopril (PRINIVIL,ZeSTR IL) 40 MG tablet Take 1 tablet by [...] PAIN -MAX 6 PER DAY 04/20/2021 Active sulfamethoxazol e-trimethoprim (BACTRIM DS,SEPTRA DS) 800-160 MG per tablet Take 1 tablet by mouth 2 (two) times a day. for 7 days 03/28/2021 Active tamsulosin (FLOMAX) 0.4 MG capsule TAKE 1 CAPSULE BY MOUTH DAILY FOR 5 DAYS 03/28/2021 Active aspirin enteric coated (ECOTRIN) 325 MG EC tabletIndicatio ns:Arthritis of left ankle Take 1 tablet (325 mg total) by mouth daily. Start the day after the lovenox course is complete. Do not start before May 19, 2021. 30 tablet 05/19/2021 Active calcium carbonate (Calcium 600) 600 MG tabletIndicatio ns:Pain in bone fixation device, initial encounter Take 1 tablet (600 mg total) by mouth 2 (two) times a day with meals. 60 tablet 3 11/22/2022 Active Vitamin D3 (CHOLECALCIFERO L) 50 MCG (2000 UT) tabletIndicatio ns:Pain in bone fixation device, initial encounter Take 2 tablets (4,000 Units total) by mouth daily. 30 tablet 3 11/22/2022 Active methocarbamol (ROBAXIN) 500 MG tabletIndicatio ns:Pain in bone fixation device, initial encounter Take 1 tablet (500 mg total) by mouth 2 (two) times a day as needed for muscle spasms. 60 tablet 11/22/2022 Active gabapentin (NEURONTIN) 300 MG capsuleIndicati ons:Pain in bone fixation device, initial encounter Take 1 capsule (300 mg total) by mouth nightly. 30 capsule 11/22/2022 Active acetaminophen (TYLENOL) 500 MG tabletIndicatio ns:Pain in bone fixation device, initial encounter Take 2 tablets (1,000 mg total) by mouth 3 (three) times a day with meals. 100 tablet 1 11/22/2022 Active calcium carbonate (Calcium 600) 600 MG tabletIndicatio ns:Pain in bone fixation device, initial encounter Take 1 tablet (600 mg total) by mouth 2 (two) times a day with meals. 60 tablet 3 11/22/2022 Active gabapentin (NEURONTIN) 300 MG capsuleIndicati ons:Pain in bone fixation device, initial encounter Take 1 capsule (300 mg total) by mouth nightly. 30 capsule 11/22/2022 Active Vitamin D3 (CHOLECALCIFERO L) 50 MCG (2000 UT) tabletIndicatio ns:Pain in bone fixation device, initial encounter Take 2 tablets (4,000 Units total) by mouth daily. 30 tablet 3 11/22/2022 Active oxyCODONE (ROXICODONE) 5 MG immediate release tabletIndicatio ns:Pain in bone fixation device, initial encounter Take 1 tablet (5 mg total) by mouth 4 times daily (every 6 hours) as needed for severe pain. TAKE AFTER SURGERY NEEDED FOR PAIN Max Daily Amount: 20 mg 28 tablet 11/22/2022 Active methocarbamol (ROBAXIN) 500 MG tabletIndicatio ns:Pain in bone fixation device, initial encounter Take 1 tablet (500 mg total) by mouth 2 (two) times a day as needed for muscle spasms. 60 tablet 11/22/2022 Active Active Problems Problem Noted Date Diagnosed Date Arthritis of left ankle 04/27/2021 Immunizations Immunization Administration Dates Next Due Covid-19 MRNA Vaccine [...] 74 04/28/2021 10:35 AM EST Temperature 36.2 C (97.1 F) 04/28/2021 10:35 AM EST Respiratory Rate 18 04/28/2021 10:35 AM EST Oxygen Saturation 95% 04/28/2021 10:35 AM EST Inhaled Oxygen Concentration - - Weight 86.2 kg (190 lb) 04/09/2021 12:58 PM EST Height 177.8 cm (5' 10 ) 04/09/2021 12:58 PM EST Body Mass Index 27.26 04/09/2021 12:58 PM EST Plan of Treatment Health Maintenance Due Date Last Done Comments Advance Care Planning 1940 DTaP/Tdap/Td Vaccines (1 - Tdap) 1959 Pneumococcal Vaccines 50+ (1 of 1 - PCV) 1990 Zoster (Shingles) Vaccine (1 of 2) 1990 RSV Vaccine 60 years and older and Patients (1 - 1-dose 75+ series) 2015 Influenza Vaccine 12/17/2024 01/26/2021, 09/11/2015 COVID-19 Vaccine (3 - season) 2025 02/20/2022, 02/06/2021 Hemoglobin A1C Discontinued 03/14/2021 Hepatitis B Vaccines Aged Out No long er eligible based on patient's age to complete this topic Medical Devices Implanted Type Area Order Picker Device Identifier Shelf Expiration Date Model / Serial / Lot Panta Nail [id number] Implanted:Qty: 1 on 04/27/2021 by Anton Robledo MD at [facility] Nail/Neo Left: Foot [employer] 11/13/2023 [id number] / / [id number] Screw Bone Panta 2 Pthrd 70mm 5mm Nonst Arthds Nail Sys - [id number] Implanted:Qty: 1 on 04/27/2021 by Anton Robledo MD at [facility] Screw [employer] [id number] / / [id number] Screw Bone Panta 2 Flthrd 28mm 5mm Nonst Arthds Nail Sys - [id number] Implanted:Qty: 1 on 04/27/2021 by Anton Robledo MD at [facility] Screw [employer] [id number] / / [id number] Screw Bone Panta 2 Flthrd 24mm 5mm Nonst Arthds Nail Sys - [id number] Implanted:Qty: 1 on 04/27/2021 by Anton Robledo MD at [facility] Screw [employer] [id number] / / Procedures Procedure Name Priority [...] 6.0(H) <5.7 % 03/14/2021 9:14 PM EDT [facility] Comment: A1c% Interpretation 5.7 - 6.0 Increase risk of diabetes 6.1 - 6.4 Higher risk of diabetes > or = 6.5 Consistent with diabetes Diabetes Care, 33(Supp 1):S1-S61, 2009 Estimated Average Glucose 126 mg/dL 03/14/2021 9:14 PM EDT [facility] Blood specimen (specimen) Blood specimen / Unknown 03/14/2021 12:38 PM EDT 03/14/2021 8:38 PM EDT Louann Khanh DATA OPERATIONS DIRECTOR LAB BLOOD ORDERABLES Final R esult [facility]OSPITAL [facility] [address] [place] [address] from Last 3 Months or Most Recently Relevant to Health Maintenance Insurance MEDICARE PART A & B MEDICARE PART A & B MEDICARE PART A & B BLUE CROSS OUT OF STATE - HMO Advance Directives * Full Code (Latest Code Status on File) Date Activated Date Inactivated Comments 04/27/2021 2:56 PM * Full Code Date Activated Date Inactivated Comments 04/27/2021 10:33 AM 04/27/2021 2:56 PM Care Teams Central Office Maintainer Relationship Specialty Start Date End Date Kishor Mcmanus DO [address] [place] [address] PCP - General Internal Medicine 02/27/21 Per Seay MD [address] [place] [address] Window Glazier Cardiovascular Disease 02/28/21 Anton Robledo MD [address] [place] [address] Surgery, Orthopedic 03/08/21 Nabil Narvaez MD [address] [place] [address] Referring Provider Urology 03/08/21
--- OUTSIDE RECORDS SUMMARY | 2025-01-28 11:25 | XMS_ITS | Clinical Summary ---
Author Organization [facility] Address [address] [place] [address] Phone Care Team Providers Care [facility] Director Name Role Phone Per Seay MD Unavailable [phone] Osman Rankin PA-C Primary Care Provider [phone] Allergies No known active allergies Medications atorvastatin (LIPITOR) 20 MG tablet Take 20 mg by mouth nightly at bedtime. Active metFORMIN (GLUCOPHAGE) 1000 MG tablet Take 1 tablet by mouth 2 (two) times a day. 1 Active aMILoride (MIDAMOR) 5 MG tablet Take 1 tablet by mouth every morning. Active insulin pen needles, disposable, (BD ULTRA-FINE IWONA PEN NEEDLES) 32 gauge x 5/32 Ndle as directed once daily 2 Active multivitamins capsule as directed Orally Active blood sugar diagnostic (ONETOUCH ULTRA BLUE TEST STRIP) Strp strips TEST TID.DX:E11.9 300 strip 3 9 Active losartan (COZAAR) 50 MG tablet Take 50 mg by mouth daily. Active BASAGLAR KWIKPEN U-100 INSULIN 100 unit/mL (3 mL) InPn injection pen Inject 20 Units under the skin nightly at bedtime. 5 Active metoprolol succinate (TOPROL-XL) 50 MG 24 hr tablet Take 50 mg by mouth daily. Active oxyBUTYnin (DITROPAN) 5 MG tablet Take 5 mg by mouth daily. 5 Active acetaminophen (TYLENOL) 500 MG tablet Take 500 mg by mouth every 6 (six) hours as needed for pain (specific location in comments). Active amLODIPine (NORVASC) 5 MG tablet Take 10 mg by mouth 2 (two) times a day. Active apixaban (ELIQUIS) 5 mg tablet Take 1 tablet (5 mg total) by mouth 2 (two) times a day. 60 tablet 2 Active loratadine (CLARITIN) 10 mg tablet Take 1 tablet by mouth daily. 01/28/20 Discontinue d(No longer taking) albuterol 90 mcg/actuation inhaler Inhale 2 puffs into the lungs every 6 (six) hours as needed for wheezing. Uses at night 01/28/20 Discontinue d(No longer taking) aspirin 81 MG EC tablet Take 81 mg by mouth daily. 01/28/20 Discontinue d(No longer taking) calcium carbonate 500 mg (200 mg elemental) chewable tablet Take 1 tablet by mouth daily. 01/28/20 Discontinue d(No longer taking) cholecalciferol (VITAMIN D3) 25 MCG (1,000 unit) tablet Take 1,000 Units by mouth daily. 01/28/20 Discontinue d(No longer taking) amiodarone (PACERONE) 200 MG tablet Take 200 mg by mouth 2 (two) times a day. 5 01/28/20 Discontinue d(No longer taking) Bacillus coagulans-inuli n (PROBIOTIC FORMULA, INULIN,) 1 billion-250 cell-mg Cap Take 1 capsule by mouth daily. 5 01/28/20 Discontinue d(No longer taking) ELIQUIS 5 mg tablet Take 5 mg by mouth 2 (two) times a day. 01/28/20 Discontinue d(No longer taking) omeprazole (PRILOSEC) 20 MG capsule Take 1 capsule (20 mg total) by mouth daily with breakfast. 30 capsule 1 5 01/28/20 Discontinue d(No longer taking) tetanus toxoid-reduced diphth toxoid-acell pertussis (BOOSTRIX,TDAP) 2.5-8-5 Lf-mcg-Lf/0.5mL Susp Inject 0.5 mL into the muscle once for 1 dose. 0.5 mL 5 01/28/20 25 apixaban (ELIQUIS) 5 mg tablet Take 5 mg by mouth 2 (two) times a day. 01/28/20 25 Discontinue d(Reorder) Active Problems Problem Noted Date Diagnosed Date Routine general medical exam ination at a [facility] care facility 01/27/2025 Assessment & Plan (01/27/2025 6:44 PM EDT): We will obtain a CMP, hemoglobin A1c, lipid panel and TSH level. Annual physical 1 year Mixed hyperlipidemia 01/27/2025 Assessment & Plan (01/27/2025 6:44 PM EDT): Patient with a history of hyperlipidemia on atorvastatin 20 mg daily. This medication will be continued and we will obtain a lipid panel Benign essential hypertension 01/27/2025 Assessment & Plan (01/27/2025 6:45 PM EDT): Patient with a history of hypertension who is controlled on amloride 5 mg daily, amlodipine 10 mg twice daily, losartan 50 mg daily, and metoprolol succinate 50 mg daily. Patient follows closely with [facility]. This current regimen will be continued. Atrial fibrillation 01/27/2025 Assessment & Plan (01/27/2025 6:48 PM EDT): Patient with a history of atrial fibrillation who follows closely with [facility]. According to the patient he had [...] pharmacy for him. -Patient to follow-up with [facility] as scheduled we will attempt to obtain the records from their office for further evaluation and documentation purposes -Patient to continue metoprolol succinate 50 mg daily and Eliquis 5 mg p.o. twice daily Type 2 diabetes mellitus wit hout complication, with long-term current use of insulin 01/27/2025 Assessment & Plan (01/27/2025 6:50 PM EDT): Patient with a history of diabetes who [...] we will obtain hemoglobin A1c Prostate cancer 01/27/2025 Assessment & Plan (01/27/2025 6:52 PM EDT): Patient with a history of prostate cancer who follows with [facility] urology. Patient does have a suprapubic cath in place secondary to undergoing multiple radiation treatments for his prostate cancer. Patient notes that he gets his suprapubic catheter changed monthly by the urology office. He is on oxybutynin 5 mg p.o. daily which will be continued. 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 Encounters Date Type Department Care Team Description 01/27/2025 3:04 PM EDT - 01/27/2025 11:59 PM EDT Hospital Encounter [facility] [address] [place] [address] Osman Rankin PA-C Discharge Disposition: Home or Self Care 01/27/2025 2:00 PM EDT Office Visit [facility] Internal Medicine [address] [place] [address] Osman Rankin PA-C Routine general medical examination at a health care facility (Primary Dx); Mixed hyperlipidemia; Benign essential hypertension; Atrial fibrillation, unspecified type; Type 2 diabetes mellitus without complication, with long-term current use of insulin; Prostate cancer 12/17/2024 11:00 AM EDT Telemedicine [facility] Medical Oncology [address], 7th [address], [address] [place] [address] Noe Riojas MD, PhD Gastrointestinal stromal tumor (GIST) (Primary Dx) 11/29/2024 1:30 PM EDT Telemedicine [facility] [address], 7[address], [address] [place] [address] Bea Andrade MD Gastrointestinal stromal tumor (Primary Dx) 11/22/2024 Telephone [facility] SURGERY VIRTUAL DEPARTMENT [address] [place] [phone] Bea Andrade MD 11/12/2024 7:53 AM EDT Anesthesia Event [facility] PERIOPERATIVE DEPT [address] [place] [phone] Rehan Murray Lindsay Patrice, RN 11/12/2024 7:45 AM EDT - 11/12/2024 11:08 AM EDT Surgery [facility] PERIOPERATIVE DEPT [address] [place] [phone] Bea Andrade MD ROBOTIC LAPAROSCOPIC GASTRECTOMY PARTIAL 11/12/2024 5:49 AM EDT - 11/13/2024 4:20 PM EDT Hospital Encounter [facility] [address] [place] [phone] Bea Andrade MD Discharge Disposition: Home or Self Care 11/12/2024 Procedure Pass [facility] PERIOPERATIVE DEPT [address] [place] [phone] 11/11/2024 Documentation [facility] Surgical Oncology [address], 4th [address], [address] [place] [address] Susana Vences RN 11/09/2024 10:00 AM EDT Pre-Admission Testing [facility] Pre-Procedure Evaluation Department Please See [place] [phone] Ghanshyam Morrissey MD 10/29/2024 8:30 AM EDT Telemedicine - audio only [facility] [address], [address], [address] [place] [address] Bea Andrade MD Gastrointestinal stromal tumor (Primary Dx) from Last 3 Months Immunizations Immunization Administration Dates Next Due Influenza High-Dose Trivalen t Preservative Free IM 01/27/2025,03/08/2021,02/25/2019,01/24,01/30/2017,01/19/2016 Influenza Quadrivalent Adjuv anted Preservative Free IM 03/20/2023,02/20/2022 Influenza Quadrivalent Prese rvative Free IM 02/11/2020 Influenza Trivalent Adjuvant ed Preservative free IM 03/01/2024 Pneumococcal conjugate PCV13 04/01/2017 Pneumococcal polysaccharide PPSV23 05/04/2019 RSV Vaccine (bivalent) 04/04/2023 Zoster live 04/02/2012 Zoster recombinant 10/09/2017,08/09/2017 Family History Medical History Relation Comments Lung cancer Brother 1 Alcohol use disorder Brother 2 Alcohol use disorder Father Diabetes mellitus Father Diabetes mellitus Mother No Known Problems Son 1 Substance use disorder Son 2 Relation Status Comments Brother 1 Brother 2 Daughter Father Mother Son 1 Alive Son 2 Unknown Social History Tobacco Use Types Packs/Day Years Used Date Smoking Tobacco: Former Cigarettes 1.5 28.3 0 10/23/1954 - 01/26/1983 Pipe Cigars Tobacco Cessation:Counseling Given: Not Answered Alcohol Use Standard Drinks/Week Comments Not Currently [...] Orientation Straight 09/17/2024 10 :17 AM EDT Last Filed Vital Signs Vital Sign Reading Time Taken Comments Blood Pressure 124/60 01/27/2025 1:52 PM EDT Pulse 68 01/27/2025 1:52 PM EDT Temperature 36.5 C (97.7 F) 11/13/2024 11:04 AM EDT Respiratory Rate 18 01/27/2025 1:52 PM EDT Oxygen Saturation 97% 01/27/2025 1:52 PM EDT Inhaled Oxygen Concentration - - Weight 92.5 kg (204 lb) 01/27/2025 1:52 PM EDT Height 177.8 cm (5' 10 ) 01/27/2025 1:52 PM EDT Body Mass Index 29.27 01/27/2025 1:52 PM EDT Plan of Treatment Upcoming Encounters Date Type Department Care Team (Late st Contact Info) Description 03/09/2025 11:30 AM EDT Office Visit [facility] Geriatric Medicine [address], [address]nd [place] [address] Aldair Lamb MD, MPH [phone] [place] [address] [email or web address] 05/02/2025 10:20 AM EST Office Visit [facility] Internal Medicine [address] [place], [place] [id number] Osman Rankin PA-C [address] [place] [address] [email or web address] Health Maintenance Due Date Last Done Comments Adult Td,Tdap Booster 1940 COVID-19 VACCINE ( season) 2025 03/01/2024, 03/20/2023, 09/18/2022, Additional history exists DIABETIC EYE EXAM 01/27/2025 08/19/2018 BLOOD PRESSURE 07/27/2025 01/27/2025 HEMOGLOBIN A1C 07/27/2025 01/27/2025, 02/17, 03/14/2021 DEPRESSION SCREENING 01/20/2026 01/20/2025 CREATININE LEVEL 01/27/2026 01/27/2025, , 10/18/2024 POTASSIUM LEVEL 01/27/2026 01/27/2025, 10/18, 10/18/2024 ZOSTER VACCINES Completed 10/09/2017, 07/18, 04/02/2012 PNEUMOCOCCAL VACCINES (50+ years) Completed 05/04/2019, 04/01/2017 RSV VACCINE Completed 04/04/2023 INFLUENZA VACCINE Completed 01/27/2025, , 03/20/2023, Additional history exists HEPATITIS A VACCINES Aged Out No long er eligible based on patient's age to complete this topic HIB VACCINES Aged Out No longer eligi ble based on patient's age to complete this topic MENINGOCOCCAL VACCINES (ACWY) Aged Out No longer eligible based on patient's age to complete this topic MENINGOCOCCAL VACCINES (B) Aged Out N o longer eligible based on patient's age to complete this topic Medical Devices Implanted Type Area Car Body Designer Device Identifier Shelf Expiration Date Model / Serial / Lot Prosthetic Joint Prosthetic Joint Bilateral : Ankle Procedures Procedure Name Priority Date/Time Associated Diagnosis Comments TSH Routine 01/27/2025 3:04 PM EDT Routine general medical examination at a [facility] facility COMPREHENSIVE METABOLIC PANEL Routine 01/27/2025 3:04 PM EDT Routine general medical examination at a [facility] facility LIPID PANEL Routine 01/27/2025 3:04 PM EDT Mixed hyperlipidemia HEMOGLOBIN A1C Routine 01/27/2025 3:04 PM EDT Routine general medical examination at a [facility] facility POCT GLUCOSE Routine 11/13/2024 11:06 AM EDT POCT GLUCOSE Routine 11/13/2024 5:28 AM EDT PHOSPHORUS Routine 11/13/2024 3:44 AM EDT MAGNESIUM Timed 11/13/2024 3:44 AM EDT BASIC METABOLIC PANEL Timed 11/13/2024 3:44 AM EDT CBC Timed 11/13/2024 3:44 AM EDT POCT GLUCOSE Routine 11/12/2024 11:25 PM EDT VANCOMYCIN RESISTANT ENTEROCOCCI (VRE) RECTAL SCREEN Routine 11/12/2024 8:32 PM EDT MRSA NASAL SCREEN Routine 11/12/2024 8:3 2 PM EDT POCT GLUCOSE Routine 11/12/2024 6:13 PM EDT POCT GLUCOSE Routine 11/12/2024 11:18 AM EDT ANATOMIC PATHOLOGY Routine 11/12/2024 10 :32 AM EDT AIRWAY PLACEMENT Routine 11/12/2024 8:09 AM EDT ENDOSCOPY UPPER GASTROINTESTINAL 11/12/2024 7:57 AM EDT Gastrointestinal stromal tumor HI LAP,STOMACH,OTHER,W/O TUBE 11/12/2024 7:57 AM EDT Gastrointestinal stromal tumor TYPE AND SCREEN (ABO,RH,ANTIBODY SCREEN) STAT 11/12/2024 7:42 AM EDT POCT GLUCOSE Routine 11/12/2024 7:25 AM EDT DIABETES EYE EXAM FOR RESULT ENTRY ONLY Routine 08/19/2018 from Last 3 Months or Most Recently Relevant to Health Maintenance Results * (ABNORMAL) Comprehensive metabolic panel (01/27/2025 3:04 PM EDT) SODIUM 135 133 - 146 mmol/L [facility] POTASSIUM 4.2 3.3 - 5.1 mmol/L [facility] CHLORIDE 100 96 - 108 mmol/L [facility] CO2 23 21 - 35 mmol/L [facility] BUN 17 6 - 19 mg/dL [facility] CREATININE 0.70 0.5 - 1.5 mg/dL [facility] GLUCOSE 192(H) 70 - 99 mg/dL [facility] ALBUMIN 3.9 3.9 - 4.8 g/dL [facility] TOTAL PROTEIN 7.2 6.5 - 8.0 g/dL [facility] CALCIUM 9.8 8.4 - 10.3 mg/dL [facility] ALKALINE PHOSPHATASE 66 39 - 117 U/L [facility] TOTAL BILIRUBIN <0.2 0.0 - 1.2 mg/dL [facility] AST 22 0 - 37 U/L [facility] ALT 17 0 - 40 U/L [facility] GLOBULIN 3.3 1 - 4.8 g/dL [facility] EGFR 91 >59 mL/min/1.7 3m2 [facility] Comment:Estimated glomerular filtration rate calculated using the CKD-EPI refit equation. ANION GAP 16 10 - 20 mmol/L [facility] Blood 01/27/2025 3:04 PM EDT 01/27/2025 3:06 PM EDT Osman Rankin PA-C LAB BLOOD ORDERABLES Final Re sult [address] [address] * TSH (01/27/2025 3:04 PM EDT) TSH 1.53 0.27 - 4.20 uIU/mL [facility] Blood 01/27/2025 3:04 PM EDT 01/27/2025 3:06 PM EDT Osman Rankin PA-C LAB BLOOD ORDERABLES Final Re sult Performing Organization Address [facility]/ZIP Co de Phone Number [address] [address] * (ABNORMAL) Hemoglobin A1c (01/27/2025 3:04 PM EDT) HEMOGLOBIN A1C 6.3(H) 4.3 - 5.8 % [facility] Blood 01/27/2025 3:04 PM EDT 01/27/2025 3:06 PM EDT Osman Rankin PA-C LAB BLOOD ORDERABLES Final Re sult Performing Organization Address [facility]/ZIP Co de Phone Number [address] [phone] * Lipid panel (01/27/2025 3:04 PM EDT) HDL 44 mg/dL [facility] Comment: Interpretation <40 mg/dL: Low HDL cholesterol (major risk factor for CHD) Greater than or equal to 60 mg/dL: High HDL cholesterol ( negative risk factor for CHD) HDL - cholesterol is affected by a number of factors, e.g. smoking, excerise, hormones, sex and age. CHOLESTEROL 148 0 - 240 mg/dL [facility] TRIGLYCERIDES 145 30 - 160 mg/dL [facility] LDL 75 50 - 129 mg/dL [facility] Comment: LDL levels in terms of risk for coronary heart disease: <100 mg/dL: Optimal 100-129 mg/dL: Near or above optimal 130-159 mg/dL: Borderline high 160-189 mg/dL: High >190 mg/dL: Very High CARDIAC RISK RATIO 3.4 3.4 - 5.0 C [facility] Blood 01/27/2025 3:04 PM EDT 01/27/2025 3:06 PM EDT us Osman Rankin PA-C LAB BLOOD ORDERABLES Final Re sult [facility] [address] [place] [address] * (ABNORMAL) POCT Glucose (11/13/2024 11:06 AM EDT) Only the most recent of6 resultswithin the time period is included. Glucose, POCT 156(H) 70 - 110 mg/dL [facility] 11/13/2024 11:0 6 AM EDT 11/13/2024 11:12 AM EDT us Bea Andrade MD POINT OF CARE TEST ORDERABL ES Final Result Performing Organization Address City/[facility]/ZIP Co de Phone Number [address] [address] * (ABNORMAL) CBC (11/13/2024 3:44 AM EDT) WBC 9.79 4.00 - 11.00 K/uL [facility] RBC 3.99(L) 4.50 - 5.90 M/uL [facility] HGB 12.1(L) 13.5 - 17.5 g/dL [facility] HCT 37.9(L) 41.0 - 53.0 % [facility] PLT 202 150 - 450 K/uL [facility] MCV 95.0 80.0 - 100.0 fL [facility] MCH 30.3 27.0 - 31.0 pg [facility] MCHC 31.9(L) 32.0 - 36.0 g/dL [facility] RDW 14.2 11.5 - 14.5 % [facility] MPV 10.4 8.4 - 12.0 fL [facility] NRBC 0.00 0.00 /100 WBCs [facility] ABSOLUTE NRBC 0.00 0.00 K/uL [facility] Blood 11/13/2024 3:44 AM EDT 11/13/2024 4:09 AM EDT Bea Andrade MD LAB BLOOD ORDERABLES Final Result Performing Organization Address City/[facility]/ZIP Co de Phone Number [address] [address] * Phosphorus (11/13/2024 3:44 AM EDT) PHOSPHORUS 2.6 2.6 - 4.5 mg/dL [facility] Blood 11/13/2024 3:44 AM EDT 11/13/2024 4:09 AM EDT Bea Andrade MD LAB BLOOD ORDERABLES Final Result [address] [address] * Magnesium (11/13/2024 3:44 AM EDT) MAGNESIUM 1.7 1.7 - 2.4 mg/dL [facility] Blood 11/13/2024 3:44 AM EDT 11/13/2024 4:09 AM EDT Bea Andrade MD LAB BLOOD ORDERABLES Final Result [address] [address] * (ABNORMAL) Basic metabolic panel (11/13/2024 3:44 AM EDT) SODIUM 137 135 - 145 mmol/L [facility] POTASSIUM 3.3(L) 3.4 - 5.0 mmol/L [facility] CHLORIDE 101 98 - 108 mmol/L [facility] CO2 26 23 - 32 mmol/L [facility] BUN 11 8 - 25 mg/dL [facility] CREATININE 0.60 0.60 - 1.30 mg/dL [facility] GLUCOSE 93 70 - 110 mg/dL [facility] CALCIUM 8.4(L) 8.5 - 10.5 mg/dL [facility] EGFR 95 >59 mL/min/1. 73m2 [facility] Comment:Estimated glomerular filtration rate calculated using the CKD-EPI refit equation. ANION GAP 10 3 - 17 mmol/L [facility] Blood 11/13/2024 3:44 AM EDT 11/13/2024 4:09 AM EDT us Bea Andrade MD LAB BLOOD ORDERABLES Final Result [address] [address] * MRSA Nasal Screen (11/12/2024 8:32 PM EDT) Special Requests No Special Requests 11/12/2024 8:32 PM EDT [facility] MRSA Nasal Culture NEGATIVE FOR MRSA 11/14/2024 8:27 AM EDT [facility] Other (Nasal) 11/12/2024 8:3 2 PM EDT 11/12/2024 9:12 PM EDT us Bea Andrade MD MICROBIOLOGY - GENERAL ORDE RABLES Final Result [address] [address] * Vancomycin Resistant Enterococci (VRE), Rectal Screen (11/12/2024 8:32 PM EDT) Special Requests No Special Requests 11/12/2024 8:32 PM EDT [facility] VRE Rectal Culture NEGATIVE FOR VRE 11/14/2024 8:38 AM EDT [facility] Other (Rectal) 11/12/2024 8: 32 PM EDT 11/12/2024 9:12 PM EDT Bea Andrade MD MICROBIOLOGY - GENERAL ORDAvinash OLMEDO Final Result [address] [address] * Anatomic Pathology (11/12/2024 10:32 AM EDT) 11/12/2024 10:3 2 AM EDT 11/12/2024 12:00 PM EDT Narrative SEE NARRATIVE - 11/18/2024 10:33 AM EDT [address], [place] [address] Surgical Pathology Report Patient Name: ARPAN DUBON : 1940 (Age: 84) Sex: M Location: PERIOP Institution: [facility] Date of Operation: 11/12/2024 Date of Reported: 11/18/2024 10:33 Results To: Bea Hernandez PA-C FINAL PATHOLOGIC DIAGNOSIS: A. 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 Mitoses number 1 per 5 mm2 Risk classification: Low (3.6%) Gastric body/fundus with no other diagnostic abnormality. Resection margins are negative for tumor. Immunohistochemical stains performed at [facility] reveal the following profile in the lesional cells: Positive: c-Kit (CD117), DOG1 SYNOPTIC REPORT FOR GASTROINTESTINAL STROMAL TUMOR TUMOR STAGE SUMMARY: pT3 Nx TUMOR SITE: Gastric body, anterior wall TUMOR SIZE (greatest dimension): 6.0 cm TUMOR PHENOTYPE: Spindled MITOTIC ACTIVITY: Mitoses per 5 mm2:1 HISTOLOGIC GRADE: Low (5 or fewer mitoses per 5 mm2) EXTENT OF INVASION: Tumor invades muscularis propria and subserosa LYMPH-VASCULAR INVASION: Not identified. MARGINS: Negative for tumor. Closest margin: Mucosal (1.0 cm) PRIMARY TUMOR: T3 (Tumor more than 5 cm but not more than 10 cm) REGIONAL LYMPH NODES: pNx (Cannot be assessed) Electronically Signed Out By Ramu Aleman MD, PHD By his/her signature above, the pathologist listed as making the Final Diagnosis certifies that he/she has personally reviewed the case and confirmed the diagnosis. All slides and stains were of sufficient quality to establish the diagnosis, unless otherwise stated. CLINICAL HISTORY Gastrointestinal stromal tumor SPECIMENS SUBMITTED: A: STOMACH, GASTRIC MASS RESECTION GROSS DESCRIPTION Received fresh labeled Arpan Dubon, , and gastric mass is a 6.2 x 4.5 cm partial gastrectomy remarkable for a 6.0 x 4.5 x 2.7 cm pink-blanchard to dusky to chalky yellow, hemorrhagic, mildly necrotic serosal mass with a central 4.3 cm cavity. The mass appears entirely serosal and comes within 1.0 cm of the nearest gastric margin; no discrete muscularis involvement can be appreciated. The mucosa is pink-argueta, well folded, and unremarkable. There is an 11.5 x 5.3 x 1.8 cm portion of blanchard-yellow, lobulated adipose tissue attached to the surface of the mass. Tissue is allocated for research under protocol [id number], and merchandising representative sections are submitted as follows: A1-A3: Mass to underlying stomach and closest gastric margins A4: Mass and adherent adipose tissue A5-A6: Mass, merchandising representative Grossed by: Bhavesh Dorado Immunohistochemical and in-situ hybridization tests performed at [facility] have been developed and their performance characteristics determined by the Immunohistochemistry Laboratories in the Department of Pathology at [facility]. They have not been cleared or approved by the U.S.Food and Drug Administration (FDA); the FDA has determined that such clearance or approval is not necessary. us Bea Andrade MD PATHOLOGY ORDERABLES Final Result SEE NARRATIVE * ANES ETT DOUBLE LUMEN - AIRWAY LDA (11/12/2024 8:09 AM EDT) Narrative Rehan Murray - 11/12/2024 8:09 AM EDT Rehan Murray 11/12/2024 8:16 AM Airway Placement Procedure Note: Patient was not difficult to intubate. Procedure performed by: anesthesiologist Anesthesiologist: Rehan Murray Airway procedure initiated at:11/12/2024 8:09 AM and ended at. Personal Protective Equipment: Mask: surgical mask Gloves: gloves Mask Ventilation: Quality: easy Airway Placement: Technique: direct laryngoscopy Rapid sequence induction: no Details: Blade type: Mac Blade size: 4 Direct view: grade 1 Number of attempts: 1 ETT type: cuffed ETT size: 7.5 ETT depth at teeth: 23 ETT cuff inflation volume: 9 Tube position confirmed by: EtCO2 Bite Block: soft Outcomes: Evidence of dental injury? no Complications observed? no Rehan Murray HI ANESTHESIA Final Result * Type and Screen (ABO,Rh,Antibody Screen) (11/12/2024 7:42 AM EDT) Expiration Date of Sample 11/15/2024 11:59 PM [facility] ABO O 11/12/2024 9:02 AM EDT [facility] Rh Positive 11/12/2024 9:02 AM EDT [facility] Comment:Additional Specimen for ABORH Needed for RBC Xmtch Resulting Agency [facility] Antibody Screen Negative 11/12/2024 9:06 AM EDT [facility] Blood 11/12/2024 7:42 AM EDT 11/12/2024 7:56 AM EDT Rehan Murray BLOOD BANK TEST ORDERABLES Final Result [address] [address] * DIABETES EYE EXAM FOR RESULT ENTRY ONLY (08/19/2018) HM EYE EXAM SEE SCANNED us Historical Provider HEALTH MAINTENANCE Final Result from Last 3 Months or Most Recently Relevant to Health Maintenance Insurance MEDICARE PART A & B [employer] PCP REQ SUPPLEMENT MEDICARE PART A & B [employer] [facility] RE[facility] MEDICARE PART A & B Why Not Give BackEX PCP REQ SUPPLEMENT MEDICARE PART A & B Why Not Give BackEX PCP REQ SUPPLEMENT MEDICARE PART A & B Why Not Give BackEX PCP REQ SUPPLEMENT [facility] [place] MEDIC[place] PART A & B [employer] MEDEX PCP REQ SUPPLEMENT MEDICARE PART A & B [facility] PCP REQ SUPPLEMENT [facility] Address: [facility] [id number] [place], [place] [address] MEDICARE PART A & B Why Not Give BackEX PCP REQ SUPPLEMENT MEDICARE PART A & B Why Not Give BackEX PCP REQ SUPPLEMENT Care Teams [employer] Director Relationship Specialty Start Date End Date Osman Rankin PA-C [address] [place] [id number] [email or web address] PCP - General Physician Lingo Cleaner 01/27/25 Per Seay MD [address] [place] [address] Cardiology 11/10/24 Additional Source Comments The information contained in this document represents components of the legal health record. It is not the complete legal health record.[facility]
== END 2025-01-28 10:44 | disposition home or self-care (01) ==
LOC: HO.HMCSH 10:03
PROVIDERS: PCP Internal Medicine; Visit Provider Physician Assistant Medical
DX: E11.8 Type 2 diabetes mellitus with unspecified complications (principal); K31.89 Other diseases of stomach and duodenum; D64.9 Anemia, unspecified

== ENCOUNTER → 2025-01-28 10:03 | Outpatient (BNVA) | payer MEDICARE, BC, SELFPAY | PROVIDERS: PCP Internal Medicine; Visit Provider Physician Assistant Medical | DX: E11.8 Type 2 diabetes mellitus with unspecified complications (principal); K31.89 Other diseases of stomach and duodenum; D64.9 Anemia, unspecified | CPT/HCPCS: 83036; 96127; 99212 ==

== ENCOUNTER 2025-03-25 04:20 | Emergency (ER) | payer MEDICARE, BC, SELFPAY ==
--- NOTE | ~2025-03-25 | XR_ITS ---
EXAMINATION: XR CHEST CLINICAL INFORMATION: chest pain COMPARISON: None available. TECHNIQUE: PA and lateral views FINDINGS: Pulmonary reticular pattern. No consolidation, pleural effusion or pneumothorax. Cardiomediastinal silhouette size is normal. Multilevel syndesmophyte formation and marginal osteophyte formation and endplate sclerosis and decreased intervertebral disc height throughout the thoracolumbar spine. S-shaped curvature of the thoracolumbar spine. XR/XR chest 2V IMPRESSION: Chronic interstitial lung disease without acute airspace disease. Multilevel spondylosis and scoliosis, thoracolumbar spine. Electronically signed by: Darrion Wilkins MD 03/25/2025 06:52 AM EST
--- NOTE | 2025-03-25 04:24 | ECG_ITS ---
Test Reason : CP Blood Pressure : */* mmHG Vent. Rate : 79 BPM Atrial Rate : 79 BPM P-R Int : 140 ms QRS Dur : 82 ms QT Int : 362 ms P-R-T Axes : 66 56 74 degrees QTcB Int : 415 ms Normal sinus rhythm Normal ECG When compared with ECG of 18-Sep-2024 00:09, No significant change was found Referred By: Generic ED Physician Electronically Signed By: Greg Cheney
[2025-03-25 04:25] VITALS: BP 130/60; PULSE 80; O2SAT 99
[2025-03-25 04:28] VITALS: BP 151/69; PULSE 77; RESP 16; TEMP 36.4; O2SAT 95; BMI 30.4
--- NOTE | 2025-03-25 04:36 | ED.CHESTPAIN ---
HPI - Chest Pain General Chief Complaint: Chest Pain Stated Complaint: WOKE UP W/CP FOR 10M,RESOLVED W/ANTACID Time Seen by Provider: 03/25/25 04:36 History of Present Illness ED Provider: Rachelle MAXWELL narrative: The patient is an 84-year-old male with a history of atrial fibrillation on anticoagulation who says that he felt in his usual state of health when he went to bed last night at around 10PM. He was a woken at around 2AM this morning with a sense of a pressure-like chest discomfort that may have been associated with a mild sense of shortness of breath. There was no chidi diaphoresis or nausea. He says that he got up from bed and took an antacid gummy. After a total of about 10 minutes the discomfort resolved. He then tried to go back to sleep but that discomfort returned and then he got up and asked his to call an ambulance.. He says that the 2nd episode of discomfort also resolved on its own. He is not certain how long the 2nd episode lasted but he thinks it was less intense and less long in duration than the 1st episode. He has not had any additional episodes since the resolution of the 2nd episode. Paramedics administered 324 mg of aspirin and transferred him to the hospital. No fever, sweats, chills. No abdominal pain, nausea, vomiting. Related Data Home Medications ?Medication ?Instructions ?Recorded ?Confirmed multivitamin 1 tab PO DAILY 07/06/24 01/28/25 acetaminophen 500 mg tablet 500 mg PO Q6H PRN yes 08/10/24 01/28/25 losartan 100 mg tablet 50 mg PO DAILY 01/06/25 01/28/25 Previous Rx's ?Medication ?Instructions ?Recorded oxybutynin chloride 5 mg tablet 5 mg PO DAILY #90 tabs 08/18/24 atorvastatin 20 mg tablet 20 mg PO DAILY #90 tabs 11/17/24 metformin 1,000 mg tablet 1,000 mg PO BIDWM 90 days #180 tabs 12/13/24 amiloride 5 mg tablet 5 mg PO BID 90 days #180 tabs 01/18/25 metoprolol succinate 50 mg 75 mg (1.5 x 50 mg) PO DAILY 90 01/18/25 tablet,extended release 24 hr days #135 tabs amlodipine 5 mg tablet 10 mg (2 x 5 mg) PO BID #360 tabs 01/20/25 insulin glargine 100 unit/mL (3 18 unit (0.18 mL) subcut QPM #15 mL 01/24/25 mL) subcutaneous pen (Basaglar KwikPen U-100 Insulin) pen needle, diabetic 32 gauge x #100 ea 01/28/25 albuterol sulfate 90 mcg/actuation 1 puff inhalation QID PRN for 03/10/25 aerosol inhaler wheezing #8.5 grams Allergies Allergy/AdvReac Type Severity Reaction Status Date / Time No Known Allergies (No Known Allergy Verified 03/25/25 04:29 Allergies*) Review of Systems Review of Systems: Yes all other systems are reviewed and are negative [facility] Past Medical History Medical History Hyperlipidemia Anemia History of pyelonephritis Substance abuse Alcoholism Mitral annular calcification Hyperaldosteronism Essential hypertension Type 2 diabetes mellitus with unspecified complications PVC (premature ventricular contraction) Atrial tachycardia HTN (hypertension) Diabetes Suprapubic catheter Surgical History History of colonoscopy (~12/03/16) History of nephrolithotomy with removal of calculi History of ankle surgery History of tonsillectomy History of lumbar surgery History of prostate surgery Family History Family History Father No problems noted. Mother No problems noted. Social History Social History Household Members: Spouse Housing: House Do you presently have visiting nurse or other home services: No Alcohol intake: never Patient Tobacco Use Status: Former Tobacco user Years Smoked: 20 +/- Smoked in Last 30 Days: No e-Cigarette/Vaping Use: Never Used Use of substances other than those prescribed or required for medical reasons: No Advance Directives: Yes Advance Directives on File: Yes Advance Directives Date on File: 07/06/24 service: No Current occupational status: retired Gender identity: Male Cognitive needs: Yes (cane) Hearing needs: Yes (b/l hearing aids) Vision needs: Yes (rx glasses) Physical Exam Vital Signs: Vital Signs: Last Vital Signs Temp 98.0 F 03/25/25 06:16 Pulse 74 03/25/25 06:16 Resp 16 03/25/25 06:16 BP 125/64 03/25/25 06:16 Pulse Ox 94 03/25/25 06:16 O2 Del Method Room Air 03/25/25 06:16 BMI result Body Mass Index 30.4 Const: Other: The patient is awake, alert, pleasant, cooperative. He has not appear in any distress. Orientation/consciousness: patient oriented x3 HEENT: Other: The face is symmetrical. ?Mucous membranes moist. Eyes: Other: Pupils are round equal, conjunctivae are clear, extraocular movements intact Neck: Neck: Yes normal visual inspection, Yes full ROM and Yes no JVD Resp: Effort & Inspection: normal respiratory effort Auscultation: clear to auscultation bilaterally Cardio: Rate: regular rate Rhythm: regular rhythm Heart sounds: S1 normal heart sound present and S2 normal heart sound present GI: Other: Abdomen is soft and nontender Skin: Other: The skin is dry and unremarkable Neuro: General: patient oriented x3, tone normal, moves all extremities, no focal motor deficits and CN's II-XI intact bilaterally Extrem: Other: There is no calf swelling or tenderness. No asymmetry. No peripheral edema. Medical Decision Making Medical Decision Making MDM Narrative: The patient is an 84-year-old male with a history of paroxysmal atrial fibrillation who was on apixaban. He also has a history of diabetes and hypertension and elevated cholesterol. He had 2 episodes of chest discomfort at home this morning. The longer of these 2 episodes lasted about 10 minutes and improved after he had taken some kind of an antacid at home. His EKG in the emergency room is unremarkable. He has had 2 troponins measured in the emergency room which are normal. Clinically my suspicion for an acute coronary syndrome in his the patient is fairly low although the patient certainly has a risk factors for coronary disease. I think it would be reasonable to discharge the patient with instructions to use an antacid for any recurrent similar pain. He should contact his primary care doctor's office today for a follow up appointment. If his symptoms are significantly worse at any time he should return to the emergency room for additional evaluation. Lab Data 03/25/25 04:52 03/25/25 04:52 Labs: Lab Results 03/25/25 03/25/25 Range/Units 04:52 06:48 WBC 8.4 (4.8-10.8) X10*3/uL RBC 4.14 L (4.60-5.80) X10*6/uL Hgb 13.0 L (14.0-18.0) g/dl Hct 39.6 L (42.0-52.0) % MCV 95.7 (80.0-98.0) fL MCH 31.4 (27.0-33.0) pg MCHC 32.8 (31.0-36.0) g/dl RDW 13.3 (11.0-16.0) % Plt Count 135 L D (160-400) X10*3/uL MPV 11.1 (9.4-12.4) fL Immature Gran % (Auto) 0.4 (0.0-0.4) % Neut % (Auto) 61.9 (45-73) % Lymph % (Auto) 20.7 (20-40) % [place] % (Auto) 11.9 H (2-11) % Eos % (Auto) 4.0 (0-4) % Baso % (Auto) 1.1 (0-2) % Lymph # (Auto) 1.7 (1.2-4.9) X10*3/uL [place] # (Auto) 1.0 (0.1-1.2) X10*3/uL Eos # (Auto) 0.3 (0.0-0.4) X10*3/uL Baso # (Auto) 0.1 (0.0-0.2) X10*3/uL Abs Immat Gran (auto) 0.03 (0.00-0.03) X10*3/uL Absolute Neuts (auto) 5.2 (2.0-8.3) x10*3/uL Absolute Nucleated RBC 0.000 (0.0-0.012) X10*3/uL Nucleated RBC % (auto) 0.0 (0.0-0.2) /100WBC Sodium 138 (135-145) mmol/L Potassium 4.3 (3.3-5.1) mmol/L Chloride 108 (96-108) mmol/L Carbon Dioxide 21 L (22-29) mmol/L Anion Gap 13 (12-20) BUN 14 (9-16) mg/dL Creatinine 0.63 (0.5-1.4) mg/dL Estim Creat Clear Calc 101.4 Estimated GFR > 60 Random Glucose 106 (60-115) mg/dL Calcium 9.2 (8.4-10.2) mg/dL Total Bilirubin 0.3 (0.0-1.0) mg/dL AST 34 (5-37) U/L ALT 25 (0-40) U/L Alkaline Phosphatase 59 (39-117) U/L Troponin I High Sens 3.6 3.8 (<3.5-35.0) ng/L Total Protein 7.2 (6.5-8.0) g/dL Albumin 4.0 (3.5-5.0) g/dL Independent Interpretation I performed an independent interpretation of an: EKG Interpretation: EKG at 04:27 shows normal sinus rhythm at 79 beats per minute. No definite acute ischemic changes seen. Discharge Plan Discharge Clinical Impression: Chest discomfort Patient Disposition: Home, Self-Care Instructions: GERD (Gastroesophageal Reflux Disease) (ED) Additional Instructions: Your testing in the emergency room seems reassuring from the point of view of your symptoms representing a heart attack or the warning of a heart attack. Your EKG today looks quite normal and the blood tests that we use to look for a heart attack are normal. It is possible you may have experienced some degree of esophageal reflux (the fancy name for heartburn). At this point I think it would be reasonable for you to make sure that you have something like Maalox or another liquid antacid available at home in case you have a recurrence of symptoms. Please plan on following up with your primary care doctor's office soon to discuss this further. Call the office today to set up a follow up appointment. However if you have any recurrence of pain that feels very significant, especially if associated with any shortness of breath, in his especially if it lasts longer than the episodes that you had this morning, please return to the emergency room for additional evaluation. Prescriptions: No Action oxybutynin chloride 5 mg tablet 5 mg PO DAILY Qty: 90 1RF atorvastatin 20 mg tablet 20 mg PO DAILY Qty: 90 1RF metformin 1,000 mg tablet 1,000 mg PO BIDWM 90 Days Qty: 180 1RF amiloride 5 mg tablet 5 mg PO BID 90 Days Qty: 180 3RF metoprolol succinate 50 mg tablet extended release 24 hr 75 mg PO DAILY 90 Days Qty: 135 3RF amlodipine 5 mg tablet 10 mg PO BID Qty: 360 1RF insulin glargine [Basaglar KwikPen U-100 Insulin] 100 unit/mL (3 mL) insulin pen 18 unit subcut QPM Qty: 15 1RF albuterol sulfate 90 mcg/actuation HFA aerosol inhaler 1 puff inhalation QID PRN (Reason: for wheezing) Qty: 8.5 3RF multivitamin Tablet 1 tab PO DAILY acetaminophen 500 mg tablet 500 mg PO Q6H PRN (Reason: yes) (DME) pen needle, diabetic 32 gauge x /32 needle See Rx Instructions .ROUTE .MEDSUPPLY Qty: 100 3RF Rx Instructions: check glucose three times a day with meals losartan 100 mg tablet 50 mg PO DAILY Referrals: Nitin Be MD [Physician, Internal Medicine] Print Language: Macanese
[2025-03-25 05:07] LABS: Hematocrit 39.6 % (42.0-52.0); Hemoglobin 13.0 g/dl (14.0-18.0); Imm Gran Abs Auto 0.03 X10*3/uL (0.00-0.03); Imm Gran Pct Auto 0.4 % (0.0-0.4); Lymphocytes Absolute Auto 1.7 X10*3/uL (1.2-4.9); Mean Corpuscular HGB Conc 32.8 g/dl (31.0-36.0); Mean Corpuscular Hemoglobin 31.4 pg (27.0-33.0); Mean Corpuscular Volume 95.7 fL (80.0-98.0); NRBC Abs Auto 0.000 X10*3/uL (0.0-0.012); NRBC Pct Auto 0.0 /100WBC (0.0-0.2); PLT CLUMP 1; Red Blood Count 4.14 X10*6/uL (4.60-5.80); SCAN SMEAR FLAG 1
[2025-03-25 05:08] LABS: MANUAL DIFF FLAG NO; White Blood Count 8.4 X10*3/uL (4.8-10.8)
[2025-03-25 05:13] LABS: Alanine Aminotransferase 25 U/L (0-40); Albumin Level 4.0 g/dL (3.5-5.0); Alkaline Phosphatase 59 U/L (39-117); Anion Gap 13 (12-20); Aspartate Amino Transferase 34 U/L (5-37); Blood Urea Nitrogen 14 mg/dL (9-16); Calcium 9.2 mg/dL (8.4-10.2); Carbon Dioxide 21 mmol/L (22-29); Chloride 108 mmol/L (96-108); Creatinine Clr Calc Pharmacy 101.4; Estimated Glomerular Filt Rate > 60; Potassium 4.3 mmol/L (3.3-5.1); Sodium 138 mmol/L (135-145); Total Protein 7.2 g/dL (6.5-8.0)
--- OUTSIDE RECORDS SUMMARY | 2025-03-25 05:22 | XMS_ITS | Clinical Summary ---
Author Organization [facility] Address [address] [place] [address] Phone Care Team Providers Care Optics Test Technician Name Role Phone Per Seay MD Unavailable [phone] Osman Rankin PA-C Primary Care Provider [phone] Allergies No known active allergies Medications atorvastatin (LIPITOR) 20 MG tablet Take 20 mg by mouth nightly at bedtime. Active metFORMIN (GLUCOPHAGE) 1000 MG tablet Take 1 tablet by mouth 2 (two) times a day. 11/29/2010 Active aMILoride (MIDAMOR) 5 MG tablet Take 1 tablet by mouth every morning. Active insulin pen needles, disposable, (BD ULTRA-FINE [place] PEN NEEDLES) 32 gauge x 5/32 Ndle as directed once daily 03/30/2012 Active multivitamins capsule as directed Orally Active blood sugar diagnostic (ONETOUCH ULTRA BLUE TEST STRIP) Strp strips TEST TID.DX:E11.9 300 strip 3 10/05/2018 Active losartan (COZAAR) 50 MG tablet Take 50 mg by mouth daily. Active BASAGLAR KWIKPEN U-100 INSULIN 100 unit/mL (3 mL) InPn injection pen Inject 20 Units under the skin nightly at bedtime. 07/27/2024 Active metoprolol succinate (TOPROL-XL) 50 MG 24 hr tablet Take 50 mg by mouth daily. Active oxyBUTYnin (DITROPAN) 5 MG tablet Take 5 mg by mouth daily. 08/18/2024 Active acetaminophen (TYLENOL) 500 MG tablet Take 500 mg by mouth every 6 (six) hours as needed for pain (specific location in comments). Active amLODIPine (NORVASC) 5 MG tablet Take 10 mg by mouth 2 (two) times a day. Active apixaban (ELIQUIS) 5 mg tablet Take 1 tablet (5 mg total) by mouth 2 (two) times a day. 60 tablet 2 01/27/2025 Active albuterol 90 mcg/actuation inhaler Inhale 2 puffs into the lungs every 6 (six) hours as needed for wheezing. 18 g 2 03/10/2025 Active Active Problems Problem Noted Date Diagnosed Date Routine general medical exam ination at a health care facility 01/27/2025 Assessment & Plan (01/27/2025 [...] 50 mg daily. Patient follows closely with [facility]. This current regimen will be continued. Atrial fibrillation 01/27/2025 Assessment & Plan (01/27/2025 6:48 PM EDT): Patient with a history of atrial fibrillation who follows closely with [facility]. According to the patient he had [...] pharmacy for him. -Patient to follow-up with [facility] as scheduled we will attempt to [...] history of prostate cancer who follows with [facility] urology. Patient does have a suprapubic cath in place secondary to undergoing multiple radiation treatments for his prostate cancer. Patient notes that he gets his suprapubic catheter changed monthly by the urology office. He is on oxybutynin 5 mg p.o. daily which will be continued. 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 Encounters Date Type Department Care Team Description 03/10/2025 Telephone [facility] [address] [place] [address] Osman Rankin PA-C Medication Refill 03/09/2025 11:30 AM EDT Telemedicine [facility] [place] [place] Geriatric Medicine [address] [place] [address], 2nd [place] [address] Aldair Lamb MD, MPH Pain of joint of left ankle and foot (Primary Dx) 01/27/2025 3:04 PM EDT - 01/27/2025 11:59 PM EDT Hospital Encounter [facility] [address] [place] [address] Osman Rankin PA-C Discharge Disposition: Home or Self Care 01/27/2025 2:00 PM EDT Office Visit [facility] Internal Medicine [address] [place] [address] Osman Rankin PA-C Routine general medical examination at a health care facility (Primary Dx); Mixed hyperlipidemia; Benign essential hypertension; Atrial fibrillation, unspecified type; Type 2 diabetes mellitus without complication, with long-term current use of insulin; Prostate cancer from Last 3 Months Immunizations Immunization Administration [...] Care Team (Late st Contact Info) Description 05/02/2025 10:20 AM EST Office Visit [facility] Internal Medicine [address] [place] [address] Osman Rankin PA-C [address] [place] [address] [email or web address] Health Maintenance Due Date Last Done Comments [...] this topic Medical Devices Implanted Type Area Construction Job Cost Estimator Device Identifier Shelf Expiration Date Model / Serial / Lot Prosthetic Joint Prosthetic Joint Bilateral : Ankle Procedures Procedure Name Priority Date/Time Associated Diagnosis Comments THYROID STIMULATING HORMONE (TSH) Routine 01/27/2025 3:04 PM EDT Routine general medical examination at a [facility] COMPREHENSIVE METABOLIC PANEL (CMP) Routine 01/27/2025 3:04 PM EDT Routine general medical examination at a [facility] LIPID PANEL Routine 01/27/2025 3:04 PM EDT Mixed hyperlipidemia HEMOGLOBIN A1C Routine 01/27/2025 3:04 PM EDT Routine general medical examination at a [facility] DIABETES EYE EXAM FOR RESULT ENTRY ONLY Routine 08/19/2018 from Last 3 Months or Most Recently Relevant to Health Maintenance Results * (ABNORMAL) Comprehensive metabolic panel (01/27/2025 3:04 PM EDT) SODIUM 135 133 - 146 mmol/L [facility] POTASSIUM 4.2 3.3 - 5.1 mmol/L [facility] CHLORIDE 100 96 - 108 mmol/L [facility] CO2 23 21 - 35 mmol/L [facility] BUN 17 6 - 19 mg/dL [facility] CREATININE 0.70 0.5 - 1.5 mg/dL [facility] GLUCOSE 192(H) 70 - 99 mg/dL [facility] ALBUMIN 3.9 3.9 - 4.8 g/dL [facility] TOTAL PROTEIN 7.2 6.5 - 8.0 g/dL [facility] CALCIUM 9.8 8.4 - 10.3 mg/dL [facility] ALKALINE PHOSPHATASE 66 39 - 117 U/L [facility] TOTAL BILIRUBIN <0.2 0.0 - 1.2 mg/dL [facility] AST 22 0 - 37 U/L [facility] ALT 17 0 - 40 U/L [facility] GLOBULIN 3.3 1 - 4.8 g/dL [facility] EGFR 91 >59 mL/min/1.7 3m2 [facility] Comment:Estimated glomerular filtration rate calculated using the CKD-EPI refit equation. ANION GAP 16 10 - 20 mmol/L [facility] Blood 01/27/2025 3:04 PM EDT 01/27/2025 3:06 PM EDT Osman Rankin PA-C LAB BLOOD BKR ORDERABLES Nan l Result Performing Organization Address City/[facility]/ZIP Co de Phone Number [address] [address] * TSH (01/27/2025 3:04 PM EDT) TSH 1.53 0.27 - 4.20 uIU/mL [facility] Blood 01/27/2025 3:04 PM EDT 01/27/2025 3:06 PM EDT Osman Rankin PA-C LAB BLOOD BKR ORDERABLES Nan l Result [address] [address] * (ABNORMAL) Hemoglobin A1c (01/27/2025 3:04 PM EDT) HEMOGLOBIN A1C 6.3(H) 4.3 - 5.8 % [facility] Blood 01/27/2025 3:04 PM EDT 01/27/2025 3:06 PM EDT us Osman Rankin PA-C LAB BLOOD BKR ORDERABLES Nan l Result Performing Organization Address City/[facility]/ZIP Co de Phone Number [address] [address] * Lipid panel (01/27/2025 3:04 PM EDT) HDL 44 mg/dL [facility] Comment: Interpretation <40 mg/dL: Low HDL cholesterol (major risk factor for CHD) Greater than or equal to 60 mg/dL: High HDL cholesterol ( negative risk factor for CHD) HDL - cholesterol is affected by a number of factors, e.g. smoking, excerise, hormones, sex and age. CHOLESTEROL 148 0 - 240 mg/dL [facility] TRIGLYCERIDES 145 30 - 160 mg/dL [facility] LDL 75 50 - 129 mg/dL [facility] Comment: LDL levels in terms of risk for coronary heart disease: <100 mg/dL: Optimal 100-129 mg/dL: Near or above optimal 130-159 mg/dL: Borderline high 160-189 mg/dL: High >190 mg/dL: Very High CARDIAC RISK RATIO 3.4 3.4 - 5.0 C [facility] Blood 01/27/2025 3:04 PM EDT 01/27/2025 3:06 PM EDT us Osman Rankin PA-C LAB BLOOD BKR ORDERABLES Nan l Result Performing Organization Address [facility]/ZIP Co de Phone Number [address] [address] * DIABETES EYE EXAM FOR RESULT ENTRY ONLY (08/19/2018) EYE EXAM SEE SCANNED Historical Provider HEALTH MAINTENANCE Final Result from Last 3 Months or Most Recently Relevant to Health Maintenance Insurance MEDICARE PART A & B Daily [facility] PCP REQ SUPPLEMENT [facility] RE[facility] MEDIC[facility] PART A & B [employer] PCP REQ SUPPLEMENT MEDICARE PART A & B [employer] PCP REQ SUPPLEMENT MEDICARE PART A & B [employer] PCP REQ SUPPLEMENT MEDICARE PART A & B [employer] PCP [facility]Q SUPPLEMENT [facility] MEDICARE PART A & B [employer] PCP REQ SUPPLEMENT MEDICARE PART A & B [employer] PCP REQ SUPPLEMENT Care Teams Optics Test Technician Relationship Specialty Start Date End Date Osman Rankin PA-C [address] [place] [address] [email or web address] PCP - General Physician Car Pilot 01/27/25 Per Seay MD [address] [place] [address] Cardiology 11/10/24 Additional Source Comments The information contained in this document represents components of the legal health record. It is not the complete legal health record.[facility]
--- OUTSIDE RECORDS SUMMARY | 2025-03-25 05:22 | XMS_ITS | Clinical Summary ---
Author Organization [facility] Address [address] [place] [address] Care Team Providers Care Coarse Wire Drawer Name Role Phone MariettaKishor DO Primary Care Provider Per Seay MD Unavailable Anton Robledo MD Unavailable [phone] Nabil Narvaez MD Unavailable Allergies No known [...] Vaccine (1 of 2) 1990 RSV Vaccine 50 years and older and Patients (1 - 1-dose 75+ series) 2015 Influenza Vaccine 12/17/2024 01/26/2021, 09/11/2015 COVID-19 Vaccine (3 - season) 2025 02/20/2022, 02/06/2021 Hemoglobin A1C Discontinued 03/14/2021 Hepatitis B Vaccines Aged Out No long er eligible based on patient's age to complete this topic Medical Devices Implanted Type Area Toll Settlement Clerk Device Identifier Shelf Expiration Date Model / Serial / Lot Panta Nail [id number] Implanted:Qty: 1 on 04/27/2021 by Anton Robledo MD at [facility] Nail/Neo Left: Foot [employer] 11/13/2023 [id number] / / [id number] Screw Bone Panta 2 Pthrd 70mm 5mm Nonst Arthds Nail Sys - [id number] Implanted:Qty: 1 on 04/27/2021 by Anton Robledo MD at [facility] Screw [employer] [id number] / / [id number] Screw Bone Panta 2 Flthrd 28mm 5mm Nonst Arthds Nail Sys - [id number] Implanted:Qty: 1 on 04/27/2021 by Anton Robledo MD at [facility] Screw [employer] [id number] / / [id number] Screw Bone Panta 2 Flthrd 24mm 5mm Nonst Arthds Nail Sys - [id number] Implanted:Qty: 1 on 04/27/2021 by Anton Robledo MD at [facility] Screw [employer] [id number] / / Procedures Procedure Name Priority [...] 6.0(H) <5.7 % 03/14/2021 9:14 PM EDT [facility] Comment: A1c% Interpretation 5.7 - 6.0 Increase risk of diabetes 6.1 - 6.4 Higher risk of diabetes > or = 6.5 Consistent with diabetes Diabetes Care, 33(Supp 1):S1-S61, 2009 Estimated Average Glucose 126 mg/dL 03/14/2021 9:14 PM EDT [facility] Blood specimen (specimen) Blood specimen / Unknown 03/14/2021 12:38 PM EDT 03/14/2021 8:38 PM EDT Louann Khanh SOCIAL MEDIA COMMUNITY MANAGER LAB BLOOD ORDERABLES Final R esult HOSPITAL LAB [facility] [address] [place] [address] from Last 3 Months or Most Recently [...] 10:33 AM 04/27/2021 2:56 PM Care Teams Coarse Wire Drawer Relationship Specialty Start Date End Date Kishor Mcmanus DO [address] [place] [address] PCP - General Internal Medicine 02/27/21 Per Seay MD [address] [place] [address] Environmental Scientists Cardiovascular Disease 02/28/21 Anton Robledo MD [address] [place] [id number] Surgery, Orthopedic 03/08/21 Nabil Narvaez MD [address] [place] [id number] Referring Provider Urology 03/08/21
--- OUTSIDE RECORDS SUMMARY | 2025-03-25 05:22 | XMS_ITS | Encounter Summary ---
Author Organization [facility] Address [address] [place] [address] Phone Care Team Providers Care Mogul Operator Name Role Phone Brock Hughes MD Primary Care Provid er Per Seay MD Unavailable [phone] Osman Rankin PA-C Primary Care Provider [phone] Encounter Details Date Type Department Care Team (Late st Contact Info) Description 11/12/2024 Procedure Pass [facility] PERIOPERATIVE DEPT [address] [place] [address] Social History Tobacco Use Types [...] 8:06 PM PETET Gissel Salcido RN * Dana Suicide Severity Rating Scale (Screener/Recent Self-Report) Question Answer Date of Assessment Author 1. Wish to be (Past 1 Month) No 11/12/2024 8:06 PM PETET Gissel Salcido RN 2. Non-Specific Active Suici bar Thoughts (Past 1 Month) No 11/12/2024 8:06 PM EDT Lawanda Salcido, RN 6. Suicidal Behavior (Lifetime) No 8:06 PM EDT Gissel Salcido RN documented as of this encounter Plan of Treatment Upcoming Encounters Date Type Department Care Team (Late st Contact Info) Description 05/02/2025 10:20 AM EST Office Visit [facility] Internal Medicine [address] [place] [address] Osman Rankin PA-C [address] [place] [address] documented as of this encounter Visit Diagnoses Not on filedocumented in this encounter Additional Health Concerns Assessment Noted Time PHQ-2 Depression Total Score: 0 10/27/19 12:57 PM EDT documented as of this encounter Care Teams Mogul Operator Relationship Specialty Start Date End Date Brock Hughes MD [address] [place] [address] PCP - General Internal Medicine 09/17/24 01/26/25 Osman Rankin PA-C [address] [place] [address] PCP - General Physician Reimbursement Coordinator 01/27/25 Per Seay MD [address] [place] [address] Cardiology 11/10/24 documented as of this encounter Additional Source Comments The information contained in this document represents components of the legal health record. It is not the complete legal health record.[facility]
--- OUTSIDE RECORDS SUMMARY | 2025-03-25 05:22 | XMS_ITS | Encounter Summary ---
Author Organization [facility] Address [address] [place] [address] Care Team Providers Care Online Merchandising Coordinator Name Role Phone Kishor Mcmanus DO Primary Care Provider [phone] Per Seay MD Unavailable Anton Robledo MD Unavailable Nabil Narvaez MD Unavailable [phone] Encounter Details Date Type Department Care Team (Late st Contact Info) Description 10/17/2023 Scanned Document [facility] [address] [place] [address] Anton Robledo MD [address] [place] [address] Social History Tobacco Use Types Packs/Day Years [...] on filedocumented in this encounter Care Teams Online Merchandising Coordinator Relationship Specialty Start Date End Date Kishor Mcmanus DO [address] [place] [address] PCP - General Internal Medicine 02/27/21 Per Seay MD [address] [place] [address] Product Technology Scientist Cardiovascular Disease 02/28/21 Anton Robledo MD [address] [place] [address] Surgery, Orthopedic 03/08/21 Nabil Narvaez MD [address] [place] [address] Referring Provider Urology 03/08/21 documented as of this encounter
--- OUTSIDE RECORDS SUMMARY | 2025-03-25 05:22 | XMS_ITS | Encounter Summary ---
Author Organization [facility] Address [address] [place] [address] [place] [address] Phone Care Team Providers Care Food Selector Name Role Phone Brock Hughes MD Primary Care Provid er Per Seay MD Unavailable [phone] Osman Rankin PA-C Primary Care Provider [phone] Encounter Details Date Type Department Care Team (Late st Contact Info) Description 10/18/2024 Procedure Pass [facility], Ct Scan - [address] [id number] Social History Tobacco Use Types Packs/Day Years [...] Description 05/02/2025 10:20 AM EST Office Visit [facility] Internal Medicine [address] [place] [address] Osman Rankin PA-C [address] [place] [address] [email or web address] documented as of this encounter Visit Diagnoses Not on filedocumented in this encounter Care Teams Food Selector Relationship Specialty Start Date End Date Brock Hughes MD [address] [place] [address] [address] [place] [address] PCP - General Internal Medicine 09/17/24 01/26/25 Osman Rankin PA-C [address] [place] [address] PCP - General Physician Diamond Sizer And Sorter 01/27/25 Per Seay MD [address] [address] Cardiology 11/10/24 documented as of this encounter Additional Source Comments The information contained in this document represents components of the legal health record. It is not the complete legal health record.[facility]
--- OUTSIDE RECORDS SUMMARY | 2025-03-25 05:22 | XMS_ITS | Clinical Summary ---
Author Organization [address] Address [address] [place] [address] Phone Care Team Providers Care Referral Manager Name Role Phone Brock Hughes MD Primary Care Provider [phone] Encounters Date Type Department Care Team Description 02/15/[address] [facility] - Main Lab [address] [place] [address] Joaquin Barber PA Urinary tract infection, site not specified from Last 3 Months Social History Tobacco Use Types Packs/Day Years Used Date Smoking Tobacco: Never Assessed Sex and Gender Information Value Date Recorded Sex Assigned at Not on file Legal Sex Male 2:31 PM EST Gender Identity Not on file Sexual Orientation Not on file Plan of Treatment Health Maintenance Due Date Last Done Comments Diabetes: Annual Foot Exam 1950 Diabetes: Annual Retina Eye Exam 1950 DTaP,Tdap,and Td Vaccines (1 - Tdap) 1959 Depression Screening 05/19/2024 COVID-19 Vaccine ( season) 2025 02/06/2021 Diabetes: Annual Urine Albumin-Creatinine Ratio (uACR) 02/15/2025 Diabetes: Blood Sugar Control Test (HGBA1C) 02/15/2025 03/14/2021 Falls Risk Assessment 02/15/2025 Medicare Annual Wellness Visit 02/15/2025 Social Influencers of Health Screening 02/15/2025 Diabetes: Annual GFR (Glomerular Filtration Rate) 01/27/2026 01/27/2025, 04/09/2021, 03/14/2021 Hypertension/CHF/CAD Annual BMP Blood Test 01/27/2026 01/27/2025, 04/09/2021, 03/14/2021 Cholesterol Screening (Lipid Panel) 01/27/2030 01/27/2025 Zoster Vaccines Completed 10/09/2017, 07/18, 04/02/2012 Pneumococcal Vaccine: 50+ Years Completed 05/04/2019, 04/01/2017 RSV Immunization Adult Patients Completed 04/04/2023 Influenza Vaccine Completed 01/27/2025, , 03/20/2023, Additional history exists HIB Vaccines Aged Out No longer eligi ble based on patient's age to complete this topic HPV Vaccines Aged Out No longer eligi ble based on patient's age to complete this topic Hepatitis A Vaccines Aged Out No long er eligible based on patient's age to complete this topic Hepatitis B Vaccines Aged Out No long er eligible based on patient's age to complete this topic IPV Vaccines Aged Out No longer eligi ble based on patient's age to complete this topic MMR Vaccines Aged Out No longer eligi ble based on patient's age to complete this topic Meningococcal ACWY Vaccine Aged Out N o longer eligible based on patient's age to complete this topic Meningococcal B Vaccine Aged Out No l onger eligible based on patient's age to complete this topic RSV Immunization Patients Under 20 months Aged Out No longer eligible based on patient's age to complete this topic Varicella Vaccines Aged Out No longer eligible based on patient's age to complete this topic Procedures Procedure Name Priority Date/Time Associated Diagnosis Comments CULTURE URINE Routine 02/15/2025 12:00 AM EDT Urinary tract infection, site not specified from Last 3 Months Results * (ABNORMAL) Culture urine (02/15/2025 12:00 AM EDT) Culture, Urine >=100,000 CFU/mL Klebsiella pneumoniae ssp pneumoniae(A) LENY 02/19/2025 8:03 AM EDT [facility] Comment: The organism value for this result has been updated. These results have been appended to the previously preliminary verified report. This is an edited result. Previous organism was Gram negative bacilli on 02/17/2025 at 1021 EDT. Edited result: Previously reported as Klebsiella species on 02/18/2025 at 1005 EDT. Culture, Urine 50,000-100,000 CFU/mL Citrobacter freundii(A) LENY 02/19/2025 8:03 AM EDT [facility] Comment: The organism value for this result has been updated. These results have been appended to the previously preliminary verified report. Culture, Urine 10,000-49,000 CFU/mL Enterococcus faecalis(A) LENY 02/19/2025 8:03 AM EDT [facility] Comment: The organism value for this result has been updated. These results have been appended to the previously preliminary verified report. This is an edited result. Previous organism was Enterococcus species on 02/17/2025 at 1021 EDT. Urine Indwelling urinary catheter / Unknown 02/15/2025 02/15/2025 5:59 PM EDT Narrative Organism Antibiotic Method Susceptibility Klebsiella pneumoniae ssp pneumoniae Amoxicillin/Clavulanate LENY <=2 ug/ml: Susceptible Klebsiella pneumoniae ssp pneumoniae Ampicillin/Sulbactam LENY <=2 ug/ml: Susceptible Klebsiella pneumoniae ssp pneumoniae Piperacillin/Tazobactam LENY <=4 ug/ml: Susceptible Klebsiella pneumoniae ssp pneumoniae Cefazolin (Urine) LENY 2 ug/ml: Susceptible Klebsiella pneumoniae ssp pneumoniae Cefoxitin LENY <=4 ug/ml: Susceptible Klebsiella pneumoniae ssp pneumoniae Ceftazidime LENY <=0.5 ug/ml: Susceptible Klebsiella pneumoniae ssp pneumoniae Ceftriaxone LENY <=0.25 ug/ml: Susceptible Klebsiella pneumoniae ssp pneumoniae Cefepime LENY <=0.12 ug/ml: Susceptible Klebsiella pneumoniae ssp pneumoniae Meropenem LENY <=0.25 ug/ml: Susceptible Klebsiella pneumoniae ssp pneumoniae Amikacin LENY <=1 ug/ml: Susceptible Klebsiella pneumoniae ssp pneumoniae Gentamicin LENY <=1 ug/ml: Susceptible Klebsiella pneumoniae ssp pneumoniae Ciprofloxacin LENY <=0.06 ug/ml: Susceptible Klebsiella pneumoniae ssp pneumoniae Levofloxacin LENY <=0.12 ug/ml: Susceptible Klebsiella pneumoniae ssp pneumoniae Nitrofurantoin LENY 64 ug/ml: Intermediate Klebsiella pneumoniae ssp pneumoniae Trimethoprim/Sulfamethoxazol e LENY <=20 ug/ml: Susceptible Citrobacter freundii Amoxicillin/Clavulanate LENY 16 ug/ml: Resistant Citrobacter freundii Cefoxitin LENY >=64 ug/ml: Resistant Citrobacter freundii Ceftazidime LENY <=0.5 ug/ml: Susceptible Citrobacter freundii Ceftriaxone LENY <=0.25 ug/ml: Susceptible Citrobacter freundii Cefepime LENY <=0.12 ug/ml: Susceptible Citrobacter freundii Meropenem LENY <=0.25 ug/ml: Susceptible Citrobacter freundii Amikacin LENY <=1 ug/ml: Susceptible Citrobacter freundii Gentamicin LENY <=1 ug/ml: Susceptible Citrobacter freundii Ciprofloxacin LENY <=0.06 ug/ml: Susceptible Citrobacter freundii Levofloxacin LENY 0.25 ug/ml: Susceptible Citrobacter freundii Nitrofurantoin LENY <=16 ug/ml: Susceptible Citrobacter freundii Trimethoprim/Sulfam ethoxazol e LENY <=20 ug/ml: Susceptible Enterococcus faecalis Benzylpenicillin LENY 4 ug/ml: Susceptible Enterococcus faecalis Ampicillin LENY <=2 ug/ml: Susceptible Enterococcus faecalis Ciprofloxacin LENY <=0.5 ug/ml: Susceptible Enterococcus faecalis Levofloxacin LENY 1 ug/ml: Susceptible Enterococcus faecalis Linezolid LENY 2 ug/ml: Susceptible Enterococcus faecalis Vancomycin LENY 1 ug/ml: Susceptible Enterococcus faecalis Tetracycline LENY >=16 ug/ml: Resistant Enterococcus faecalis Nitrofurantoin LENY <=16 ug/ml: Susceptible us Joaquin R Sunil PA LAB MICROBIOLOGY - GENERAL ORD ERABLES Final Result [facility] [address] [place] [address], [place] [phone] from Last 3 Months Insurance MEDICARE [facility]) Care Teams Referral Manager Relationship Specialty Start Date End Date Brock Hughes MD [facility] [address] [place] [address] PCP - General Internal Medicine 02/15/25
--- OUTSIDE RECORDS SUMMARY | 2025-03-25 05:22 | XMS_ITS | Encounter Summary ---
Author Organization [facility] Address [address] [place] [address] Care Team Providers Care Center Consultant Name Role Phone Kishor Mcmanus DO Primary Care Provider Per Seay MD Unavailable Anton Robledo MD Unavailable Nabil Narvaez MD Unavailable [phone] Encounter Details Date Type Department Care Team (Late st Contact Info) Description 11/30/2022 Scanned Document [facility] [address] [place] [address] Anton Robledo MD [address] [place] [address] Social History Tobacco Use Types Packs/Day Years [...] on filedocumented in this encounter Care Teams Center Consultant Relationship Specialty Start Date End Date Kishor Mcmanus DO [address] [place] [address] PCP - General Internal Medicine 02/27/21 Per Seay MD [address] [place] [address] Supervisor Asbestos Textile Cardiovascular Disease 02/28/21 Anton Robledo MD [address] [place] [address] Surgery, Orthopedic 03/08/21 Nabil Narvaez MD [address] [place] [address] Referring Provider Urology 03/08/21 documented as of this encounter
--- OUTSIDE RECORDS SUMMARY | 2025-03-25 05:22 | XMS_ITS | Encounter Summary ---
Author Organization Address [address] [place] [address] Care Team Providers Care Airborne Electronics Analyst Name Role Phone Brock Hughes MD Primary Care Provider [phone] Encounter Details Date Type Department Care Team (Late st Contact Info) Description 02/15/[address] [facility] - Main Lab [address] [facility] [place] [address] Joaquin Barber, JOSE ARMANDO [address] [place] [address] Urinary tract infection, site not specified Social History Tobacco Use Types Packs/Day Years Used Date Smoking Tobacco: Never Assessed Sex and Gender Information Value Date Recorded Sex Assigned at Not on file Legal Sex Male 2:31 PM EST Gender Identity Not on file Sexual Orientation Not on file documented as of this encounter Plan of Treatment Not on file documented as of this encounter Procedures Procedure Name Priority Date/Time Associated Diagnosis Comments CULTURE URINE Routine 02/15/2025 12:00 AM EDT Urinary tract infection, site not specified documented in this encounter Results * (ABNORMAL) Culture urine (02/15/2025 12:00 AM EDT) Culture, Urine >=100,000 CFU/mL Klebsiella pneumoniae ssp pneumoniae(A) LENY 02/19/2025 8:03 AM EDT [facility] Comment: The organism value for this result has been updated. These results have been appended to the previously preliminary verified report. This is an edited result. Previous organism was Gram negative bacilli on 02/17/2025 at 1021 EDT. Edited result: Previously reported as Klebsiella species on 02/18/2025 at 1005 EDT. Culture, Urine 50,000-100,000 CFU/mL Citrobacter freundii(A) LENY 02/19/2025 8:03 AM EDT [facility] Comment: The organism value for this result has been updated. These results have been appended to the previously preliminary verified report. Culture, Urine 10,000-49,000 CFU/mL Enterococcus faecalis(A) LENY 02/19/2025 8:03 AM EDT [facility] Comment: The organism value for [...] Nitrofurantoin LENY <=16 ug/ml: Susceptible us Joaquin Barber PA LAB MICROBIOLOGY - GENERAL ORD ERABLES Final Result Performing Organization Address [facility]/State/ZIP Co de Phone Number [facility] [address] [place] [address], documented in this encounter Visit Diagnoses Diagnosis Urinary tract infection, site not specified documented in this encounter Care Teams Airborne Electronics Analyst Relationship Specialty Start Date End Date Brock Hughes MD [address] [place] [address] PCP - General Internal Medicine 02/15/25 documented as of this encounter
--- OUTSIDE RECORDS SUMMARY | 2025-03-25 05:22 | XMS_ITS | Encounter Summary ---
Author Organization [facility] Address [address] [place] [address] [place] [address] Phone Care Team Providers Care Clinical Dietitian Name Role Phone Brock Hughes MD Primary Care Provid er Per Seay MD Unavailable [phone] Osman Rankin PA-C Primary Care Provider [phone] Encounter Details Date Type Department Care Team (Late st Contact Info) Description 10/18/2024 Procedure Pass [facility], Ct Scan - [address] [id number] Social History Tobacco Use Types Packs/Day Years [...] Description 05/02/2025 10:20 AM EST Office Visit [facility] Internal Medicine [address] [place] [address] Osman Rankin PA-C [address] [place] [address] [email or web address] documented as of this encounter Visit Diagnoses Not on filedocumented in this encounter Care Teams Clinical Dietitian Relationship Specialty Start Date End Date Brock Hughes MD [address] [place] [address] [address] [place] [address] PCP - General Internal Medicine 09/17/24 01/26/25 Osman Rankin PA-C [address] [place] [address] PCP - General Physician Shield Runner 01/27/25 Per Seay MD [address] [address] Cardiology 11/10/24 documented as of this encounter Additional Source Comments The information contained in this document represents components of the legal health record. It is not the complete legal health record.[facility]
--- OUTSIDE RECORDS SUMMARY | 2025-03-25 05:22 | XMS_ITS | Encounter Summary ---
Author Organization [facility] Address [address] [place] [address] Care Team Providers Care Director Of Physician Practices Name Role Phone Kishor Mcmanus DO Primary Care Provider Per Seay MD Unavailable [phone] Anton Robledo MD Unavailable Nabil Narvaez MD Unavailable [phone] Encounter Details Date Type Department Care Team (Late st Contact Info) Description 10/08/2023 Scanned Document [facility] [address] [place] [address] Anton Robledo MD [address] [place] [address] Social History Tobacco Use Types Packs/Day Years [...] on filedocumented in this encounter Care Teams Director Of Physician Practices Relationship Specialty Start Date End Date Kishor Mcmanus DO [address] [place] [address] PCP - General Internal Medicine 02/27/21 Per Seay MD [address] [place] [address] Fire Prevention Chief Cardiovascular Disease 02/28/21 Anton Robledo MD [address] [place] [address] Surgery, Orthopedic 03/08/21 Nabil Narvaez MD [address] [place] [address] Referring Provider Urology 03/08/21 documented as of this encounter
--- OUTSIDE RECORDS SUMMARY | 2025-03-25 05:22 | XMS_ITS | Encounter Summary ---
Author Organization [facility] Address [address] [place] [address] Care Team Providers Care Long Term Acute Care Registered Nurse Name Role Phone Kishor Mcmanus DO Primary Care Provider Per Seay MD Unavailable Anton Robledo MD Unavailable Nabil Narvaez MD Unavailable [phone] Encounter Details Date Type Department Care Team (Late st Contact Info) Description 06/06/2023 Scanned Document [facility] [address] [place] [address] Anton Robledo MD [address] [place] [address] Social History Tobacco Use Types Packs/Day Years [...] on filedocumented in this encounter Care Teams Long Term Acute Care Registered Nurse Relationship Specialty Start Date End Date Kishor Mcmanus DO [address] [place] [address] PCP - General Internal Medicine 02/27/21 Per Seay MD [address] [place] [address] Uke Operator Cardiovascular Disease 02/28/21 Anton Robledo MD [address] [place] [address] Surgery, Orthopedic 03/08/21 Nabil Narvaez MD [address] [place] [address] Referring Provider Urology 03/08/21 documented as of this encounter
[2025-03-25 05:27] LABS: Troponin-I High Sensitivity 3.6 ng/L (<3.5-35.0)
[2025-03-25 05:33] LABS: Platelet Count 135 X10*3/uL (160-400)
[2025-03-25 06:16] VITALS: BP 125/64; PULSE 74; RESP 16; TEMP 36.7; O2SAT 94
[2025-03-25 07:13] LABS: Troponin-I High Sensitivity 3.8 ng/L (<3.5-35.0)
[2025-03-25 07:34] VITALS: BP 125/64; PULSE 74; RESP 16; TEMP 36.7; O2SAT 94
== END 2025-03-25 07:39 | disposition home or self-care (01) ==
PROVIDERS: Emergency Provider Emergency Medicine; PCP Internal Medicine
DX: R07.89 Other chest pain (principal); I48.91 Unspecified atrial fibrillation; R06.02 Shortness of breath; Z79.01 Long term (current) use of anticoagulants; Z79.899 Other long term (current) drug therapy; Z87.891 Personal history of nicotine dependence
CPT/HCPCS: 36415; 71046; 80053; 84484; 85025; 93005; 99284

== ENCOUNTER → 2025-03-25 04:24 | Outpatient (BNV) | payer MEDICARE, BC, SELFPAY | PROVIDERS: Emergency Provider Emergency Medicine; PCP Internal Medicine; Visit Provider Internal Medicine Cardiovascular Disease | DX: R07.9 Chest pain, unspecified (principal) | CPT/HCPCS: 93010 ==

== ENCOUNTER → 2025-03-25 05:02 | Outpatient (BNV) | payer MEDICARE, BC, SELFPAY | PROVIDERS: Emergency Provider Emergency Medicine; PCP Internal Medicine; Visit Provider Radiology Diagnostic Radiology | DX: J84.9 Interstitial pulmonary disease, unspecified (principal); M47.815 Spondylosis without myelopathy or radiculopathy, thoracolumbar region; M41.85 Other forms of scoliosis, thoracolumbar region | CPT/HCPCS: 71046 ==